=== PATIENT | female | born 1960 | race Caucasian/White ===

== ENCOUNTER → 2017-11-09 11:34 | Outpatient (CLI) | payer OTHER, SELFPAY ==
--- NOTE | 2017-11-09 11:37 | RAD_ITS ---
STUDY: X-RAY - LEFT SHOULDER REASON FOR EXAM: Female, 56 years old. Left shoulder pain. No known injury. TECHNIQUE: 4 view(s) of the shoulder. COMPARISON: None. FINDINGS: There is mild degenerative arthrosis of the glenohumeral articulation. Normal acromioclavicular joint. Normal acromion. Normal humeral head and visualized proximal humerus. The soft tissue structures are unremarkable. Normal visualized pulmonary apex. RAD/Shoulder min 2 Views IMPRESSION: Mild degree of degenerative changes. Electronically Signed: Ilir Jackson MD at 12:22 EDT Tel [phone], Service support ,
== END ==
PROVIDERS: Family Provider Internal Medicine; PCP Internal Medicine; Visit Provider Physician Assistant Surgical
DX: S46.912A Strain of unspecified muscle, fascia and tendon at shoulder and upper arm level, left arm, initial encounter (principal); X58.XXXA Exposure to other specified factors, initial encounter; M19.012 Primary osteoarthritis, left shoulder
CPT/HCPCS: 73030

== ENCOUNTER 2018-03-23 15:30 | Outpatient (RCR) | payer OTHER, SELFPAY ==
--- NOTE | 2018-02-17 16:53 | HP.PTEVAL_ITS ---
Patient's Visit Information JAMES BOURGEOIS is a 57 year old F referred to Physical Therapy by JANE Cavanaugh with a diagnosis of L shoulder strain.. Date of Evaluation: 02/17/18 Physical Therapist: Isaiah Rabago DPT, OC - Visit Plan Frequency: 3x /Week Duration: 4-6 Weeks Plan: 3x/week for 4 weeks for: 1. US nonthermal B shoulder. 2. PROM and grade 1 mobs B shoulder. 3. pulleys and keyona IR when able. 4. Teach shoulder and scap strength for HEP as able. ES if needed. - Subjective Subjective: B shoulder pain, L started a couple weeks ago and could hardly move L shoulder. Progressed since then. R one started hurting a few days ago. Neck always hurts and is chronic, worse with hands over head. H/o migraines. Numbness in B posterior hands but this is normal for her. Sleep is interrupted and tosses and turns due to shoulders. 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 Has psoriatic arthritis in hands,feet knees. Can't play volleyball in the last year. Having trouble crawling on floor with grandPersistIQby, holding her is hard.Dressing shirt hurts, reaching in shower hurts...was not that way before. - Pain L shoulder Pain Intensity (Out of 10): 2 Pain Intensity Range: 2 R shoulder Pain Intensity (Out of 10): 5 Pain Intensity Range: 1, 5 - Objective R>L pain today. Posture is forward head and ant scap. C/S aROM WFL and without pain, no asymmetries today. Scap ROM is good, retraction slightly limited. Elbow and wrist ROM WFL. Shoulders B ROM tight at end of flexion and abd but full PROM, pain at end range of activie adn passive IR/ER, flex, abd. Strength 4/5 int rotation, 3/5 R ext rot adn 4- L both with pain. Flexion and abd B painful and 3+. - Tory burns and + neer., + B scour test. + empty can B. Much better AROM flexion after keyona flexion. - Goals Goal 1:: Full UE AROM without pain Goal Time Frame: 4-6 Weeks Goal 2:: Work without noticing pain Goal Time Frame: 4-6 Weeks Goal 3:: I approp HEP for ROM adn strength adn to minimize future problems. Goal Time Frame: 4-6 Weeks - Rehabilitation Potential Physical Therapy Diagnosis: B shoulder OA Rehabilitation Potential: Good - Anticipated Interventions Patient/Client Instruction: Educate patient on: Condition, Plan of Care For the Purpose of:: To decrease pain, To decrease swelling/inflammation, To inc rease tolerance to activity/condition/position Therapeutic Exercise to Include: Strength training, Postural training, Passive ROM, Active ROM, Scapular Strength/Stabilization For the Purpose of:: To decrease pain, To increase ROM, To improve muscle performance and motor function, To improve ability of physical actions for home/community/work/leisure Manual Therapy Techniques to Include: Mobilization, Passive ROM, Soft tissue mobilization For the Purpose of:: To decrease pain, To increase tolerance to activity/condition/position TENS: Yes Cryotherapy (ice pack, ice massage): Yes Ultrasound (thermal/non thermal): Yes - nonthermal B shoulders. For the Purpose of:: To increase tolerance to activity/condition/position, To improve ability of physical actions for home/community/work/leisure Thank you for the opportunity to evaluate your patient. For Medicare and Medicare HMO plans, please review the plan of care and approve it. It will need to be FAXED BACK to us at [phone] for Medicare purposes. Please let me know if there are questions or concerns regarding this plan of care. Physician Signature: Date:
--- NOTE | 2018-03-23 15:47 | HP.PTDCSUM ---
HP - PT D/C Summary It has been my pleasure to treat JAMSE BOURGEOIS under orders from JANE Cavanaugh, for the diagnosis of L shoulder strain. for a total of 11 visit(s). Discharge Date: 03/23/18 Please see the following information for a summary of their discharge status. - Subjective Subjective: Very tired. has acute bronchitis. Rested last weekend and feels good this week. Doiong pendulum and doing great with 5# weight. No pain today. Will continue band exercises at home. Dizzyness is chronic. Will see ENT Apr 07. - Pain L shoulder Pain Intensity (Out of 10): 0 R shoulder Pain Intensity (Out of 10): 3 - Overall Improvement % Improvement: 90 - Objective Objective/Function: Full aROM B UE and neck without pain today. Posture is improved. Pt happy and ready to be done with PT today. - Goals Goal 1:: Full UE AROM without pain Goal Progress: Goal Met Goal 2:: Work without noticing pain Goal Progress: Goal Met Goal 3:: I approp HEP for ROM adn strength adn to minimize future problems. Goal Progress: Goal Met - Plan Plan: d/c, will check vertigo after patient sees Dr. Bernal(waiting at her request) - D/C Information Discharge Comments: Pt to notify doctor if pain returns. If there are questions or concerns regarding this patient's physical therapy, please feel free to call me at [phone]. Thank you for the referral of this patient. Sincerely, Isaiah Rabago, DPT, OC
== END 2018-03-23 19:00 | disposition home or self-care (01) ==
LOC: PT 15:30
PROVIDERS: Family Provider Internal Medicine; PCP Internal Medicine; Referring Provider Physician Assistant Surgical; Visit Provider Physician Assistant Surgical
DX: S46.912D Strain of unspecified muscle, fascia and tendon at shoulder and upper arm level, left arm, subsequent encounter (principal)
CPT/HCPCS: 97035; 97110; 97140; 97162; 97530

== ENCOUNTER → 2018-04-07 10:16 | Outpatient (CLI) | payer OTHER, SELFPAY ==
[2018-03-22 14:06] VITALS: BMI 46.4
--- NOTE | 2018-04-07 10:20 | BI_ITS ---
MAMMOGRAPHY - BILATERAL SCREENING REASON FOR EXAM: Female, 57 years old. Routine annual screening examination. PERTINENT HISTORY: Sister with breast cancer. TECHNIQUE: Digital bilateral breast romain (3D mammographic acquisition) in the CC and MLO projections. 2-D mediolateral oblique (MLO) and craniocaudad (CC) views of both breasts were obtained. CAD: Full Field Digital Mammography with Computer Added Detection was performed. COMPARISON: Comparison is made with prior study dated November 25, 2016 and August 22, 2015. FINDINGS: Breast Composition: The breasts are almost entirely fatty. There are no dominant masses or suspicious calcifications. Stable small benign-appearing bilateral axillary lymph nodes. No other significant abnormalities are identified. There has been no significant change since the prior study. BI/SCREENING MAMM (CAD), BILAT IMPRESSION: Stable bilateral screening mammogram. Yearly follow-up mammogram recommended. (A) ASSESSMENT CATEGORY: BIRADS Category 2: Benign. A letter regarding these results will be sent to the patient by the facility within 30 days. Approximately 10% of breast cancers are not detected by mammography. A normal mammogram should not delay biopsy of a clinically suspicious abnormality. [id number] Electronically Signed: Ilir Jackson MD at 11:58 EST Tel [phone], Service support ,
[2018-04-07 10:21] LABS: Absolute Lymphocyte Count 1.32 X10^3/ul (0.83-4.51); Absolute Neutrophil Count 2.9 X10^3/uL (2.0-7.7); Basophil# 0.01 X10^3/uL; Basophil% 0.2 % (0-1); Eosinophil# 0.16 X10^3/uL; Eosinophils% 3.3 % (0-5); Hematocrit 38.9 % (37-47); Hemoglobin 12.3 g/dl (12.0-15.0); Lymphocyte # 1.32 X10^3/ul (4.0); Lymphocyte % 27.2 % (19-41); Mean Corp Hgb Conc 31.6 g/gl (32-36); Mean Corpuscular Hgb 28.1 pg (27.0-32.0); Mean Platelet Vol. 10.1 fl (6.2-12.0); Monocyte# 0.46 X10^3/uL; Monocyte% 9.5 % (0-10); Neutrophil # 2.91 X10^3/uL (2.7-7.7); Neutrophil % 59.8 % (47-70); Platelet Count 312 K/mm3 (150-450); RBC Distribution Width CV 14.6 % (11.6-14.6); RBC Distribution Width SD 47.8 fl (35.1-43.9); Red Blood Count 4.37 M/mm3 (4.2-5.4); White Blood Count 4.9 K/mm3 (4.4-11.0)
[2018-04-07 10:22] LABS: POSITIVE COUNT NO; POSITIVE DIFFERENTIAL NO; POSITIVE MORPHOLOGY NO
--- NOTE | 2018-04-07 10:23 | BD_ITS ---
STUDY: DUAL ENERGY X-RAY ABSORPTIOMETRY / DXA REASON FOR EXAM: Female, 57 years old. Early menopause. Loss of height. TECHNIQUE: Bone Mineral Density (BMD) measurements of lumbar spine and bilateral hips were obtained. COMPARISON: Comparison is made with prior study dated August 28, 2015. FINDINGS: Lumbar Spine (L1-L4): g/cm2 (1.041) / T-score (-1.2) / Z-score (-0.3) Findings are suggestive of osteopenia with a low fracture risk. Left Femur Total: g/cm2 (0.965) / T-score (-0.3) / Z-score (0.3) Left Femoral Neck: g/cm2 (0.881) / T-score (-1.1) / Z-score (-0.1) Right Femur Total: g/cm2 (1.017) / T-score (0.1) / Z-score (0.7) Right Femoral Neck: g/cm2 (0.963) / T-score (0.5) / Z-score (0.5) The T-Scores on the most recent prior examination were: Lumbar Spine (L1-L4): There has been worsening of bone density since the previous examination. Left Femur Total: which represents a worsening of 1.8%. Right Femur Total: which represents a worsening of 0.2%. BD/Dexa Bone Density Study IMPRESSION: The patient is considered osteopenic as outlined below according to World Aris Organization (WHO) criteria with a low fracture risk. There has been worsening of bone density since the previous examination. Reference Information: The T-score is the number of standard deviations above or below the standard which is normal for young adults at their peak bone mineral density. The World Health Organization (WHO) interprets the T-scores as follows: Above -1 Normal bone density Between -1 and -2.5 Osteopenia Equal to / or below -2.5 Osteoporosis As a practical clinical guideline, osteopenia may be graded as follows: Mild -1 through -1.5 Moderate -1.6 through -2.0 Severe -2.1 through -2.4 The Z-score is the number of standard deviations above or below age-matched controls. A Z-score of less than -1.5 would be considered abnormal. References: 1. NIH Osteoporosis and Related Bone Diseases http://www.osteo.org 2. International Society for Clinical Densitometry http://www.iscd.org 3. National Osteoporosis Foundation http://www.nof.org Electronically Signed: Ilir Jackson MD at 10:46 EST Tel [phone], Service support ,
[2018-04-07 10:44] LABS: Vitamin B12 > 2000 pg/mL (211-911)
[2018-04-07 10:45] LABS: ALB/GLOB Ratio 0.8 RATIO (0.9-2.4); AST(SGOT) 26 U/L (15-37); Alanine Aminotransfer ALT/SGPT 25 U/L (13-56); Albumin, Serum 3.3 g/dL (3.2-5.0); Alkaline Phosphatase 78 U/L (45-117); Anion Gap 8 (5-15); BUN 21 mg/dL (7-18); BUN/Creat Ratio 16.2 RATIO (10-20); Calcium,Total 8.9 mg/dL (8.5-10.1); Chloride 106 mmol/L (98-107); Cholesterol 267 mg/dL (200); EST Glomerular Filtration Rate 45 mL/min (>60); Est Glom Filt Rate - Afr Amer 55 mL/min (>60); Glucose 96 mg/dL (74-106); High Density Lipoprotein 73 mg/dL; Potassium 3.9 mmol/L (3.5-5.1); Protein, Total 7.3 g/dL (6.4-8.2); Sodium Level 141 mmol/L (136-145); Triglycerides 95 mg/dL; Very Low Density Lipoprotein 19 mg/dL (5-40)
== END ==
PROVIDERS: Family Provider Internal Medicine; PCP Internal Medicine; Referring Provider Internal Medicine; Visit Provider Internal Medicine
DX: Z12.31 Encounter for screening mammogram for malignant neoplasm of breast (principal); K91.2 Postsurgical malabsorption, not elsewhere classified; M81.0 Age-related osteoporosis without current pathological fracture; Z80.3 Family history of malignant neoplasm of breast
CPT/HCPCS: 36415; 77063; 77067; 77080; 80053; 80061; 82306; 82607; 85025

== ENCOUNTER → 2018-04-13 17:23 | Outpatient (CLI) | payer OTHER, SELFPAY ==
[2018-03-22 14:06] VITALS: BMI 46.4
[2018-04-13 08:53] VITALS: BMI 46.4
--- NOTE | 2018-04-13 17:27 | CT_ITS ---
HISTORY: CHRONIC SPHENOID SINUSITIS, TECHNIQUE: Helically acquired images were obtained of the paranasal sinuses. A radiation dose optimization technique was used for this scan. IV Contrast dosage and agent: None. COMPARISON: None FINDINGS: The paranasal sinuses are well developed. The left sphenoid sinus is large compared to the smaller right sphenoid. The paranasal sinuses are clear throughout. The ostiomeatal units are patent bilaterally. The nasal septum shows minor S-shaped curvature anteriorly to the right and posteriorly to the left. Nasal turbinates are not enlarged. The left mastoid is better developed than the right. Middle air cavities appear clear. CT/Sinus/Facial Bone IMPRESSION: 1. The paranasal sinuses including sphenoid sinuses are clear. 2. Nasal septal minor deviation, not believe significant. Individualized dose optimization techniques were used for this CT. at 0742 Reported and signed by: Wesley Mckeon MD Electronically Signed: Wesley Mckeon, at 7:40 EST Tel , Service support ,
--- OUTSIDE RECORDS SUMMARY | 2018-05-30 22:22 | XMS RPT_ITS ---
:1960 Author Organization OHIP Support Name Relationship Address Phone LIANE SYKES Unavailable [address] + [place] [address] [facility] Unavailable [address] + [place] [address] LIANE SYKES Unavailable [address] + [place] [address] [facility] Unavailable [address] + [place] [address] LIANE SYKES Unavailable [address] + [place] [address] [facility] Unavailable [address] + [place] [address] DANE SYKESO Unavailable [address] + [place] [address] [facility] Unavailable [address] + [place] [address] DANE SYKESO Unavailable [address] + [place] [address] [facility] Unavailable [address] + [place] [address] SIM SYKESARDO Unavailable [address] + [place] [address] [facility] Unavailable [address] + [place] [address] DANE SYKESO Unavailable [address] + [place] [address] [facility] Unavailable [address] + [place] [address] SIM SYKESARDO Unavailable [address] + [place] [address] [facility] Unavailable [address] + [place] [address] CHRISTELLE, LIANE Unavailable [address] + [place] [address] [facility] Unavailable [address] + [place] [address] CHRISTELLE, LIANE Unavailable [address] + [place] [address] [facility] Unavailable [address] + [place] [address] CHRISTELLE, LIANE Unavailable [address] + [place] [address] [facility] Unavailable [address] + [place] [address] CHRISTELLE, LIANE Unavailable [address] + [place] [address] [facility] Unavailable [address] + [place] [address] CHRISTELLE, LIANE Unavailable [address] [place] [address] RD + [place] [address] [facility] Unavailable [address] + [place] [address] CHRISTELLE, LIANE Unavailable [address] [place] [address] RD + [place] [address] [facility] Unavailable [address] + [place] [address] CHRISTELLE, LIANE Unavailable [address] + [place] [address] [facility] Unavailable [address] + [place] [address] CHRISTELLE, LIANE Unavailable [facility] [address] + [place] [address] [facility] Unavailable [address] + [place] [address] CHRISTELLE, LIANE Unavailable [facility] [address] + [place] [address] [facility] Unavailable [address] + [place] [address] CHRISTELLE, LIANE Unavailable [facility] [address] + [place] [address] [facility] Unavailable [address] + [place] [address] LIANE SYKES Unavailable [address] + [place] [address] [facility] Unavailable [address] + [place] [address] Care Team Providers Name Role Phone Winifred Wang D.C. Attending Unavailable Oleghe, Efewongbe Referring Unavailable CainAdam RETAIL INTERIOR DESIGNER-C Attending Unavailable Oleghe, Efewongbe Referring Unavailable Jabari, Rashid Attending Unavailable Oleghe, Efewongbe Primary Care Unavailable Jabari, Rashid Attending Unavailable Oleghe, Efewongbe Referring Unavailable Jabari, Rashid Attending Unavailable Sujata Reece Attending Unavailable Cain, Adam RETAIL INTERIOR DESIGNER-C Attending Unavailable Cain, Adam RETAIL INTERIOR DESIGNER-C Referring Unavailable Oleghe, Efewongbe Primary Care Unavailable Dennis Canales D.O. Attending Unavailable Oleghe, Efewongbe Referring Unavailable Bernal, Isaiah Attending Unavailable Bernal, Isaiah Referring Unavailable Oleghe, Efewongbe Primary Care Unavailable Jose Maria Johnson Attending Unavailable Talampas, Desi Referring Unavailable Talampas, Desi Primary Care Unavailable Talampas, Desi Primary Care Unavailable Referred, Self Attending Unavailable Jabari, Rashid Attending Unavailable Jabari, Rashid Referring Unavailable Talampas, Desi Primary Care Unavailable Jabari, Rashid Attending Unavailable Talampas, Desi Referring Unavailable Talampas, Desi Primary Care Unavailable Jabari, Rashid Attending Unavailable Jabari, Rashid Referring Unavailable Oleghe, Efewongbe Primary Care Unavailable Oleghe, Efewongbe Attending Unavailable Oleghe, Efewongbe Referring Unavailable Oleghe, Efewongbe Primary Care Unavailable Oleghe, Efewongbe Attending Unavailable Oleghe, Efewongbe Referring Unavailable Jabari, Rashid Attending Unavailable Oleghe, Efewongbe Referring Unavailable Bernal, Isaiah Attending Unavailable Bernal, Isaiah Referring Unavailable Oleghe, Efewongbe Primary Care Unavailable Winifred Wang D.C. Attending Unavailable Oleghe, Efewongbe Referring Unavailable PROBLEMS PROBLEMS DATE TYPE CONDITION / CODE ATTENDING STATUS SOURCE 05/11/2018 Unknown J44.9 - Chronic Dennis Parker, Active [facility] obstructive D[facility] pulmonary disease, Hospital unspecified / Repository J44.9(ICD-10) 04/20/2018 Unknown R94.4 - Abnormal Adam Cain Active [facility] results of kidney RETAIL INTERIOR DESIGNER-C [facility] function studies / Hospital R94.4(ICD-10) Repository 04/14/2018 Unknown M99.05 - Segmental Dossie, Winifred Active [facility] and somatic D[facility] dysfunction of Hospital pelvic region / Repository M99.05(ICD-10) 04/14/2018 Unknown M99.03 - Segmental Dossie, Winifred Active [place] and somatic [facility] Community dysfunction of Hospital lumbar region / Repository M99.03(ICD-10) 04/07/2018 Unknown K91.2 - Oleghe, Active [facility] elsewhere Repository classified / K91.2(ICD-10) 04/07/2018 Unknown Z12.31 - Encounter Oleghe, Active [facility] for screening [facility] mammogram for Hospital malignant neoplasm Repository of breast / Z12.31(ICD-10) 04/06/2018 Unknown S46.912D - Strain Rashid Barboza Active [place] of unspecified Community muscle, fascia and Hospital tendon at shoulder Repository and upper arm level, left arm, subsequent encounter / S46.912D(ICD-10) 03/22/2018 Unknown J20.9 - Acute Rashid Barboza Active [facility] bronchitis, Community unspecified / Hospital J20.9(ICD-10) Repository 03/03/2018 Unknown R42 - Dizziness Oleghe, Active [place] and giddiness / [facility] Community R42(ICD-10) Hospital Repository 11/09/2017 Unknown S46.912A - Strain Rashid Barboza Active [facility] of unspecified Community muscle, fascia and Hospital tendon at shoulder Repository and upper arm level, left arm, initial encounter / S46.912A(ICD-10) PROCEDURES PROCEDURES No Procedure Records FoundRESULTS RESULTS DISCHARGE INSTRUCTION Observed: 05/20/2018 Status: F Source: [place] 10:27 AM [facility] HOSPITAL REPOSITORY [facility] Medical Records Department [address] [place] [address] Instructions for Home/Discharge Instructions 05/20/18 1026 MR#: [id number] Acct: [id number] Name: ZAKIA SYKES Rep #: [id number] : 1960 57 From: Isaiah Bernal MD PCP: Lenka Ferguson MD Status: REG SDC Discharge Diet: No Restrictions Discharge Activity: Return to Normal Activity Call your doctor if your incision/area has: Sudden Increased Bleeding Call your doctor if you observe: Fever of 101 or Higher, Uncontrolled pain Allergies/Adverse Reactions: Allergies cat dander Allergy (Verified 05/20/18 08:37) Shortness of breath dog dander Allergy (Verified 05/20/18 08:37) Shortness of breath megestrol Allergy (Verified 05/20/18 08:37) Unknown I get crazy and suicidal shellfish derived Allergy (Verified 05/20/18 08:37) Vomiting MEGISTROL Allergy (Uncoded 05/20/18 08:37) I GET CRAZY AND SUICIDAL Medications to take at Discharge Clonazepam [Klonopin] 0.5 mg PO Q12H PRN 07/24/15 fluocinolone acetonide oil 0.01 % ear drops 5 drp OTIC BID 03/03/18 ipratropium bromide 42 mcg (0.06 %) nasal spray 2 spray INTRANASAL TID 03/03/18 ivermectin 1 % topical cream 1 applic TOPICAL DAILY 03/03/18 albuterol sulfate HFA 90 mcg/actuation aerosol inhaler 1 - 2 puff INHALATION Q4H PRN PRN #8.5 g 03/22/18 montelukast 10 mg tablet 10 mg PO QPM #90 tab 03/22/18 alendronate 70 mg tablet 70 mg PO ESCALERA #12 tab 04/20/18 amitriptyline 10 mg tablet 10 mg PO QHS #90 tab 04/20/18 calcium carbonate 333 mg-magnesium oxide 133 mg-zinc sulf 5 mg tablet 2 tab PO DAILY tab 04/20/18 cholecalciferol (vitamin D3) 5,000 unit capsule 5,000 unit PO DAILY 04/20/18 ferrous gluconate 240 mg (27 mg iron) tablet 240 mg PO DAILY tab 04/20/18 multivitamin tablet 1 tab PO DAILY 04/20/18 pantoprazole 40 mg tablet,delayed release 40 mg PO DAILY #90 tab 04/20/18 paroxetine 40 mg tablet 40 mg PO DAILY #90 tab 04/20/18 rosuvastatin 10 mg tablet 10 mg PO DAILY #90 tab 04/20/18 vitamin E (dl, acetate) 400 unit capsule 400 unit PO DAILY 04/20/18 Meloxicam 0.5%/ Gabapentin 6%,/Lidacaine 2%/ Carmen 1 applic TOPICAL BID 04/27/18 Icosapent Ethyl [Vascepa] 2 g PO BID 05/13/18 Primary Care Physician: Lenka Ferguson MD [Primary Care Provider] - Test Results: Test results from this visit will be discussed in further detail at your follow-up appointment, if applicable. Please Follow Up With: Isaiah Bernal MD When: 2 weeks 05/20/18 1027 <Electronically signed by Isaiah Bernal MD> Date Isaiah Bernal MD CC: Lenka Ferguson MD Signed BURSA/SYNOVIAL CYST Observed: 05/20/2018 Status: F Source: [place] 10:00 AM [facility] REPOSITORY Patient: ZAKIA SYKES : 1960 (57/F) Acct Num: [id number] Phys: Isaiah Bernal MD Unit Num: [id number] Loc: [facility] Specimen: [id number] Received: 05/20/18 - 1110 Spec Type: BURSA TISSUES 1 TISSUES: Bursa, NOS COMMENT The cyst consists of benign respiratory epithelium in associated benign lymphoid tissue. There is no evidence of malignancy. Immunohistochemistry ([id number]) reveals a polytypic lymphoid tissue. Clinical correlation is suggested. GROSS DESCRIPTION Received is one container labeled with the patient name and designated pharyngeal bursal cyst. The specimen consists of one irregular fragment of light valenzuela soft tissue that measures 1 x 0.7 x 0.2 cm. The specimen is totally submitted in one cassette. AM:sp 05/21/18 TC:5 CPT: 93927 HEADER OPERATION: Biopsy, nasopharynx, visible lesion PRE-OP DIAGNOSIS: Pharyngeal bursitis and headache TISSUE SUBMITTED: Pharyngeal bursal cyst MICROSCOPIC DESCRIPTION Slides are reviewed. MICROSCOPIC DIAGNOSIS Pharyngeal bursal cyst, excision: Benign cyst. See comment. AM:cristy 05/23/18 Signed Maxi WellsDO 05/24/18 <signature on file> Performed By: #### PBUR #### [facility] [address] [place], [address] IMMUNOHISTOCHEMISTRY Observed: 05/20/2018 Status: F Source: [place] 12:00 AM [facility] REPOSITORY Patient: ZAKIA SKYES : 1960 (57/F) Acct Num: [id number] Phys: Isaiah Bernal MD Unit Num: [id number] Loc: [facility] Specimen: [id number] Received: 05/23/18 - 1206 Spec Type: IMMUNO TISSUES 1 TISSUES: Bursa, NOS SPECIMEN INFORMATION: Tissue Source: Pharyngeal bursal cyst Clinical Info: Pharyngeal bursitis and headache Specimen Number: [id number] CPT code: 06010, 24282 x11 METHODOLOGY: Deparaffinized sections of prefer/formalin-fixed tissue or PAP/DQ stained slides are incubated with monoclonal/polyclonal antibodies/oligonucleotide probes. Localization is made via biotin free immunoperoxidase method. Appropriate controls are performed and reacted as expected. Results on target cell population are indicated in the following table: RESULTS: ANTIBODY / CLONE RESULT AE1-3 (AE1/AE3/PCK26) positive CK7 (OV-TL12/30) positive CK8 (22xzehJ37) positive CK20 (KS20.8) negative CD3 (PS1) positive CD5 (SP10) positive CD20 (L26) positive CD43 (L60) positive CD45 (RP2/18) positive CD79a (11E3) positive CD138 (B-A38) positive, focal Ki-67 (30-9) negative These tests were developed and their performance characteristics determined by [facility]. They may not have been cleared or approved by the U.S. Food and Drug Administration. The FDA has determined that such clearance or approval is not necessary. INTERPRETATION: Pharyngeal bursal cyst: Consistent with benign pharyngeal cyst, inflamed. AM:antonio 05/24/18 Comment: There is no evidence of lymphoproliferative disorder. PHYSICIAN AND INSTITUTION [facility] [address] [place] [address] Signed Maxi WellsDO 05/24/18 <signature on file> Performed By: #### PIMM #### [facility] [address] [place], [place] [address]e. [place], [address] PULMONARY VISIT REPORT Observed: 05/11/2018 Status: F Source: [place] 7:14 AM [facility] REPOSITORY [facility] Pulmonary Medicine of [address] [place] [address] OFFICE VISIT Date of Service: 05/11/18 MR#: [id number] Acct: [id number] Name: CHRISTELLEZAKIA Garrett Rep #: [id number] : 1960 Provider: Dennis Canales D.O. Age/Sex: 57/F Location: [facility] Status: Signed Assessment AND Plan 1. Chronic obstructive pulmonary disease J44.9 Plan While the patient does have a diagnosis of COPD listed on her medical history, it is more likely that she has mild intermittent asthma. Although she does have significant prior secondhand smoke exposure, she has never been a smoker herself. In order to answer this question definitively, I have recommended that the patient obtain pulmonary function studies. She will continue to utilize albuterol on an as-needed basis in the interim. I will see her back in our office in 1 month to go over the results of her pulmonary function testing. Orders Orders: Plan Detail Goals Decrease pain and spasm Improve ability to walk Follow Up 1 Month (DMB) HPI HPI Comments Details: The patient is a 57-year-old female who presents to the clinic today in referral for evaluation of COPD. The patient is currently being followed by Dr. Ferguson. The patient presents today reporting that she was previously told that she had COPD. However, she is questioning this diagnosis. She does report having been diagnosed with asthma while living in [place] previously. She does currently utilize an albuterol rescue inhaler on an exceedingly infrequent basis. Cat and dog dander tend to be triggers for worsening in her breathing quality. She does report the presence of baseline exertional dyspnea along with intermittent wheezing. She denies the presence of chest tightness or cough. She reports no history of seasonal allergic rhinitis, but she is currently prescribed Singulair. She does report subjective improvement in her breathing quality with use of albuterol. Despite having a diagnosis of COPD listed in her medical history, the patient has never been evaluated by a line therapist previously, nor has she ever undergone formal pulmonary function studies. The patient is currently employed working in patient registration. She does not keep any pets in her home environment. Her weight has been stable. She is currently seeing Dr. Bernal of ENT and is scheduled to undergo some form of a cyst removal this upcoming months. She is a lifelong non-smoker, but does report secondhand smoke exposure, having grown up in a smoking household. She also reports having been exposed to an individual with TB in 1984. She does not recall ever having been treated previously for latent TB. She denies fevers, chills or night sweats. Intake Vital Signs05/11/18 Height 5 ft 5 in 05/11/18 Weight: 249 lb Intake Visit Reasons: COPD Accompanied by: Self Allergies cat dander Allergy (Verified 05/11/18 06:08) Shortness of breath dog dander Allergy (Verified 05/11/18 06:08) Shortness of breath megestrol Allergy (Verified 05/11/18 06:08) Unknown shellfish derived Allergy (Verified 05/11/18 06:08) Vomiting MEGISTROL Allergy (Uncoded 05/11/18 06:08) I GET CRAZY AND SUICIDAL Medications Clonazepam [Klonopin] 0.5 mg PO Q12H PRN 07/24/15 [History Confirmed 05/11/18] Cyclobenzaprine [Flexeril] 10 mg PO QHS 07/24/15 [History Confirmed 05/11/18] fluocinolone acetonide oil 0.01 % ear drops 5 drp OTIC BID 03/03/18 [History Confirmed 05/11/18] gabapentin 100 mg capsule 100 mg PO BID #60 cap 03/03/18 [Rx Confirmed 05/11/18] ipratropium bromide 42 mcg (0.06 %) nasal spray 2 spray INTRANASAL TID 03/03/18 [History Confirmed 05/11/18] ivermectin 1 % topical cream 1 applic TOPICAL DAILY 03/03/18 [History Confirmed 05/11/18] albuterol sulfate HFA 90 mcg/actuation aerosol inhaler 1 - 2 puff INHALATION Q4H PRN PRN #8.5 g 03/22/18 [Rx Confirmed 05/11/18] montelukast 10 mg tablet 10 mg PO QPM #90 tab 03/22/18 [Rx Confirmed 05/11/18] B-complex with vitamin C tablet 2 tab PO DAILY 04/20/18 [History Confirmed 05/11/18] alendronate 70 mg tablet 70 mg PO ESCALERA #12 tab 04/20/18 [Rx Confirmed 05/11/18] amitriptyline 10 mg tablet 10 mg PO QHS #90 tab 04/20/18 [Rx Confirmed 05/11/18] calcium carbonate 333 mg-magnesium oxide 133 mg-zinc sulf 5 mg tablet 1 tab PO BID tab 04/20/18 [History Confirmed 05/11/18] cholecalciferol (vitamin D3) 5,000 unit capsule 5,000 unit PO DAILY 04/20/18 [History Confirmed 05/11/18] ferrous gluconate 240 mg (27 mg iron) tablet 240 mg PO DAILY tab 04/20/18 [History Confirmed 05/11/18] icosapent ethyl 1 gram capsule 2 g PO BID #360 cap 04/20/18 [Rx Confirmed 05/11/18] multivitamin tablet 1 tab PO DAILY 04/20/18 [History Confirmed 05/11/18] omega-3 fatty acids 1,250 mg capsule 1,250 mg PO DAILY 04/20/18 [History Confirmed 05/11/18] pantoprazole 40 mg tablet,delayed release 40 mg PO DAILY #90 tab 04/20/18 [Rx Confirmed 05/11/18] paroxetine 40 mg tablet 40 mg PO DAILY #90 tab 04/20/18 [Rx Confirmed 05/11/18] rosuvastatin 10 mg tablet 10 mg PO DAILY #90 tab 04/20/18 [Rx Confirmed 05/11/18] vitamin E (dl, acetate) 400 unit capsule 400 unit PO DAILY 04/20/18 [History Confirmed 05/11/18] Meloxicam 0.5%/ Gabapentin 6%,/Lidacaine 2%/ Carmen TOPICAL 04/27/18 [History Confirmed 05/11/18] PFSH Family History Mother Diabetes Heart disease Father Diabetes Heart disease Sister Breast cancer Brother Testicular cancer Social History Smoking Status: Never smoker second hand exposure: Yes alcohol intake: never substance use type: does not use what type of physical activity do you participate in: walking Review of Systems Const CONSTITUTIONAL: Positive headache(s); negative anorexia, body ache, chills, daytime sleepiness, fever(s), night sweats, oral thrush, stops breathing during sleep, weight loss, sleeping in chair, fatigue, weight loss, weight gain, frequent colds, seasonal allergies, other or orthopnea EETM Ear Nose Throat Mouth: Positive hearing normal and headache(s); negative hard of hearing, hoarseness, dry mouth in morning, change in vision, itchy eyes, eye pain, swallowing Difficulty, ear pain, nose bleed, mouth pain, nasal congestion, nasal discharge, post nasal drip, sinus pain, sinus pressure, sore throat or other Cardio Cardiovascular: Negative chest pain, chest pain at rest, chest pain with activity, irregular heart rhythm, edema, palpitations, murmur, other or shortness of breath when lying down Resp Respiratory: Positive as per HPI and shortness of breath shortness of breath: Positive with activity; negative pain with cough, wheezing, chest congestion, cough, chest tightness, pain on inspiration, inhalers, increase use of rescue inhalers, snoring, apnea or other Gastro Gastrointestional: Negative bloody stools, change in appetite, difficulty swallowing, reflux, hematemesis, melena stool, loose stool, constipation or other Genitourinary: Negative blood in urine, nocturia, pain with urination or other Musc Musculoskeletal: Negative body pain, back pain, neck pain or other Skin/Breast Skin/Breast: Negative dry skin, itching, rash, unusual bruising, breast lump or other Neuro Neurological: Negative restless legs, confusion, weakness or other Psych Psychocological: Negative abnormal sleep pattern, anxiety, thoughts of hurting self/others, hopelessness or other Lymph Lymphatic: Negative easy bleeding, easy bruising, swollen lymph nodes or other Exam Const Constitutional: Positive conversant, cooperative, in no acute respiratory distress, well developed, well nourished, good hygiene and obese Head Head: Positive normocephalic and atraumatic; negative cyanosis of lips/distal nose Eyes Eye: Positive clear conjunctiva; negative nystagmus or scleral abnormality Ears Ear: Positive hearing normal; negative hard of hearing Nose Nose: Positive external nose normal; negative epistaxis Mouth Mouth: Positive oral mucosae normal and posterior oropharynx is adequate; negative no lesions or post nasal drip Mallampati Score: II: Mallampati Score Neck Neck: Positive normal visual inspection, trachea midline and thick neck; negative lymphadenopathy Chest Wall Chest: Positive symmetric chest movement Normal AP diameter. Resp lung sounds: Positive clear to auscultation and good air exchange; negative wheezes, rhonchi or rales Cardio Cardiac: Positive regular rate, regular rhythm, S1 normal and S2 normal; negative rub, gallop or murmur GI GI: Positive normal bowel sounds and obese Soft without distention Genitourinary: Positive deferred Musc Musculoskeletal: Positive steady gait Skin Pulmonary Skin Exam: Positive intact; negative lesion, ulcers, dermal atrophy or rash Pulses Pulse: Yes Pedal pulses present: Extremities Extremities: No clubbing, No cyanosis, No edema Neuro Neurologic: Yes conversant, Yes no focal neuro deficits, Yes cooperative Lymph Lymphatic: No lymphadenopathy Psych Appearance: Positive grossly normal Mental Status: Positive mental status grossly normal Mood: Positive congruent mood Affect: Positive normal affect Coding Level of Care Code Off vis,new,level 4 Diagnoses Chronic obstructive pulmonary disease J44.9 05/11/18 0714 <Electronically signed by Dennis Canales DO> Date Dennis Canales DO Cosigner Signature: Date (if applicable) CC: Lenka Ferguson MD COMPREHENSIVE METABOLIC Collected: 05/05/2018 Status: F Source: [place] PROFIL 1:35 PM [facility] REPOSITORY TYPE CODE TESTS RESULT OUT OF RANGE REFERENCE UNITS LAB L501.0100 74-106 mg/dL High GLU 141 Result Comment: Fasting Glucose result greater than or equal to 126 mg/dL suggests DIABETES MELLITUS per A.D.A. criteria. Please note revised GLUCOSE reference range effective 2017. LAB L501.1000 7-18 mg/dL Normal BUN 16 LAB L501.1100 0.55-1.02 mg/dL High CREAT,SERUM 1.03 Result Comment: The validity of the calculated GFR AND GFRAA in patients over 70 years has not been determined. Clinical correlation is essential. LAB L501.1110 >60 mL/min Low EST GFR 59 Result Comment: Non- GFR Calc LAB L501.1115 >60 mL/min Normal EST GFR - AA 71 Result Comment: GFR Calc LAB L501.1300 10-20 RATIO Normal BUN/CRE 15.5 LAB L501.1500 6.4-8.2 g/dL T Normal PROT 7.3 LAB L501.1800 3.2-5.0 g/dL Normal ALB 3.4 LAB L501.1950 2.2-4.2 g/dL Normal GLOB 3.9 LAB L501.2000 0.9-2.4 RATIO Normal A/G 0.9 LAB L501.2200 8.5-10.1 mg/dL CA Normal 9.1 LAB L501.4100 15-37 U/L Normal AST 32 LAB L501.4305 45-117 U/L Normal ALK P 88 LAB L501.4405 13-56 U/L Normal ALT 42 LAB L501.4600 0.20-1.00 mg/dL T Normal BILI 0.30 LAB L501.5300 136-145 mmol/L NA Normal 143 LAB L501.5600 3.5-5.1 mmol/L Low K 3.4 LAB L501.5900 98-107 mmol/L CL Normal 104 LAB L501.6100 21.0-32.0 mmol/L Normal CO2 28.0 LAB L501.6200 5-15 Normal GAP 11 Performed By: #### L500.4050 #### [facility] [address] [place], [address] URGENT CARE VISIT Observed: 04/22/2018 Status: F Source: [place] REPORT 12:41 PM [facility] REPOSITORY [facility] [address] [place] [address] OFFICE VISIT Date of Service: MR#: [id number] Acct: [id number] Name: ZAKIA SYKES Rep #: [id number] : 1960 Provider: Rashid LARA Age/Sex: 57/F Location: [facility] Status: Signed Intake Intake Visit Reasons: Amb Documentation Allergies cat dander Allergy (Verified 04/22/18 12:21) Shortness of breath dog dander Allergy (Verified 04/22/18 12:21) Shortness of breath megestrol Allergy (Verified 04/22/18 12:21) Unknown shellfish derived Allergy (Verified 04/22/18 12:21) Vomiting MEGISTROL Allergy (Uncoded 04/22/18 12:21) I GET CRAZY AND SUICIDAL Medications Clonazepam [Klonopin] 0.5 mg PO Q12H PRN 07/24/15 [History Confirmed 04/20/18] Cyclobenzaprine [Flexeril] 10 mg PO QHS 07/24/15 [History Confirmed 04/20/18] fluocinolone acetonide oil 0.01 % ear drops 5 drp OTIC BID 03/03/18 [History Confirmed 04/20/18] gabapentin 100 mg capsule 100 mg PO BID #60 cap 03/03/18 [Rx Confirmed 04/20/18] ipratropium bromide 42 mcg (0.06 %) nasal spray 2 spray INTRANASAL TID 03/03/18 [History Confirmed 04/20/18] ivermectin 1 % topical cream 1 applic TOPICAL DAILY 03/03/18 [History Confirmed 04/20/18] albuterol sulfate HFA 90 mcg/actuation aerosol inhaler 1 - 2 puff INHALATION Q4H PRN PRN #8.5 g 03/22/18 [Rx Confirmed 04/20/18] azithromycin 250 mg tablet See Rx Instructions PO .COMPLEX #6 tab 03/22/18 [Rx Confirmed 04/20/18] montelukast 10 mg tablet 10 mg PO QPM #90 tab 03/22/18 [Rx Confirmed 04/20/18] B-complex with vitamin C tablet 2 tab PO DAILY 04/20/18 [History Confirmed 04/20/18] alendronate 70 mg tablet 70 mg PO ESCALERA #12 tab 04/20/18 [Rx Confirmed 04/20/18] amitriptyline 10 mg tablet 10 mg PO QHS #90 tab 04/20/18 [Rx Confirmed 04/20/18] calcium carbonate 333 mg-magnesium oxide 133 mg-zinc sulf 5 mg tablet 1 tab PO BID tab 04/20/18 [History Confirmed 04/20/18] cholecalciferol (vitamin D3) 5,000 unit capsule 5,000 unit PO DAILY 04/20/18 [History Confirmed 04/20/18] ferrous gluconate 240 mg (27 mg iron) tablet 240 mg PO DAILY tab 04/20/18 [History Confirmed 04/20/18] icosapent ethyl 1 gram capsule 2 g PO BID #360 cap 04/20/18 [Rx Confirmed 04/20/18] multivitamin tablet 1 tab PO DAILY 04/20/18 [History Confirmed 04/20/18] omega-3 fatty acids 1,250 mg capsule 1,250 mg PO DAILY 04/20/18 [History Confirmed 04/20/18] pantoprazole 40 mg tablet,delayed release 40 mg PO DAILY #90 tab 04/20/18 [Rx Confirmed 04/20/18] paroxetine 40 mg tablet 40 mg PO DAILY #90 tab 04/20/18 [Rx Confirmed 04/20/18] rosuvastatin 10 mg tablet 10 mg PO DAILY #90 tab 04/20/18 [Rx Confirmed 04/20/18] vitamin E (dl, acetate) 400 unit capsule 400 unit PO DAILY 04/20/18 [History Confirmed 04/20/18] PFSH Medical History Psoriasis (Chronic) Psoriatic arthritis (Chronic) Knee pain (Acute) Shoulder pain (Acute) Back pain (Acute) SOB (shortness of breath) (Acute) Migraine (Acute) Hay fever (Acute) Fatigue (Acute) Anemia (Acute) Asthma (Acute) Arthritis (Acute) Surgical History History of carpal tunnel surgery of left wrist (Acute) History of eye surgery (Acute) History of hysterectomy (Acute) History of lateral meniscus repair of left knee (Acute) Family History Mother Diabetes Heart disease Father Diabetes Heart disease Sister Breast cancer Brother Testicular cancer HPI HPI Details: ZAKIA SYKES, is a 57 F who presents to the office today for complaint of pain to the left index finger. Patient states that 2 days ago she fell in her yard and later noticed a bump on the first joint of the left index finger. She stated being concerned for a possible dislocation or fracture and requested an x-ray prior to coming to the office today. She denies any numbness or tingling or loss of range of motion to the finger. No other associated symptoms or alleviating/aggravating factors. ROS Const Constitutional: No chills, fever(s), fatigue or abnormal sleep pattern Musc Musculoskeletal: Positive for joint pain; no stiffness, tingling, numbness or limited range of motion Skin Skin: No wounds or lesions Neuro Neurology: No behavioral changes, confusion, tingling or numbness Psych Psychiatric: No behavioral changes, No confusion, No abnormal sleep pattern Endo Endocrine: No fatigue Exam Const General: cooperative, healthy appearing Musc Musculoskeletal: Yes joint tenderness (Mild soft tissue swelling to the left index finger at the MCP PIP joint.) Skin General: no rashes or lesions noted Neuro General: alert, CN's II-XI intact bilaterally Psych Appearance: grossly normal Mental Status: mental status grossly normal Assessment AND Plan Problems 1. Strain of left index finger Status Ruled-out Plan X-ray of left index finger showing no acute bony abnormality as reported by radiology. Patient advised to use ibuprofen or Tylenol as needed for pain. Advised follow-up with PCP 7-10 days if no better or sooner if worse. Patient verbalized understanding and agreement with all the above. Plan Detail Goals Decrease pain and spasm Improve ability to walk Coding Level of Care Code Off vis,est,level 3 Diagnoses Strain of left index finger 04/22/18 1241 <Electronically signed by Rashid LARA> Date Rashid LARA Cosigner Signature: Date (if applicable) CC: INTERNAL MEDICINE Observed: 04/22/2018 Status: F Source: [place] OFFICE VISIT 9:13 AM [facility] [place] [address] [place] [address] OFFICE VISIT Date of Service: 04/20/18 MR#: [id number] Acct: [id number] Name: ZAKIA SYKES Rep #: [id number] : 1960 Provider: Adam Cain NP Age/Sex: 57/F Location: [facility] [place] Status: Signed Intake Vital Signs04/20/18 Body Mass Index (BMI) 46.4 04/20/18 Height 5 ft 1.5 in Intake Visit Reasons: f/u labs, OFC R/S FROM 04/13/18 Chief Complaint: f/u labs Is patient in pain?: Yes (headache) Allergies cat dander Allergy (Verified 03/22/18 14:07) Shortness of breath dog dander Allergy (Verified 03/22/18 14:07) Shortness of breath megestrol Allergy (Verified 03/22/18 14:07) Unknown shellfish derived Allergy (Verified 03/22/18 14:07) Vomiting MEGISTROL Allergy (Uncoded 03/22/18 14:07) I GET CRAZY AND SUICIDAL Medications Clonazepam [Klonopin] 0.5 mg PO Q12H PRN 07/24/15 [History Confirmed 04/20/18] Cyclobenzaprine [Flexeril] 10 mg PO QHS 07/24/15 [History Confirmed 04/20/18] fluocinolone acetonide oil 0.01 % ear drops 5 drp OTIC BID 03/03/18 [History Confirmed 04/20/18] gabapentin 100 mg capsule 100 mg PO BID #60 cap 03/03/18 [Rx Confirmed 04/20/18] ipratropium bromide 42 mcg (0.06 %) nasal spray 2 spray INTRANASAL TID 03/03/18 [History Confirmed 04/20/18] ivermectin 1 % topical cream 1 applic TOPICAL DAILY 03/03/18 [History Confirmed 04/20/18] albuterol sulfate HFA 90 mcg/actuation aerosol inhaler 1 - 2 puff INHALATION Q4H PRN PRN #8.5 g 03/22/18 [Rx Confirmed 04/20/18] azithromycin 250 mg tablet See Rx Instructions PO .COMPLEX #6 tab 03/22/18 [Rx Confirmed 04/20/18] montelukast 10 mg tablet 10 mg PO QPM #90 tab 03/22/18 [Rx Confirmed 04/20/18] B-complex with vitamin C tablet 2 tab PO DAILY 04/20/18 [History Confirmed 04/20/18] alendronate 70 mg tablet 70 mg PO ESCALERA #12 tab 04/20/18 [Rx Confirmed 04/20/18] amitriptyline 10 mg tablet 10 mg PO QHS #90 tab 04/20/18 [Rx Confirmed 04/20/18] calcium carbonate 333 mg-magnesium oxide 133 mg-zinc sulf 5 mg tablet 1 tab PO BID tab 04/20/18 [History Confirmed 04/20/18] cholecalciferol (vitamin D3) 5,000 unit capsule 5,000 unit PO DAILY 04/20/18 [History Confirmed 04/20/18] ferrous gluconate 240 mg (27 mg iron) tablet 240 mg PO DAILY tab 04/20/18 [History Confirmed 04/20/18] icosapent ethyl 1 gram capsule 2 g PO BID #360 cap 04/20/18 [Rx Confirmed 04/20/18] multivitamin tablet 1 tab PO DAILY 04/20/18 [History Confirmed 04/20/18] omega-3 fatty acids 1,250 mg capsule 1,250 mg PO DAILY 04/20/18 [History Confirmed 04/20/18] pantoprazole 40 mg tablet,delayed release 40 mg PO DAILY #90 tab 04/20/18 [Rx Confirmed 04/20/18] paroxetine 40 mg tablet 40 mg PO DAILY #90 tab 04/20/18 [Rx Confirmed 04/20/18] rosuvastatin 10 mg tablet 10 mg PO DAILY #90 tab 04/20/18 [Rx Confirmed 04/20/18] vitamin E (dl, acetate) 400 unit capsule 400 unit PO DAILY 04/20/18 [History Confirmed 04/20/18] Post menopausal: Yes PFSH Medical History Psoriasis (Chronic) Psoriatic arthritis (Chronic) Knee pain (Acute) Shoulder pain (Acute) Back pain (Acute) SOB (shortness of breath) (Acute) Migraine (Acute) Hay fever (Acute) Fatigue (Acute) Anemia (Acute) Asthma (Acute) Arthritis (Acute) Surgical History History of carpal tunnel surgery of left wrist (Acute) History of eye surgery (Acute) History of hysterectomy (Acute) History of lateral meniscus repair of left knee (Acute) Family History Mother Diabetes Heart disease Father Diabetes Heart disease Sister Breast cancer Brother Testicular cancer Social History Smoking Status: Never smoker alcohol intake: never substance use type: does not use what type of physical activity do you participate in: walking HPI HPI Chief Complaint: f/u labs Details: ZAKIA SYKES, is a 57 F who presents to the office today for a follow-up of her recent lab work. She has a past medical history as listed above. The patient had recent blood work done which demonstrated a decreased GFR of 45, increased creatinine of 1.3, elevated cholesterol 267, and elevated vitamin B12 level of greater than 2000. The patient's bone density was reviewed as well which showed osteopenia with a high fracture risk which has mildly worsened compared to her bone density in 2016. She is currently on Fosamax and wondering if this medication should be continued. Medication review was done with the patient and she is taking a very large amount of vitamin B12, she takes a vitamin B12 supplement along with a multivitamin that has 25 mcg of vitamin B12. She denies any prior history of kidney problems and she states that she has discontinued the Aleve that she was taking for her osteoarthritis. She did state that prior to 1 week ago she was taking Aleve a couple times per day along with her meloxicam for her osteoarthritis of the bilateral knees. Patient is receptive to having her high cholesterol levels treated with medication. The patient otherwise denies any fever, chills, nausea, vomiting, shortness of breath, chest pain or pressure, palpitations, orthopnea, lower extremity edema, syncope or presyncopal episodes. ROS Const Constitutional: No weight change, body ache, chills, fatigue, sleep problems, fever(s), change in appetite, snoring, weakness, frequent falls, headache(s) or excessive sweating Eyes Eyes: No change in vision, eye pain, light sensitivity or blurry vision ENT ENT: No headache(s), abnormal hearing, ear pain, tinnitus, nasal congestion, sore throat or neck pain Resp Respiratory: No snoring, cough, shortness of breath or wheezing Cardio Cardiology: No excessive sweating, chest pain at rest, chest pain with exertion, shortness of breath, dyspnea on exertion, palpitations, orthopnea or lightheadedness Gastro GI: No abdominal pain, change in bowel habits, constipation, diarrhea, vomiting, nausea/dyspepsia or cramping Genitourinary-Female: No burning urination, painful urination, urinary incontinence, urinary frequency, abnormal vaginal bleeding, pelvic pain or other Musc Musculoskeletal: Positive for other (knee pain); no neck pain, abnormal walking, joint pain, back pain, limited range of motion, numbness or tingling Skin Skin: No redness, dry skin, itching, lesions, wounds or rash Neuro Neurology: No weakness, frequent falls, headache(s), abnormal hearing, abnormal walking, numbness, tingling, abnormal speech, dizziness or memory loss Psych Psychiatric: No change in appetite, No memory loss, No anxiety, No depression, No Thoughts of harming yourself/Others Endo Endocrine: No fatigue, excessive sweating, cold intolerance, increased thirst/drinking, heat intolerance, flushing or increased hunger Aller/Imm Allergy/Immunologic: No wheezing, itchy eyes, hives or seasonal allergy symptoms Song/Lymp Hematologic/Lymphatic: No easy bleeding, easy bruising or enlarged lymph nodes Exam Const General: cooperative, comfortable, no acute distress Nutritional Appearance: well nourished, obese Orientation: alert, oriented x3 Limitations: mental status not altered Resp Effort AND Inspection: normal respiratory effort, able to speak in complete sentences, normal respiratory pattern, symmetric chest movement, no audible wheezes, no cough Auscultation: Bilateral: Clear to Auscultation Cardio Palpation: normal PMI Rate: regular rate Heart Sounds: S1 normal, S2 normal, normal S1 and S2, no click, no gallops, no murmurs, no rubs Musc Musculoskeletal: Yes joint tenderness (Bilateral anterior knee joints with crepitus on palpation); no decreased ROM Skin General: no rashes or lesions noted, elasticity normal, turgor normal Lesions: no lesions Rashes: no rashes Neuro General: alert, awake, oriented x3, CN's II-XI intact bilaterally Speech: speech normal Gait: normal gait Motor: muscle tone normal throughout Extrem General: normal to inspection, normal gait, no edema, no pedal edema Psych Appearance: grossly normal Mental Status: mental status grossly normal Affect: normal affect Attitude: cooperative Thought Process: normal Assessment AND Plan 1. Osteoarthritis of knees, bilateral M17.0 Plan Patient does have chronic bilateral knee pain due to osteoarthritis of the bilateral knees. Given her recent acute kidney injury and diminished GFR, will hold all nephrotoxic agents at this time including Aleve and meloxicam. Discussed with patient that she may take Tylenol. Also discussed with patient that we will trial a compounded pain cream that can be sent into her pharmacy to help with her osteoarthritis pain. Discussed not taking any [id number] nephrotoxic agents and increasing her overall fluid intake. Patient to follow-up in 6 weeks or sooner if needed. 2. KAIA (acute kidney injury) N17.9 Plan Plan as above, repeat BMP. 3. Hyperlipidemia E78.5 Plan Recent cholesterol and LDL elevated, patient to be started on rosuvastatin 5 mg daily. 10 mg called to pharmacy and instructed to take half for month and then if tolerated increase to the 10 mg. A liver function test will be done in 4 weeks. Patient to continue with dietary changes, lifestyle modifications, and risk factor reduction. Patient may continue with her fish oil supplementation as well. 4. Elevated vitamin B12 level R74.8 Plan Personally reviewed all patient supplements that she is taking and many contain high levels of vitamin B12. Recent vitamin B12 level greater than 2000. Discontinue her vitamin B complex and stated that the only vitamin supplement that she needs to be taking for her B12 is her multivitamin which has appropriate dosing. Patient verbalized understanding 5. Osteopenia with high risk of fracture M85.80 Plan Recent bone density reviewed, patient did previously have 2 pelvic fractures that were unprovoked. Patient to continue with Fosamax therapy. She has now been on this for 6 years. May need to consider a holiday in the future Plan Detail Other Orders Orders: Other Medications New: icosapent ethyl (Vascepa) administer with food2 grams (2 x 1 gram) PO BID 360 caps 1RF ; swallow whole; do not crush/chew/dissolve/break /cut Refilled: Discontinued: Goals Decrease pain and spasm Improve ability to walk Follow Up 6 weeks or sooner if needed Coding Level of Care Code Off vis,est,level 4 Diagnoses Osteoarthritis of knees, bilateral M17.0 KAIA (acute kidney injury) N17.9 Hyperlipidemia E78.5 Elevated vitamin B12 level R74.8 Osteopenia with high risk of fracture M85.80 04/22/18 0913 <Electronically signed by Adam ELY> Date Adam ELY Cosigner Signature: Date (if applicable) CC: FINGER(S) MIN 2 VIEWS Observed: 04/22/2018 Status: F Source: [place] 8:58 AM [facility] [place] [facility] Imaging Services [address] [place] [address] Finger(s) Min 2 Views MR#: [id number] Acct: [id number] Name: ZAKIA SYKES Rep #: [id number] : 1960 F 57 From: Ilir Jackson MD PCP: Lenka Ferguson MD Status: REG CLI Study: Finger(s) Min 2 Views Date of Exam: 04/22/18 Exam# [id number] Ordering Dr: Rashid Barboza STUDY: X-RAY - LEFT HAND, ATTENTION INDEX FINGER REASON FOR EXAM: Female, 57 years old. Palpable abnormality along the posterior medial aspect of the proximal interphalangeal joint. TECHNIQUE: view(s) of the finger were obtained. COMPARISON: None. FINDINGS: Normal metacarpal head. Normal metacarpophalangeal joint. Normal proximal phalanx. Normal middle phalanx. Normal distal phalanx. Normal proximal interphalangeal joint. Normal distal interphalangeal joint. Soft tissue swelling overlying the proximal phalanx. RAD/Finger(s) Min 2 Views IMPRESSION: Soft tissue swelling overlying the proximal phalanx of the index finger. Electronically Signed: Ilir Jackson MD at 9:34 EST Tel [phone], Service support , CC: Rashid LARA; Lenka Ferguson MD Data Lead: Signed SINUS/FACIAL BONE Observed: 04/13/2018 Status: F Source: [place] 5:28 PM [facility] REPOSITORY [facility] Imaging Services [address] [place] [address] Sinus/Facial Bone MR#: [id number] Acct: [id number] Name: ZAKIA SYKES Rep #: [id number] : 1960 F 57 From: Wesley Mckeon MD PCP: Lenka Ferguson MD Status: REG CLI Study: Sinus/Facial Bone Date of Exam: 04/13/18 Exam# [id number] Ordering Dr: Isaiah Bernal MD HISTORY: CHRONIC SPHENOID SINUSITIS, TECHNIQUE: Helically acquired images were obtained of the paranasal sinuses. A radiation dose optimization technique was used for this scan. IV Contrast dosage and agent: None. COMPARISON: None FINDINGS: The paranasal sinuses are well developed. The left sphenoid sinus is large compared to the smaller right sphenoid. The paranasal sinuses are clear throughout. The ostiomeatal units are patent bilaterally. The nasal septum shows minor S-shaped curvature anteriorly to the right and posteriorly to the left. Nasal turbinates are not enlarged. The left mastoid is better developed than the right. Middle air cavities appear clear. CT/Sinus/Facial Bone IMPRESSION: 1. The paranasal sinuses including sphenoid sinuses are clear. 2. Nasal septal minor deviation, not believe significant. Individualized dose optimization techniques were used for this CT. at 0742 Reported and signed by: Wesley Mckeon MD Electronically Signed: eWsley Mckeon, at 7:40 EST Tel , Service support , CC: Lenka Ferguson MD; Isaiah Bernal MD Data Lead: Signed CHIROPRACTIC REPORT Observed: 04/13/2018 Status: F Source: [place] 9:27 AM [facility] [place] REPOSITORY [facility] [address] [place] [address] OFFICE VISIT Date of Service: 04/13/18 MR#: [id number] Acct: [id number] Name: ZAKIA SYKES Rep #: [id number] : 1960 Provider: Winifred Liriano D.C. Age/Sex: 57/F Location: [facility] Status: Signed Intake Vital Signs04/13/18 Body Mass Index (BMI) 46.4 04/13/18 Height 5 ft 1.5 in Intake Visit Reasons: BACK PAIN Chief Complaint: low back pain Is patient in pain?: Yes Allergies cat dander Allergy (Verified 03/22/18 14:07) Shortness of breath dog dander Allergy (Verified 03/22/18 14:07) Shortness of breath megestrol Allergy (Verified 03/22/18 14:07) Unknown shellfish derived Allergy (Verified 03/22/18 14:07) Vomiting MEGISTROL Allergy (Uncoded 03/22/18 14:07) I GET CRAZY AND SUICIDAL Medications Alendronate Sodium [Fosamax] 70 mg PO ESCALERA 07/24/15 [History Confirmed 03/22/18] Clonazepam [Klonopin] 0.5 mg PO Q12H PRN 07/24/15 [History Confirmed 03/22/18] Cyclobenzaprine [Flexeril] 10 mg PO QHS 07/24/15 [History Confirmed 03/22/18] Meloxicam [Mobic] 15 mg PO QHS 07/24/15 [History Confirmed 03/22/18] Paroxetine HCl [Paxil] 40 mg PO DAILY 07/24/15 [History Confirmed 03/22/18] Amitriptyline HCl 10 mg PO QHS 09/16/16 [History Confirmed 03/22/18] Pantoprazole Sodium [Protonix] 40 mg PO DAILY #14 tab 09/17/16 [Rx Confirmed 03/22/18] fluocinolone acetonide oil 0.01 % ear drops 5 drp OTIC BID 03/03/18 [History Confirmed 03/22/18] gabapentin 100 mg capsule 100 mg PO BID #60 cap 03/03/18 [Rx Confirmed 03/22/18] ipratropium bromide 42 mcg (0.06 %) nasal spray 2 spray INTRANASAL TID 03/03/18 [History Confirmed 03/22/18] ivermectin 1 % topical cream 1 applic TOPICAL DAILY 03/03/18 [History Confirmed 03/22/18] albuterol sulfate HFA 90 mcg/actuation aerosol inhaler 1 - 2 puff INHALATION Q4H PRN PRN #8.5 g 03/22/18 [Rx] azithromycin 250 mg tablet See Rx Instructions PO .COMPLEX #6 tab 03/22/18 [Rx Confirmed 03/22/18] montelukast 10 mg tablet 10 mg PO QPM #90 tab 03/22/18 [Rx] PFSH Medical History Psoriasis (Chronic) Psoriatic arthritis (Chronic) Knee pain (Acute) Shoulder pain (Acute) Back pain (Acute) SOB (shortness of breath) (Acute) Migraine (Acute) Hay fever (Acute) Fatigue (Acute) Anemia (Acute) Asthma (Acute) Arthritis (Acute) Surgical History History of carpal tunnel surgery of left wrist (Acute) History of eye surgery (Acute) History of hysterectomy (Acute) History of lateral meniscus repair of left knee (Acute) Family History Mother Diabetes Heart disease Father Diabetes Heart disease Sister Breast cancer Brother Testicular cancer Social History Smoking Status: Never smoker alcohol intake: never substance use type: does not use what type of physical activity do you participate in: walking HPI BACK PAIN : Chief Complaint: low back pain Visit Number: 2 Details: ZAKIA SYKES is a 57 year old F who presents with increased low back pain. She states that after her last adjustment her pain decreased for roughly one hour, although after sitting back down at her desk for several hours the pain did increase. Today Zakia rates her pain a 5/10 and describes it as a deep and sharp ache banding across the low back. Prolonged sitting, bending, and twisting causes increased pain. Zakia denies any numbness, tingling, or radiculopathy. Location: low back pain Duration: constant Aggravating or associated factors: bending, lifting, twisting Relieving factors: chrio Pain Quality: aching, dull, cramping, sharp, radiating Exam Musc General: Yes joint tenderness (L3,L4,L5, B SI joint) and decreased ROM; no normal posture (guarded) or normal gait (guarded, slightly flexed) Thoracic/Lumbar Spine: thoracic and lumbar spine normal to inspection, straight leg raise negative bilaterally, Lasegue's sign positive, pain with thoraco- lumbar ROM, paraspinal tenderness, thoraco-lumbar ROM limited, thoraco-lumbar spasm Sacroiliac joints: bilaterally Office Procedures Chiropractic Treatments Procedures Manipulation: 3-4 regions (L3,L5, RIL) Electrical Stimulation: 15 mins (lumbar ) Assessment AND Plan 1. Segmental and somatic dysfunction of pelvic region M99.05 Orders Orders: 2. Segmental and somatic dysfunction of lumbar region M99.03 Orders Orders: Plan Detail Goals Decrease pain and spasm Improve ability to walk Follow Up 1 Week Coding Level of Care Code No Charge Diagnoses Segmental and somatic dysfunction of pelvic region M99.05 Segmental and somatic dysfunction of lumbar region M99.03 Additional Codes Procedures - Manipulation: 3-4 regions (49615) Procedures - Electrical Stimulation: 15 mins (75251) 04/13/18 09 <Electronically signed by Winifred Liriano D.C.> Date Winifred Liriano D.C. [facility] Signature: Date (if applicable) CC: CHIROPRACTIC REPORT Observed: 04/11/2018 Status: F Source: [place] 11:39 AM [facility] [place] REPOSITORY [facility] [address] [place] [address] OFFICE VISIT Date of Service: 04/11/18 MR#: [id number] Acct: [id number] Name: ZAKIA SYKES Rep #: [id number] : 1960 Provider: Winifred Liriano D.C. Age/Sex: 57/F Location: [facility] [place] Status: Signed Intake Intake Visit Reasons: back pain Is patient in pain?: Yes Allergies cat dander Allergy (Verified 03/22/18 14:07) Shortness of breath dog dander Allergy (Verified 03/22/18 14:07) Shortness of breath megestrol Allergy (Verified 03/22/18 14:07) Unknown shellfish derived Allergy (Verified 03/22/18 14:07) Vomiting MEGISTROL Allergy (Uncoded 03/22/18 14:07) I GET CRAZY AND SUICIDAL Medications Alendronate Sodium [Fosamax] 70 mg PO ESCALERA 07/24/15 [History Confirmed 03/22/18] Clonazepam [Klonopin] 0.5 mg PO Q12H PRN 07/24/15 [History Confirmed 03/22/18] Cyclobenzaprine [Flexeril] 10 mg PO QHS 07/24/15 [History Confirmed 03/22/18] Meloxicam [Mobic] 15 mg PO QHS 07/24/15 [History Confirmed 03/22/18] Paroxetine HCl [Paxil] 40 mg PO DAILY 07/24/15 [History Confirmed 03/22/18] Amitriptyline HCl 10 mg PO QHS 09/16/16 [History Confirmed 03/22/18] Pantoprazole Sodium [Protonix] 40 mg PO DAILY #14 tab 09/17/16 [Rx Confirmed 03/22/18] fluocinolone acetonide oil 0.01 % ear drops 5 drp OTIC BID 03/03/18 [History Confirmed 03/22/18] gabapentin 100 mg capsule 100 mg PO BID #60 cap 03/03/18 [Rx Confirmed 03/22/18] ipratropium bromide 42 mcg (0.06 %) nasal spray 2 spray INTRANASAL TID 03/03/18 [History Confirmed 03/22/18] ivermectin 1 % topical cream 1 applic TOPICAL DAILY 03/03/18 [History Confirmed 03/22/18] albuterol sulfate HFA 90 mcg/actuation aerosol inhaler 1 - 2 puff INHALATION Q4H PRN PRN #8.5 g 03/22/18 [Rx] azithromycin 250 mg tablet See Rx Instructions PO .COMPLEX #6 tab 03/22/18 [Rx Confirmed 03/22/18] montelukast 10 mg tablet 10 mg PO QPM #90 tab 03/22/18 [Rx] PFSH Medical History Psoriasis (Chronic) Psoriatic arthritis (Chronic) Knee pain (Acute) Shoulder pain (Acute) Back pain (Acute) SOB (shortness of breath) (Acute) Migraine (Acute) Hay fever (Acute) Fatigue (Acute) Anemia (Acute) Asthma (Acute) Arthritis (Acute) Surgical History History of carpal tunnel surgery of left wrist (Acute) History of eye surgery (Acute) History of hysterectomy (Acute) History of lateral meniscus repair of left knee (Acute) Family History Mother Diabetes Heart disease Father Diabetes Heart disease Sister Breast cancer Brother Testicular cancer Social History Smoking Status: Never smoker alcohol intake: never substance use type: does not use what type of physical activity do you participate in: walking HPI back pain: Chief Complaint: low back pain Visit Number: 3 Details: ZAKIA SYKES is a 57 year old F who presents increased low back pain. Zakia states that Wednesday after getting out of bed(slept 15hours), she began experiencing a sharp shooting pain banding across the low back. Today Zakia rates her pain a 5/10 and describes it as a deep sharp shooting pain that bands across the low back. Walking, bending, lifting, sitting and twisting cause severe pain, although she denies any numbness, tingling, or radiculopathy. No history of trauma to the low back is noted at this time. Onset: 04/10/18 Location: low back Duration: constant Aggravating or associated factors: bending, lifting, twisting, sitting Relieving factors: chiro Pain Quality: aching, dull, cramping, sharp Exam Musc General: Yes joint tenderness (L3,L4,L5, B SI joint) and decreased ROM; no normal posture (guarded) or normal gait (guarded, slightly flexed) Thoracic/Lumbar Spine: thoracic and lumbar spine normal to inspection, straight leg raise negative bilaterally, Lasegue's sign positive bilaterally, pain with thoraco-lumbar ROM with forward flexion, with lateral flexion to the left, with rotation to the left, with lateral flexion to the right, with rotation to the right and other, paraspinal tenderness bilaterally in the lower lumbar, in the mid lumbar and in the upper lumbar, thoraco-lumbar ROM limited with forward flexion, thoraco-lumbar spasm bilaterally in the lower lumbar, in the mid lumbar and in the upper lumbar Sacroiliac joints: bilaterally tender to palpation Neuro General: alert, awake, oriented x3, gait normal, normal light touch, pain and propioception, no focal motor deficits Ortho Test CERVICAL THORACIC Rust: Negative LUMBAR Kemps: Positive, Right, Le Valsalvas: Negative SLR: Negative Iliac Compression: Positive, Right, Le Office Procedures Chiropractic Treatments Procedures Manipulation: 1-2 regions (L2,L5, RIL) Electrical Stimulation: 15 mins (Lumbar ) Assessment AND Plan 1. Segmental and somatic dysfunction of lumbar region M99.03 Orders Orders: 2. Segmental and somatic dysfunction of pelvic region M99.05 Plan Monitor patient response to care and recommend follow up. Plan Detail Goals Decrease pain and spasm Improve ability to walk Follow Up 1 Week Coding Level of Care Code Off vis,est,level 1 Diagnoses Segmental and somatic dysfunction of lumbar region M99.03 Segmental and somatic dysfunction of pelvic region M99.05 Additional Codes Procedures - Electrical Stimulation: 15 mins (04222) Procedures - Manipulation: 1-2 regions (22687) 04/11/18 1139 <Electronically signed by Winifred Liriano D.C.> Date Winifred Liriano D.C. Cosigner Signature: Date (if applicable) CC: CBC W/DIFF, AUTOMATED Collected: 04/07/2018 Status: F Source: [place] 10:30 AM [facility] [place] REPOSITORY TYPE CODE TESTS RESULT OUT OF RANGE REFERENCE UNITS LAB L100.1000 4.4-11.0 K/mm3 Normal WBC 4.9 LAB L100.1200 4.2-5.4 M/mm3 Normal RBC 4.37 LAB L100.1300 12.0-15.0 g/dl Normal HGB 12.3 LAB L100.1400 37-47 % Normal HCT 38.9 LAB L100.1500 81-99 fL Normal MCV 89.0 LAB L100.1600 27.0-32.0 pg Normal MCH 28.1 LAB L100.1700 32-36 g/gl Low MCHC 31.6 LAB L100.1810 11.6-14.6 % Normal RDW CV 14.6 LAB L100.1820 35.1-43.9 fl High RDW SD 47.8 LAB L100.1900 150-450 K/mm3 Normal PLT 312 LAB L100.2000 6.2-12.0 fl Normal MPV 10.1 LAB L100.2100 47-70 % Normal NEUT% 59.8 LAB L100.2200 19-41 % Normal LY% 27.2 LAB L100.2300 0-10 % Normal MONO% 9.5 LAB L100.2400 0-5 % Normal EO% 3.3 LAB L100.2500 0-1 % Normal BASO% 0.2 LAB L100.2550 0.0-0.9 % Normal IM GRAN % 0.000 Result Comment: IG% - Immature Granulocytes (promyelocytes, myelocytes and metamyelocytes) > 1% indicates that a LEFT SHIFT is Present. LAB L100.2620 2.0-7.7 X10 3/uL Normal Absolute Neut 2.9 LAB L100.2720 0.83-4.51 X10 3/ul Normal Absolute Lymph 1.32 Performed By: #### L100.0100 #### [facility] [address] [place], [address] VITAMIN B12 Collected: 04/07/2018 Status: F Source: [place] 10:30 AM [facility] [place] REPOSITORY TYPE CODE TESTS RESULT OUT OF REFERENCE UNITS RANGE LAB L503.0105 211-911 pg/mL High Vitamin B12 > 2000 Performed By: #### L503.0105, L506.1000 #### [facility] [address] [place], [address] VITAMIN D,25 HYDROXY Collected: 04/07/2018 Status: F Source: [place] 10:30 AM [facility] [place] REPOSITORY TYPE CODE TESTS RESULT OUT OF RANGE REFERENCE UNITS LAB L506.1000 29.95-100.01 ng/mL Normal Vitamin D 46.0 25-OH Result Comment: Vitamin D 25(OH) Status Range Deficiency <20 ng/mL (50nmol/L) Insuffciency 20 - 30 ng/mL (50 - 75 nmol/L) Sufficiency 30 - 100 ng/mL (75 - 250 nmol/L) Toxicity >100 ng/mL (>250 nmol/L) Performed By: #### L503.0105, L506.1000 #### [facility] [place], [address] COMPREHENSIVE METABOLIC Collected: 04/07/2018 Status: F Source: [facility] 10:30 AM [facility] [place] REPOSITORY TYPE CODE TESTS RESULT OUT OF RANGE REFERENCE UNITS LAB L501.0100 74-106 mg/dL Normal GLU 96 Result Comment: Please note revised GLUCOSE reference range effective 2017. LAB L501.1000 7-18 mg/dL High BUN 21 LAB L501.1100 0.55-1.02 mg/dL High CREAT,SERUM 1.30 Result Comment: The validity of the calculated GFR AND GFRAA in patients over 70 years has not been determined. Clinical correlation is essential. LAB L501.1110 >60 mL/min Low EST GFR 45 Result Comment: Non- GFR Calc LAB L501.1115 >60 mL/min Low EST GFR - AA 55 Result Comment: GFR Calc LAB L501.1300 10-20 RATIO Normal BUN/CRE 16.2 LAB L501.1500 6.4-8.2 g/dL T Normal PROT 7.3 LAB L501.1800 3.2-5.0 g/dL Normal ALB 3.3 LAB L501.1950 2.2-4.2 g/dL Normal GLOB 4.0 LAB L501.2000 0.9-2.4 RATIO Low A/G 0.8 LAB L501.2200 8.5-10.1 mg/dL CA Normal 8.9 LAB L501.4100 15-37 U/L Normal AST 26 LAB L501.4305 45-117 U/L Normal ALK P 78 LAB L501.4405 13-56 U/L Normal ALT 25 LAB L501.4600 0.20-1.00 mg/dL T Normal BILI 0.40 LAB L501.5300 136-145 mmol/L NA Normal 141 LAB L501.5600 3.5-5.1 mmol/L K Normal 3.9 LAB L501.5900 98-107 mmol/L CL Normal 106 LAB L501.6100 21.0-32.0 mmol/L Normal CO2 27.0 LAB L501.6200 5-15 Normal GAP 8 Performed By: #### L500.4050, L500.4100 #### [facility] [address] [facility] [place], [address] LIPID PROFILE Collected: 04/07/2018 Status: F Source: [place] 10:30 AM [facility] [place] REPOSITORY TYPE CODE TESTS RESULT OUT OF RANGE REFERENCE UNITS LAB L501.4900 200 mg/dL High CHOL 267 Result Comment: <200 mg/dL Desirable 200-240 mg/dL Borderline >240 mg/dL High Risk LAB L501.5000 mg/dL Normal TRIG 95 Result Comment: The drugs N-Acetylcysteine and Metamizole may falsely depress this assay. Serum Triglycerides Reference Interval Normal <150 mg/dL Borderline high 150 - 199 mg/dL High 200 - 499 mg/dL Very High > or = 500 mg/dL LAB L501.6400 mg/dL Normal HDL 73 Result Comment: The drugs N-Acetylcysteine and Metamizole may falsely depress this assay. Reference Range HDL <40 mg/dL Low HDL Cholesterol HDL >or= 60 mg/dL High HDL Cholesterol LAB L501.6500 0-130 mg/dL High LDL 175 LAB L501.6600 5-40 mg/dL Normal VLDL 19 Performed By: #### L500.4050, L500.4100 #### [facility] [address] [place], [address] DEXA BONE DENSITY Observed: 04/07/2018 Status: F Source: [place] [facility] 10:25 AM [facility] [place] REPOSITORY [facility] Imaging Services [address] [place] [address] Dexa Bone Density Study MR#: [id number] Acct: [id number] Name: ZAKIA SYKES Rep #: [id number] : 1960 F 57 From: Ilir Jackson MD PCP: Lenka Ferguson MD Status: REG CLI Study: Dexa Bone Density Study Date of Exam: 04/07/18 Exam# [id number] Ordering Dr: Lenka Ferguson MD STUDY: DUAL ENERGY X-RAY ABSORPTIOMETRY / DXA REASON FOR EXAM: Female, 57 years old. Early menopause. Loss of height. TECHNIQUE: Bone Mineral Density (BMD) measurements of lumbar spine and bilateral hips were obtained. COMPARISON: Comparison is made with prior study dated August 28, 2015. FINDINGS: Lumbar Spine (L1-L4): g/cm2 (1.041) / T-score (-1.2) / Z-score (-0.3) Findings are suggestive of osteopenia with a low fracture risk. Left Femur Total: g/cm2 (0.965) / T-score (-0.3) / Z- score (0.3) Left Femoral Neck: g/cm2 (0.881) / T-score (-1.1) / Z- score (-0.1) Right Femur Total: g/cm2 (1.017) / T-score (0.1) / Z- score (0.7) Right Femoral Neck: g/cm2 (0.963) / T-score (0.5) / Z- score (0.5) The T-Scores on the most recent prior examination were: Lumbar Spine (L1-L4): There has been worsening of bone density since the previous examination. Left Femur Total: which represents a worsening of 1.8%. Right Femur Total: which represents a worsening of 0.2%. BD/Dexa Bone Density Study IMPRESSION: The patient is considered osteopenic as outlined below according to World Aris Organization (WHO) criteria with a low fracture risk. There has been worsening of bone density since the previous examination. Reference Information: The T-score is the number of standard deviations above or below the standard which is normal for young adults at their peak bone mineral density. The World Health Organization (WHO) interprets the T-scores as follows: Above -1 Normal bone density Between -1 and -2.5 Osteopenia Equal to / or below -2.5 Osteoporosis As a practical clinical guideline, osteopenia may be graded as follows: Mild -1 through -1.5 Moderate -1.6 through -2.0 Severe -2.1 through -2.4 The Z-score is the number of standard deviations above or below age-matched controls. A Z-score of less than -1.5 would be considered abnormal. References: 1. NIH Osteoporosis and Related Bone Diseases http://www.osteo.org 2. International Society for Clinical Densitometry http://www.iscd.org 3. National Osteoporosis Foundation http://www.nof.org Electronically Signed: Ilir Jackson MD at 10:46 EST Tel [phone], Service support , CC: Lenka Ferguson MD Data Lead: Signed SCREENING MAMM (CAD), Observed: 04/07/2018 Status: F Source: [facility] 10:20 AM [facility] [place] REPOSITORY [facility] Imaging Services [address] [place] [id number] SCREENING MAMM (CAD), BILAT MR#: [id number] Acct: [id number] Name: ZAKIA SYKES Rep #: [id number] : 1960 F 57 From: Ilir Jackson MD PCP: Lenka Ferguson MD Status: REG CLI Study: SCREENING MAMM (CAD), BILAT Date of Exam: 04/07/18 Exam# [id number] Ordering Dr: Lenka Ferguson MD MAMMOGRAPHY - BILATERAL SCREENING REASON FOR EXAM: Female, 57 years old. Routine annual screening examination. PERTINENT HISTORY: Sister with breast cancer. TECHNIQUE: Digital bilateral breast romain (3D mammographic acquisition) in the CC and MLO projections. 2-D mediolateral oblique (MLO) and craniocaudad (CC) views of both breasts were obtained. CAD: Full Field Digital Mammography with Computer Added Detection was performed. COMPARISON: Comparison is made with prior study dated November 25, 2016 and August 22, 2015. FINDINGS: Breast Composition: The breasts are almost entirely fatty. There are no dominant masses or suspicious calcifications. Stable small benign-appearing bilateral axillary lymph nodes. No other significant abnormalities are identified. There has been no significant change since the prior study. BI/SCREENING MAMM (CAD), BILAT IMPRESSION: Stable bilateral screening mammogram. Yearly follow-up mammogram recommended. (A) ASSESSMENT CATEGORY: BIRADS Category 2: Benign. A letter regarding these results will be sent to the patient by the facility within 30 days. Approximately 10% of breast cancers are not detected by mammography. A normal mammogram should not delay biopsy of a clinically suspicious abnormality. [id number] Electronically Signed: Ilir Jackson MD at 11:58 EST Tel [phone], Service support , CC: Lenka Ferguson MD Data Lead: Signed PT D/C SUMMARY (1) Observed: 03/25/2018 Status: F Source: [place] 6:43 AM [facility] [place] REPOSITORY [facility] [address] [place] [address]. [address] [place], [place] [id number] Fax REHABILITATION SERVICES DISCHARGE SUMMARY MR#: [id number] Acct: [id number] Name: ZAKIA SYKES Rep #: [id number] : 1960 57 From: Isaiah Rabago DPT, OCS, CSCS Referring Dr.: Rashid LARA Status: REG RCR Insurance: [facility] SELF PAY INSURANCE HP - PT D/C Summary It has been my pleasure to treat ZAKIA SYKES under orders from JANE Cavanaugh, for the diagnosis of L shoulder strain. for a total of 11 visit(s). Discharge Date: 03/23/18 Please see the following information for a summary of their discharge status. - Subjective Subjective: Very tired. has acute bronchitis. Rested last weekend and feels good this week. Doiong pendulum and doing great with 5# weight. No pain today. Will continue band exercises at home. Dizzyness is chronic. Will see ENT Apr 07. - Pain L shoulder Pain Intensity (Out of 10): 0 R shoulder Pain Intensity (Out of 10): 3 - Overall Improvement % Improvement: 90 - Objective Objective/Function: Full aROM B UE and neck without pain today. Posture is improved. Pt happy and ready to be done with PT today. - Goals Goal 1:: Full UE AROM without pain Goal Progress: Goal Met Goal 2:: Work without noticing pain Goal Progress: Goal Met Goal 3:: I approp HEP for ROM adn strength adn to minimize future problems. Goal Progress: Goal Met - Plan Plan: d/c, will check vertigo after patient sees Dr. Bernal(waiting at her request) - D/C Information Discharge Comments: Pt to notify doctor if pain returns. If there are questions or concerns regarding this patient's physical therapy, please feel free to call me at [phone]. Thank you for the referral of this patient. Sincerely, Isaiah Rabago, DPT, OC <Electronically signed by Isaiah KELLYT, OCS, CSCS> 03/25/18 0643 CC: Rashid LARA; Lenka Ferguson MD EBG Signed URGENT CARE VISIT Observed: 03/22/2018 Status: F Source: [place] REPORT 2:09 PM [facility] [address] [place] [address] [address] [place] [address] OFFICE VISIT Date of Service: 03/22/18 MR#: [id number] Acct: [id number] Name: ZAKIA SYKES Rep #: [id number] : 1960 Provider: Rashid LARA Age/Sex: 57/F Location: [facility] Status: Signed Intake Vital Signs03/22/18 Height 5 ft 2 in 03/22/18 Weight: 254 lb 03/22/18 Body Mass Index (BMI) 46.4 03/22/18 Blood Pressure 134/88 H Intake Visit Reasons: BRONCHITIS/ASTHMA/SORE THROAT Senior Information Security Consultant Required: No Accompanied by: SELF Is patient in pain?: No Allergies cat dander Allergy (Verified 03/22/18 14:07) Shortness of breath dog dander Allergy (Verified 03/22/18 14:07) Shortness of breath megestrol Allergy (Verified 03/22/18 14:07) Unknown shellfish derived Allergy (Verified 03/22/18 14:07) Vomiting MEGISTROL Allergy (Uncoded 03/22/18 14:07) I GET CRAZY AND SUICIDAL Medications Alendronate Sodium [Fosamax] 70 mg PO ESCALERA 07/24/15 [History Confirmed 03/22/18] Clonazepam [Klonopin] 0.5 mg PO Q12H PRN 07/24/15 [History Confirmed 03/22/18] Cyclobenzaprine [Flexeril] 10 mg PO QHS 07/24/15 [History Confirmed 03/22/18] Meloxicam [Mobic] 15 mg PO QHS 07/24/15 [History Confirmed 03/22/18] Paroxetine HCl [Paxil] 40 mg PO DAILY 07/24/15 [History Confirmed 03/22/18] Albuterol IH (ProAir) [Proair Hfa] 1 - 2 puff INHALATION Q4H PRN PRN 09/16/16 [History Confirmed 03/03/18] Amitriptyline HCl 10 mg PO QHS 09/16/16 [History Confirmed 03/22/18] Pantoprazole Sodium [Protonix] 40 mg PO DAILY #14 tab 09/17/16 [Rx Confirmed 03/03/18] fluocinolone acetonide oil 0.01 % ear drops 5 drp OTIC BID 03/03/18 [History Confirmed 03/22/18] gabapentin 100 mg capsule 100 mg PO BID #60 cap 03/03/18 [Rx Confirmed 03/22/18] ipratropium bromide 42 mcg (0.06 %) nasal spray 2 spray INTRANASAL TID 03/03/18 [History Confirmed 03/22/18] ivermectin 1 % topical cream 1 applic TOPICAL DAILY 03/03/18 [History Confirmed 03/22/18] montelukast 10 mg tablet 10 mg PO QPM 03/03/18 [History Confirmed 03/22/18] azithromycin 250 mg tablet See Rx Instructions PO .COMPLEX #6 tab 03/22/18 [Rx Confirmed 03/22/18] methylprednisolone 4 mg tablets in a dose pack 4 mg PO PER PKG DIR 5 Days #21 tab 03/22/18 [Rx Confirmed 03/22/18] PFSH Medical History Psoriasis (Chronic) Psoriatic arthritis (Chronic) Knee pain (Acute) Shoulder pain (Acute) Back pain (Acute) SOB (shortness of breath) (Acute) Migraine (Acute) Hay fever (Acute) Fatigue (Acute) Anemia (Acute) Asthma (Acute) Arthritis (Acute) Surgical History History of carpal tunnel surgery of left wrist (Acute) History of eye surgery (Acute) History of hysterectomy (Acute) History of lateral meniscus repair of left knee (Acute) Family History Mother Diabetes Heart disease Father Diabetes Heart disease Sister Breast cancer Brother Testicular cancer Social History Smoking Status: Never smoker alcohol intake: never substance use type: does not use what type of physical activity do you participate in: walking HPI HPI Details: ZAKIA SYKES, is a 57 F who presents to the office today for concern for bronchitis. Patient states she has had increasing cough, congestion, wheezing and chills/sweats for the past 2 weeks. She does report getting bronchitis multiple times yearly with similar type symptoms. She is unaware of her temperature T-max as she has not actually taken her temperature. She states that she has used multiple [id number] medications with only minimal relief. She describes her cough as productive of green/yellow sputum however denies hemoptysis, shortness of breath or difficulty breathing. No nausea, vomiting, diarrhea. No other associated symptoms or alleviating/aggravating factors. ROS Const Constitutional: Positive for chills and night sweats; no fever(s), headache(s) or abnormal sleep pattern ENT ENT: Positive for nasal discharge, nasal congestion and post nasal drip; no headache(s), ear pain, ear discharge or sore throat Resp Respiratory: Positive for cough Cough: Yes productive, wheezing and pain with cough; no hemoptysis or shortness of breath Cardio Cardiology: No chest pain at rest or shortness of breath Neuro Neurology: No headache(s), behavioral changes or confusion Psych Psychiatric: No abnormal sleep pattern, No behavioral changes, No confusion Aller/Imm Allergy/Immunologic: Positive for wheezing Exam Const General: cooperative, well developed HENMT Head: normal to inspection Ears: hearing grossly normal bilaterally Nose: nasal discharge clear Mouth: oral mucosae normal Throat: abnormal tonsil bilaterally, postnasal drainage Resp Effort AND Inspection: normal respiratory effort, no audible wheezes, not labored Auscultation: Bilateral: Clear to Auscultation Cardio Palpation: normal PMI Rate: regular rate Rhythm: regular rhythm Neuro General: alert, CN's II-XI intact bilaterally Psych Appearance: grossly normal Mental Status: mental status grossly normal Assessment AND Plan Problems 1. Acute bronchitis, unspecified organism J20.9 Status Acute Plan Azithromycin and Medrol Dosepak as prescribed today. Encouraged to get plenty of rest, drink lots of clear liquids, and use Tylenol or Ibuprofen (unless contraindicated) for fever and comfort. Patient also educated on other symptomatic management techniques. To be seen in 7-10 days if no improvement; sooner if worsening of symptoms. Patient advised of potential red flags and when appropriate to report to the ED. Patient verbalized understanding and agreement with all the above. Medications New: azithromycin take 500 mg today (day 1), then 250 mg for 4 days (J20.9 days 2-5) PO 6 tabs 0RF Coding Level of Care Code Off vis,est,level 3 Diagnoses Acute bronchitis, unspecified organism J20.9 Bronchitis organism: unspecified organism 03/22/18 1409 <Electronically signed by Rashid LARA> Date Rashid LARA Cosigner Signature: Date (if applicable) CC: INTERNAL MEDICINE Observed: 03/07/2018 Status: F Source: [place] OFFICE VISIT 1:04 PM [facility] [address] [place] [address] [address] [place] [address] OFFICE VISIT Date of Service: 03/03/18 MR#: [id number] Acct: [id number] Name: ZAKIA SYKES Rep #: [id number] : 1960 Provider: Lenka Ferguson MD Age/Sex: 57/F Location: [facility] Status: Signed Intake Vital Signs03/03/18 Height 5 ft 2 in 03/03/18 Weight: 254 lb 03/03/18 Body Mass Index (BMI) 46.4 03/03/18 Blood Pressure 148/96 H 03/03/18 Blood Pressure Location Lt brachial Intake Visit Reasons: EST CARE, TRANSF FROM [facility] Chief Complaint: Check up - Transferring care from [facility] Is patient in pain?: Yes (Rt shoulder) Pain scale (1-10): 2 Allergies cat dander Allergy (Verified 03/03/18 16:36) Shortness of breath dog dander Allergy (Verified 03/03/18 16:36) Shortness of breath megestrol Allergy (Verified 03/03/18 16:36) Unknown shellfish derived Allergy (Verified 03/03/18 16:36) Vomiting MEGISTROL Allergy (Uncoded 03/03/18 16:36) I GET CRAZY AND SUICIDAL Medications Alendronate Sodium [Fosamax] 70 mg PO ESCALERA 07/24/15 [History Confirmed 03/03/18] Clonazepam [Klonopin] 0.5 mg PO Q12H PRN 07/24/15 [History Confirmed 03/03/18] Cyclobenzaprine [Flexeril] 10 mg PO QHS 07/24/15 [History Confirmed 03/03/18] Meloxicam [Mobic] 15 mg PO QHS 07/24/15 [History Confirmed 03/03/18] Paroxetine HCl [Paxil] 40 mg PO DAILY 07/24/15 [History Confirmed 03/03/18] Albuterol IH (ProAir) [Proair Hfa] 1 - 2 puff INHALATION Q4H PRN PRN 09/16/16 [History Confirmed 03/03/18] Amitriptyline HCl 10 mg PO QHS 09/16/16 [History Confirmed 03/03/18] Pantoprazole Sodium [Protonix] 40 mg PO DAILY #14 tab 09/17/16 [Rx Confirmed 03/03/18] fluocinolone acetonide oil 0.01 % ear drops 5 drp OTIC BID 03/03/18 [History Confirmed 03/03/18] gabapentin 100 mg capsule 100 mg PO BID #60 cap 03/03/18 [Rx Confirmed 03/03/18] ipratropium bromide 42 mcg (0.06 %) nasal spray 2 spray INTRANASAL TID 03/03/18 [History Confirmed 03/03/18] ivermectin 1 % topical cream 1 applic TOPICAL DAILY 03/03/18 [History Confirmed 03/03/18] montelukast 10 mg tablet 10 mg PO QPM 03/03/18 [History Confirmed 03/03/18] PFSH Medical History Psoriasis (Chronic) Psoriatic arthritis (Chronic) Knee pain (Acute) Shoulder pain (Acute) Back pain (Acute) SOB (shortness of breath) (Acute) Migraine (Acute) Hay fever (Acute) Fatigue (Acute) Anemia (Acute) Asthma (Acute) Arthritis (Acute) Surgical History History of carpal tunnel surgery of left wrist (Acute) History of eye surgery (Acute) History of hysterectomy (Acute) History of lateral meniscus repair of left knee (Acute) Family History Mother Diabetes Heart disease Father Diabetes Heart disease Sister Breast cancer Brother Testicular cancer Social History Smoking Status: Never smoker alcohol intake: never substance use type: does not use what type of physical activity do you participate in: walking HPI HPI Chief Complaint: Check up - Transferring care from F Details: ZAKIA SYKES, is a 57yo F who presents to the office today to establish care. She had treated previously followed up at the [facility] like to transfer care here. She has no acute complaints. She is concerned about episodes of lightheadedness/dizziness which has been ongoing on for many years. She also reports a sensation of fullness over her right ear. She has been seen by ENT and per patient no abnormality was detected.. She would like to get off some medications if possible. She has been on alendronate for 6-8 years. Per Patient, last bone density was about 2 years ago and showed osteopenia. She also reports a history of restless leg syndrome and has been on cyclobenzaprine for at least 10 years. She is also on gabapentin for ? Neuropathy which is not so bothersome at this time. 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 She has not had her routine blood work in almost 2 years. ROS Const Constitutional: Positive for sleep problems; no chills, fever(s), frequent falls, malaise, weakness or change in appetite Eyes Eyes: No blurry vision, change in vision, double vision, discharge or visual disturbances ENT ENT: Positive for dizziness/vertigo and hearing loss (Rt ear); no abnormal hearing, ear pain, ear pressure or tinnitus Resp Respiratory: No cough, shortness of breath or wheezing Cardio Cardiology: No chest pain at rest, chest pain with exertion, shortness of breath, dyspnea on exertion, generalized swelling, irregular heart rhythm, lightheadedness, orthopnea, fast heart rate or palpitations Gastro GI: No abdominal pain, change in bowel habits, constipation, diarrhea, nausea/dyspepsia or vomiting Genitourinary-Female: No difficulty urinating, burning urination, painful urination, urinary incontinence, urinary frequency, urinary urgency, urinary hesitancy, urinary retention, Frequent nighttime urination/ nocturia, sexual problems, genital lesions, abnormal vaginal bleeding, pelvic pain, vaginal dryness, vaginal odor or Vaginal Itching Musc Musculoskeletal: No back pain, joint swelling, limited range of motion, muscle weakness, numbness or tingling Skin Skin: No change in skin color, itching or wounds Breast Breast: No breast lump or breast pain Neuro Neurology: Positive for unsteady gait/balance and dizziness; no frequent falls, weakness, abnormal hearing, numbness, tingling, loss of vision or visual disturbances Psych Psychiatric: Positive for anxiety, No change in appetite, Positive for depression, No Thoughts of harming yourself/Others, Positive for difficulty concentrating Endo Endocrine: Positive for increased thirst/drinking; no heat intolerance, increased hunger or increased urination Aller/Imm Allergy/Immunologic: No wheezing, itchy eyes or seasonal allergy symptoms Song/Lymp Hematologic/Lymphatic: No easy bleeding, easy bruising or enlarged lymph nodes Exam Musc Musculoskeletal: No muscle weakness Assessment AND Plan 1. Dizziness R42 Plan Said to have been ongoing for many years. Has been evaluated by ENT without any significant concerns. Also has episodes of poor balance/unsteadiness. Referred to physical therapy. If no significant improvement with therapy, will order a CAT scan. Orders Referrals: 2. Osteoporosis M81.0 Plan Has been on alendronate for about 6-8 years. Last bone density per patient suggestive of osteopenia. Repeat bone density ordered. If density remains the same, will recommend a holiday. 3. Restless leg syndrome G25.81 Plan Chronic. Has been on Flexeril. However wants to discontinue some medications. Advised to taper off Flexeril. Cut down gabapentin to 100 mg twice daily and subsequently 100 mg nightly. Follow-up in 2 months. 4. Depression with anxiety F41.8 Plan Stable. No concerns at this time. Continue paroxetine daily and clonazepam as needed for panic attacks 5. Postoperative malabsorption K91.2 Plan Status post gastric bypass in 2000. Labs ordered. Follow-up with results. Orders Orders: 6. Healthcare maintenance Z00.00 Plan Mammogram ordered. Has received her flu shot. This note was generated with Branded Online[employer] software. It may contain incorrect words, spelling, and punctuation that were not noted in checking the note before signing. Plan Detail Other Orders Orders: Other Medications New: Discontinued: Coding Level of Care Code Off vis,new,level 4 Diagnoses Dizziness R42 Osteoporosis M81.0 Restless leg syndrome G25.81 Depression with anxiety F41.8 Postoperative malabsorption K91.2 Healthcare maintenance Z00.00 03/07/18 1304 <Electronically signed by Lenka Ferguson MD> Date Lenka Ferguson MD Cosigner Signature: Date (if applicable) CC: INITAL EVALUATION (1) Observed: 02/18/2018 Status: F Source: [place] 6:44 AM [facility] [place] REPOSITORY [facility] [place] [address] Fax REHABILITATION SERVICES INITIAL EVALUATION MR#: [id number] Acct: [id number] Name: ZAKIA SYKES Rep #: [id number] : 1960 57 From: Isaiah Rabago DPT, OCS, CSCS Referring Dr.: Rashid LARA Status: REG RCR Insurance: [facility] SELF PAY INSURANCE Patient's Visit Information ZAKIA SYKES is a 57 year old F referred to Physical Therapy by JANE Cavanaugh with a diagnosis of L shoulder strain.. Date of Evaluation: 02/17/18 Physical Therapist: Isaiah Rabago, DPT, OC - Visit Plan Frequency: 3x /Week Duration: 4-6 Weeks Plan: 3x/week for 4 weeks for: 1. US nonthermal B shoulder. 2. PROM and grade 1 mobs B shoulder. 3. pulleys and keyona IR when able. 4. Teach shoulder and scap strength for HEP as able. ES if needed. - Subjective Subjective: B shoulder pain, L started a couple weeks ago and could hardly move L shoulder. Progressed since then. R one started hurting a few days ago. Neck always hurts and is chronic, worse with hands over head. H/o migraines. Numbness in B posterior hands but this is normal for her. Sleep is interrupted and tosses and turns due to shoulders. 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 Has psoriatic arthritis in hands,feet knees. Can't play volleyball in the last year. Having trouble crawling on floor with grandbaby, holding her is hard.Dressing shirt hurts, reaching in shower hurts...was not that way before. - Pain L shoulder Pain Intensity (Out of 10): 2 Pain Intensity Range: 2 R shoulder Pain Intensity (Out of 10): 5 Pain Intensity Range: 1, 5 - Objective R>L pain today. Posture is forward head and ant scap. C/S aROM WFL and without pain, no asymmetries today. Scap ROM is good, retraction slightly limited. Elbow and wrist ROM WFL. Shoulders B ROM tight at end of flexion and abd but full PROM, pain at end range of activie adn passive IR/ER, flex, abd. Strength 4/5 int rotation, 3/5 R ext rot adn 4- L both with pain. Flexion and abd B painful and 3+. - Spears katy and + neer., + B scour test. + empty can B. Much better AROM flexion after keyona flexion. - Goals Goal 1:: Full UE AROM without pain Goal Time Frame: 4-6 Weeks Goal 2:: Work without noticing pain Goal Time Frame: 4-6 Weeks Goal 3:: I approp HEP for ROM adn strength adn to minimize future problems. Goal Time Frame: 4-6 Weeks - Rehabilitation Potential Physical Therapy Diagnosis: B shoulder OA Rehabilitation Potential: Good - Anticipated Interventions Patient/Client Instruction: Educate patient on: Condition, Plan of Care For the Purpose of:: To decrease pain, To decrease swelling/inflammation, To increase tolerance to activity/condition/position Therapeutic Exercise to Include: Strength training, Postural training, Passive ROM, Active ROM, Scapular Strength/Stabilization For the Purpose of:: To decrease pain, To increase ROM, To improve muscle performance and motor function, To improve ability of physical actions for home/community/work/leisure Manual Therapy Techniques to Include: Mobilization, Passive ROM, Soft tissue mobilization For the Purpose of:: To decrease pain, To increase tolerance to activity/condition/position TENS: Yes Cryotherapy (ice pack, ice massage): Yes Ultrasound (thermal/non thermal): Yes - nonthermal B shoulders. For the Purpose of:: To increase tolerance to activity/condition/position, To improve ability of physical actions for home/community/work/leisure Thank you for the opportunity to evaluate your patient. For Medicare and Medicare HMO plans, please review the plan of care and approve it. It will need to be FAXED BACK to us at [phone] for Medicare purposes. Please let me know if there are questions or concerns regarding this plan of care. Physician Signature: Date: <Electronically signed by Isaiah KELLYT, OCS, CSCS> 02/18/18 0644 CC: Rashid LARA; Lenka Ferguson MD EBG Signed For Medicare only, by signing this I certify the plan of care. Physicians Signature Date GROUP A STREP BY Collected: 12/19/2017 Status: F Source: [place] PCR 9:20 AM [facility] REPOSITORY TYPE CODE TESTS RESULT OUT OF REFERENCE UNITS RANGE LAB GASSRC Throat Swab GAS Specimen Source LAB PCRGAS Negative for Group A Strep Group A PCR Streptococcus by PCR. Result Comment: This test was developed and its performance characteristics determined by [facility] [place] ([facility]). It has not been cleared or approved by the FDA. -[facility] is regulated under CLIA as qualified to perform high-complexity testing. This test is used for clinical purposes. It should not be regarded as inv estigational or for research. Performed By: #### GASPCR #### [facility] [address] [address] PROGRESS Observed: 12/19/2017 Status: COMPLETED Source: [place] 8:55 AM [facility] REPOSITORY HNO ID: [id number] Author: Georgia ([facility]) Vicente Service: (none) Author Type: Nurse Practitioner Type: Progress Notes Filed: 12/19/2017 9:22 AM Note Text: Subjective Zakia Sykes is a 57 year old female who presents with sore throat, coughing up phlegm, chest burning, headache and wheezing for the past 5 days. She has had a fever for 2 days. Fever was 101 degrees at home. She has used dean seltzer cold and flu at home. Review of Systems Constitutional: Negative. Negative for fever. HENT: Positive for congestion, sinus pain (pressure) and sore throat. Negative for ear pain. Respiratory: Positive for cough, sputum production, shortness of breath and wheezing. Cardiovascular: Positive for chest pain (burning in chest). Gastrointestinal: Negative. Negative for abdominal pain, diarrhea, nausea and vomiting. Skin: Negative. Negative for rash. Neurological: Positive for headaches. BP 128/72 Pulse 95 Temp (!) 35.7 ?C (96.2 ?F) Resp 16 Wt 112.9 kg (249 lb) LMP 01/04/2006 SpO2 97% BMI 46.29 kg/m? PAST MEDICAL HISTORY Diagnosis Date - Adjustment disorder with depressed mood - Anxiety state, unspecified - Esophageal reflux GERD - Migraines - Other specified gastritis - PMH - PAST MEDICAL HISTORY OF migraines - Symptomatic menopausal or female climacteric states - Unspecified asthma(493.90) - Vitamin D deficiency PAST SURGICAL HISTORY Procedure Laterality Date - DANDC, DIAG AND/OR THERAPEUTIC 2006 x 5 - EGD W/O OR W/BRUSH/WASH 12/13/00 EGD done at [facility] - GASTRIC BYPASS 2000 - KNEE ARTHROSCOPY Summer 2009 left knee; for torn meniscus and DJD of patella (Dr. Vallejo) - REMOVAL GALLBLADDER 2000 - TOTAL ABDOM HYSTERECTOMY 02/25/2006 Hysterectomy, JERMAINE/bso ALLERGIES Cats; Latex; Megastrol [Other]; Shellfish MEDICATIONS meloxicam (MOBIC) 15 mg tablet Take 1 tablet by mouth once daily. Take with food. pantoprazole DR (PROTONIX) 40 mg tablet Take 1 tablet by mouth daily before breakfast. Take on empty stomach, 1/2 hr before meal. cyclobenzaprine (FLEXERIL) 10 mg tablet Take 1 tablet by mouth daily at bedtime. ivermectin (SOOLANTRA) 1 % crea Apply to affected area. amitriptyline (ELAVIL) 10 mg tablet TAKE ONE TABLET BY MOUTH ONCE DAILY AT BEDTIME alendronate (FOSAMAX) 70 mg tablet Take 1 tablet by mouth once each week. Take with a full glass of water, on an empty stomach; do NOT lie down for 30minutes. montelukast (SINGULAIR) 10 mg tablet Take 1 tablet by mouth daily at bedtime. PARoxetine (PAXIL) 40 mg tablet Take 1 tablet by mouth once daily. albuterol HFA (VENTOLIN HFA) 90 mcg/actuation inhaler Inhale 2 Puffs as instructed every 4 hours as needed for Wheezing/Shortness of Breath. nystatin-triamcinolone (MYCOLOG II) cream Apply 1 application to affected area twice daily. Apply to affected area for 2 weeks. As directed clonazePAM (KLONOPIN) 0.5 mg tablet Take 1 tablet by mouth every 12 hours as needed. CA CARB/VIT D3/MAG OX/ZN OXIDE (ANGELITO MAG ZINC + D3 ORAL) Take by mouth. Cholecalciferol, Vitamin D3, 5,000 unit cap Take 1 capsule by mouth once daily. Take with calcium. vitamin b complex (B COMPLETE) Tab Take 1 tablet by mouth once daily. Kgjdy-2-HHK-EPA-Fish Oil 1,000 (120-180) mg cap Take 1,000 mg by mouth twice daily. Ferrous Sulfate 325 mg (65 mg iron) tablet Take 1 tablet by mouth once daily. acetaminophen (TYLENOL EXTRA STRENGTH) 500 mg ORAL tablet Take two(2) tablets every six(6) hours as needed for pain. DAILY MULTIVITAMIN TAB Take two (2) by mouth once daily. VITAMIN C 1,000 MG TAB Take one(1) tablet daily. gabapentin (NEURONTIN) 300 mg capsule Take 1 capsule by mouth twice daily for 90 days. methylPREDNISolone (MEDROL, MAXIMILIANO,) 4 mg Dose-Pack As Instructed per package amoxicillin-clavulanic acid (AUGMENTIN) 875-125 mg per tablet Take 1 tablet by mouth twice daily. ustekinumab (STELARA) 45 mg/0.5 mL sub-Q syringe Inject 0.5 mL subcutaneously every [address] LINDSEY FAMILY HISTORY Problem Relation Age of Onset - Cancer Paternal Grandmother uterine or ovarian - Hypertension Mother - Hypertension Father - Hypertension Brother - Diabetes Father - Diabetes Maternal Grandfather passed - Heart Father - Lipids Mother - Lipids Father - Lipids Brother - other (Bipolar [Other]) Sister - Cancer Brother testicular cancer - Osteoporosis Mother - Osteoporosis Sister Social History Substance Use Topics - Smoking status: Never Smoker - Smokeless tobacco: Never Used Comment: Did smoke for 2 months in 1981 - Alcohol use No Objective Physical Exam Constitutional: She is well-developed, well-nourished, and in no distress. HENT: Right Ear: Tympanic membrane, external ear and ear canal normal. Left Ear: Tympanic membrane, external ear and ear canal normal. Nose: Nose normal. No rhinorrhea. Mouth/Throat: Uvula is midline, oropharynx is clear and moist and mucous membranes are normal. No posterior oropharyngeal edema or posterior oropharyngeal erythema. Cardiovascular: Normal rate, regular rhythm and normal heart sounds. Pulmonary/Chest: Effort normal. She has wheezes (scattered). Neurological: She is alert. Skin: Skin is warm and dry. No rash noted. No erythema. Nursing note and vitals reviewed. ASSESSMENT/PLAN: 1. Sore throat - ICD9: 462, ICD10: J02.9 (primary diagnosis) - suspect viral - Rapid Strep negative in the office today and Throat culture pending - Discussed supportive care treatment with fluids, rest and analgesia. - The patient may also use warm salt water gargles, throat lozenges and/or OTC throat spray as needed. - Call back if drooling, increased temperature, symptoms of dehydration and/or still sick in one week - RAPID STREP TEST B/O - GROUP A STREPTOCOCCUS BY PCR 2. Fever, unspecified fever cause - ICD9: 780.60, ICD10: R50.9 - RAPID STREP TEST B/O - GROUP A STREPTOCOCCUS BY PCR 3. Sinobronchitis - ICD9: 473.9, 490, ICD10: J32.9, J40 - Will begin treatment with Augmentin 875 mg PO BID for 10 days - The patient should also be given Mucinex for the first 5- 7 days of treatment. - Supportive care with plenty of fluids, rest, and analgesia prn. - AMOXICILLIN 875 MG-POTASSIUM CLAVULANATE 125 MG TABLET - METHYLPREDNISOLONE 4 MG TABLETS IN A DOSE PACK - Follow-up with your PCP in 3-5 days if symptoms have not improved or sooner if symptoms worsen - Discussed red flags and need for immediate medical evaluation if any occur. - Discussed supportive care treatment with fluids, rest and analgesia. - Discussed expected course of illness Georgia Zhang APRN.CNP CNOV Observed: 12/19/2017 Status: COMPLETED Source: [place] 8:30 AM [facility] REPOSITORY Office Visit (UCWSTR) ZAKIA SYKES ([id number]) 1960 F Date Time Provider Department 12/19/17 8:30 AM GEORGIA ZHANG ([facility]) [facility] During your visit today, we recorded the following information about you: Temperature Pulse Respiration Blood pressure 96.2 degrees 95/minute 16/minute 128/72 Weight 112.9 kg Georgia Zhang APRN.CNP 12/19/2017 9:22 AM Signed Subjective Zakia Sykes is a 57 year old female who presents with sore throat, coughing up phlegm, chest burning, headache and wheezing for the past 5 days. She has had a fever for 2 days. Fever was 101 degrees at home. She has used dean seltzer cold and flu at home. Review of Systems Constitutional: Negative. Negative for fever. HENT: Positive for congestion, sinus pain (pressure) and sore throat. Negative for ear pain. Respiratory: Positive for cough, sputum production, shortness of breath and wheezing. Cardiovascular: Positive for chest pain (burning in chest). Gastrointestinal: Negative. Negative for abdominal pain, diarrhea, nausea and vomiting. Skin: Negative. Negative for rash. Neurological: Positive for headaches. BP 128/72 Pulse 95 Temp (!) 35.7 ?C (96.2 ?F) Resp 16 Wt 112.9 kg (249 lb) LMP 01/04/2006 SpO2 97% BMI 46.29 kg/m? PAST MEDICAL HISTORY Diagnosis Date - Adjustment disorder with depressed mood - Anxiety state, unspecified - Esophageal reflux GERD - Migraines - Other specified gastritis - PMH - PAST MEDICAL HISTORY OF migraines - Symptomatic menopausal or female climacteric states - Unspecified asthma(493.90) - Vitamin D deficiency PAST SURGICAL HISTORY Procedure Laterality Date - DANDC, DIAG AND/OR THERAPEUTIC 2005 x 5 - EGD W/O OR W/BRUSH/WASH 12/13/00 EGD done at [facility] - GASTRIC BYPASS 2000 - KNEE ARTHROSCOPY Summer 2009 left knee; for torn meniscus and DJD of patella (Dr. Vallejo) - REMOVAL GALLBLADDER 2000 - TOTAL ABDOM HYSTERECTOMY 02/25/2006 Hysterectomy, JERMAINE/bso ALLERGIES Cats; Latex; Megastrol [Other]; Shellfish MEDICATIONS meloxicam (MOBIC) 15 mg tablet Take 1 tablet by mouth once daily. Take with food. pantoprazole DR (PROTONIX) 40 mg tablet Take 1 tablet by mouth daily before breakfast. Take on empty stomach, 1/2 hr before meal. cyclobenzaprine (FLEXERIL) 10 mg tablet Take 1 tablet by mouth daily at bedtime. ivermectin (SOOLANTRA) 1 % crea Apply to affected area. amitriptyline (ELAVIL) 10 mg tablet TAKE ONE TABLET BY MOUTH ONCE DAILY AT BEDTIME alendronate (FOSAMAX) 70 mg tablet Take 1 tablet by mouth once each week. Take with a full glass of water, on an empty stomach; do NOT lie down for 30minutes. montelukast (SINGULAIR) 10 mg tablet Take 1 tablet by mouth daily at bedtime. PARoxetine (PAXIL) 40 mg tablet Take 1 tablet by mouth once daily. albuterol HFA (VENTOLIN HFA) 90 mcg/actuation inhaler Inhale 2 Puffs as instructed every 4 hours as needed for Wheezing/Shortness of Breath. nystatin-triamcinolone (MYCOLOG II) cream Apply 1 application to affected area twice daily. Apply to affected area for 2 weeks. As directed clonazePAM (KLONOPIN) 0.5 mg tablet Take 1 tablet by mouth every 12 hours as needed. CA CARB/VIT D3/MAG OX/ZN OXIDE (ANGELITO MAG ZINC + D3 ORAL) Take by mouth. Cholecalciferol, Vitamin D3, 5,000 unit cap Take 1 capsule by mouth once daily. Take with calcium. vitamin b complex (B COMPLETE) Tab Take 1 tablet by mouth once daily. Ggbak-6-VJD-EPA-Fish Oil 1,000 (120-180) mg cap Take 1,000 mg by mouth twice daily. Ferrous Sulfate 325 mg (65 mg iron) tablet Take 1 tablet by mouth once daily. acetaminophen (TYLENOL EXTRA STRENGTH) 500 mg ORAL tablet Take two(2) tablets every six(6) hours as needed for pain. DAILY MULTIVITAMIN TAB Take two (2) by mouth once daily. VITAMIN C 1,000 MG TAB Take one(1) tablet daily. gabapentin (NEURONTIN) 300 mg capsule Take 1 capsule by mouth twice daily for 90 days. methylPREDNISolone (MEDROL, MAXIMILIANO,) 4 mg Dose-Pack As Instructed per package amoxicillin-clavulanic acid (AUGMENTIN) 875-125 mg per tablet Take 1 tablet by mouth twice daily. ustekinumab (STELARA) 45 mg/0.5 mL sub-Q syringe Inject 0.5 mL subcutaneously every [address] LINDSEY FAMILY HISTORY Problem Relation Age of Onset - Cancer Paternal Grandmother uterine or ovarian - Hypertension Mother - Hypertension Father - Hypertension Brother - Diabetes Father - Diabetes Maternal Grandfather passed - Heart Father - Lipids Mother - Lipids Father - Lipids Brother - other (Bipolar [Other]) Sister - Cancer Brother testicular cancer - Osteoporosis Mother - Osteoporosis Sister Social History Substance Use Topics - Smoking status: Never Smoker - Smokeless tobacco: Never Used Comment: Did smoke for 2 months in 1981 - Alcohol use No Objective Physical Exam Constitutional: She is well-developed, well-nourished, and in no distress. HENT: Right Ear: Tympanic membrane, external ear and ear canal normal. Left Ear: Tympanic membrane, external ear and ear canal normal. Nose: Nose normal. No rhinorrhea. Mouth/Throat: Uvula is midline, oropharynx is clear and moist and mucous membranes are normal. No posterior oropharyngeal edema or posterior oropharyngeal erythema. Cardiovascular: Normal rate, regular rhythm and normal heart sounds. Pulmonary/Chest: Effort normal. She has wheezes (scattered). Neurological: She is alert. Skin: Skin is warm and dry. No rash noted. No erythema. Nursing note and vitals reviewed. ASSESSMENT/PLAN: 1. Sore throat - ICD9: 462, ICD10: J02.9 (primary diagnosis) - suspect viral - Rapid Strep negative in the office today and Throat culture pending - Discussed supportive care treatment with fluids, rest and analgesia. - The patient may also use warm salt water gargles, throat lozenges and/or OTC throat spray as needed. - Call back if drooling, increased temperature, symptoms of dehydration and/or still sick in one week - RAPID STREP TEST B/O - GROUP A STREPTOCOCCUS BY PCR 2. Fever, unspecified fever cause - ICD9: 780.60, ICD10: R50.9 - RAPID STREP TEST B/O - GROUP A STREPTOCOCCUS BY PCR 3. Sinobronchitis - ICD9: 473.9, 490, ICD10: J32.9, J40 - Will begin treatment with Augmentin 875 mg PO BID for 10 days - The patient should also be given Mucinex for the first 5- 7 days of treatment. - Supportive care with plenty of fluids, rest, and analgesia prn. - AMOXICILLIN 875 MG-POTASSIUM CLAVULANATE 125 MG TABLET - METHYLPREDNISOLONE 4 MG TABLETS IN A DOSE PACK - Follow-up with your PCP in 3-5 days if symptoms have not improved or sooner if symptoms worsen - Discussed red flags and need for immediate medical evaluation if any occur. - Discussed supportive care treatment with fluids, rest and analgesia. - Discussed expected course of illness TAD Hidalgo APRN.CNP 12/19/2017 9:03 AM Signed Take medications as prescribed. If not improving in 3-5 days, or you have worsening symptoms, see your primary care provider for recheck. Use inhaler as prescribed. May also take Mucinex. ACUTE BRONCHITIS: You have acute bronchitis. This means the airway passages in your lungs are inflamed. Bronchitis may be caused by viruses or bacteria. Inhaling cigarette smoke will always make it worse. Exposure to irritating chemicals or second hand smoke as well as allergies can contribute to bronchitis. Repeat episodes of bronchitis may cause lifelong lung problems. Acute bronchitis is usually treated with rest, fluids, cough medicine, and possibly antibiotics or inhaled medicine to open up the small airways. It is very important that you avoid smoke and drink increased amounts of fluids. A cool air vaporizer can help thin bronchial secretions. This makes it easier to cough and clear your chest. If you are a cigarette smoker, consider using nicotine gum or skin patches to help you withdraw. Recovery from bronchitis is often slow, but you should start feeling better after 2-3 days of treatment. Please call your doctor or return here if you have any of the following symptoms: - Increased fever, chills, or chest pain. - Severe shortness of breath or bloody sputum. - Do not improve after 3 days of proper treatment. Referring Provider: SELF [[id number]] Allergies As of Date: 12/19/2017 Noted Allergy Reaction CATS 02/23/2006 Comments: wheezing/ LATEX 02/23/2006 9 - Itching Comments: latex condoms only megastrol [Other] 01/18/2006 1 - Mental Status Change Comments: was on this medication on a 40mg dosage and had psychotic episodes. SHELLFISH 01/28/2006 11 - Vomiting Comments: Dizziness Date Reviewed: 12/19/2017 Reviewed by: Georgia (Uriel) Vicente - Fully Assessed Reason for Visit: Sore Throat [200] Cmt: x 5 days Cough [28] Cmt: x 5 days Post-nasal Drip [1168] Cmt: x 5 days Fever [47] Cmt: x 5 days Primary Visit Diagnosis:Sore throat [J02.9] Other Visit Diagnoses:Fever, unspecified fever cause [R50.9] Sinobronchitis [J32.9, J40] Order(s):RAPID STREP TEST B/O [5363527] Order #: [id number] GROUP A STREPTOCOCCUS BY PCR [SQGASPCR] Order #: [id number] amoxicillin-clavulanic acid (AUGMENTIN) 875-125 mg per tabletTake 1 tablet by mouth twice daily for 10 days.Disp: 20 tabletRfl: 0 methylPREDNISolone (MEDROL, MAXIMILIANO,) 4 mg Dose-PackFollow dosing instructions, take with food.Disp: 1 PackageRfl: 0 Prescriptions as of 12/19/2017 Sig: MELOXICAM 15 MG TABLET Take 1 tablet by mouth once d* PANTOPRAZOLE 40 MG TABLET,DEL* Take 1 tablet by mouth daily * CYCLOBENZAPRINE 10 MG TABLET Take 1 tablet by mouth daily * IVERMECTIN 1 % TOPICAL CREAM Apply to affected area. AMITRIPTYLINE 10 MG TABLET TAKE ONE TABLET BY MOUTH ONCE* ALENDRONATE 70 MG TABLET Take 1 tablet by mouth once e* MONTELUKAST 10 MG TABLET Take 1 tablet by mouth daily * PAROXETINE 40 MG TABLET Take 1 tablet by mouth once d* ALBUTEROL SULFATE HFA 90 MCG/* Inhale 2 Puffs as instructed * NYSTATIN-TRIAMCINOLONE 100,00* Apply 1 application to affect* CLONAZEPAM 0.5 MG TABLET Take 1 tablet by mouth every * ANGELITO MAG ZINC + D3 ORAL Take by mouth. CHOLECALCIFEROL (VITAMIN D3) * Take 1 capsule by mouth once * VITAMIN B COMPLEX TABLET Take 1 tablet by mouth once d* OMEGA 0-PPO-DLQ-FISH OIL 1,00* Take 1,000 mg by mouth twice * FERROUS SULFATE 325 MG (65 MG* Take 1 tablet by mouth once d* ACETAMINOPHEN 500 MG TABLET Take two(2) tablets every six* DAILY MULTIVITAMIN TABLET Take two (2) by mouth once da* VITAMIN C 1,000 MG TABLET Take one(1) tablet daily. AMOXICILLIN 875 MG-POTASSIUM * Take 1 tablet by mouth twice * METHYLPREDNISOLONE 4 MG TABLE* Follow dosing instructions, t* GABAPENTIN 300 MG CAPSULE Take 1 capsule by mouth twice* Problem List As Of Date 12/19/2017 Noted Resolved GASTRITIS NEC [535.4] ESOPHAGEAL REFLUX [K21.9] More... Asthma with exacerbation [J45.901] DEPRESSIVE DISORDER NEC [F32.9] INVALID FOR* ANXIETY STATE NOS [F41.1] INVALID FOR* Anemia, unspecified [D64.9] INVALID FOR*09/13/2015 MIXED HYPERLIPIDEMIA [E78.2] INVALID FOR* More... Obesity, Class III, BMI 40-49.9 (morbid obesity*INVALID FOR* ENDOMETRIAL HYPERPLASIA W ATYPIA [N85.02] INVALID FOR* HEADACHE [R51] INVALID FOR* SCREENING-PULMONARY TB [Z11.1] INVALID FOR* INSOMNIA NOS [G47.00] INVALID FOR* BENIGN HELENA SOFT TISSUE NOS [D21.9] INVALID FOR* Pain in Soft Tissues of Limb [M79.609] INVALID FOR* Calcaneal Spur [M77.30] INVALID FOR* S/P gastric bypass [Z98.84] INVALID FOR*09/13/2015 More... Vitamin D deficiency [E55.9] More... Urgency of urination [R39.15] INVALID FOR* Irritated//Inflamed Seborrheic Keratoses [L82.0]INVALID FOR* Other Seborrheic Keratoses [L82.1] INVALID FOR* Iron deficiency anemia [D50.9] INVALID FOR* More... Dysmetabolic syndrome [E88.81] INVALID FOR* DDD (degenerative disc disease), lumbosacral [M*INVALID FOR* Insufficiency fracture of pelvis [M84.454A] INVALID FOR* H/O gastric bypass [Z98.84] INVALID FOR* Groin pain [R10.30] INVALID FOR* Osteoporosis [M81.0] INVALID FOR* More... 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 Other instructions from your clinician: Take medications as prescribed. If not improving in 3- 5 days, or you have worsening symptoms, see your primary care provider for recheck. Use inhaler as prescribed. May also take Mucinex. ACUTE BRONCHITIS: You have acute bronchitis. This means the airway passages in your lungs are inflamed. Bronchitis may be caused by viruses or bacteria. Inhaling cigarette smoke will always make it worse. Exposure to irritating chemicals or second hand smoke as well as allergies can contribute to bronchitis. Repeat episodes of bronchitis may cause lifelong lung problems. Acute bronchitis is usually treated with rest, fluids, cough medicine, and possibly antibiotics or inhaled medicine to open up the small airways. It is very important that you avoid smoke and drink increased amounts of fluids. A cool air vaporizer can help thin bronchial secretions. This makes it easier to cough and clear your chest. If you are a cigarette smoker, consider using nicotine gum or skin patches to help you withdraw. Recovery from bronchitis is often slow, but you should start feeling better after 2-3 days of treatment. Please call your doctor or return here if you have any of the following symptoms: - Increased fever, chills, or chest pain. - Severe shortness of breath or bloody sputum. - Do not improve after 3 days of proper treatment. Prescriptions ordered this encounter Disp Refills Start End AMOXICILLIN 875 MG-POTASSIUM CLAVULA* 20 t* 0 12/19/2017 12/29/2017 Route: ORAL Sig: Take 1 tablet by mouth twice daily for 10 days. METHYLPREDNISOLONE 4 MG TABLETS IN A* 1 Pa* 0 12/19/2017 12/25/2017 Sig: Follow dosing instructions, take with food. Medications Discontinued During This Encounter amoxicillin-clavulanic acid (AUGMENT* 20 t* 0 04/02/2017 12/19/2017 Class: Historical Med Route: ORAL Sig: Take 1 tablet by mouth twice daily. Disc: Reason for discontinue is not on file. methylPREDNISolone (MEDROL, MAXIMILIANO,) 4 * 1 Pa* 0 04/02/2017 12/19/2017 Class: Historical Med Sig: As Instructed per package Disc: Reason for discontinue is not on file. ustekinumab (STELARA) 45 mg/0.5 mL s* 04/02/2017 12/19/2017 Class: Historical Med Route: SUBCUTANEOUS Sig: Inject 0.5 mL subcutaneously every [address] LINDSEY Disc: Reason for discontinue is not on file. Encounter Status:Closed by GEORGIA ZHANG on 12/19/17 URGENT CARE VISIT Observed: 11/09/2017 Status: F Source: [place] REPORT 5:21 PM [facility] [address] [place] [id number] OFFICE VISIT Date of Service: 11/09/17 MR#: [id number] Acct: [id number] Name: ZAKIA SYKES Rep #: [id number] : 1960 Provider: Rashid LARA Age/Sex: 56/F Location: [facility] Status: Signed Intake Vital Signs11/09/17 Height 5 ft 2 in Intake Visit Reasons: L shoulder pain Allergies cat dander Allergy (Verified 11/09/17 11:53) Shortness of breath dog dander Allergy (Verified 11/09/17 11:53) Shortness of breath megestrol Allergy (Verified 11/09/17 11:53) Unknown shellfish derived Allergy (Verified 11/09/17 11:53) Vomiting MEGISTROL Allergy (Uncoded 11/09/17 11:53) I GET CRAZY AND SUICIDAL Medications Albuterol Aerosols [Ventolin Aerosols] 2.5 mg INHALATION Q4H PRN PRN 07/24/15 [History Confirmed 11/09/17] Alendronate Sodium [Fosamax] 70 mg PO ESCALERA 07/24/15 [History Confirmed 11/09/17] Clonazepam [Klonopin] 0.5 mg PO Q12H PRN 07/24/15 [History Confirmed 11/09/17] Cyclobenzaprine [Flexeril] 10 mg PO QHS 07/24/15 [History Confirmed 11/09/17] Meloxicam [Mobic] 15 mg PO QHS 07/24/15 [History Confirmed 11/09/17] Paroxetine HCl [Paxil] 40 mg PO DAILY 07/24/15 [History Confirmed 11/09/17] Albuterol IH (ProAir) [Proair Hfa] 1 - 2 puff INHALATION Q4H PRN PRN 09/16/16 [History Confirmed 11/09/17] Amitriptyline HCl 10 mg PO QHS 09/16/16 [History Confirmed 11/09/17] Gabapentin [Neurontin] 300 mg PO BID 09/16/16 [History Confirmed 11/09/17] Pantoprazole Sodium [Protonix] 40 mg PO DAILY #14 tab 09/17/16 [Rx Confirmed 11/09/17] Ferrous Sulfate [Iron] 325 mg PO DAILY 02/25/17 [History Confirmed 11/09/17] PFSH Medical History Anemia (Acute) Arthritis (Acute) Asthma (Acute) Back pain (Acute) Fatigue (Acute) Hay fever (Acute) Knee pain (Acute) Migraine (Acute) SOB (shortness of breath) (Acute) Shoulder pain (Acute) Social History Smoking Status: Never smoker alcohol intake: never HPI HPI Details: ZAKIA SYKES, is a 56 F who presents to the office today for complaint of left shoulder pain for the past 10 days. Patient states that she has noticed a gradual onset of left shoulder pain worsening throughout this time. She states that this morning it was difficult for her to lift her coffee cup to her mouth. She reports that the pain is a 6-7 out of 10 at worst. She also reports some tingling sensation traveling from her shoulder down to her pinky. She denies any numbness or loss in range of motion. She has tried ibuprofen for the pain with some mild relief. She denies any injury or fall leading to the pain. No history of shoulder issues. No other associated symptoms or alleviating/aggravating factors. ROS Const Constitutional: No chills, fever(s), fatigue or abnormal sleep pattern Musc Musculoskeletal: Positive for joint pain and tingling; no deformity, joint swelling, limited range of motion or numbness Skin Skin: No wounds or lesions Neuro Neurology: Positive for tingling; no behavioral changes, confusion or numbness Psych Psychiatric: No behavioral changes, No confusion, No abnormal sleep pattern Endo Endocrine: No fatigue Exam Const General: cooperative, healthy appearing Musc Musculoskeletal: Yes joint tenderness; no joint redness Skin General: no rashes or lesions noted Neuro General: alert, CN's II-XI intact bilaterally Extrem General: full ROM, normal capillary refill Other: Pain to palpation over the AC joint. Patient is able to touch the top of her head and the middle of her back with the left arm. Psych Appearance: grossly normal Mental Status: mental status grossly normal Assessment AND Plan Problems 1. Strain of left shoulder, initial encounter S46.615N Status Acute Plan X-ray left shoulder read and interpreted by myself showing moderate AC joint arthritis as well as other degenerative changes. Awaiting radiology interpretation at time of dictation. Advised patient to use ice, rest and ibuprofen as needed for pain. Advised to follow-up with orthopedics in 10 days if no better or sooner if worse. Advised patient of potential red flags and when appropriate report to the ED. Patient verbalized understanding of all the above. This note was generated with [employer] dictation software. It may contain incorrect words, spelling, and punctuation that were not noted in checking the note before signing. Orders Orders: Coding Level of Care Code Off vis,est,level 3 Diagnoses Strain of left shoulder, initial encounter S46.912A Encounter type: initial encounter 11/09/17 1721 <Electronically signed by Rashid LARA> Date Rashid LARA Cosigner Signature: Date (if applicable) CC: SHOULDER MIN 2 VIEWS Observed: 11/09/2017 Status: F Source: [place] 11:36 AM [facility] [place] REPOSITORY [facility] Imaging Services [address] [place] [address] Shoulder min 2 Views MR#: [id number] Acct: [id number] Name: ZAKIA SYKES Rep #: [id number] : 1960 F 56 From: Ilir Jackson MD PCP: Desi Gordon MD Status: REG CLI Study: Shoulder min 2 Views Date of Exam: 11/09/17 Exam# [id number] Ordering Dr: Rashid Barboza STUDY: X-RAY - LEFT SHOULDER REASON FOR EXAM: Female, 56 years old. Left shoulder pain. No known injury. TECHNIQUE: 4 view(s) of the shoulder. COMPARISON: None. FINDINGS: There is mild degenerative arthrosis of the glenohumeral articulation. Normal acromioclavicular joint. Normal acromion. Normal humeral head and visualized proximal humerus. The soft tissue structures are unremarkable. Normal visualized pulmonary apex. RAD/Shoulder min 2 Views IMPRESSION: Mild degree of degenerative changes. Electronically Signed: Ilir Jackson MD at 12:22 EDT Tel [phone], Service support , CC: Rashid LARA; Desi Gordon MD Data Lead: Signed CNCO Observed: 09/10/2017 Status: COMPLETED Source: [place] 12:00 AM [facility] REPOSITORY Letter Text Zakia Sykes [address] [facility] [address] 09/10/2017 [facility] #: [id number] Dear , Due to a change in the provider's schedule it has been necessary to reschedule your Appointment. Your original appointment was scheduled for 10/08/2017 at 3:40 PM with Desi Gordon M.D. Your new appointment is now scheduled on 10/11/2017 at 7:40 AM with Johnna Edwards. If this new appointment is not convenient for you, please contact our office at [phone]. Thank you for choosing the [facility] as your Healthcare Provider . Sincerely, Internal Medicine Appointment Office TXT - BLOOD FLOW Observed: 07/21/2017 Status: F Source: [facility] 3:32 PM [facility] [place] REPOSIT[facility] Cardiovascular Services [address] [place] [address] 07/21/17 0757 MR#: [id number] Acct: [id number] Name: ZAKIA SYKES Rep #: [id number] : 1960 56 From: Amado Corcoran MD Attending Dr: OUT OF TOWN DOCTOR Status: REG REF Ordering Dr: Date: 07/21/17 Location: [facility] Sex: F C Admitted: Carotid Duplex Ultrasound Abdominal Aorta The right maximum ICA velocity is 64.4/28.3 cm/s.The maximal outside diameter of the proximal The right ECA velocity is less than 125 cm/s. aorta measures 1.61 cm in the longitudinal axis. There is insignificant plaque formation noted on The maximal outside diameter of the proximal the right side. aorta measures 1.61 x 1.61 cm in the cross- The left maximum ICA velocity is 57.4/31.8 cm/s. sectional axis. The left ECA velocity is less than 125 cm/s. There is insignificant plaque formation noted on the left side. Ankle Brachial Index The right ankle/ brachial index is 1.19. The left ankle/ brachial index is 1.17. Medical History and Assessment Client presents with positive cardiac family history (father had 1st [place] at age 45). The heart rate is 72 beats per minute. The heart rhythm is regular. The right blood pressure is 128/80. The left blood pressure is 124/80. Interpretation Summary Normal carotid artery screening (0 to 15% narrowing). Normal aortic ultrasound exam. The ankle/brachial index is normal (1.0 or greater). Performed By: Roxanne Cannon, SHOSHANA, RVT 07/21/17 1531 Date Amado Corcoran MD CC: Desi Gordon MD Date Dictated: 07/21/17 0757 Date Transcribed: 07/21/17 1531 Data Lead: Signed URGENT CARE VISIT Observed: 06/02/2017 Status: F Source: [place] REPORT 1:18 PM [facility] [address] [place] [address] OFFICE VISIT Date of Service: 06/02/17 MR#: [id number] Acct: [id number] Name: CHRISTELLEZAKIA A Rep #: [id number] : 1960 Provider: Jose Maira LARA Age/Sex: 56/F Location: [facility] Status: Signed Intake Vital Signs06/02/17 Height 5 ft 2 in Intake Visit Reasons: SINUS INFECTION/EAR PAIN Is patient in pain?: No Allergies cat dander Allergy (Verified 06/02/17 13:11) Shortness of breath dog dander Allergy (Verified 06/02/17 13:11) Shortness of breath megestrol Allergy (Verified 06/02/17 13:17) Unknown shellfish derived Allergy (Verified 06/02/17 13:11) Vomiting MEGISTROL Allergy (Uncoded 06/02/17 13:11) I GET CRAZY AND SUICIDAL Medications Albuterol Aerosols [Ventolin Aerosols] 2.5 mg INHALATION Q4H PRN PRN 07/24/15 [History Confirmed 06/02/17] Alendronate Sodium [Fosamax] 70 mg PO ESCALERA 07/24/15 [History Confirmed 06/02/17] Clonazepam [Klonopin] 0.5 mg PO Q12H PRN 07/24/15 [History Confirmed 06/02/17] Cyclobenzaprine [Flexeril] 10 mg PO QHS 07/24/15 [History Confirmed 06/02/17] Meloxicam [Mobic] 15 mg PO QHS 07/24/15 [History Confirmed 06/02/17] Paroxetine HCl [Paxil] 40 mg PO DAILY 07/24/15 [History Confirmed 06/02/17] Albuterol IH (ProAir) [Proair Hfa] 1 - 2 puff INHALATION Q4H PRN PRN 09/16/16 [History Confirmed 06/02/17] Amitriptyline HCl 10 mg PO QHS 09/16/16 [History Confirmed 06/02/17] Gabapentin [Neurontin] 300 mg PO BID 09/16/16 [History Confirmed 06/02/17] Pantoprazole Sodium [Protonix] 40 mg PO DAILY #14 tab 09/17/16 [Rx Confirmed 06/02/17] Ferrous Sulfate [Iron] 325 mg PO DAILY 02/25/17 [History Confirmed 06/02/17] amoxicillin 500 mg capsule 1,000 mg PO BID 10 Days #40 cap 06/02/17 [Rx Confirmed 06/02/17] PFSH Social History Smoking Status: Never smoker alcohol intake: never HPI SINUS INFECTION/EAR PAIN: Chief Complaint: sinus pressure Details: ZAKIA SYKES, is a 56 F who presents to the office today for initial evaluation progressively worsening sinus pressure 3 days with associated dry cough and postnasal drip. Occasional chills, though no complaints of fever, sweats, rash, chest pain/shortness of breath. Non-smoker. Ybin-eup-fjbdmdf antihistamine/decongestant combinations not assisting with symptoms. No other associated symptoms and no other alleviating or aggravating factors. ROS Const Constitutional: Positive for chills; no excessive sweating, abnormal sleep pattern, fever(s), night sweats or body ache Eyes Eyes: No change in vision ENT ENT: Positive for post nasal drip, sinus pressure and hoarseness; no abnormal hearing, ear pain, ear discharge, ear pressure, hearing loss or sore throat Resp Respiratory: Positive for cough Cough: Yes non-productive; no chest congestion Cardio Cardiology: No excessive sweating, chest pain at rest, chest pain with exertion, shortness of breath, dyspnea on exertion, irregular heart rhythm, generalized swelling or leg pain with exertion Gastro GI: No abdominal pain, change in stool character or change in bowel habits Musc Musculoskeletal: No joint pain, back pain or limited range of motion Skin Skin: No change in hair or sores Neuro Neurology: No abnormal hearing, abnormal speech or abnormal movements Psych Psychiatric: No abnormal sleep pattern Endo Endocrine: No excessive sweating, change in body appearance, cold intolerance or heat intolerance Aller/Imm Allergy/Immunologic: No food intolerance Song/Lymp Hematologic/Lymphatic: No easy bruising Exam Const General: cooperative, healthy appearing, no acute distress, comfortable Nutritional Appearance: average body habitus Orientation: alert, awake, oriented x3 [facility] Head: normal to inspection Ears: hearing grossly normal bilaterally, external ears normal, TM's normal bilaterally, EAC's normal Nose: external nose normal, nares normal, septum normal, no nasal discharge Face and sinus: normal facial exam, sinus tenderness, face symmetric Mouth: oral mucosae normal, lip normal, tongue normal, oropharynx normal Teeth and gingiva: dentition normal, gingiva normal Throat: posterior oropharynx normal, tonsils normal, uvula midline, postnasal drainage (Scant purulent) Eyes General: appearance normal, both eyes and all related structures Neck Neck: normal visual inspection, full ROM, no lymphadenopathy, no meningeal signs, supple Neck mass: No Thyroid: thyroid normal Lymphatic: no lymphadenopathy noted Chest Chest palpation AND inspection: normal inspection of the chest Resp Effort AND Inspection: normal respiratory effort, able to speak in complete sentences, no cough (No unsolicited cough appreciated during today's exam) Auscultation: Bilateral: Clear to Auscultation Cardio Palpation: normal PMI Rate: regular rate Rhythm: regular rhythm Heart Sounds: S1 normal, S2 normal, no gallops, no murmurs, no rubs Pulses: radial pulses present GI Inspection: normal to inspection Palpation: soft, no hepatosplenomegaly Skin General: no rashes or lesions noted Neuro General: alert, awake, oriented x3, gait normal Cognition: normal cognition Speech: speech normal Gait: normal gait Motor: muscle tone normal throughout Sensory Exam: no sensory deficits noted Extrem General: normal to inspection Psych Appearance: grossly normal Mental Status: mental status grossly normal Mood: congruent mood Affect: normal affect Speech and Movement: speech and movement normal Attitude: cooperative Thought Process: normal Thought Content: normal Judgment: judgment good Assessment AND Plan Problems 1. Sinusitis J32.9 Plan Amoxicillin as prescribed today. Clear fluids, rest, Advil/Tylenol, warm facial compresses as needed as instructed today. Avoid tobacco smoke exposure. Follow-up with PCP in 3-5 days should symptoms not improve, sooner should symptoms worsen or any other concerns develop. Patient states knowledge understanding all the above. This note was generated with [employer] dictation software. It may contain incorrect words, spelling, and punctuation that were not noted in checking the note before signing. Medications New: Coding Level of Care Code Off vis,est,level 4 Diagnoses Sinusitis J32.9 06/02/17 1318 <Electronically signed by Jose Maria LARA> Date Jose Maria LARA Cosigner Signature: Date (if applicable) CC: ALLERGIES ALLERGIES DATE TYPE / CODE NAME / CODE REACTION SEVERITY SOURCE 05/20/2018 Drug megestrol/F006 Unknown Unknown [facility] [facility][id number][facility] 891186[facility] 05/20/2018 Drug shellfish Vomiting Unknown [place] Allergy/555394984(S derived/[id number] [facility]) 1754(RXNORM) Hospital Repository 05/20/2018 Drug cat Shortness of Unknown [place] Allergy/931004193(S dander/X888169 breath [facility]) 086(RXNORM) Hospital Repository 05/20/2018 Drug dog Shortness of Unknown [place] Allergy/883920118(S dander/[id number] breath [facility]) 087(RXNORM) Hospital Repository 05/20/2018 Miscellaneous MEGISTROL I GET CRAZY Unknown [place] Allergy/663922602(S AND SUICIDAL [facility] NOM[facility]) Hospital Repository 02/23/2006 Animal/731928473(SN CATS [place] OMED CT) Clinic [facility] [place] Repository 02/23/2006 DRUG LATEX ITCHING [place] INGREDI/382161824(S Clinic Main NOMED [facility]) [place] Repository 01/28/2006 Food/881358601(SNOM [place] Vomiting [place] ED CT) Clinic [facility] [place] Repository 01/18/2006 Miscellaneous OTHER Mental Chg [place] Allergy/731607191( Clinic Main NOMED [facility]) [place] Repository ENCOUNTERS ENCOUNTERS ADMIT/DISCHARGE ACCOUNT ADMITTING ENCOUNTER LOCATION SOURCE NUMBER CLASS 05/20/2018/05/20/19 [id number] Ambulatory [place] [address] [place] [address] ing:SDCRoom: Repository AC08 05/11/2018/05/11/19 [id number] Ambulatory BMSBuilding:B [place] [facility] [place] Repository 05/05/2018 [id number] Ambulatory [facility] ing:MTLAB Repository 04/27/2018 [id number] Ambulatory [facility]:[place] Repository 04/22/2018 [id number] Ambulatory [facility]Building:[facility] [place] Repository 04/22/2018/04/22/20 [id number] Ambulatory B[facility]Building:[facility] [place] [facility] [place] Repository 04/22/2018 [id number] Ambulatory [facility] ing:MTRAD Repository 04/20/2018/04/20/20 [id number] Ambulatory B[facility]Building:B [place] 18 [place].[facility] Repository 04/13/2018 [id number] Ambulatory [facility] Hospital ing:CT Repository 04/13/2018/04/13/20 [id number] Ambulatory B[facility]Building:B [place] 18 [facility] Repository 04/11/2018/04/11/20 [id number] Ambulatory BMSBuilding:B [place] 18 [place].[facility] Repository 04/07/2018 [id number] Ambulatory [facility] ing:OPBD Repository 03/23/2018/03/23/20 [id number] Ambulatory [address] ing:PT Repository 03/22/2018/03/22/20 [id number] Ambulatory BMSBuilding:[facility] [place] [address] Hospital Repository 03/03/2018/03/03/20 [id number] Ambulatory BMSBuilding:B [place] 18 [place].[facility] Repository 12/19/2017/12/22/19 [id number] Ambulatory [address] Repository 11/09/2017/11/10/19 [id number] Ambulatory BMSBuilding:B [place] [facility] [place].[facility] Repository 11/09/2017 [id number] Ambulatory [facility] Hospital ing:HPRAD Repository 07/21/2017 [id number] Ambulatory [facility] ing:[facility] Repository 06/02/2017/06/02/19 [id number] Ambulatory BMSBuilding:B [place] [facility] [place] Repository PAYERS PAYERS ENCOUNTER GUARANTOR PAYER SUBSCRIBER SOURCE 05/20/2018 LIANE Primary LIANE [place] [id number] [place] Insurance:MEDICAL MIGUELDOB: [facility] [id number] [facility] [id number]: Number: Repository [id number] () Date:6409-17-50[address], [place] [address]HU: 05/20/2018 Secondary NOT GIVENUNK [place] Insurance:SELF PAY [facility] [place] Number: Effective Repository Date:2018-05-10 05/11/2018 [facility] [id number] [place] Insurance:MEDICAL MIGUELDOB[place] [facility] [id number] [address]Bgc: Number: Repository [id number] (HP) Date:7251-12-98KD [address] [address]JQ: 05/11/2018 Secondary NOT GIVENUNK [place] Insurance:SELF PAY [facility] [place] Number: Effective Repository Date:2018-05-06 05/05/2018 [facility] [id number] [place] Insurance:MEDICAL MIGUELDOB: [facility] [id number] [facility]iance Indian Hospital [address]Sfl: Number: Repository [id number] (HP) Date:2069-20-55ET [address] [address]TD: 05/05/2018 Secondary NOT GIVENUNK [place] Insurance:SELF PAY [facility] [place] Number: Effective Repository Date:2018-05-05 04/27/2018 [facility] LIANE Bravo [id number] [place] Insurance:MEDICAL MIGUELDOB: [facility] [id number] [facility] Indian Hospital [address]His: Number: Repository [id number] (HP) Date:5746-29-90ZA [address] [address]TV: 04/27/2018 Secondary NOT GIVENUNK [place] Insurance:SELF PAY [facility] [place] Number: Effective Repository Date:2018-04-27 04/22/2018 LIANE Primary LIANE Bravo [id number] [place] Insurance:MEDICAL MIGUELDOB: [facility] [id number] Defiance Indian Hospital [address]Wba: Number: Repository [id number] (HP) Date:8067-46-87VY [address] [address]EG: 04/22/2018 Secondary NOT GIVENUNK [place] Insurance:SELF PAY [facility] [place] Number: Effective Repository Date:2018-04-22 04/22/2018 LIANE Primary LIANE ShellyMcLaren Lapeer [id number] [place] Insurance:MEDICAL MIGUELDOB: [facility] [id number] [place] [id number]: Number: Repository [id number] (HP) Date:5566-74-42WX [address] [address]HN: 04/22/2018 Secondary NOT GIVENUNK [place] Insurance:SELF PAY [facility] [place] Number: Effective Repository Date:2018-04-22 04/22/2018 [id number] [place] Insurance:MEDICAL MIGUELDOB: [facility] [id number] [place]ille [id number]: Number: Repository [id number] (HP) Date:7976-26-22EA [address] [address]TE: 04/22/2018 Secondary NOT GIVENUNK [place] Insurance:SELF PAY [facility] [place] Number: Effective Repository Date:2018-04-22 04/20/2018 ZAKIA LEUNG6 Primary [facility] Insurance:MEDICAL MIGUELDOB: [facility] [id number] [place] [address]Tel: (330) Number: Repository [phone] () [id number] Date:1594-39-55WP [address] [address]EH: 04/20/2018 Secondary NOT GIVENUNK [place] Insurance:SELF PAY [facility] [place] Number: Effective Repository Date:2018-04-08 04/13/2018 LIANE Primary [id number] [place] Insurance:MEDICAL MIGUELDOB: [facility] [id number] Defiance Indian Hospital [address]Jws: Number: Repository [id number] (HP) Date:6871-90-34NI [address] [place] [address]UO: 04/13/2018 Secondary NOT GIVENUNK [place] Insurance:SELF PAY [facility] [place] Number: Effective Repository Date:2018-04-07 04/13/2018 LIANE Primary LIANE [place] [id number] [place] Insurance:MEDICAL MIGUELDOB: [facility] [id number] Defiance Indian Hospital [address]Nbm: Number: Repository [id number] (HP) Date:8402-45-07WU [address] [address]BG: 04/13/2018 Secondary NOT GIVENUNK [place] Insurance:SELF PAY [facility] [place] Number: Effective Repository Date:2018-04-12 04/11/2018 LIANE Primary LIANE [place] [id number] [place] Insurance:MEDICAL MIGUELDOB: [facility] [id number] Defiance Indian Hospital [address]Tkd: Number: Repository [id number] (HP) Date:1617-46-45BI [address] [address]BW: 04/11/2018 Secondary NOT GIVENUNK [place] Insurance:SELF PAY [facility] [place] Number: Effective Repository Date:2018-04-11 04/07/2018 LIANE Primary LIANE [place] [id number] [place] Insurance:MEDICAL MIGUELDOB: [facility] [id number] Defiance Indian Hospital [address]Yxo: Number: Repository [id number] (HP) Date:0002-91-05PC [address] [address]SQ: 04/07/2018 Secondary NOT GIVENUNK [place] Insurance:SELF PAY [facility] [place] Number: Effective Repository Date:2018-02-02 03/23/2018 Liane Primary Liane Bravo [id number] [place] Insurance:MEDICAL MiguelDOB: [facility] [id number] Defiance Indian Hospital [address]Gtc: Number: Repository [id number] (HP) Date:7025-24-51AU [address] [address]PS: 03/23/2018 Secondary NOT GIVENUNK [place] Insurance:SELF PAY [facility] [place] Number: Effective Repository Date:2018-02-16 03/22/2018 [facility] [id number] [place] Insurance:MEDICAL MiguelDOB: [facility] [id number] Defiance Indian Hospital [address]Vpq: Number: Repository [id number] (HP) Date:0770-75-74QM [address] [address]FE: 03/22/2018 Secondary NOT GIVENUNK [place] Insurance:SELF PAY [facility] [place] Number: Effective Repository Date:2018-03-22 03/03/2018 [facility] Liane Bravo [id number] [place] Insurance:MEDICAL MiguelDOB: [facility] [id number] Defiance Indian Hospital [address]Rnk: Number: Repository [id number] (HP) Date:4697-79-56SY [address] [address]CX: 03/03/2018 Secondary NOT GIVENUNK [place] Insurance:SELF PAY [facility] [place] Number: Effective Repository Date:2018-02-09 11/09/2017 Liane Primary Lianesharita Bravo [id number] [place] Insurance:MEDICAL MiguelDOB: [facility] [id number] Defiance Indian Hospital [address]Imk: Number: Repository [id number] (HP) Date:0318-20-51CQ [address] [address]DJ: 11/09/2017 Secondary NOT GIVENUNK [place] Insurance:SELF PAY [facility] [place] Number: Effective Repository Date:2017-11-09 11/09/2017 Liane Primary LianeSCCI [id number] [place] Insurance:MEDICAL MiguelDOB: [facility] [id number] [facility] [place] [address]Zvn: Number: Repository [id number] (HP) Date:9155-64-23TO [address] [address]LN: 11/09/2017 Secondary NOT GIVENUNK [place] Insurance:SELF PAY [facility] [place] Number: Effective Repository Date:2017-11-09 07/21/2017 Liane Primary NOT GIVENUNK [place] [id number] [place] Insurance:SELF PAY [facility] [address]Rkw: Number: Effective Repository Date:2017-05-25 (HP) 06/02/2017 Liane Primary [place] [id number] [place] Insurance:MEDICAL MiguelDOB: [facility] [id number] Defiance Indian Hospital [address]Tee: Number: Repository [id number] (HP) Date:9213-68-96SJ [address] [address]AT: 06/02/2017 Secondary NOT GIVENUNK [place] Insurance:SELF PAY [facility] [place] Number: Effective Repository Date:2017-06-02
== END ==
PROVIDERS: Family Provider Internal Medicine; PCP Internal Medicine; Referring Provider Otolaryngology; Visit Provider Otolaryngology
DX: J32.3 Chronic sphenoidal sinusitis (principal)
CPT/HCPCS: 70486

== ENCOUNTER → 2018-04-22 08:55 | Outpatient (CLI) | payer OTHER, SELFPAY ==
[2018-04-20 09:26] VITALS: BMI 46.4
--- NOTE | 2018-04-22 08:58 | RAD_ITS ---
STUDY: X-RAY - LEFT HAND, ATTENTION INDEX FINGER REASON FOR EXAM: Female, 57 years old. Palpable abnormality along the posterior medial aspect of the proximal interphalangeal joint. TECHNIQUE: view(s) of the finger were obtained. COMPARISON: None. FINDINGS: Normal metacarpal head. Normal metacarpophalangeal joint. Normal proximal phalanx. Normal middle phalanx. Normal distal phalanx. Normal proximal interphalangeal joint. Normal distal interphalangeal joint. Soft tissue swelling overlying the proximal phalanx. RAD/Finger(s) Min 2 Views IMPRESSION: Soft tissue swelling overlying the proximal phalanx of the index finger. Electronically Signed: Ilir Jackson MD at 9:34 EST Tel [phone], Service support ,
== END ==
PROVIDERS: Family Provider Internal Medicine; PCP Internal Medicine; Visit Provider Physician Assistant Surgical
DX: S66.912A Strain of unspecified muscle, fascia and tendon at wrist and hand level, left hand, initial encounter (principal); X58.XXXA Exposure to other specified factors, initial encounter
CPT/HCPCS: 73140

== ENCOUNTER → 2018-05-05 13:11 | Outpatient (CLI) | payer OTHER, SELFPAY ==
[2018-05-05 13:11] VITALS: BMI 46.4
[2018-05-05 14:48] LABS: ALB/GLOB Ratio 0.9 RATIO (0.9-2.4); AST(SGOT) 32 U/L (15-37); Alanine Aminotransfer ALT/SGPT 42 U/L (13-56); Albumin, Serum 3.4 g/dL (3.2-5.0); Alkaline Phosphatase 88 U/L (45-117); Anion Gap 11 (5-15); BUN 16 mg/dL (7-18); BUN/Creat Ratio 15.5 RATIO (10-20); Calcium,Total 9.1 mg/dL (8.5-10.1); Chloride 104 mmol/L (98-107); Creatinine, Serum 1.03 mg/dL (0.55-1.02); EST Glomerular Filtration Rate 59 mL/min (>60); Est Glom Filt Rate - Afr Amer 71 mL/min (>60); Globulin 3.9 g/dL (2.2-4.2); Glucose 141 mg/dL (74-106); Potassium 3.4 mmol/L (3.5-5.1); Protein, Total 7.3 g/dL (6.4-8.2); Sodium Level 143 mmol/L (136-145)
== END ==
PROVIDERS: Family Provider Internal Medicine; PCP Internal Medicine; Referring Provider Nurse Practitioner Family; Visit Provider Nurse Practitioner Family
DX: R94.4 Abnormal results of kidney function studies (principal)
CPT/HCPCS: 36415; 80053

== ENCOUNTER 2018-05-20 08:15 | Day surgery (SDC) | payer OTHER, SELFPAY ==
[2018-05-11 07:09] VITALS: BMI 46.4
--- NOTE | 2018-05-20 | IMM_PTH ---
PATIENT: JAMES BOURGEOIS LOC: [facility] [place] U#:[id number] AGE/SX: 57/F ROOM: RE05/20/[address]: Dr. Isaiah Bernal MD : 1960 BED: DIS: 05/20/2018 SPEC #: [id number] RECD: 05/23/18 12:06 STATUS: JOHN REKathy #: [id number] WARNER: 05/20/18 00:[address]: Isaiah Bernal DEPT: IMMUNOHISTOCHEMISTRY RECD BY: Basil Stroud ENTERED: 05/23/18 12:07 SP TYPE: IMMUNO OTHR DR: Dr. Lenka Ferguson MD Tissues: Bursa, NOS Procedures: CD138 (add) CD20 (add) CD3 (add) CD43 (add) CD45 (add) CD5 (add) CD79A (add) CK20 (add) CK7 (add) CK8 (add) KI-67 (add) AE1-3 (initial) PHYSICIAN & [address] [address] SPECIMEN INFORMATION: Tissue Source: Pharyngeal bursal cyst Clinical Info: Pharyngeal bursitis and headache Specimen Number: [id number] CPT code: 07306, 07781 x11 METHODOLOGY: Deparaffinized sections of prefer/formalin-fixed tissue or PAP/DQ stained slides are incubated with monoclonal/polyclonal antibodies/oligonucleotide probes. Localization is made via biotin free immunoperoxidase method. Appropriate controls are performed and reacted as expected. Results on target cell population are indicated in the following table: RESULTS: ANTIBODY / CLONE RESULT AE1-3 (AE1/AE3/PCK26) positive CK7 (OV-TL12/30) positive CK8 (73gywfV59) positive CK20 (KS20.8) negative CD3 (PS1) positive CD5 (SP10) positive CD20 (L26) positive CD43 (L60) positive CD45 (RP2/18) positive CD79a (11E3) positive CD138 (B-A38) positive, focal Ki-67 (30-9) negative These tests were developed and their performance characteristics determined by [facility]. They may not have been cleared or approved by the U.S. Food and Drug Administration. The FDA has determined that such clearance or approval is not necessary. INTERPRETATION: Pharyngeal bursal cyst: Consistent with benign pharyngeal cyst, inflamed. AM:antonio 05/24/18 Comment: There is no evidence of lymphoproliferative disorder.
[2018-05-20 08:40] VITALS: BP 141/81; PULSE 71; RESP 16; TEMP 36.4; O2SAT 96; BMI 46.7
--- NOTE | 2018-05-20 10:00 | BUR_PTH ---
PATIENT: JAMES BOURGEOIS [place] [facility] [place][id number] AGE/SX: 57/F ROOM: RE05/20/[address]: Dr. Isaiah Bernal MD : 1960 BED: DIS: 05/20/2018 SPEC #: [id number] RECD: 05/20/18 11:11 STATUS: JOHN LISA #: [id number] WARNER: 05/20/18 10:[address]: Isaiah Bernal DEPT: SURGICAL PATHOLOGY RECD BY: Alphonse Zacarias ENTERED: 05/20/18 12:15 SP TYPE: JULIETTE LAIRD DR: Dr. Lenka Ferguson MD Tissues: Juliette, NOS Procedures: Surgery Specimen Level III HEADER OPERATION: Biopsy, nasopharynx, visible lesion PRE-OP DIAGNOSIS: Pharyngeal bursitis and headache TISSUE SUBMITTED: Pharyngeal bursal cyst MICROSCOPIC DIAGNOSIS Pharyngeal bursal cyst, excision: Benign cyst. See comment. AM:sp 05/23/18 COMMENT The cyst consists of benign respiratory epithelium in associated benign lymphoid tissue. There is no evidence of malignancy. Immunohistochemistry ([id number]) reveals a polytypic lymphoid tissue. Clinical correlation is suggested. MICROSCOPIC DESCRIPTION Slides are reviewed. GROSS DESCRIPTION Received is one container labeled with the patient name and designated pharyngeal bursal cyst. The specimen consists of one irregular fragment of light valenzuela soft tissue that measures 1 x 0.7 x 0.2 cm. The specimen is totally submitted in one cassette. AM:cristy 05/21/18 TC:5 CPT: 21741
--- NOTE | 2018-05-20 10:20 | PCM.OPRPT ---
Problem List (1) Cyst of nasopharynx Status: Chronic Report of Operation Date of Procedure: 05/20/18 Pre-Operative Diagnosis: Nasopharyngeal cyst, chronic headaches Post-Operative Diagnosis: Same Surgery/Procedure Performed:: Excision of nasopharyngeal cyst Description of Surgical Findings:: Zakia is a 57-year-old female who presents with chronic headache refractory to appropriate therapies. Evaluation for possible sinus causes revealed a nasopharyngeal cyst that appeared inflamed and treat with antibiotic did result in improvement of her pain complaints. Given this this was considered as a possible contributor to her chronic pain complaints and removal was offered in hopes of improvement. The risks, alternatives, potential benefits, and complications were discussed at length and any questions answered to the patient and/or caregiver's satisfaction. Witnessed informed consent was obtained in the office, and the patient and/or caregiver was agreeable to proceed. Procedure went as follows: The patient was identified in the preoperative holding and brought to the operating room, placed under general anesthesia and intubated. When appropriate anesthesia was obtained the head of bed was then rotated and the patient prepped and draped in usual sterile fashion. A Priyank-Rosas mouthgag was then placed and the patient suspended from the Loya stand. Red rubber catheters were placed each nostril and brought through the mouth to elevate the soft palate and using a laryngeal mirror the adenoid bed visualized. There is noted to be a cystic lesion in the left nasopharyngeal fold. This was then grasped with a [place] Delong forceps and the overlying mucosa removed. This produced a large amount of thick gummy mucus which was suctioned clear. The base of the cyst was then cauterized with suction electrocautery. This resulted in marsupialization of the cyst and obliteration of its lining. Upon completion the rubber catheters were removed and the oral nasal cavities irrigated with saline solution. An NG tube was placed to decompress the stomach and the patient returned to anesthesia, was revived and extubated without complication having tolerated the procedure well. Type of Anesthesia:: General Anesthesiologist: Isaiah Sutherland Special Medications: none Specimen's removed: nasopharyngeal cyst Drains: none Estimated Blood Loss (mL): 0 mL Fluids Replaced: 750 mL Grafts/Implants Used: none - Complications none - Admit VTE Documentation VTE Present on Admission: No VTE Mechan Device Prophylaxis: SCD's VTE Pharm Prophylaxis ordered?: No
--- NOTE | 2018-05-20 10:27 | DCINST_ITS ---
Discharge Diet: No Restrictions Discharge Activity: Return to Normal Activity Call your doctor if your incision/area has: Sudden Increased Bleeding Call your doctor if you observe: Fever of 101 or Higher, Uncontrolled pain Allergies/Adverse Reactions: Allergies cat dander Allergy (Verified 05/20/18 08:37) Shortness of breath dog dander Allergy (Verified 05/20/18 08:37) Shortness of breath megestrol Allergy (Verified 05/20/18 08:37) Unknown I get crazy and suicidal shellfish derived Allergy (Verified 05/20/18 08:37) Vomiting MEGISTROL Allergy (Uncoded 05/20/18 08:37) I GET CRAZY AND SUICIDAL Medications to take at Discharge Clonazepam [Klonopin] 0.5 mg PO Q12H PRN 07/24/15 fluocinolone acetonide oil 0.01 % ear drops 5 drp OTIC BID 03/03/18 ipratropium bromide 42 mcg (0.06 %) nasal spray 2 spray INTRANASAL TID 03/03/18 ivermectin 1 % topical cream 1 applic TOPICAL DAILY 03/03/18 albuterol sulfate HFA 90 mcg/actuation aerosol inhaler 1 - 2 puff INHALATION Q4H PRN PRN #8.5 g 03/22/18 montelukast 10 mg tablet 10 mg PO QPM #90 tab 03/22/18 alendronate 70 mg tablet 70 mg PO ESCALERA #12 tab 04/20/18 amitriptyline 10 mg tablet 10 mg PO QHS #90 tab 04/20/18 calcium carbonate 333 mg-magnesium oxide 133 mg-zinc sulf 5 mg tablet 2 tab PO DAILY tab 04/20/18 cholecalciferol (vitamin D3) 5,000 unit capsule 5,000 unit PO DAILY 04/20/18 ferrous gluconate 240 mg (27 mg iron) tablet 240 mg PO DAILY tab 04/20/18 multivitamin tablet 1 tab PO DAILY 04/20/18 pantoprazole 40 mg tablet,delayed release 40 mg PO DAILY #90 tab 04/20/18 paroxetine 40 mg tablet 40 mg PO DAILY #90 tab 04/20/18 rosuvastatin 10 mg tablet 10 mg PO DAILY #90 tab 04/20/18 vitamin E (dl, acetate) 400 unit capsule 400 unit PO DAILY 04/20/18 Meloxicam 0.5%/ Gabapentin 6%,/Lidacaine 2%/ Carmen 1 applic TOPICAL BID 04/27/18 Icosapent Ethyl [Vascepa] 2 g PO BID 05/13/18 Primary Care Physician: Lenka Ferguson MD [Primary Care Provider] - Test Results: Test results from this visit will be discussed in further detail at your follow- up appointment, if applicable. Please Follow Up With: Isaiah Bernal MD When: 2 weeks
[2018-05-20 10:28] VITALS: BP 125/95; BP 141/81; PULSE 90; RESP 16; TEMP 36.1; O2SAT 100
[2018-05-20 10:45] VITALS: BP 129/80; BP 141/81; PULSE 72; RESP 16; O2SAT 92
[2018-05-20 11:00] VITALS: BP 133/82; BP 141/81; PULSE 68; RESP 16; TEMP 36.3; O2SAT 94
[2018-05-20] MEDS: Acetaminophen 325 MG Tablet 650 MG PO (11:22)
[2018-05-20] MEDS: Ibuprofen 200 MG Tablet 400 MG PO (11:26)
[2018-05-20 11:30] VITALS: BP 141/81
--- OUTSIDE RECORDS SUMMARY | 2018-07-24 15:16 | XMS RPT_ITS ---
:1960 Author Organization OHIP Support Name Relationship Address Phone LIANE SYKES Unavailable [address] + [place] [address] [facility] Unavailable [address] + [place] [address] LIANE SYKES Unavailable [address] + [place] [address] [facility] Unavailable [address] + [place] [address] LIANE SYKES Unavailable [address] + [place] [address] [facility] Unavailable [address] + [place] [address] DANE SYKESO Unavailable [address] + [place] [address] [facility] Unavailable [address] + [place] [address] DANE SYKESO Unavailable [address] + [place] [address] [facility] Unavailable [address] + [place] [address] SIM SYKESARDO Unavailable [address] + [place] [address] [facility] Unavailable [address] + [place] [address] DANE SYKESO Unavailable [address] + [place] [address] [facility] Unavailable [address] + [place] [address] SIM SYKESARDO Unavailable [address] + [place] [address] [facility] Unavailable [address] + [place] [address] CHRISTELLE, LIANE Unavailable [address] + [place] [address] [facility] Unavailable [address] + [place] [address] CHRISTELLE, LIANE Unavailable [address] + [place] [address] [facility] Unavailable [address] + [place] [address] CHRISTELLE, LIANE Unavailable [address] + [place] [address] [facility] Unavailable [address] + [place] [address] CHRISTELLE, LIANE Unavailable [address] + [place] [address] [facility] Unavailable [address] + [place] [address] CHRISTELLE, LIANE Unavailable [address] [place] [address] RD + [place] [address] [facility] Unavailable [address] + [place] [address] CHRISTELLE, LIANE Unavailable [address] [place] [address] RD + [place] [address] [facility] Unavailable [address] + [place] [address] CHRISTELLE, LIANE Unavailable [address] + [place] [address] [facility] Unavailable [address] + [place] [address] CHRISTELLE, LIANE Unavailable [facility] [address] + [place] [address] [facility] Unavailable [address] + [place] [address] CHRISTELLE, LIANE Unavailable [facility] [address] + [place] [address] [facility] Unavailable [address] + [place] [address] CHRISTELLE, LIANE Unavailable [facility] [address] + [place] [address] [facility] Unavailable [address] + [place] [address] LIANE SYKES Unavailable [address] + [place] [address] [facility] Unavailable [address] + [place] [address] Care Team Providers Name Role Phone Winifred Wang D.C. Attending Unavailable Oleghe, Efewongbe Referring Unavailable CainAdam DRILL PRESS OPERATOR HELPER-C Attending Unavailable Oleghe, Efewongbe Referring Unavailable Jabari, Rashid Attending Unavailable Oleghe, Efewongbe Primary Care Unavailable Jabari, Rashid Attending Unavailable Oleghe, Efewongbe Referring Unavailable Jabrai, Rashid Attending Unavailable Sujata Reece Attending Unavailable Cain, Adam DRILL PRESS OPERATOR HELPER-C Attending Unavailable Cain, Adam DRILL PRESS OPERATOR HELPER-C Referring Unavailable Oleghe, Efewongbe Primary Care Unavailable [...] Unknown J44.9 - Chronic Dennis Parker, Active [place] obstructive D.O. [facility] pulmonary disease, Hospital unspecified / Repository J44.9(ICD-10) 04/20/2018 Unknown R94.4 - Abnormal Adam Cain Active [place] results of kidney DRILL PRESS OPERATOR HELPER-C [facility] function studies / Hospital R94.4(ICD-10) Repository 04/14/2018 Unknown M99.05 - Segmental Dossie, Winifred Active [place] and somatic D.C. Community dysfunction of Hospital pelvic region / Repository M99.05(ICD-10) 04/14/2018 Unknown M99.03 - Segmental Dossie, Winifred Active [place] and somatic D.C. Community dysfunction of Hospital lumbar region / Repository M99.03(ICD-10) 04/07/2018 Unknown K91.2 - Oleghe, Active [place] [facility] elsewhere Repository classified / K91.2(ICD-10) 04/07/2018 Unknown Z12.31 - Encounter Oleghe, Active [place] for screening [facility] mammogram for Hospital malignant neoplasm Repository of breast / Z12.31(ICD-10) 04/06/2018 Unknown S46.912D - Strain Rashid Barboza Active [place] of unspecified Community muscle, fascia and Hospital tendon at shoulder Repository and upper arm level, left arm, subsequent encounter / S46.912D(ICD-10) 03/22/2018 Unknown J20.9 - Acute Rashid Barboza Active [place] bronchitis, Community unspecified / Hospital J20.9(ICD-10) Repository 03/03/2018 Unknown R42 - Dizziness Oleghe, Active [place] and giddiness / Efewongbe Community R42(ICD-10) Hospital Repository 11/09/2017 Unknown S46.912A - Strain Rashid Barboza Active [place] of unspecified Community muscle, fascia and Hospital tendon at shoulder Repository and upper arm level, left arm, initial encounter / S46.912A(ICD-10) PROCEDURES PROCEDURES No Procedure Records FoundRESULTS RESULTS DISCHARGE INSTRUCTION Observed: 05/20/2018 Status: F Source: [place] 10:27 AM [facility] REPOSITORY [facility] Medical Records Department [address] [place] [address] Instructions for Home/Discharge Instructions 05/20/18 1026 MR#: [id number] Acct: [id number] Name: ZAKIA SYKES Rep #: [id number] : 1960 57 From: Isaiah Bernal MD [...] 05/20/2018 Status: F Source: [place] 10:[address] [facility] REPOSITORY Patient: ZAKIA SYKES : 1960 (57/F) Acct Num: [id number] Phys: Isaiah Bernal MD Unit Num: [id number] Loc: [facility] Specimen: [id number] Received: 05/20/18 - 1110 Spec [...] in one cassette. AM:sp 05/21/18 TC:5 CPT: 59721 HEADER OPERATION: Biopsy, nasopharynx, visible lesion PRE-OP DIAGNOSIS: Pharyngeal bursitis and headache TISSUE SUBMITTED: Pharyngeal bursal cyst MICROSCOPIC DESCRIPTION Slides are reviewed. MICROSCOPIC DIAGNOSIS Pharyngeal bursal cyst, excision: Benign cyst. See comment. AM:cristy 05/23/18 Signed Maxi WellsDO 05/24/18 <signature on file> Performed By: #### PBUR #### [facility] [address] [place], [address] IMMUNOHISTOCHEMISTRY Observed: 05/20/2018 Status: F Source: [place] 12:[address] [facility] REPOSITORY Patient: ZAKIA SYKES : 1960 (57/F) Acct Num: [id number] Phys: Isaiah Bernal MD Unit Num: [id number] Loc: [facility] Specimen: [id number] Received: 05/23/18 - 1206 Spec Type: IMMUNO TISSUES 1 TISSUES: Bursa, NOS SPECIMEN INFORMATION: Tissue Source: Pharyngeal bursal cyst Clinical Info: Pharyngeal bursitis and headache Specimen Number: [id number] CPT code: 45830, 23902 x11 METHODOLOGY: Deparaffinized sections of prefer/formalin-fixed tissue or PAP/DQ stained slides are incubated with monoclonal/polyclonal antibodies/oligonucleotide probes. Localization is made via biotin free immunoperoxidase method. Appropriate controls are performed and reacted as expected. Results on target cell population are indicated in the following table: RESULTS: ANTIBODY / CLONE RESULT AE1-3 (AE1/AE3/PCK26) positive CK7 (OV-TL12/30) positive CK8 (24pqvnT90) positive CK20 (KS20.8) negative CD3 (PS1) positive CD5 (SP10) positive CD20 (L26) positive CD43 (L60) positive CD45 (RP2/18) positive CD79a (11E3) positive CD138 (B-A38) positive, focal Ki-67 (30-9) negative These tests were developed and their performance characteristics determined by [facility]. They may not have been cleared or approved by the U.S. Food and Drug Administration. The FDA has determined that such clearance or approval is not necessary. INTERPRETATION: Pharyngeal bursal cyst: Consistent with benign pharyngeal cyst, inflamed. AM:antonio 05/24/18 Comment: There is no evidence of lymphoproliferative disorder. PHYSICIAN AND INSTITUTION [facility] [address] [place] [address] Signed Maxi WellsDO 05/24/18 <signature on file> Performed By: #### PIMM #### [facility] [address] [place], [place] [address]e. [place], [address] PULMONARY VISIT REPORT Observed: 05/11/2018 Status: F Source: [place] 7:[address] [facility] REPOSITORY [facility] Pulmonary Medicine of [address] [place] [address] OFFICE VISIT Date of Service: 05/11/18 MR#: [id number] Acct: [id number] Name: CHRISTELLEZAKIA Garrett Rep #: [id number] : 1960 Provider: Dennis Canales D.O. Age/Sex: 57/F Location: [facility] Status: Signed Assessment AND Plan 1. Chronic [...] been diagnosed with asthma while living in [place] previously. She does currently utilize an albuterol [...] patient has never been evaluated by a barrel cutter previously, nor has she ever undergone formal [...] Status: F Source: [place] PROFIL 1:[address] [facility] REPOSITORY TYPE CODE TESTS RESULT OUT OF [...] GAP 11 Performed By: #### L500.4050 #### [facility] [address] [place], [address] URGENT CARE VISIT Observed: 04/22/2018 Status: F Source: [place] REPORT 12:[address] [facility] REPOSITORY [facility] Now [address] [place] [address] OFFICE VISIT Date of Service: MR#: [id number] Acct: [id number] Name: ZAKIA SYKES Rep #: [id number] : 1960 Provider: Rashid LARA Age/Sex: 57/F Location: [facility]NOW Status: Signed Intake Intake Visit Reasons: Amb [...] F Source: [place] OFFICE VISIT 9:13 AM [facility] Internal Medicine [facility] [place] [address] OFFICE VISIT Date of Service: 04/20/18 MR#: [id number] Acct: [id number] Name: ZAKIA SYKES Rep #: [id number] : 1960 Provider: Adam Cain NP Age/Sex: 57/F Location: [facility] Status: Signed Intake Vital Signs04/20/18 Body Mass [...] her osteoarthritis pain. Discussed not taking any dfbh-btb-fpmouwv nephrotoxic agents and increasing her overall fluid [...] 04/22/2018 Status: F Source: [place] 8:[address] [facility] REPOSITORY [facility] Imaging Services [address] [place] [address] Finger(s) Min 2 Views MR#: [id number] Acct: [id number] Name: ZAKIA SYKES Rep #: [id number] : 1960 F 57 From: Ilir Jackson MD PCP: Lenka Ferguson MD Status: REG CLI Study: Finger(s) Min 2 Views Date of Exam: 04/22/18 Exam# [id number] Ordering Dr: Rashid Barboza STUDY: X-RAY - [...] Ilir Jackson MD at 9:34 EST Tel [phone], Service support , CC: Rashid LARA; Lenka Ferguson MD Shellfish Farm[employer] Supervisor: Signed SINUS/FACIAL BONE Observed: 04/13/2018 Status: F Source: [place] 5:28 PM [facility] REPOSITORY [facility] Imaging Services [address] [place] [address] Sinus/Facial Bone MR#: [id number] Acct: [id number] Name: ZAKIA SYKES Rep #: [id number] : 1960 F 57 From: Wesley Mckeon MD PCP: Lenka Ferguson MD Status: REG CLI Study: Sinus/Facial Bone Date of Exam: 04/13/18 Exam# [id number] Ordering Dr: Isaiah Bernal MD HISTORY: CHRONIC [...] signed by: Wesley Mckeon MD Electronically Signed: Wesley Mckeon, at 7:40 EST Tel , Service support , CC: Lenka Ferguson MD; Isaiah Bernal MD Shell[employer] Farm[employer] Supervisor: Signed CHIROPRACTIC REPORT Observed: 04/13/2018 Status: F Source: [place] 9:[address] [facility] REPOSITORY [facility] [address] [place] [address] OFFICE VISIT Date of Service: 04/13/18 MR#: [id number] Acct: [id number] Name: ZAKIA SYKES Rep #: [id number] : 1960 Provider: Winifred Liriano D.C. Age/Sex: 57/F Location: [facility] Status: Signed Intake Vital Signs04/13/18 Body Mass [...] Additional Codes Procedures - Manipulation: 3-4 regions (16370) Procedures - Electrical Stimulation: 15 mins (66674) 04/13/18 09 <Electronically signed by Winifred Liriano D.C.> Date Winifred Liriano D.C. [facility] Signature: Date (if applicable) CC: CHIROPRACTIC REPORT Observed: 04/11/2018 Status: F Source: [place] 11:[address] [facility] REPOSITORY [facility] [address] [place] [address] OFFICE VISIT Date of Service: 04/11/18 MR#: [id number] Acct: [id number] Name: ZAKIA SYKES Rep #: [id number] : 1960 Provider: Winifred Liriano D.C. Age/Sex: 57/F Location[place] [facility] Status: Signed Intake Intake Visit Reasons: back [...] Codes Procedures - Electrical Stimulation: 15 mins (22628) Procedures - Manipulation: 1-2 regions (89493) 04/11/18 1139 <Electronically signed by Winifred Liriano D.C.> Date Winifred Liriano D.C. Cosigner Signature: Date (if applicable) CC: CBC W/DIFF, AUTOMATED Collected: 04/07/2018 Status: F Source: [place] 10:[address] [facility] REPOSITORY TYPE CODE TESTS RESULT OUT OF [...] Lymph 1.32 Performed By: #### L100.0100 #### [facility] [address] [place], [address] VITAMIN B12 Collected: 04/07/2018 Status: F Source: [place] 10:[address] [facility] REPOSITORY TYPE CODE TESTS RESULT OUT OF REFERENCE UNITS RANGE LAB L503.0105 211-911 pg/mL High Vitamin B12 > 2000 Performed By: #### L503.0105, L506.1000 #### [facility] [address] [place], [address] VITAMIN D,25 HYDROXY Collected: 04/07/2018 Status: F Source: [place] 10:[address] [facility] REPOSITORY TYPE CODE TESTS RESULT OUT OF RANGE REFERENCE UNITS LAB L506.1000 29.95-100.01 ng/mL Normal Vitamin D 46.0 25-OH Result Comment: Vitamin D 25(OH) Status Range Deficiency <20 ng/mL (50nmol/L) Insuffciency 20 - 30 ng/mL (50 - 75 nmol/L) Sufficiency 30 - 100 ng/mL (75 - 250 nmol/L) Toxicity >100 ng/mL (>250 nmol/L) Performed By: #### L503.0105, L506.1000 #### [facility] [place], [address] COMPREHENSIVE METABOLIC Collected: 04/07/2018 Status: F [facility] [facility] REPOSITORY TYPE CODE TESTS RESULT OUT OF [...] 8 Performed By: #### L500.4050, L500.4100 #### [facility] [address] [facility] [place], [address] LIPID PROFILE Collected: 04/07/2018 Status: F Source: [place] 10:[address] [facility] REPOSITORY TYPE CODE TESTS RESULT OUT OF [...] 19 Performed By: #### L500.4050, L500.4100 #### [facility] [address] [place], [address] DEXA BONE DENSITY Observed: 04/07/2018 Status: F Source: [place] STUDY 10:[address] [facility] REPOSITORY [facility] Imaging Services [address] [place] [address] Dexa Bone Density Study MR#: [id number] Acct: [id number] Name: ZAKIA SYKES Rep #: [id number] : 1960 F 57 From: Ilir Jackson MD PCP: Lenka Ferguson MD Status: REG CLI Study: Dexa Bone Density Study Date of Exam: 04/07/18 Exam# [id number] Ordering Dr: Lenka Ferguson MD STUDY: DUAL [...] Ilir Jackson MD at 10:46 EST Tel [phone], Service support , CC: Lenka Ferguson MD Shellfish Farming Supervisor: Signed SCREENING MAMM (CAD), Observed: 04/07/2018 Status: F Source: [facility] 10:[address] [facility] REPOSITORY [facility] Imaging Services [address] [place] [address] SCREENING MAMM (CAD), BILAT MR#: [id number] Acct: [id number] Name: ZAKIA SYKES Rep #: [id number] : 1960 F 57 From: Ilir Jackson MD PCP: Lenka Ferguson MD Status: REG CLI Study: SCREENING MAMM (CAD), BILAT Date of Exam: 04/07/18 Exam# [id number] Ordering Dr: Lenka Ferguson MD MAMMOGRAPHY - [...] delay biopsy of a clinically suspicious abnormality. [id number] Electronically Signed: Ilir Jackson MD at 11:58 EST Tel [phone], Service support , CC: Lenka Ferguson MD [employer] Farm[employer] Supervisor: Signed PT D/C SUMMARY (1) Observed: 03/25/2018 Status: F Source: [place] 6:[address] [facility] REPOSITORY [facility] [address] [place] [address]. [address] [place], [place] [address] Fax REHABILITATION SERVICES DISCHARGE SUMMARY MR#: [id number] Acct: [id number] Name: ZAKIA SYKES Rep #: [id number] : 1960 57 From: Isaiah Rabago DPT, OCS, CSCS Referring Dr.: Rashid LARA Status: REG RCR Insurance: [facility] SELF PAY INSURANCE HP - PT D/C [...] please feel free to call me at [phone]. Thank you for the referral of this patient. Sincerely, Isaiah Rabago, DPT, OC <Electronically signed by Isaiah KE[place]T, OCS, CSCS> 03/25/18 0643 CC: Rashid LARA; Lenka Ferguson MD EBG Signed URGENT CARE VISIT Observed: 03/22/2018 Status: F Source: [place] REPORT 2:09 PM [facility] [address] [place] [address] [address] [place] [address] OFFICE VISIT Date of Service: 03/22/18 MR#: [id number] Acct: [id number] Name: ZAKIA SYKES Rep #: [id number] : 1960 Provider: Rashid LARA Age/Sex: 57/F Location: [facility] Status: Signed Intake Vital Signs03/22/18 Height 5 ft 2 in 03/22/18 Weight: 254 lb 03/22/18 Body Mass Index (BMI) 46.4 03/22/18 Blood Pressure 134/88 H Intake Visit Reasons: BRONCHITIS/ASTHMA/SORE THROAT Roller Stitcher Required: No Accompanied by: SELF Is patient [...] She states that she has used multiple srbx-kcp-tqhkgde medications with only minimal relief. She describes [...] F Source: [place] OFFICE VISIT 1:04 PM [facility] Internal Medicine [address] [place] [address] [place] [address] OFFICE VISIT Date of Service: 03/03/18 MR#: [id number] Acct: [id number] Name: ZAKIA SYKES Rep #: [id number] : 1960 Provider: Lenka Ferguson MD Age/Sex: 57/F Location: [facility] Status: Signed Intake Vital Signs03/03/18 Height 5 [...] had treated previously followed up at the [facility] like to transfer care here. She has [...] flu shot. This note was generated with aiHitation software. It may contain incorrect words, spelling, [...] F Source: [place] - [place] 6:[address] [facility] REPOSITORY [facility] [address] [place] [address] Fax REHABILITATION SERVICES INITIAL EVALUATION MR#: [id number] Acct: [id number] Name: ZAKIA SYKES Rep #: [id number] : 1960 57 From: Isaiah Rabago DPT, OCS, CSCS Referring Dr.: Rashid LARA Status: REG RCR Insurance: [facility] SELF PAY INSURANCE Patient's Visit Information ZAKIA [...] to be FAXED BACK to us at [phone] for Medicare purposes. Please let me know if there are questions or concerns regarding this plan of care. Physician Signature: Date: <Electronically signed by Isaiah [place]T, OCS, CSCS> 02/18/18 0644 CC: Rashid LARA; Lenka Ferguson MD EBG Signed For Medicare only, by signing this I certify the plan of care. Physicians Signature Date GROUP A STREP BY Collected: 12/19/2017 Status: F Source: [place] PCR 9:20 AM [facility] REPOSITORY TYPE CODE TESTS RESULT OUT OF REFERENCE UNITS RANGE LAB GASSRC Throat Swab GAS Specimen Source LAB PCRGAS Negative for Group A Strep Group A PCR Streptococcus by PCR. Result Comment: This test was developed and its performance characteristics determined by [facility] [place] [facility] It has not been cleared or approved by the FDA. -[facility] is regulated under CLIA as qualified to perform high-complexity testing. This test is used for clinical purposes. It should not be regarded as inv estigational or for research. Performed By: #### GASPCR #### [facility] [address] [address] PROGRESS Observed: 12/19/2017 Status: COMPLETED Source: [place] 8:55 AM [facility] REPOSITORY HNO ID: [id number] Author: [place] ([facility]) Vicente Service: (none) Author Type: Nurse [...] W/O OR W/BRUSH/WASH 12/13/00 EGD done at [facility] - GASTRIC BYPASS 2000 - KNEE [...] Take 1 tablet by mouth once daily. Rodkd-5-TWZ-EPA-Fish Oil 1,000 (120-180) mg cap Take 1,000 [...] APRN.CNP CNOV Observed: 12/19/2017 Status: COMPLETED Source: [place] 8:30 AM [facility] REPOSITORY Office Visit (UCWSTR) ZAKIA SYKES ([id number]) 1960 F Date Time Provider Department 12/19/17 8:30 AM [place] ZHANG (URIEL) [facility] During your visit today, we recorded the [...] W/O OR W/BRUSH/WASH 12/13/00 EGD done at [facility] - GASTRIC BYPASS 2000 - KNEE [...] Take 1 tablet by mouth once daily. Bxllg-4-HUX-EPA-Fish Oil 1,000 (120-180) mg cap Take 1,000 [...] Sinobronchitis [J32.9, J40] Order(s):RAPID STREP TEST B/O [4364582] Order #: [id number] GROUP A STREPTOCOCCUS BY PCR [SQGASPCR] Order #: [id number] amoxicillin-clavulanic acid (AUGMENTIN) 875-125 mg per tabletTake [...] 1 tablet by mouth once d* OMEGA 7-VZX-OKJ-FISH OIL 1,00* Take 1,000 mg by mouth [...] Status: F Source: [place] REPORT 5:[address] [facility] REPOSITORY [facility] [address] [place] [address] OFFICE VISIT Date of Service: 11/09/17 MR#: [id number] Acct: [id number] Name: ZAKIA SYKES Rep #: [id number] : 1960 Provider: Rashid LARA Age/Sex: 56/F Location: [facility] Status: Signed Intake Vital Signs11/09/17 Height 5 [...] 1. Strain of left shoulder, initial encounter S46.274O Status Acute Plan X-ray left shoulder read [...] the above. This note was generated with [employer] dictation software. It may contain incorrect words, [...] 2 VIEWS Observed: 11/09/2017 Status: F Source: [place] 11:[address] [facility] REPOSITORY [facility] Imaging Services [address] [place] [address] Shoulder min 2 Views MR#: [id number] Acct: [id number] Name: ZAKIA SYKES Rep #: [id number] : 1960 F 56 From: Ilir Jackson MD PCP: Desi Gordon MD Status: REG CLI Study: Shoulder min 2 Views Date of Exam: 11/09/17 Exam# [id number] Ordering Dr: Rashid Barboza STUDY: X-RAY - [...] Ilir Jackson MD at 12:22 EDT Tel [phone], Service support , CC: Rashid LARA; Desi Gordon MD [employer] Supervisor: Signed CNCO Observed: 09/10/2017 Status: COMPLETED Source: [place] 12:00 AM [facility] REPOSITORY Letter Text Zakia Sykes [address] [facility] [address] 09/10/2017 [facility] #: [id number] Dear , Due to a change in the provider's schedule it has been necessary to reschedule your Appointment. Your original appointment was scheduled for 10/08/2017 at 3:40 PM with Desi Gordon M.D. Your new appointment is now scheduled on 10/11/2017 at 7:40 AM with Johnna Edwards. If this new appointment is not convenient for you, please contact our office at [phone]. Thank you for choosing the [facility] as your Healthcare Provider . Sincerely, Internal Medicine Appointment Office TXT - BLOOD FLOW Observed: 07/21/2017 Status: F Source: [facility] 3:[address] [facility] REPOSITORY [facility] Cardiovascular Services [address] [place] [address] 07/21/17 0757 MR#: [id number] Acct: [id number] Name: ZAKIA SYKES Rep #: [id number] : 1960 56 From: Amado Corcoran MD [...] Dictated: 07/21/17 0757 Date Transcribed: 07/21/17 1531 [employer] Farm[employer] Supervisor: Signed URGENT CARE VISIT Observed: 06/02/2017 Status: F Source: [place] REPORT 1:[address] [facility] REPOSITORY [facility] [address] [place] [address] OFFICE VISIT Date of Service: 06/02/17 MR#: [id number] Acct: [id number] Name: CHRISTELLEZAKIA A Rep #: [id number] : 1960 Provider: Jose Maria LARA Age/Sex: 56/F Location: [facility] Status: Signed Intake Vital Signs06/02/17 Height 5 [...] sweats, rash, chest pain/shortness of breath. Non-smoker. Akat-iag-jrxfsxw antihistamine/decongestant combinations not assisting with symptoms. No [...] body habitus Orientation: alert, awake, oriented x3 [facility] Head: normal to inspection Ears: hearing grossly [...] the above. This note was generated with [employer] dictation software. It may contain incorrect words, [...] SOURCE 05/20/2018 Drug megestrol/F006 Unknown Unknown [place] Allergy/[id number]( 050434(RXNORM) [facility] [place] Repository 05/20/2018 Drug shellfish Vomiting Unknown [place] Allergy/[id number](S derived/J90772 [facility] NOM[facility]) 1754(RXNORM) Hospital Repository 05/20/2018 Drug cat Shortness of Unknown [place] Allergy/915565567(S dander/I479519 breath Community NOM[facility]) 086(RXNORM) Hospital Repository 05/20/2018 Drug dog Shortness of Unknown [place] Allergy/341443155(S dander/K464223 breath Community NOM[facility]) 087(RXNORM) Hospital Repository 05/20/2018 Miscellaneous MEGISTROL I GET CRAZY Unknown [place] Allergy/464363527(S AND SUICIDAL Community NOMED CT) Hospital Repository 02/23/2006 Animal/[id number](SN CATS [place] OMED CT) Clinic Main [place] Repository 02/23/2006 DRUG LATEX ITCHING [place] INGREDI/175951294(S Clinic Main NOMED CT) [place] Repository 01/28/2006 Food/207787944(SNOM SHELLFISH Vomiting [place] ED CT) Clinic Main [place] Repository 01/18/2006 Miscellaneous OTHER Mental Chg [place] Allergy/680408490( Clinic Main NOMED CT) [place] Repository ENCOUNTERS ENCOUNTERS ADMIT/DISCHARGE ACCOUNT ADMITTING ENCOUNTER LOCATION SOURCE NUMBER CLASS 05/20/2018/05/20/19 [id number] [place]ulatory [place] [address] [place] [address] ing:SDCRoom: Repository AC08 05/11/2018/05/11/19 [id number] Ambulatory BMSBuilding:B [place] 19 [place] Repository 05/05/2018 [id number] Ambulatory [facility] ing:MTLAB Repository 04/27/2018 [id number] Ambulatory BMSBuilding:B [place] Repository 04/22/2018 [id number] Ambulatory BMSBuilding:B [place].[facility] Repository 04/22/2018/04/22/20 [id number] Ambulatory BMSBuilding:B [place] 18 [place].[facility] Repository 04/22/2018 [id number] Ambulatory [facility] ing:MTRAD Repository 04/20/2018/04/20/20 [id number] Ambulatory BMSBuilding:B [place] 18 [place].[facility] Repository 04/13/2018 [id number] Ambulatory [facility] Hospital ing:CT Repository 04/13/2018/04/13/20 [id number] Ambulatory BMSBuilding:B [place] 18 [facility] Hospital Repository 04/11/2018/04/11/20 [id number] Ambulatory BMSBuilding:B [place] 18 [place].[facility] Repository 04/07/2018 [id number] Ambulatory [facility] ing:OPBD Repository 03/23/2018/03/23/20 [id number] Ambulatory [address] ing:PT Repository 03/22/2018/03/22/20 [id number] Ambulatory BMSBuilding:B [place] 18 [facility] Repository 03/03/2018/03/03/20 [id number] Ambulatory BMSBuilding:B [place] 18 [place].[facility] Repository 12/19/2017/12/22/19 [id number] Ambulatory [address] Repository 11/09/2017/11/10/19 [id number] Ambulatory BMSBuilding:B [place] 18 [place].[facility] Repository 11/09/2017 [id number] Ambulatory [facility] Hospital ing:HPRAD Repository 07/21/2017 [id number] Ambulatory [facility] ing:CVS Repository 06/02/2017/06/02/19 [id number] Ambulatory BMSBuilding:B [place] 18 [place] Repository PAYERS PAYERS ENCOUNTER GUARANTOR PAYER SUBSCRIBER SOURCE 05/20/2018 LIANE Primary LIANE [place] [id number] BOYD Insurance:MEDICAL MIGUELDOB[facility] [id number] [address]Dqa: Number: Repository [id number] () Date:8507-44-26[address] [address]WY: 05/20/2018 Secondary NOT GIVENUNK [place] Insurance:SELF PAY [facility] Number: Effective Repository Date:2018-05-10 05/11/2018 [facility] [id number] [place] Insurance:MEDICAL MIGUELDOB: [facility] [id number] McKinley Christian Health Care Services [address]Qos: Number: Repository [id number] (HP) Date:3632-44-75TW [address] [address]RJ: 05/11/2018 Secondary NOT GIVENUNK [place] Insurance:SELF PAY [facility] Number: Effective Repository Date:2018-05-06 05/05/2018 [facility] [id number] NANC[place] Insurance:MEDICAL MIGUELDOB: [facility] [id number] McKin[facility] Services [address]Xbv: Number: Repository [id number] (HP) Date:9775-65-52YM [address] [address]RG: 05/05/2018 Secondary NOT GIVENUNK [place] Insurance:SELF PAY [facility] Number: Effective Repository Date:2018-05-05 04/27/2018 [facility] LIANE Bravo [id number] NANCY Insurance:MEDICAL MIGUELDOB: [facility] [id number] McKinley Christian Health Care Services [address]Ksf: Number: Repository [id number] (HP) Date:7057-24-66MO [address] [address]DB: 04/27/2018 Secondary NOT GIVENUNK [place] Insurance:SELF PAY [facility] Number: Effective Repository Date:2018-04-27 04/22/2018 LIANE Primary LIANE Bravo [id number] NANCY Insurance:MEDICAL MIGUELDOB: [facility] [id number] McKinley [facility] Care Services [address]Kse: Number: Repository [id number] (HP) Date:8819-70-20JK [address] [address]BO: 04/22/2018 Secondary NOT GIVENUNK [place] Insurance:SELF PAY [facility] Number: Effective Repository Date:2018-04-22 04/22/2018 LIANE Primary LIANE [facility]UP [facility] [id number] [place] Insurance:MEDICAL MIGUELDOB: [facility] [id number] [place] [id number]: Number: Repository [id number] (HP) Date:7046-66-33NI [address] [address]DC: 04/22/2018 Secondary NOT GIVENUNK [place] Insurance:SELF PAY [facility] Number: Effective Repository Date:2018-04-22 04/22/2018 [facility] [place]976 [place] Insurance:MEDICAL MIGUELDOB: [facility] [id number] Ville [id number]: Number: Repository [id number] (HP) Date:0037-21-33FN [address] [address]AS: 04/22/2018 Secondary NOT GIVENUNK [place] Insurance:SELF PAY [facility] Number: Effective Repository Date:2018-04-22 04/20/2018 ZAKIA LEUNG6 Primary [facility] Insurance:MEDICAL MIGUELDOB: [facility] [id number] Ville [address]Tel: (330) Number: Repository [phone] () [id number] Date:9760-25-08HY [address] [address]RE: 04/20/2018 Secondary NOT GIVENUNK [place] Insurance:SELF PAY [facility] Number: Effective Repository Date:2018-04-08 04/13/2018 LIANE Primary [facility]EM[facility]976 NANC[place] Insurance:MEDICAL MIGUELDOB: [facility] [id number] McKinley [facility] Health Care Services [address]Yun: Number: Repository [id number] (HP) Date:9766-49-07QC [address] [place] [address]OU: 04/13/2018 Secondary NOT GIVENUNK [place] Insurance:SELF PAY [facility] Number: Effective Repository Date:2018-04-07 04/13/2018 LIANE Primary LIANE [place] [id number] [place] Insurance:MEDICAL MIGUELDOB: [facility] [id number] McKinley [facility] Services [address]Sbr: Number: Repository [id number] (HP) Date:1317-01-80NL [address] [address]QD: 04/13/2018 Secondary NOT GIVENUNK [place] Insurance:SELF PAY [facility] Number: Effective Repository Date:2018-04-12 04/11/2018 LIANE Primary LIANE [place] [id number] [place] Insurance:MEDICAL MIGUELDOB: [facility] [id number] McKinley [facility] Care Services [address]Hkv: Number: Repository [id number] (HP) Date:0377-39-03HX [address] [address]GS: 04/11/2018 Secondary NOT GIVENUNK [place] Insurance:SELF PAY [facility] Number: Effective Repository Date:2018-04-11 04/07/2018 LIANE Primary LIANE [place] [id number] [place] Insurance:MEDICAL MIGUELDOB: [facility] [id number] [facility] [address]Llk: Number: Repository [id number] (HP) Date:2798-74-11IC [address] [address]DQ: 04/07/2018 Secondary NOT GIVENUNK [place] Insurance:SELF PAY [facility] Number: Effective Repository Date:2018-02-02 03/23/2018 Liane Primary Liane Bravo [id number] [place] Insurance:MEDICAL MiguelDOB: [facility] [id number] McKinley [facility] Health Care Services [address]Vcw: Number: Repository [id number] (HP) Date:8235-17-67WO [address] [address]TA: 03/23/2018 Secondary NOT GIVENUNK [place] Insurance:SELF PAY [facility] Number: Effective Repository Date:2018-02-16 03/22/2018 [facility] [id number] [place] Insurance:MEDICAL MiguelDOB: [facility] [id number] McKinley [facility] Health Care Services [address]Njg: Number: Repository [id number] (HP) Date:8856-44-67XP [address] [address]VT: 03/22/2018 Secondary NOT GIVENUNK [place] Insurance:SELF PAY [facility] Number: Effective Repository Date:2018-03-22 03/03/2018 [facility] Liane Bravo [id number] [place] Insurance:MEDICAL MiguelDOB: [facility] [id number] McKinley [facility] [address]Zkv: Number: Repository [id number] (HP) Date:8993-09-24JJ [address] [address]TC: 03/03/2018 Secondary NOT GIVENUNK [place] Insurance:SELF PAY [facility] Number: Effective Repository Date:2018-02-09 11/09/2017 Liane Primary Lianesharita Bravo [id number] [place] Insurance:MEDICAL MiguelDOB: [facility] [id number] [facility] [address]Aqp: Number: Repository [id number] (HP) Date:8721-56-50MA [address] [address]LN: 11/09/2017 Secondary NOT GIVENUNK [place] Insurance:SELF PAY [facility] Number: Effective Repository Date:2017-11-09 11/09/2017 Liane [facility]76 [place] Insurance:MEDICAL MiguelDOB: [facility] [id number] [place] [address]Ubw: Number: Repository [id number] (HP) Date:5600-23-92JC [address] [address]GQ: 11/09/2017 Secondary NOT GIVENUNK [place] Insurance:SELF PAY [facility] Number: Effective Repository Date:2017-11-09 07/21/2017 Liane Primary NOT GIVENUNK [place] [id number] [place] Insurance:SELF PAY [facility] [address]Pfn: Number: Effective Repository Date:2017-05-25 (HP) 06/02/2017 Liane Primary [place] [id number] [place] Insurance:MEDICAL MiguelDOB: [facility] [id number] [facility] [address]For: Number: Repository [id number] (HP) Date:6422-28-69ZA [address] [address]AD: 06/02/2017 Secondary NOT GIVENUNK [place] Insurance:SELF PAY [facility] Number: Effective Repository Date:2017-06-02
== END 2018-05-20 11:40 | disposition home or self-care (01) ==
LOC: SDC 08:15 → AC 08:16
PROVIDERS: Family Provider Internal Medicine; PCP Internal Medicine; Referring Provider Otolaryngology; Visit Provider Otolaryngology
PROC: (CPT 42808; principal; 2018-05-20 09:45)
DX: J39.2 Other diseases of pharynx (principal); R51 Headache; J45.909 Unspecified asthma, uncomplicated; K21.9 Gastro-esophageal reflux disease without esophagitis; D64.9 Anemia, unspecified; E78.00 Pure hypercholesterolemia, unspecified; G25.81 Restless legs syndrome; M19.90 Unspecified osteoarthritis, unspecified site; Z79.899 Other long term (current) drug therapy; Z87.891 Personal history of nicotine dependence
CPT/HCPCS: 42808; 88304; 88341; 88342; J7120; J2405

== ENCOUNTER → 2018-06-01 07:47 | Outpatient (CLI) | payer OTHER, SELFPAY ==
[2018-05-11 07:09] VITALS: BMI 46.4
[2018-05-20 08:40] VITALS: BMI 46.7
--- NOTE | 2018-06-01 12:46 | PFT ---
INTRODUCTION: The patient is a 57-year-old female that presents for pulmonary function studies secondary to a diagnosis of COPD. Respiratory therapy reports good patient effort. Bronchodilators were used during testing. INTERPRETATION: Forced expiration spirometry demonstrates no evidence of a large airways obstructive ventilatory defect. There was no significant response to aerosolized bronchodilators, based upon strict ATS criteria. Spirograms are of good quality and plateau normally. Body plethysmography was performed and reveals a decreased TLC to 3.66 L, 83% of predicted, indicative of a mild restrictive ventilatory impairment. The remainder of the lung volumes are symmetrically reduced. Diffusing capacity by single breath CO is within normal limits at 75% of predicted. IMPRESSION: These pulmonary function studies demonstrate only the presence of a mild restrictive ventilatory impairment. There was no evidence of COPD. There are no previous pulmonary function studies available for comparison.
== END ==
PROVIDERS: Family Provider Internal Medicine; PCP Internal Medicine; Referring Provider Internal Medicine Critical Care Medicine; Visit Provider Internal Medicine Critical Care Medicine
DX: J44.9 Chronic obstructive pulmonary disease, unspecified (principal)
CPT/HCPCS: 94060; 94726; 94729

== ENCOUNTER → 2018-06-17 07:27 | Outpatient (CLI) | payer OTHER, SELFPAY ==
[2018-06-08 07:53] VITALS: BMI 46.7
[2018-06-17 10:46] LABS: Hemoglobin A1c 5.5 % (4.2-6.3)
[2018-06-17 10:52] LABS: Anion Gap 8 (5-15); BUN 14 mg/dL (7-18); BUN/Creat Ratio 14.6 RATIO (10-20); Calcium,Total 8.6 mg/dL (8.5-10.1); Chloride 107 mmol/L (98-107); Creatinine, Serum 0.96 mg/dL (0.55-1.02); EST Glomerular Filtration Rate 64 mL/min (>60); Est Glom Filt Rate - Afr Amer 78 mL/min (>60); Glucose 85 mg/dL (74-106); Potassium 3.8 mmol/L (3.5-5.1); Sodium Level 140 mmol/L (136-145)
== END ==
PROVIDERS: Family Provider Internal Medicine; PCP Internal Medicine; Referring Provider Nurse Practitioner Family; Visit Provider Nurse Practitioner Family
DX: R94.4 Abnormal results of kidney function studies (principal); R73.09 Other abnormal glucose
CPT/HCPCS: 36415; 80048; 83036

== ENCOUNTER → 2018-07-07 15:01 | Outpatient (CLI) | payer OTHER, SELFPAY ==
[2018-07-07 14:52] VITALS: BMI 46.7
--- NOTE | 2018-07-07 15:00 | RAD_ITS ---
STUDY: X-RAY - LEFT KNEE REASON FOR EXAM: Female, 57 years old. Bilateral knee pain. TECHNIQUE: 4 view(s) of the knee. COMPARISON: None. FINDINGS: Normal visualized distal femur. Normal visualized proximal tibia and fibula. Normal proximal tibiofibular articulation. There is no acute fracture, dislocation or destructive osseous pathology. Normal medial femorotibial compartment. Normal lateral femorotibial compartment. There is moderate degenerative arthrosis of the patellofemoral articulation. There is no demonstrated joint effusion. The soft tissue structures are unremarkable. RAD/Knee 4 or More Views IMPRESSION: Degenerative arthrosis. Electronically Signed: Cecil Nathan DO at 23:31 EST Tel [phone], Service support ,
--- NOTE | 2018-07-07 15:02 | RAD_ITS ---
STUDY: X-RAY - RIGHT KNEE REASON FOR EXAM: Female, 57 years old. Bilateral knee pain. TECHNIQUE: 4 view(s) of the knee. COMPARISON: Right knee, July 24, 2015. FINDINGS: Normal visualized distal femur. Normal visualized proximal tibia and fibula. Normal proximal tibiofibular articulation. There is no acute fracture, dislocation or destructive osseous pathology. There is mild degenerative arthrosis of the medial femorotibial compartment. Normal lateral femorotibial compartment. There is moderate degenerative arthrosis of the patellofemoral articulation. There is a soft tissue prominence in the suprapatellar region suggesting a small volume joint effusion. The soft tissue structures are unremarkable. RAD/Knee 4 or More Views IMPRESSION: Degenerative arthrosis. A small suprapatellar joint effusion. The effusion was not present on the prior study. Electronically Signed: Cecil Nathan DO at 23:31 EST Tel [phone], Service support ,
== END ==
PROVIDERS: Family Provider Internal Medicine; PCP Internal Medicine; Referring Provider Orthopaedic Surgery; Visit Provider Orthopaedic Surgery
DX: M17.0 Bilateral primary osteoarthritis of knee (principal)
CPT/HCPCS: 73564

== ENCOUNTER 2018-08-24 15:30 | Outpatient (RCR) | payer OTHER, SELFPAY ==
[2018-07-07 14:52] VITALS: BMI 46.7
== END 2018-08-30 23:59 ==
LOC: NS 15:30
PROVIDERS: Family Provider Internal Medicine; PCP Internal Medicine; Visit Provider Nurse Practitioner Family
DX: E66.9 Obesity, unspecified (principal); Z68.42 Body mass index [BMI] 45.0-49.9, adult; Z71.3 Dietary counseling and surveillance
CPT/HCPCS: 97802; 97803

== ENCOUNTER 2018-09-20 17:13 | Outpatient (RCR) | payer OTHER, SELFPAY ==
[2018-07-07 14:52] VITALS: BMI 46.7
[2018-09-15 15:34] VITALS: BMI 44.2
== END 2018-09-30 23:59 ==
LOC: NS 17:13
PROVIDERS: Family Provider Internal Medicine; PCP Internal Medicine; Visit Provider Nurse Practitioner Family
DX: E66.9 Obesity, unspecified (principal); Z68.42 Body mass index [BMI] 45.0-49.9, adult; Z71.3 Dietary counseling and surveillance
CPT/HCPCS: 97803

== ENCOUNTER → 2018-09-28 06:39 | Outpatient (CLI) | payer OTHER, SELFPAY ==
[2018-09-21 15:23] VITALS: BMI 44.2
--- NOTE | 2018-09-28 06:40 | CT_ITS ---
STUDY: CT ABDOMEN AND PELVIS WITH CONTRAST REASON FOR EXAM: Female, 57 years old. Periumbilical pain, chronic. Gastric bypass and hysterectomy. Evaluation for hernia. RADIATION DOSAGE (If Supplied By Facility): CTDIvol = ( 23.81 ) mGy, DLP = ( 1730.65 ) mGycm TECHNIQUE: Transaxial images were obtained from the dome of the diaphragm to the symphysis pubis with oral contrast. 100 ml of Isovue 300 contrast was administered. Sagittal and coronal images were reconstructed. Individualized dose optimization techniques were used for this CT. COMPARISON: None. FINDINGS: Body wall soft tissues: No umbilical hernia. Supraumbilical small midline ventral abdominal hernia. This for Approximately 7.5 cm above the umbilicus, with the hernia sac containing fat measuring 2.7 cm in diameter, and a hernia defect in the midline measuring approximately 1.3 cm. Superior to that hernia epigastrium, midline there is an additional tiny hernia with a defect measuring 1.3 cm, containing fat. Hernia sac 0.4 cm. Superior to that a few centimeters there is an additional tiny hernia with defect measuring 9 mm, hernia sac measuring 11 mm, containing fat. Osseous structures: Mild disc degeneration L4-L5 without significant stenosis. Inferior chest: Clear lung bases, normal distal esophagus, normal cardiac size. Hepatobiliary: Normal. Pancreas: No acute process. Spleen: Normal. Adrenal glands: Normal. Urogenital: Right renal mid polar intracortical cyst 7.9 mm. Left renal partially exhibit phytic superior pole cyst 7 mm. Grossly simple cystic features without apparent enhancement but too small for definitive imaging characterization. Punctate nonobstructing calyceal calculi in the kidneys bilaterally. Slightly larger 4 mm calculus of the right renal inferior pole calyx and of the left renal superior pole calyx. Nonobstructing calyceal calculi. Normal collecting systems, ureters with no ureteral calculus or ureteral inflammation. Normal urinary bladder. Uterus absent. No adnexal mass or cyst. Pelvic floor and sidewalls and retroperitoneum: No mass or adenopathy. Vasculature: No acute process. Stomach: Postsurgical features of the stomach consistent with bariatric surgery, no acute process. Small bowel and mesentery: No acute process. Large bowel: Normal appendix. Normal large bowel and rectum. Free fluid or free air: None. CT/Abdomen/Pelvis WITH Contrast IMPRESSION: There is no evidence of umbilical hernia. No acute intra-abdominal or intrapelvic process is evident. There are 3 tiny fat filled ventral midline abdominal wall hernias between the umbilicus and epigastrium. Electronically Signed: Johnathon Hammond MD at 14:38 EDT Tel , Service support ,
== END ==
PROVIDERS: Family Provider Internal Medicine; PCP Internal Medicine; Referring Provider Nurse Practitioner Family; Visit Provider Nurse Practitioner Family
DX: K43.9 Ventral hernia without obstruction or gangrene (principal); E65 Localized adiposity; R10.33 Periumbilical pain; G89.29 Other chronic pain; Z98.84 Bariatric surgery status
CPT/HCPCS: 74177; Q9967

== ENCOUNTER 2018-12-22 14:26 | Emergency (ER) | payer OTHER, SELFPAY ==
[2018-12-20 11:32] VITALS: BMI 44.2
[2018-12-22 14:27] VITALS: BP 139/97; PULSE 90; RESP 16; TEMP 36.6; O2SAT 98; BMI 41.8
--- NOTE | 2018-12-22 15:13 | RAD_ITS ---
STUDY: X-RAY CHEST REASON FOR EXAM: Female, 58 years old. COPD with asthma TECHNIQUE: PA and lateral views of the chest. COMPARISON: 09/16/2016 FINDINGS: The lungs are clear and expanded. There is no demonstrated pleural abnormality. Normal size heart. Normal mediastinum and logan. Normal visualized pulmonary arteries. Normal visualized aortic arch and descending thoracic aorta. There are diffuse degenerative changes of the visualized thoracic spine. Normal visualized ribs, clavicles, and shoulders. There is no demonstrated abnormality of the visualized soft tissue structures of the upper abdomen. RAD/Chest PA and Lateral IMPRESSION: Unremarkable x-ray examination of the chest. No acute intrathoracic process. Electronically Signed: Chago Villafuerte MD at 15:41 EDT Tel [phone], Service support ,
--- NOTE | 2018-12-22 15:14 | ED.DCSUM_ITS ---
- ER Visit Summary Date of Service: 12/22/18 Chief Complaint: Cough History of Present Illness: The patient is a 58 F who has had a cough for 4 days. She states the cough is productive of green sputum. She has a headache nasal congestion sore throat and ear pain on the left side. She went to the now clinic 2 days ago and started on a azithromycin. They did not do any x-rays. Her temperature was 102 ?F yesterday. She has taken no other afos-ywx-kgryygl medications at home. Physical Examination: Vital signs reviewed. HEENT exam shows normal tympanic membranes. She does have posterior oropharyngeal erythema. No exudates.. Heart is regular rate and rhythm without murmurs. Lungs are clear to auscultation. Abdomen is soft and nontender. Extremities reveal no edema. Skin exam normal. Neurologic exam normal. Test Results: Chest x-ray normal Emergency Department Course and Treatment: Patient has normal chest x-ray. This is likely bronchitis. She will continue the antibiotics given to her by the [facility] care. I will add some prednisone and Tessalon Perles. We will follow-up with her primary care physician. Treatment Plan: [] Disposition: Discharge Impression: Bronchitis This note was generated with [employer] dictation software. It may contain incorrect words, spelling, and punctuation that were not noted in review of the chart prior to signing ED Disposition - Plan for ED Patient: Referrals: Lenka Ferguson MD [Primary Care Provider] -
--- NOTE | 2018-12-22 15:43 | ED.DEP ---
ED Disposition - Plan for ED Patient: Disposition: Home or Assisted Living Instructions: BRONCHITIS, Antiobiotic Treatment (Adult) Prescriptions: Prednisone [Deltasone] 40 mg PO DAILY #10 tab Prescription Printed Benzonatate [Tessalon Perle] 200 mg PO TID PRN PRN #20 cap PRN Reason: Cough Prescription Printed Referrals: Lenka Ferguson MD [Primary Care Provider] -
[2018-12-22 16:23] VITALS: RESP 20
== END 2018-12-22 16:24 | disposition home or self-care (01) ==
PROVIDERS: Emergency Provider Emergency Medicine; Family Provider Internal Medicine; PCP Internal Medicine
DX: J40 Bronchitis, not specified as acute or chronic (principal)
CPT/HCPCS: 71046; 99282

== ENCOUNTER 2019-02-07 14:58 | Emergency (ER) | payer OTHER, SELFPAY ==
[2019-02-07 14:25] VITALS: BMI 41.8
[2019-02-07 15:00] VITALS: BP 163/105; PULSE 83; RESP 20; TEMP 35.9; O2SAT 100; BMI 42.7
--- NOTE | 2019-02-07 15:10 | CT_ITS ---
STUDY: CT ABDOMEN AND PELVIS WITHOUT CONTRAST REASON FOR EXAM: Female, 58 years old. Abdominal pain, nausea, hematuria RADIATION DOSAGE (If Supplied By Facility): CTDIvol = ( 22.92 ) mGy, DLP = ( 1162.65 ) mGycm TECHNIQUE: Transaxial images were obtained from the dome of the diaphragm to the symphysis pubis without oral contrast, and without intravenous contrast. Sagittal and coronal images were reconstructed. Individualized dose optimization techniques were used for this CT. COMPARISON: None. FINDINGS: The visualized lung bases are unremarkable. The visualized portions of the heart are within normal limits. Normal liver. Normal gallbladder and extrahepatic biliary system. Normal spleen. Normal pancreas. Normal bilateral adrenal glands. Bilateral nonobstructing renal stones. 4 mm obstructing stone at the distal right ureter with moderate ureteral dilatation and hydronephrosis. Status post gastric surgery. Normal small intestine. Normal colon. The appendix is visualized and appears normal. Normal abdominal aorta. Normal inferior vena cava. Normal retroperitoneum. Normal urinary bladder. Normal abdominal wall. Normal osseous structures. CT/Abdomen/Pelvis without Cont IMPRESSION: 4 mm obstructing stone at the distal right ureter with moderate ureteral dilatation and hydronephrosis. Electronically Signed: Johnathon Lamb MD at 16:12 EDT Tel , Service support ,
--- NOTE | 2019-02-07 15:11 | ED.VISSUMM ---
- ER Visit Summary Date of Service: 02/07/19 Chief Complaint: Right flank pain History of Present Illness: The patient is a 58 F who presents the emergency department with a right flank pain. Symptoms began last night around 2129. She states that this morning the symptoms got worse and it radiates down to the low right pelvis. She noted jeffery hematuria. She went to the now clinic confirmed hematuria and was sent to the emergency department. She notes nausea but no vomiting. She notes it hurts to walk. Physical Examination: Afebrile vital signs are stable Gen: Well-nourished well-developed Head: Normocephalic atraumatic Eyes: Perrl EOMI ENT: TMs clear no rhinorrhea moist mucous membranes Neck: Supple no lymphadenopathy no JVD nontender CVS: Regular rate rhythm no murmurs normal S1-S2 Respiratory: No distress clear to auscultation bilaterally chest nontender Abdomen: Soft mildly tender to palpation right lower right middle quadrants r nondistended normal bowel sounds no masses Back: Nontender Extremity: Nontender no edema Skin: Normal color no rash Neuro: alert orientated ?3 CN II-XII intact normal strength sensation Psych: Normal affect normal mood Test Results: White count is normal. Creatinine 1.21. CT of the abdomen pelvis without contrast demonstrates an obstructing 4 mm distal ureteral stone. Emergency Department Course and Treatment: Patient was treated with Toradol Zofran and IV fluids. Repeat examination finds the patient to be resting comfortably. We talked about her findings as well as follow-up. She would like to see Dr. Medrano. I spoke with Dr. Laisha Lee who is happy to follow-up with the patient in the office. Patient was advised that if she should worsen or her pain is not controlled she may return at any point to the emergency department Impression: 1. 4 mm obstructing stone in the right distal ureter This note was generated with [employer] dictation software. It may contain incorrect words, spelling, and punctuation that were not noted in review of the chart prior to signing ED Disposition - Plan for ED Patient: Disposition: Home or Assisted Living Instructions: KIDNEY STONE w/ Colic Prescriptions: Hydrocodone Bitart/Apap 5-325 [[place] 5MG-325MG] 1 tab PO Q6H PRN PRN 3 Days #12 tab PRN Reason: Pain Prescription Printed Ketorolac [Toradol] 10 mg PO Q8H PRN #12 tab PRN Reason: pain Prescription Printed Ondansetron [Zofran Odt] 4 mg PO Q6H PRN PRN #10 tab PRN Reason: Nausea Prescription Printed Referrals: Kerry Medrano MD [STAFF PHYSICIAN] - As soon as possible
[2019-02-07] MEDS: 0.9% Normal Saline 1,000 ML 250 ML IV (15:33)
[2019-02-07] MEDS: Ondansetron 4 MG/2 ML Vial IV (15:34)
[2019-02-07] MEDS: Ketorolac 30 MG/ML Syringe IV (15:34)
[2019-02-07 15:44] LABS: Absolute Lymphocyte Count 1.34 X10^3/uL (0.83-4.51); Absolute Neutrophil Count 4.2 X10^3/uL (2.0-7.7); Basophil# 0.03 X10^3/uL; Basophil% 0.5 % (0-1); Eosinophil# 0.13 X10^3/uL; Eosinophils% 2.1 % (0-5); Hematocrit 39.5 % (37-47); Hemoglobin 12.5 g/dL (12.0-15.0); Lymphocyte # 1.34 X10^3/ul (4.0); Lymphocyte % 21.7 % (19-41); Mean Corp Hgb Conc 31.6 g/dL (32-36); Mean Corpuscular Hgb 28.9 pg (27.0-32.0); Mean Corpuscular Volume 91.2 fL (81-99); Mean Platelet Vol. 10.2 fl (6.2-12.0); Monocyte# 0.52 X10^3/uL; Monocyte% 8.4 % (0-10); NRBC Flagged by Analyzer 0 % (0-5); Neutrophil # 4.15 X10^3/uL (2.7-7.7); Neutrophil % 67.1 % (47-70); Platelet Count 292 K/mm3 (150-450); RBC Distribution Width CV 14.8 % (11.6-14.6); RBC Distribution Width SD 49.8 fl (35.1-43.9); Red Blood Count 4.33 M/mm3 (4.2-5.4); White Blood Count 6.2 K/mm3 (4.4-11.0)
[2019-02-07 16:06] LABS: Anion Gap 7 (5-15); BUN 16 mg/dL (7-18); BUN/Creat Ratio 13.2 RATIO (10-20); Calcium,Total 8.9 mg/dL (8.5-10.1); Chloride 106 mmol/L (98-107); Creatinine, Serum 1.21 mg/dL (0.55-1.02); EST Glomerular Filtration Rate 49 mL/min (>60); Est Glom Filt Rate - Afr Amer 59 mL/min (>60); Estimated Creatinine Clearance 41.06 ml/min; Glucose 90 mg/dL (74-106); Potassium 4.4 mmol/L (3.5-5.1); Sodium Level 141 mmol/L (136-145)
[2019-02-07 16:19] LABS: Bacteria 0 SEEN /hpf (None Seen); Mucous, Urine 0 SEEN /hpf (<or=2+); White Blood Cells 0 SEEN /hpf (0-5)
[2019-02-07 16:20] LABS: Color, Urine Yellow (Yellow); Glucose, Dipstick Normal (Normal); Ketone-Dipstick Negative (Negative); Leukocyte Esterase-Dipstick Negative /ul (Negative); Nitrite-Dipstick Negative (Negative); Occult Blood-Urine 250 /ul (Negative); Protein-Dipstick Negative (Negative); Specific Gravity, Urine 1.005 (1.002-1.030); Urine Bilirubin Dipstick Negative (Negative); Urine Clarity Clear (Clear); Urine Urobilinogen Normal (Normal); Urine pH 6.5 (5.0 - 8.0)
[2019-02-07 16:29] LABS: Red Blood Cells-Urine 5-10 SEEN /hpf (0-5); Squamous Epithelial Cells - UA 0-5 SEEN /hpf (5-10)
== END 2019-02-07 16:58 | disposition home or self-care (01) ==
PROVIDERS: Emergency Provider Emergency Medicine; Family Provider Internal Medicine; PCP Internal Medicine
DX: N13.2 Hydronephrosis with renal and ureteral calculous obstruction (principal); E66.9 Obesity, unspecified; I10 Essential (primary) hypertension; K21.9 Gastro-esophageal reflux disease without esophagitis; J44.9 Chronic obstructive pulmonary disease, unspecified; F32.9 Major depressive disorder, single episode, unspecified; F41.9 Anxiety disorder, unspecified; M81.0 Age-related osteoporosis without current pathological fracture; Z68.41 Body mass index [BMI] 40.0-44.9, adult; Z79.899 Other long term (current) drug therapy
CPT/HCPCS: 74176; 80048; 81001; 85025; 96361; 96374; 96375; 99284; J7030; A4216; J2405

== ENCOUNTER → 2019-02-17 20:46 | Outpatient (CLI) | payer OTHER, SELFPAY ==
[2019-01-23 15:02] VITALS: BMI 41.8
[2019-02-17 11:11] VITALS: BMI 42.7
== END ==
PROVIDERS: Family Provider Internal Medicine; PCP Internal Medicine; Referring Provider Internal Medicine; Visit Provider Internal Medicine
DX: G47.10 Hypersomnia, unspecified (principal)
CPT/HCPCS: 95810

== ENCOUNTER → 2019-03-17 19:45 | Outpatient (CLI) | payer OTHER, SELFPAY ==
[2019-03-02 07:07] VITALS: BMI 42.4
== END ==
PROVIDERS: Family Provider Internal Medicine; PCP Internal Medicine; Referring Provider Internal Medicine Critical Care Medicine; Visit Provider Internal Medicine Critical Care Medicine
DX: G47.33 Obstructive sleep apnea (adult) (pediatric) (principal)
CPT/HCPCS: 95811

== ENCOUNTER → 2019-05-22 07:05 | Outpatient (CLI) | payer OTHER, SELFPAY ==
[2019-05-17 08:39] VITALS: BMI 42.4
--- NOTE | 2019-05-22 07:06 | BI_ITS ---
MAMMOGRAPHY - BILATERAL SCREENING REASON FOR EXAM: Female, 58 years old. Routine annual screening examination. PERTINENT HISTORY: Sister with breast cancer. TECHNIQUE: Digital bilateral breast maxi (3D mammographic acquisition) in the CC and MLO projections. 2-D mediolateral oblique (MLO) and craniocaudad (CC) views of both breasts were obtained. CAD: Full Field Digital Mammography with Computer Added Detection was performed. COMPARISON: Comparison is made with prior study dated April 07, 2018 and November 25, 2016. FINDINGS: Breast Composition: The breasts are almost entirely fatty. There are no dominant masses or suspicious calcifications. Stable small benign appearing bilateral axillary lymph nodes. No other significant abnormalities are identified. There has been no significant change since the prior study. BI/SCREEN MAMM (CAD) W/MAXI BILAT IMPRESSION: Stable bilateral screening mammogram. Yearly follow-up mammogram recommended. (A) ASSESSMENT CATEGORY: BIRADS Category 2: Benign. A letter regarding these results will be sent to the patient by the facility within 30 days. Approximately 10% of breast cancers are not detected by mammography. A normal mammogram should not delay biopsy of a clinically suspicious abnormality. [id number] Electronically Signed: Ilir Jackson, at 8:26 EST , Service support ,
== END ==
PROVIDERS: PCP Internal Medicine; Referring Provider Internal Medicine; Visit Provider Internal Medicine
DX: Z12.31 Encounter for screening mammogram for malignant neoplasm of breast (principal); Z80.3 Family history of malignant neoplasm of breast
CPT/HCPCS: 77063; 77067

== ENCOUNTER 2019-06-27 14:39 | Inpatient (IN) | payer OTHER, SELFPAY ==
[2019-05-17 08:39] VITALS: BMI 42.4
[2019-06-20 15:10] LABS: Hematocrit 38.6 % (37-47); Mean Corp Hgb Conc 31.1 g/dL (32-36); Mean Corpuscular Hgb 28.4 pg (27.0-32.0); Mean Corpuscular Volume 91.5 fL (81-99); Mean Platelet Vol. 10.1 fl (6.2-12.0); Platelet Count 309 K/mm3 (150-450); RBC Distribution Width CV 14.6 % (11.6-14.6); RBC Distribution Width SD 49.4 fl (35.1-43.9); Red Blood Count 4.22 M/mm3 (4.2-5.4); White Blood Count 5.6 K/mm3 (4.4-11.0)
[2019-06-20 15:19] LABS: International Normalized Ratio 0.9; Prothrombin Time (Protime)PT. 12.4 SECONDS (11.7-14.9)
[2019-06-20 15:20] LABS: Partial Thromboplast Time 30.4 Seconds (24.1-36.2)
--- NOTE | 2019-06-20 17:47 | EKG12_ITS ---
Test Reason : PRE OP Blood Pressure : / mmHG Vent. Rate : 065 BPM Atrial Rate : 065 BPM P-R Int : 150 ms QRS Dur : 084 ms QT Int : 394 ms P-R-T Axes : 023 -20 002 degrees QTc Int : 409 ms Normal sinus rhythm Voltage criteria for left ventricular hypertrophy Abnormal ECG Confirmed by CLAUDINE WAKEFIELD ([id number]), photographic editor KERRY CHIRINOS ([id number]) on 06/22/2019 1:33:46 PM Referred By: Gal Hernandez Confirmed By:CLAUDINE WAKEFIELD
[2019-06-21 08:29] VITALS: BMI 42.6
--- NOTE | 2019-06-26 20:15 | PCM.HP.BLA ---
History and Physical Date of Admission: 06/27/19 HISTORY OF PRESENT ILLNESS 58 year old woman presents with complaints of bilateral macromastia as well as associated painful symptomatology of neck pain, thoracic back pain, bilateral shoulder pain from shoulder grooving from the weight of her breasts on her bra straps, and inframammary intertrigo for which she uses powders for relief. She denies any trauma to her breasts. Denies any nipple discharge. She has lost about 80 lbs over the last 5 years and still has persistent painful symptomatology. She completed Physical Therapy for her shoulder pain and it is still present. She also has intermittent migraine headaches. Her last mammogram was on 05/22/19. It showed the breasts are almost entirely fatty. There are no dominant masses or suspicious calcifications. Stable small benign appearing bilateral axillary lymph nodes. No other significant abnormalities are identified. She does have a family history of breast cancer. We have received insurance approval for the breast reduction procedure. PAST MEDICAL HISTORY Sleep apnea Kidney stones Allergic rhinitis Restrictive airway disease GERD (gastroesophageal reflux disease) Depression History of tuberculosis exposure History of positive PPD, treatment status unknown History of pneumococcal pneumonia Psoriatic arthritis Knee pain Shoulder pain Back pain SOB (shortness of breath) Migraine Hay fever Fatigue Anemia Asthma PAST SURGICAL HISTORY gastric bypass hysterectomy lateral meniscus repair of left knee carpal tunnel surgery of left wrist eye surgery ALLERGIES cat dander dog dander megestrol shellfish MEDICATIONS fluocinolone acetonide oil ipratropium bromide calcium carbonate cholecalciferol (vitamin D3) ferrous gluconate multivitamin vitamin E Acetaminophen alendronate Amitriptyline Amlodipine Ivermectin Montelukast Pantoprazole Paroxetine Rosuvastatin albuterol sulfate FAMILY HISTORY Mother - Diabetes, Heart disease Father - Diabetes, Heart disease Sister - Breast cancer Brother - Testicular cancer SOCIAL HISTORY Smoking Status: Never smoker alcohol intake: never substance use type: does not use REVIEW OF SYSTEMS General - Denies fever. Has fatigue. Has an 80 lb weight loss in the last 5 years. Eyes - Denies cataracts and glaucoma. ENT - Denies nasal congestion and sore throat. Endocrine - Denies excessive thirst and urination. Skin - Denies suspicious lesions and skin cancer. Has inframammary intertrigo for which she uses powders for relief. Musculoskeletal - She has joint pain, joint stiffness and arthritis. Has neck pain and back pain. Her neck and back pain involve cervical and thoracic area. Denies muscle weakness. Has bilateral shoulder pain from shoulder grooving from the weight of her breasts on her bra straps. Neuro - Has headaches. Has lightheadedness. Cardiovascular - Denies chest pain and shortness of breath with exertion. Has fatigue and lightheadedness. Psych - Denies anxiety and depression. Respiratory - Denies shortness of breath and chronic cough. Has asthma. Gastrointestinal - Denies nausea, vomiting, diarrhea and constipation. Has periumbilical pain, has an abdominal hernia. Hematologic - Denies abnormal bruising and bleeding. Has anemia. Genitourinary - Denies hematuria and urinary frequency. PHYSICAL EXAMINATION General - Alert and oriented. Patient's bra size is 42 GG. HEENT - PERRL. EOMI. Throat is clear. Neck - Supple. No bony tenderness. There is some pericervical soft tissue tenderness. Lungs- Clear to auscultation. Heart - Regular rate and rhythm. Breasts - Patient has bilateral macromastia. No breast masses palpable. No axillary adenopathy noted. Right breast is slightly larger than the left breast. Distance from midclavicular line on the left to the nipple is 37 cm and from the nipple to the inframammary fold is 10 cm. Distance from midclavicular line on the right to the nipple is 38 cm and from nipple to the inframammary fold is 10 cm. Nipple areolar complex diameter is 8 cm bilaterally. No active inframammary intertrigo noted at this time. Abdomen - Soft and non distended. Has large abdominal panniculus. Has periumbilical tenderness. No drainage noted today. Back - No bony tenderness noted. There is perivertebral soft tissue tenderness in the upper thoracic area. Extremities - FROM. No axillary adenopathy. Radial pulses are palpable. There is some bilateral shoulder tenderness with shoulder grooving from the weight of her breasts on her bra straps. Neuro - CN II-XII grossly intact. Psych - Normal and mood and affect. ASSESSMENT 1. Bilateral macromastia. 2. Neck pain. 3. Thoracic back pain. 4. Bilateral shoulder pain from shoulder grooving from the weight of the breasts on her bra straps. 5. Inframammary intertrigo. 6. Family history of breast cancer. 7. Recent weight loss. PLAN Discussed with the patient the procedure of breast reduction mammoplasty. I feel this procedure would be beneficial in this patient as it would help relieve her painful symptomatology. Her last mammogram was on 05/22/19. It showed the breasts are almost entirely fatty. There are no dominant masses or suspicious calcifications. Stable small benign appearing bilateral axillary lymph nodes. No other significant abnormalities are identified. At some point postoperatively would like to get a breast reduction baseline mammogram. I would remove approximately 750 g of breast tissue per side. We will send the tissue to pathology for analysis to rule out carcinoma. She would have drains in for a few days depending on the amount of tissue that is removed. She will be on antibiotics until the drains are removed. Discussed with patient the extent of scarring for this procedure. The biggest risk for wound healing problems is the T-zone area. Usually wound care and sometimes antibiotics are necessary for healing in this area. For this patient being a GG cup, the final breast size ranges from a full C to a low D cup. Patient voices understanding. Surgery will be done under general anesthesia with a surgical observation overnight stay in the hospital. We wrote a letter to her insurance carrier for medical approval and have received approval. Patient was informed of the risks and complications of the procedure including alternatives to surgery. These were discussed with her personally. She voices understanding and wishes to proceed. Some of the risks and complications were included in a form from the [employer]. Her was present with the patient today and his questions were answered personally and to his satisfaction.
[2019-06-27] VITALS (22 sets, daily range): BP systolic 73–120; BP diastolic 45–84; PULSE 70–103; RESP 14–24; TEMP 36.1–36.4; O2SAT 88–100; BMI 43.7
--- NOTE | 2019-06-27 | BR_PTH ---
PATIENT: JAMES BOURGEOIS LOC: [facility] U#:[id number] AGE/SX: 58/F ROOM: NE305 RE06/28/[address]: Dr. Gal Hernandez MD : [id number] BED: 1 DIS: 06/29/2019 SPEC #: [id number] RECD: 06/27/19 14:12 STATUS: JOHN REQ #: [id number] WARNER: 06/27/19 00:[address]: Gal Hernandez DEPT: SURGICAL PATHOLOGY RECD BY: Domenic Anglin ENTERED: 06/27/19 14:13 SP TYPE: MAMOPLASTY OTHR DR: MD Dr. Lenka Gerardo MD Tissues: A - Right breast, NOS B - Left breast, NOS Procedures: Surgery Specimen Level IV HEADER OPERATION: Breast reduction PRE-OP DIAGNOSIS: Bilateral macromastia; neck pain; thoracic back pain; bilateral shoulder pain TISSUE SUBMITTED: A - Right breast tissue, B - Left breast tissue MICROSCOPIC DIAGNOSIS A. Right breast tissue, breast reduction: Fatty benign breast tissue (1032 gm). Skin, focal dermal acute and chronic inflammation. B. Left breast tissue, breast reduction: Fatty benign breast tissue (1088 gm). Skin, no pathologic diagnosis. SJ:antonio 06/29/19 MICROSCOPIC DESCRIPTION Slides are reviewed. GROSS DESCRIPTION A - Received in fixative is one container labeled with the patient's name and designated right breast tissue. The specimen consists of multiple irregular fragments of valenzuela-yellow fibrofatty tissue with attached fragments of unremarkable skin weighing in aggregate 1032 gm. The fragments range in size from 2.5 to 16.8 cm and in aggregate measure 26 x 4 x 5 cm (18 fragments). Serial sections do not reveal mass lesions. Survey Research Manager sections are submitted in six cassettes. B - Received in fixative is one container labeled with the patient's name and designated left breast tissue. The specimen consists of multiple irregular fragments of valenzuela-yellow fibrofatty tissue with attached fragments of unremarkable skin weighing in aggregate 1088 gm. The fragments range in size from 2 to 18 cm and in aggregate measure 32 x 22 x 3 cm (19 fragments). Serial sections do not reveal mass lesions. Survey Research Manager sections are submitted in six cassettes. / AM:antonio 06/28/19 TC:5 CPT: 02730 x2
[2019-06-27 06:03] LABS: AST(SGOT) 23 U/L (15-37); Albumin, Serum 3.5 g/dL (3.2-5.0); Globulin 4.2 g/dL (2.2-4.2); Protein, Total 7.7 g/dL (6.4-8.2)
[2019-06-27 06:04] LABS: Alanine Aminotransfer ALT/SGPT 29 U/L (13-56); Alkaline Phosphatase 78 U/L (45-117); Bilirubin, Direct 0.12 mg/dL (0.00-0.30); Magnesium 2.3 mg/dL (1.6-2.6)
[2019-06-27 06:11] LABS: Bedside Glucose 78 mg/dL (70-110)
[2019-06-27] MEDS: Scopolamine 1mg/72hr Patch 1 PATCH TRANSDERM. (06:39)
[2019-06-27] MEDS: Lactated Ringers 1,000 ML 40 ML IV (06:39)
[2019-06-27] MEDS: Acetaminophen 500 MG Tablet 1000 MG PO ×2 (06:40→18:46)
[2019-06-27] MEDS: Gabapentin 600 MG Tablet PO (06:40)
[2019-06-27 07:00] LABS: Magnesium 2.2 mg/dL (1.6-2.6)
[2019-06-27] MEDS: Cefazolin 2 GM in 0.9% Normal Saline 100 ML IV (07:32)
--- NOTE | 2019-06-27 14:25 | OP.PCM_ITS ---
Report of Operation Date of Procedure: 06/27/19 Pre-Operative Diagnosis: 1. Bilateral macromastia. 2. Neck pain. 3. T horacic back pain. 4. Bilateral shoulder pain from shoulder grooving from the weight of the breasts on her bra straps. 5. Inframammary intertrigo. 6. Family history of breast cancer. 7. Recent weight loss. Post-Operative Diagnosis: Same. Surgery/Procedure Performed:: Bilateral breast reduction mammaplasty. Description of Surgical Findings:: 58 year old woman presents with complaints of bilateral macromastia as well as associated painful symptomatology of neck pain, thoracic back pain, bilateral shoulder pain from shoulder grooving from the weight of her breasts on her bra straps, and inframammary intertrigo for which she uses powders for relief. She denies any trauma to her breasts. Denies any nipple discharge. She has lost about 80 lbs over the last 5 years and still has persistent painful symptomatology. She completed Physical Therapy for her shoulder pain and it is still present. She also has intermittent migraine headaches. Her last mammogram was on 05/22/19. It showed the breasts are almost entirely fatty. There are no dominant masses or suspicious calcifications. Stable small benign appearing bilateral axillary lymph nodes. No other significant abnormalities are identified. She does have a family history of breast cancer. We have received insurance approval for the breast reduction procedure. Patient was informed of the risks and complications of the procedure including alternatives to surgery. These were discussed with the patient personally. Patient voices understanding and wishes to proceed. Some of the risks and complications were included in a form from the [employer]. IV Fluids - 3500 ml. Urine Output - 400 ml. Tissue removed from the left breast - 1216 grams. Tissue removed from the right breast - 1002 grams. I used AmnioFill Placental Connective Tissue Powder, (I used 2 vials of 500 mg, one in each breast). Catalog Number - [id number]. Lot Number - [id number]. Expiration - February 01, 2024, (left breast). Catalog Number - [id number]. Lot Number - [id number]. Expiration - February 01, 2024, (right breast). I used Randi absorbable hemostat, (I used 4 vials, 2 in each breast). Reference Number - [id number]. Lot Number - [id number]. Expiration - December 29, 2023, (left breast and right breast). quality control assessor: Beverley Bethea. quality control assessor: Carlos Ortega. Type of Anesthesia:: General Specimen's removed: 1. Left breast tissue to Pathology. 2. Right breast tissue to Pathology. Drains: Antolin x2 (one in each breast). Estimated Blood Loss (mL): 350 ml. Fluids Replaced: 3900 ml (IV Fluids 3500 ml, Urine Output 400 ml). Description of Procedure: In the preop area, the patient was placed in the sitting position and preoperative markings were made. The sternum midline was marked down to the umbilicus. The inframammary folds were marked bilaterally. The midclavicular line was then marked down to the nipple, then from the nipple to the inframammary fold. The inframammary fold was then superimposed on the m idclavicular line and I made a point 1 cm below that to be the new position of the nipple-areolar complex. 7 cm lines were then drawn divergent from that point to encompass the nipple-areolar complex. The distance between the divergent lines was 9 cm. The patient was then placed in the supine position and taken to the operating room and placed under general anesthesia and her breasts were prepped and draped in usual fashion. Ioban draping was also used. SCDs were placed for DVT prophylaxis. Perioperative antibiotics were given intravenously. A Macias catheter was also placed. I then tattooed the preoperative markings with methylene blue and 25-gauge needle. I also tattooed the 12 o'clock position of the nipple-areolar complex to help with positioning of the nipple-areolar complex when it is brought through the keyhole incision at the end of the procedure to minimize kinking and twisting of the central breast mound pedicle. I then jossie straight lines down from the lines drawn divergent around the nipple-areolar complex down to the inframammary fold. The width of the pedicle is 9 cm. I then used a 42 mm circular template for a new size of the nipple-areolar complex. The central markings were infiltrated with Xylocaine and epinephrine. The central skin was then deepithelialized. I started on the left side first and then went to the right side. I then mobilized medial and lateral breast flaps at the level of Shlely's fascia down to within a centimeter of the chest wall. This was met in the midline of the breast with dissection at the level of Shelly's fascia down to within a centimeter of the chest wall. Once the central breast mound pedicle was from the skin envelope, the reduction was then begun. Most of the tissue was removed from the superior aspect of the breast and the lateral aspect of the breast. I then sutured the leading edge of the medial and lateral breast flaps to the midline of the inframammary fold with 2-0 Vicryl suture. The vertical incision was approximated using surgical clips. The excess tissue from the medial and lateral breast flaps were excised and the horizontal incision was approximated using surgical clips. The patient was then placed in a sitting position. Using a vertical limb length of 4.5 cm, I jossie the new position of the new nipple-areolar complexes on both breasts. They were in good position on the central aspect of the breast mound. Good symmetry was noted between the left breast and the right breast. Good shape and contour and projection was noted and appeared clinically to be a full C cup. The patient was then placed back in the supine position and the surgical clips were removed. The breast wounds were then irrigated with Irrisept 0.05% Chlorhexidine solution which was followed by saline irrigation. Hemostasis was obtained using electrocautery. The tissue removed from the left breast was 1216 grams. The tissue removed from the right breast was 1002 grams. The tissue that was removed from the breasts was sent to Pathology for analysis to rule out carcinoma. After hemostasis was obtained using electrocautery, I then sprayed Randi absorbable hemostat into both breast wounds. I used two vials for each side. I then placed a size 15 Antolin drain into each breast wound to be brought through the lateral aspect of the horizontal incision. I then closed the breast wounds by first approximating the leading edge of the medial and lateral breast flaps to the midline of the inframammary fold with 2-0 Vicryl suture. The deep dermis and subcutaneous tissue of the vertical incision and the horizontal incisions were approximated using 3-0 Monocryl interrupted sutures. While these sutures were being placed, I placed AmnioFill placental connective tissue powder in the Tzone area to help promote healing in this area. I used 250 mg of AmnioFill in each breast at the Tzone area. The horizontal incision was then approximated using 4-0 V-Loc unidirectional barbed running subcuticular suture. I also placed a few 4-0 Prolene vertical mattress interrupted sutures at the level of the Tzone. The vertical incision was then closed on the skin with 4-0 Prolene interrupted sutures. With a vertical limb length of 4.5 cm, I jossie a circular incision where the nipple-areolar complex would be brought through this keyhole incision. Incisions were made and the nipple areolar complex was brought through the keyhole incision. The 12 o'clock position of the nipple-areolar complex was lined up with the 12 o'clock position of the breast skin. The nipple-areolar complex was secured to the breast skin using 3-0 Monocryl interrupted sutures for deep dermis and subcutaneous tissue. The skin was approximated using 4-0 Prolene simple interrupted sutures. This was then covered with Histoacryl skin tissue adhesive. I sutured the drain to the skin using 3-0 nylon suture. At the end of the procedure, the breasts were soft with no evidence of vascular compromise. No evidence of hematomas were noted. The nipples were viable. I then dressed the breasts with a Kerlix gauze and a surgical bra. The patient tolerated the procedure well and will be sent to the recovery room in satisfactory condition. She will be admitted for surgical observation overnight stay. A compression claritza wrap will be applied tomorrow before she goes home to help with minimize swelling postoperatively. She will go home tomorrow once she is tolerating oral pain medication. I will remove the drains in a few days. She will be maintained on antibiotics until the drains are removed. She will keep her head elevated during the initial postoperative period. She will be maintained on a lifting restriction and keep her head elevated during the initial postoperative period. Post-discharge, she may get a compression sports bra as well. She will have the Macias removed in the morning. She will be sent home on antibiotics and pain medicine. Sutures will be removed in 1-2 weeks. Grafts/Implants Used: I used AmnioFill placental connective tissue powder x2. - Complications None. - Admit VTE Documentation VTE Present on Admission: No VTE Mechan Device Prophylaxis: SCD's VTE Pharm Prophylaxis ordered?: Yes Code Visit Surgery Charges CPT - 87741 ICD-10 - N62, M54.2, M54.6, M25.519, L30.4, Z80.3, R63.4 [id number] N62, M54.2, M54.6, M25.519, L30.4, Z80.3, R63.4
[2019-06-27] MEDS: Lactated Ringers 1,000 ML 60 ML IV ×2 (15:20→16:22)
[2019-06-27] MEDS: Gabapentin 100 MG Capsule 200 MG PO (18:46)
[2019-06-27] MEDS: Ipratropium Bromide 0.06% NASAL SPRAY 2 SPRAY NASAL (21:28)
[2019-06-27] MEDS: Montelukast 10 MG Tablet PO (21:28)
[2019-06-27] MEDS: Docusate Sodium 100 MG Capsule PO (21:28)
[2019-06-27] MEDS: Atorvastatin Calcium 20 MG Tablet PO (21:28)
[2019-06-27] MEDS: Cefazolin 1 GM/50 ML BAG IV (21:28)
[2019-06-27] MEDS: Amitriptyline 25 MG Tablet PO (21:28)
[2019-06-27] MEDS: oxyCODONE 5 MG Tablet PO (21:38)
[2019-06-27] MEDS: 0.9% Normal Saline 1,000 ML 999 ML IV (22:42)
[2019-06-28] VITALS (26 sets, daily range): BP systolic 72–125; BP diastolic 40–69; PULSE 82–111; RESP 16–28; TEMP 36.6–38.1; O2SAT 84–100
[2019-06-28] MEDS: Lactated Ringers 1,000 ML 125 ML IV ×3 (01:11→23:46)
[2019-06-28] MEDS: oxyCODONE 5 MG Tablet PO (03:36)
[2019-06-28 05:40] LABS: Hemoglobin 8.3 g/dL (12.0-15.0); Mean Corp Hgb Conc 30.7 g/dL (32-36); Mean Corpuscular Hgb 28.9 pg (27.0-32.0); Mean Corpuscular Volume 94.1 fL (81-99); Mean Platelet Vol. 10.1 fl (6.2-12.0); Platelet Count 226 K/mm3 (150-450); RBC Distribution Width CV 15.5 % (11.6-14.6); RBC Distribution Width SD 53.6 fl (35.1-43.9); Red Blood Count 2.87 M/mm3 (4.2-5.4)
[2019-06-28] MEDS: Cefazolin 1 GM/50 ML BAG IV ×3 (05:54→22:15)
[2019-06-28 06:16] LABS: Anion Gap 8 (5-15); BUN 13 mg/dL (7-18); BUN/Creat Ratio 13.7 RATIO (10-20); Calcium,Total 7.5 mg/dL (8.5-10.1); Chloride 106 mmol/L (98-107); Creatinine, Serum 0.95 mg/dL (0.55-1.02); EST Glomerular Filtration Rate 65 mL/min (>60); Est Glom Filt Rate - Afr Amer 79 mL/min (>60); Glucose 106 mg/dL (74-106); Potassium 4.3 mmol/L (3.5-5.1); Prealbumin 15.6 mg/dL (20.0-40.0); Sodium Level 136 mmol/L (136-145)
[2019-06-28] MEDS: Acetaminophen 500 MG Tablet 1000 MG PO ×4 (06:48→23:46)
[2019-06-28] MEDS: 0.9% Saline Lock 10 ML Syringe IV (06:49)
[2019-06-28] MEDS: Ipratropium Bromide 0.06% NASAL SPRAY 2 SPRAY NASAL ×3 (06:49→21:48)
[2019-06-28] MEDS: HYDROmorphone 1 MG/ML Syringe IV (06:49)
[2019-06-28] MEDS: Multivitamins,Therapeutic Tablet 1 TABLET PO (09:39)
[2019-06-28] MEDS: Gabapentin 100 MG Capsule 200 MG PO ×3 (09:39→18:32)
[2019-06-28] MEDS: Pantoprazole Sodium 40 MG Tablet PO (09:40)
[2019-06-28] MEDS: Docusate Sodium 100 MG Capsule PO ×2 (09:40→21:47)
[2019-06-28] MEDS: Paroxetine 20 MG Tablet 40 MG PO (09:40)
[2019-06-28] MEDS: Ferrous Gluconate 324 MG Tablet PO (09:46)
[2019-06-28] MEDS: Ensure Surgery 237 ML LIQUID PO ×2 (09:46→12:39)
--- NOTE | 2019-06-28 10:33 | EKG12_ITS ---
Test Reason : Blood Pressure : / mmHG Vent. Rate : 105 BPM Atrial Rate : 105 BPM P-R Int : 168 ms QRS Dur : 080 ms QT Int : 302 ms P-R-T Axes : 013 -14 006 degrees QTc Int : 399 ms Sinus tachycardia Nonspecific T wave abnormality Abnormal ECG When compared with ECG of 20-JUN-2019 17:47, Vent. rate has increased BY 40 BPM Nonspecific T wave abnormality now evident in Anterolateral leads Confirmed by DAVID WISDOM, ROSANNA ([id number]), editor index IRINA UNGER ([id number]) on 07/03/2019 8:55:37 AM Referred By: Gal Hernandez Confirmed By:SINGH HERNANDEZ MD
[2019-06-28 12:14] LABS: Hematocrit 23.5 % (37-47); Hemoglobin 7.7 g/dL (12.0-15.0)
--- NOTE | 2019-06-28 12:36 | PCM.PN.SRG ---
Subjective: Postop #1 Patient feels tired. Has nipple hypersensitivity left breast. Had issues with low blood pressure last night. Needed extra IV fluids. - Physical Exam Vitals/I&O's: Vital Signs Temp Pulse Resp BP Pulse Ox 99.0 F 106 H 20 H 82/40 L 90 06/28/19 11:47 06/28/19 11:47 06/28/19 11:47 06/28/19 11:47 06/28/19 11:47 Oxygen Flow Rate (L/min) 2 Oxygen Delivery Method Nasal Cannula Weight: 235 lb 9.6 oz Body Mass Index (BMI) 43.7 Intake and Output for Last 24 Hours 06/26/19 06/27/19 06/28/19 23:59 23:59 23:59 Intake Total 6725 / 7125 2708.33 / 2708.33 Output Total 835 / 985 337 / 337 Balance 5890 / 6140 2371.33 / 2371.33 Drainage 35 ml yesterday, 37 ml today. General: Alert, Oriented x3 HEENT: PERRLA, EOMI Oral: Moist Mucosa Neck: Supple Abdomen: Soft, Non-Distended Skin: Incision - Breast incisions are dry and intact. Breasts are soft and symmetrical. Nipples are viable. No clinical evidence of hematoma. Neurological: Cranial nerves II-XII grossly intact Psych/Mental Status: Normal Affect, Appropriate Laboratory Results 06/28/19 05:26: Sodium 136, Potassium 4.3, Chloride 106, Carbon Dioxide 22.0, Anion Gap 8, BUN 13, Creatinine 0.95, Estim Creat Clear Calc 49.90, Est GFR (MDRD) Af Amer 79, Est GFR (MDRD) Non-Af 65, BUN/Creatinine Ratio 13.7, Glucose 106, Calcium 7.5 L, Prealbumin 15.6 L 06/28/19 05:26: WBC 11.0, RBC 2.87 L, Hgb 8.3 L, Hct 27.0 L, MCV 94.1, MCH 28.9, MCHC 30.7 L, RDW Std Deviation 53.6 H, RDW Coeff of Cecelia 15.5 H, Plt Count 226, MPV 10.1 06/28/19 12:03: Hgb 7.7 L, Hct 23.5 L Current Medications Acetaminophen (Tylenol) 1,000 mg PO Q6 [facility] Last Admin: 06/28/19 06:48 Dose: 1,000 mg Documented by: Albuterol Sulfate (Ventolin Aerosols) 2.5 mg INHALATION Q4H PRN PRN Reason: SOB AND/OR WHEEZING Alendronate Sodium (Fosamax) 70 mg PO Santos@0600 [facility] Amitriptyline HCl (Elavil) 25 mg PO QHS [facility] Last Admin: 06/27/19 21:28 Dose: 25 mg Documented by: Amlodipine Besylate (Norvasc) 5 mg PO DAILY [facility] Last Admin: 06/28/19 09:41 Dose: Not Given Documented by: Atorvastatin Calcium (Lipitor) 20 mg PO QHS [facility] Last Admin: 06/27/19 21:28 Dose: 20 mg Documented by: Cholecalciferol (Vitamin D (25mcg)) [facility] Last Admin: 06/28/19 09:41 Dose: 5,000 unit Documented by: Docusate Sodium (Colace) 100 mg PO BID [facility] Last Admin: 06/28/19 09:40 Dose: 100 mg Documented by: Enteral Nutritional Formula (Ensure Surgery) 237 ml PO TIDCM [facility] Last Admin: 06/28/19 09:46 Dose: 237 ml Documented by: Ferrous Gluconate (Ferrous Gluconate) 324 mg PO DAILYCM [facility] Last Admin: 06/28/19 09:46 Dose: 324 mg Documented by: Gabapentin (Neurontin) 200 mg PO TIDCM [facility] Last Admin: 06/28/19 09:39 Dose: 200 mg Documented by: Cefazolin Sodium () 1 gm in 50 mls @ 100 mls/hr IV Q8 [facility] Last Infusion: 06/28/19 06:44 Dose: Infused Documented by: Lactated Ringer's () 1,000 mls @ 125 mls/hr IV .Q8H [facility] Last Infusion: 06/28/19 11:43 Dose: 0 mls/hr Documented by: Insulin Human Lispro (Humalog Kwikpen (Bkc)) 1 - 6 unit SC Q4H PRN PRN; Protocol PRN Reason: BG>/= 180, SEE PROTOCOL Ipratropium [place] (Atrovent Nasal [place] (G)) 2 spray NASAL TID [facility] Last Admin: 06/28/19 06:49 Dose: 2 spray Documented by: Montelukast Sodium (Singulair) 10 mg PO QPM [facility] Last Admin: 06/27/19 21:28 Dose: 10 mg Documented by: Multivitamins (Multivitamin) 1 tablet PO DAILY@0800 [facility] Last Admin: 06/28/19 09:39 Dose: 1 tablet Documented by: Ondansetron HCl (Zofran Odt) 4 mg PO Q6H PRN PRN PRN Reason: NAUSEA Oxycodone HCl (Oxyir) 5 mg PO Q4H PRN PRN PRN Reason: Pain Score 4-10/10 Pantoprazole Sodium (Protonix) 40 mg PO DAILY [facility] Last Admin: 06/28/19 09:40 Dose: 40 mg Documented by: Paroxetine HCl (Paxil) 40 mg PO DAILY [facility] Last Admin: 06/28/19 09:40 Dose: 40 mg Documented by: Sodium Chloride () 10 - 40 ml IV UD PRN PRN Reason: SALINE FLUSH Last Admin: 06/28/19 06:49 Dose: 10 ml Documented by: Medical Necessity - Tobacco Use Smoking Status: Never smoker Assessment/Plan All Active Problems (Last Reviewed 06/23/19 @ 18:[address] Gal Hernandez MD) Acute postoperative anemia due to expected blood loss (Acute) Kidney stones (Acute) Acute right flank pain (Acute) History of gastric bypass (Resolved) GERD (gastroesophageal reflux disease) (Acute) History of tuberculosis exposure (Resolved) History of positive PPD, treatment status unknown (Resolved) History of pneumococcal pneumonia (Resolved) History of hysterectomy (Resolved) History of lateral meniscus repair of left knee (Resolved) History of carpal tunnel surgery of left wrist (Resolved) History of eye surgery (Resolved) Chronic obstructive pulmonary disease (Ruled-out) Strain of left index finger (Ruled-out) Segmental and somatic dysfunction of pelvic region (Acute) Segmental and somatic dysfunction of lumbar region (Acute) Acute bronchitis (Acute) Left shoulder strain (Acute) Knee pain (Acute) Shoulder pain (Acute) Back pain (Acute) Hay fever (Acute) Fatigue (Acute) Anemia (Acute) Arthritis (Acute) Sinusitis (Acute) 1. Bilateral macromastia. 2. Neck pain. 3. Thoracic back pain. 4. Bilateral shoulder pain from shoulder grooving from the weight of the breasts on her bra straps. 5. Inframammary intertrigo. 6. Family history of breast cancer. 7. Recent weight loss. 8. s/p bilateral breast reduction mammaplasty. 9. Postop hypotension. 10. Anemia of chronic disease, acute on chronic, postoperative due to expected blood loss. Patient feels tired. Incisions are dry and intact. Breasts are soft and symmetrical. No clinical evidence of hematoma. Had trouble with hypotension after surgery. Needed 8 liters of IV fluid. Hgb this morning was 8.3. It was 12 preop. She has anemia of chronic disease, acute on chronic, that is postoperative due to expected blood loss. She had operative blood loss of 350 ml. The drain output is less than 40 ml. The majority of the drop in Hgb is due to IV fluid dilution as her I's/O's are positive 8 liters. Will transfuse PRBC today not because of concern of ongoing blood loss because clinically there is minimal. But rather to improve oxygenation and healing and minimize stress on the heart which can increase risk for an NH. Will recheck Hgb tomorrow. She is also on chronic Iron supplementation. Prealbumin was 15.6. Encourage nutritional supplementation with protein to help the healing process. Since she is keeping PRBC, will keep her until tomorrow for discharge.
--- NOTE | 2019-06-28 14:33 | PCM.PN.HOSP ---
Reason for Visit: post op hypotension Subjective: Pt has some lightheadedness at rest, ongoing tachycardia. She underwent BL breast reduction and drain placement yesterday. Ongoing pain at surgical sight - improved with current pain regimen. She had some expected blood loss with her surgery and hgb has decreased to 7.7. She has no SOB, subjective fever, chills, LE edema, abd pain, nausea or vomiting. Vitals/I&O's: Vital Signs Temp Pulse Resp BP Pulse Ox 98.8 F 107 H 20 H 98/56 L 95 06/28/19 14:12 06/28/19 14:12 06/28/19 14:12 06/28/19 14:12 06/28/19 14:12 Oxygen Flow Rate (L/min) 2 Oxygen Delivery Method Nasal Cannula Weight: 235 lb 9.6 oz Body Mass Index (BMI) 43.7 Intake and Output for Last 24 Hours 06/26/19 06/27/19 06/28/19 23:59 23:59 23:59 Intake Total 6725 / 7125 4008.33 / 4008.33 Output Total 835 / 985 579 / 579 Balance 5890 / 6140 3429.33 / 3429.33 General: Alert, Oriented x3, Cooperative HEENT: Atraumatic, PERRLA, EOMI, Normocephalic Neck: Supple, No JVD, Negative Carotid Bruits Lungs: Clear to auscultation, Normal air movement Cardiovascular: Regular rate, No murmurs Abdomen: Bowel Sounds Present, Soft, Non Tender Extremities: No edema, Capillary Refill Less than 3 Seconds Skin: No rashes, No breakdown Musculoskeletal: No Tenderness to Palpation of Joints or Extremities Neurological: Cranial nerves II-XII grossly intact Psych/Mental Status: Normal Affect, Appropriate, Alert and oriented to time, place, person, mood and affect Laboratory Results 06/28/19 05:26: Sodium 136, Potassium 4.3, Chloride 106, Carbon Dioxide 22.0, Anion Gap 8, BUN 13, Creatinine 0.95, Estim Creat Clear Calc 49.90, Est GFR (MDRD) Af Amer 79, Est GFR (MDRD) Non-Af 65, BUN/Creatinine Ratio 13.7, Glucose 106, Calcium 7.5 L, Prealbumin 15.6 L 06/28/19 05:26: WBC 11.0, RBC 2.87 L, Hgb 8.3 L, Hct 27.0 L, MCV 94.1, MCH 28.9, MCHC 30.7 L, RDW Std Deviation 53.6 H, RDW Coeff of Cecelia 15.5 H, Plt Count 226, MPV 10.1 06/28/19 12:03: Hgb 7.7 L, Hct 23.5 L 06/28/19 13:30: Blood Type Pending, Antibody Screen Pending, Crossmatch See Detail Current Medications Acetaminophen (Tylenol) 1,000 mg PO Q6 [facility] Last Admin: 06/28/19 12:39 Dose: 1,000 mg Documented by: Albuterol Sulfate (Ventolin Aerosols) 2.5 mg INHALATION Q4H PRN PRN Reason: SOB AND/OR WHEEZING Alendronate Sodium (Fosamax) 70 mg PO Santos@0600 [facility] Amitriptyline HCl (Elavil) 25 mg PO QHS [facility] Last Admin: 06/27/19 21:28 Dose: 25 mg Documented by: Amlodipine Besylate (Norvasc) 5 mg PO DAILY [facility] Last Admin: 06/28/19 09:41 Dose: Not Given Documented by: Atorvastatin Calcium (Lipitor) 20 mg PO QHS [facility] Last Admin: 06/27/19 21:28 Dose: 20 mg Documented by: Cholecalciferol (Vitamin D (25mcg)) [facility] Last Admin: 06/28/19 09:41 Dose: 5,000 unit Documented by: Docusate Sodium (Colace) 100 mg PO BID [facility] Last Admin: 06/28/19 09:40 Dose: 100 mg Documented by: Enteral Nutritional Formula (Ensure Surgery) 237 ml PO TIDCM [facility] Last Admin: 06/28/19 12:39 Dose: 237 ml Documented by: Ferrous Gluconate (Ferrous Gluconate) [facility] Last Admin: 06/28/19 09:46 Dose: 324 mg Documented by: Gabapentin (Neurontin) 200 mg PO TIDCM [facility] Last Admin: 06/28/19 12:35 Dose: 200 mg Documented by: Cefazolin Sodium () 1 gm in 50 mls @ 100 mls/hr IV Q8 [facility] Last Admin: 06/28/19 13:56 Dose: 100 mls/hr Documented by: Lactated Ringer's () 1,000 mls @ 125 mls/hr IV .Q8H [facility] Last Infusion: 06/28/19 12:12 Dose: 125 mls/hr Documented by: Insulin Human Lispro (Humalog Kwikpen (Bkc)) 1 - 6 unit SC Q4H PRN PRN; Protocol PRN Reason: BG>/= 180, SEE PROTOCOL Ipratropium [place] (Atrovent Nasal [place] (G)) 2 spray NASAL TID [facility] Last Admin: 06/28/19 13:59 Dose: 2 spray Documented by: Montelukast Sodium (Singulair) 10 mg PO QPM [facility] Last Admin: 06/27/19 21:28 Dose: 10 mg Documented by: Multivitamins (Multivitamin) 1 tablet PO DAILY@0800 [facility] Last Admin: 06/28/19 09:39 Dose: 1 tablet Documented by: Ondansetron HCl (Zofran Odt) 4 mg PO Q6H PRN PRN PRN Reason: NAUSEA Oxycodone HCl (Oxyir) 5 mg PO Q4H PRN PRN PRN Reason: Pain Score 4-10/10 Pantoprazole Sodium (Protonix) 40 mg PO DAILY [facility] Last Admin: 06/28/19 09:40 Dose: 40 mg Documented by: Paroxetine HCl (Paxil) 40 mg PO DAILY [facility] Last Admin: 06/28/19 09:40 Dose: 40 mg Documented by: Sodium Chloride () 10 - 40 ml IV UD PRN PRN Reason: SALINE FLUSH Last Admin: 06/28/19 06:49 Dose: 10 ml Documented by: STROKE Vital Signs/Narrative: Vital Signs Temp Pulse Resp BP Pulse Ox 06/28/19 14:12 98.8 F 107 H 20 H 98/56 L 95 06/28/19 12:42 99.0 F 111 H 18 90/56 L 92 06/28/19 11:47 99.0 F 106 H 20 H 82/40 L 90 06/28/19 11:13 98.8 F 106 H 20 H 76/54 L 94 06/28/19 10:47 100.0 F H 104 H 20 H 72/46 L 97 Medical Necessity - Tobacco Use Smoking Status: Never smoker Assessment/Plan All Active Problems (Last Reviewed 06/23/19 @ 18:[address] Gal Hernandez MD) Acute postoperative anemia due to expected blood loss (Acute) Kidney stones (Acute) Acute right flank pain (Acute) History of gastric bypass (Resolved) GERD (gastroesophageal reflux disease) (Acute) History of tuberculosis exposure (Resolved) History of positive PPD, treatment status unknown (Resolved) History of pneumococcal pneumonia (Resolved) History of hysterectomy (Resolved) History of lateral meniscus repair of left knee (Resolved) History of carpal tunnel surgery of left wrist (Resolved) History of eye surgery (Resolved) Chronic obstructive pulmonary disease (Ruled-out) Strain of left index finger (Ruled-out) Segmental and somatic dysfunction of pelvic region (Acute) Segmental and somatic dysfunction of lumbar region (Acute) Acute bronchitis (Acute) Left shoulder strain (Acute) Knee pain (Acute) Shoulder pain (Acute) Back pain (Acute) Hay fever (Acute) Fatigue (Acute) Anemia (Acute) Arthritis (Acute) Sinusitis (Acute) 1. BL breast reduction POD#1 - drains in place. pain controlled. management per Dr. Hernandez. 2. Post op hypotension - likely 2/2 dehydration, expected blood loss, pain meds, scopalamine. Continue IV fluids, scope patch off, transfuse 2 units PRBC. Hold parameters for 3. HTN - home meds held for #2 4. Asthma - no exacerbation, prn aerosols, O2 prn 5. GERD - ppi 6. Depression -amitriptyline, paroxetine 7. Hyperlipidemia-continue statin 8. Osteopenia/porosis-on alendronate at home DVT prophylaxis: SCDs Thank you for the opportunity to participate in the care of this patient This patient was seen by Keshawn Mcintosh PA-C under the supervision of Doctor Dodson.
[2019-06-28 14:50] LABS: Absolute Lymphocyte Count 0.98 X10^3/uL (0.83-4.51); Absolute Neutrophil Count 7.7 X10^3/uL (2.0-7.7); Basophil# 0.01 X10^3/uL; Basophil% 0.1 % (0-1); Eosinophil# 0.04 X10^3/uL; Eosinophils% 0.4 % (0-5); Hematocrit 22.4 % (37-47); Lymphocyte # 0.98 X10^3/ul (4.0); Lymphocyte % 10.4 % (19-41); Mean Corp Hgb Conc 31.3 g/dL (32-36); Mean Corpuscular Volume 92.9 fL (81-99); Mean Platelet Vol. 10.7 fl (6.2-12.0); Monocyte# 0.64 X10^3/uL; Monocyte% 6.8 % (0-10); NRBC Flagged by Analyzer 0 % (0-5); Neutrophil % 81.9 % (47-70); Platelet Count 186 K/mm3 (150-450); RBC Distribution Width CV 15.8 % (11.6-14.6); RBC Distribution Width SD 54.1 fl (35.1-43.9); Red Blood Count 2.41 M/mm3 (4.2-5.4); White Blood Count 9.4 K/mm3 (4.4-11.0)
[2019-06-28] MEDS: Atorvastatin Calcium 20 MG Tablet PO (21:47)
[2019-06-28] MEDS: Montelukast 10 MG Tablet PO (21:47)
[2019-06-28] MEDS: Amitriptyline 25 MG Tablet PO (21:48)
--- NOTE | 2019-06-29 02:05 | NURSING ---
Offered to have respiratory come and hook her up to CPAP and patient refused. Said she would just use the oxygen on NC.
[2019-06-29] MEDS: oxyCODONE 5 MG Tablet PO ×2 (02:20→09:05)
[2019-06-29 02:21] VITALS: BP 97/55; PULSE 80; RESP 18; TEMP 36.8; O2SAT 100
[2019-06-29 05:30] LABS: Hematocrit 28.4 % (37-47); Hemoglobin 9.3 g/dL (12.0-15.0)
[2019-06-29] MEDS: Ipratropium Bromide 0.06% NASAL SPRAY 2 SPRAY NASAL (06:09)
[2019-06-29] MEDS: Cefazolin 1 GM/50 ML BAG IV (06:09)
[2019-06-29] MEDS: Acetaminophen 500 MG Tablet 1000 MG PO ×2 (06:49→12:44)
[2019-06-29] MEDS: Ondansetron ODT 4 MG Tablet PO (07:01)
[2019-06-29 07:16] VITALS: O2SAT 95
[2019-06-29 08:52] VITALS: BP 131/87; PULSE 83; RESP 16; TEMP 37.1; O2SAT 99
[2019-06-29] MEDS: Gabapentin 100 MG Capsule 200 MG PO ×2 (09:04→12:43)
[2019-06-29] MEDS: Pantoprazole Sodium 40 MG Tablet PO (09:05)
[2019-06-29] MEDS: Multivitamins,Therapeutic Tablet 1 TABLET PO (09:05)
[2019-06-29] MEDS: amLODIPine 5 MG Tablet PO (09:05)
[2019-06-29] MEDS: Ferrous Gluconate 324 MG Tablet PO (09:05)
[2019-06-29] MEDS: Paroxetine 20 MG Tablet 40 MG PO (09:05)
[2019-06-29] MEDS: Docusate Sodium 100 MG Capsule PO (09:05)
[2019-06-29] MEDS: Lactated Ringers 1,000 ML 75 ML IV (09:09)
--- NOTE | 2019-06-29 10:25 | PCM.PROGNOTE ---
Subjective: Patient seen and examined. Denies current complaints. Nursing reports patient has not had a bowel movement the past few days however patient reports this is normal for her. Denies significant pain. - Physical Exam Vitals/I&O's: Vital Signs Temp Pulse Resp BP Pulse Ox 98.7 F 83 16 131/87 H 99 06/29/19 08:52 06/29/19 08:52 06/29/19 08:52 06/29/19 08:52 06/29/19 08:52 Oxygen Flow Rate (L/min) 1 Oxygen Delivery Method Room Air Weight: 235 lb 9.6 oz Body Mass Index (BMI) 43.7 Intake and Output for Last 24 Hours 06/27/19 06/28/19 06/29/19 23:59 23:59 23:59 Intake Total 6725 / 7125 6925.00 / 7245.00 1670.00 / 1670.00 Output Total 835 / 985 1491 / 2463 2194 / 2194 Balance 5890 / 6140 5434.00 / 4782.00 -524.00 / -524.00 General: Alert, Oriented x3, Cooperative HEENT: Atraumatic, PERRLA, EOMI, Normocephalic Neck: Supple, No JVD, Negative Carotid Bruits Lungs: Clear to auscultation, Normal air movement Cardiovascular: Regular rate, Regular Rhythm, Normal S1, Normal S2, No murmurs Abdomen: Bowel Sounds Present, Soft, Non Tender, Non-Distended, Obese Extremities: No clubbing, No cyanosis, No edema, Capillary Refill Less than 3 Seconds Skin: No rashes, No breakdown, - - Postoperative chest dressing and drains in place. Musculoskeletal: No Tenderness to Palpation of Joints or Extremities Neurological: Cranial nerves II-XII grossly intact, Neuro grossly intact Psych/Mental Status: Normal Affect, Appropriate Laboratory Results 06/28/19 12:03: Hgb 7.7 L, Hct 23.5 L 06/28/19 13:30: Blood Type A POSITIVE, Antibody Screen NEGATIVE, Crossmatch See Detail 06/28/19 13:30: WBC 9.4, RBC 2.41 L, Hgb 7.0 L, Hct 22.4 L, MCV 92.9, MCH 29.0, MCHC 31.3 L, RDW Std Deviation 54.1 H, RDW Coeff of Cecelia 15.8 H, Plt Count 186, MPV 10.7, Immature Gran % (Auto) 0.400, Neut % (Auto) 81.9 H, Lymph % (Auto) 10.4 L, [place] % (Auto) 6.8, Eos % (Auto) 0.4, Baso % (Auto) 0.1, Absolute Neuts (auto) 7.7, Absolute Lymphs (auto) 0.98, Nucleated RBC % 0 06/29/19 05:15: Hgb 9.3 L, Hct 28.4 L Current Medications Acetaminophen (Tylenol) 1,000 mg PO Q6 [facility] Last Admin: 06/29/19 06:49 Dose: 1,000 mg Documented by: Albuterol Sulfate (Ventolin Aerosols) 2.5 mg INHALATION Q4H PRN PRN Reason: SOB AND/OR WHEEZING Alendronate Sodium (Fosamax) 70 mg PO Santos@0600 [facility] Amitriptyline HCl (Elavil) 25 mg PO QHS [facility] Last Admin: 06/28/19 21:48 Dose: 25 mg Documented by: Amlodipine Besylate (Norvasc) 5 mg PO DAILY [facility] Last Admin: 06/29/19 09:05 Dose: 5 mg Documented by: Atorvastatin Calcium (Lipitor) 20 mg PO QHS [facility] Last Admin: 06/28/19 21:47 Dose: 20 mg Documented by: Cholecalciferol (Vitamin D (25mcg)) [facility] Last Admin: 06/29/19 09:05 Dose: 5,000 unit Documented by: Docusate Sodium (Colace) 100 mg PO BID [facility] Last Admin: 06/29/19 09:05 Dose: 100 mg Documented by: Enteral Nutritional Formula (Ensure Surgery) 237 ml PO TIDCM [facility] Last Admin: 06/29/19 08:06 Dose: Not Given Documented by: Ferrous Gluconate (Ferrous Gluconate) [facility] Last Admin: 06/29/19 09:05 Dose: 324 mg Documented by: Gabapentin (Neurontin) 200 mg PO TIDCM [facility] Last Admin: 06/29/19 09:04 Dose: 200 mg Documented by: Cefazolin Sodium () 1 gm in 50 mls @ 100 mls/hr IV Q8 [facility] Last Infusion: 06/29/19 06:39 Dose: Infused Documented by: Lactated Ringer's () 1,000 mls @ 75 mls/hr IV .[id number] [facility] Last Admin: 06/29/19 09:09 Dose: 75 mls/hr Documented by: Insulin Human Lispro (Humalog Kwikpen (Bkc)) 1 - 6 unit SC Q4H PRN PRN; Protocol PRN Reason: BG>/= 180, SEE PROTOCOL Ipratropium [place] (Atrovent Nasal [place] (G)) 2 spray NASAL TID [facility] Last Admin: 06/29/19 06:09 Dose: 2 spray Documented by: Montelukast Sodium (Singulair) 10 mg PO QPM [facility] Last Admin: 06/28/19 21:47 Dose: 10 mg Documented by: Multivitamins (Multivitamin) 1 tablet PO DAILY@0800 [facility] Last Admin: 06/29/19 09:05 Dose: 1 tablet Documented by: Ondansetron HCl (Zofran Odt) 4 mg PO Q6H PRN PRN PRN Reason: NAUSEA Last Admin: 06/29/19 07:01 Dose: 4 mg Documented by: Oxycodone HCl (Oxyir) 5 mg PO Q4H PRN PRN PRN Reason: Pain Score 4-10/10 Last Admin: 06/29/19 09:05 Dose: 5 mg Documented by: Pantoprazole Sodium (Protonix) 40 mg PO DAILY [facility] Last Admin: 06/29/19 09:05 Dose: 40 mg Documented by: Paroxetine HCl (Paxil) 40 mg PO DAILY [facility] Last Admin: 06/29/19 09:05 Dose: 40 mg Documented by: Sodium Chloride () 10 - 40 ml IV UD PRN PRN Reason: SALINE FLUSH Last Admin: 06/28/19 06:49 Dose: 10 ml Documented by: Medical Necessity - Tobacco Use Smoking Status: Never smoker Assessment/Plan All Active Problems (Last Reviewed 06/23/19 @ 18:[address] Gal Hernandez MD) Acute postoperative anemia due to expected blood loss (Acute) Kidney stones (Acute) Acute right flank pain (Acute) History of gastric bypass (Resolved) GERD (gastroesophageal reflux disease) (Acute) History of tuberculosis exposure (Resolved) History of positive PPD, treatment status unknown (Resolved) History of pneumococcal pneumonia (Resolved) History of hysterectomy (Resolved) History of lateral meniscus repair of left knee (Resolved) History of carpal tunnel surgery of left wrist (Resolved) History of eye surgery (Resolved) Chronic obstructive pulmonary disease (Ruled-out) Strain of left index finger (Ruled-out) Segmental and somatic dysfunction of pelvic region (Acute) Segmental and somatic dysfunction of lumbar region (Acute) Acute bronchitis (Acute) Left shoulder strain (Acute) Knee pain (Acute) Shoulder pain (Acute) Back pain (Acute) Hay fever (Acute) Fatigue (Acute) Anemia (Acute) Arthritis (Acute) Sinusitis (Acute) 1. Bilateral breast reduction postop day #2: Management per Dr. Hernandez. Drains in place. No significant pain.\ 2. Acute blood loss anemia, expected outcome as result of #1-status post 2 units PRBC. H&H now stable. 3. Postoperative hypotension-resolved. 4. Chronic intermittent asthma-no exacerbation. As needed albuterol aerosol. 5. GERD-continue PPI. 6. Depression-continue amitriptyline, paroxetine regimen. 7. Hyperlipidemia-continue statin. 8. Osteopenia/osteoporosis-on alendronate. 9. Obesity-encouraged diet lifestyle modifications. DVT prophylaxis-SCDs This patient was seen by JHOANA Freire under the supervision of Dr. Dodson.
--- NOTE | 2019-06-29 10:40 | CASEMGMT ---
RN CM [employer]PA[employer] CM to room to meet with patient for initial transition planning/care coordination assessment. RN AMANDA introduced self and role at [facility]. Pt voices understanding and consents to assessment at this time. Pt sitting up in chair in room in no distress at this time. Friend, Darlene, in room visiting and pt agreeable to her being present during assessment. Pt is A/O at this time and answers all questions appropriately. Care providers, pharmacy, and demographics verified/updated at this time. PCP: Dr Ferguson Specialists: Dr Hernandez-surgeon, Dr Canales--pulmonology Preferred Pharmacy: [facility] Retail Insurance: [facility] [id number], [employer] [place] [employer] Prescription Benefit: Yes Living Will/HPOA: Does not have LW or Healthcare POA. [facility] would like to talk with to complete paperwork. SARITA Cordero, made aware. LNOK: [place] Living Arrangements: Lives with her in one-story home w/3 steps to enter. Independent Transportation: Pt states drives self and states no transportation concerns at this time. or friend, Darlene, will take her home @ d/c. DME: States has the following DME: CPAP thru [employer] [place]. Has walker available but does not use. Pt states no need for further DME at this time. HHC/SNF: No history of either. Denies needs. Pt wishes to return home and states has no concerns with going home at time of discharge. CM to follow for any discharge planning/needs. Pt voices no concerns/needs at this time. Advised pt to ask for CM if any further questions/concerns/needs arise. Voices understanding. PLAN: Home SARITA referral for AD Tootie RUBIO RN, CM
--- NOTE | 2019-06-29 11:45 | CASEMGMT ---
Social Work Note SW received referral for advanced directives. SW completed advance directives with pt. SW provided pt with original copy and placed copy on pt's chart. Pt requests two additional copies and SW provided pt with two additional copies. Carla Mcclendon CONSERVATION POLICY ANALYST, SENIOR ANALYSIS SPECIALIST
--- NOTE | 2019-06-29 11:55 | PCM.PN.SRG ---
Subjective: Postop #2 Patient is resting comfortably. - Physical Exam Vitals/I&O's: Vital Signs Temp Pulse Resp BP Pulse Ox 98.7 F 83 16 131/87 H 99 06/29/19 08:52 06/29/19 08:52 06/29/19 08:52 06/29/19 08:52 06/29/19 08:52 Oxygen Flow Rate (L/min) 1 Oxygen Delivery Method Room Air Weight: 235 lb 9.6 oz Body Mass Index (BMI) 43.7 Intake and Output for Last 24 Hours 06/27/19 06/28/19 06/29/19 23:59 23:59 23:59 Intake Total 6725 / 7125 6925.00 / 7245.00 1670.00 / 1670.00 Output Total 835 / 985 1491 / 2463 2194 / 2194 Balance 5890 / 6140 5434.00 / 4782.00 -524.00 / -524.00 Drainage 191 ml yesterday, 44 ml today. General: Alert, Oriented x3 HEENT: PERRLA, EOMI Oral: Moist Mucosa Neck: Supple Abdomen: Soft, Non-Distended Skin: Incision - Breast incisions are dry and intact. Breasts are soft and symmetrical. Nipples are viable. No clinical evidence of hematoma. Neurological: Cranial nerves II-XII grossly intact Psych/Mental Status: Normal Affect, Appropriate Laboratory Results 06/28/19 12:03: Hgb 7.7 L, Hct 23.5 L 06/28/19 13:30: Blood Type A POSITIVE, Antibody Screen NEGATIVE, Crossmatch See Detail 06/28/19 13:30: WBC 9.4, RBC 2.41 L, Hgb 7.0 L, Hct 22.4 L, MCV 92.9, MCH 29.0, MCHC 31.3 L, RDW Std Deviation 54.1 H, RDW Coeff of Cecelia 15.8 H, Plt Count 186, MPV 10.7, Immature Gran % (Auto) 0.400, Neut % (Auto) 81.9 H, Lymph % (Auto) 10.4 L, [place] % (Auto) 6.8, Eos % (Auto) 0.4, Baso % (Auto) 0.1, Absolute Neuts (auto) 7.7, Absolute Lymphs (auto) 0.98, Nucleated RBC % 0 06/29/19 05:15: Hgb 9.3 L, Hct 28.4 L Current Medications Acetaminophen (Tylenol) 1,000 mg PO Q6 [facility] Last Admin: 06/29/19 06:49 Dose: 1,000 mg Documented by: Albuterol Sulfate (Ventolin Aerosols) 2.5 mg INHALATION Q4H PRN PRN Reason: SOB AND/OR WHEEZING Alendronate Sodium (Fosamax) 70 mg PO Santos@0600 [facility] Amitriptyline HCl (Elavil) 25 mg PO QHS [facility] Last Admin: 06/28/19 21:48 Dose: 25 mg Documented by: Amlodipine Besylate (Norvasc) 5 mg PO DAILY [facility] Last Admin: 06/29/19 09:05 Dose: 5 mg Documented by: Atorvastatin Calcium (Lipitor) 20 mg PO QHS [facility] Last Admin: 06/28/19 21:47 Dose: 20 mg Documented by: Cholecalciferol (Vitamin D (25mcg)) [facility] Last Admin: 06/29/19 09:05 Dose: 5,000 unit Documented by: Docusate Sodium (Colace) 100 mg PO BID [facility] Last Admin: 06/29/19 09:05 Dose: 100 mg Documented by: Enteral Nutritional Formula (Ensure Surgery) 237 ml PO TIDCM [facility] Last Admin: 06/29/19 08:06 Dose: Not Given Documented by: Ferrous Gluconate (Ferrous Gluconate) 324 mg PO DAILYCM [facility] Last Admin: 06/29/19 09:05 Dose: 324 mg Documented by: Gabapentin (Neurontin) 200 mg PO TIDCM [facility] Last Admin: 06/29/19 09:04 Dose: 200 mg Documented by: Cefazolin Sodium () 1 gm in 50 mls @ 100 mls/hr IV Q8 [facility] Last Infusion: 06/29/19 06:39 Dose: Infused Documented by: Lactated Ringer's () 1,000 mls @ 75 mls/hr IV .[id number] [facility] Last Admin: 06/29/19 09:09 Dose: 75 mls/hr Documented by: Insulin Human Lispro (Humalog Kwikpen (Bkc)) 1 - 6 unit SC Q4H PRN PRN; Protocol PRN Reason: BG>/= 180, SEE PROTOCOL Ipratropium [place] (Atrovent Nasal [place] (G)) 2 spray NASAL TID [facility] Last Admin: 06/29/19 06:09 Dose: 2 spray Documented by: Montelukast Sodium (Singulair) 10 mg PO QPM [facility] Last Admin: 06/28/19 21:47 Dose: 10 mg Documented by: Multivitamins (Multivitamin) 1 tablet PO DAILY@0800 [facility] Last Admin: 06/29/19 09:05 Dose: 1 tablet Documented by: Ondansetron HCl (Zofran Odt) 4 mg PO Q6H PRN PRN PRN Reason: NAUSEA Last Admin: 06/29/19 07:01 Dose: 4 mg Documented by: Oxycodone HCl (Oxyir) 5 mg PO Q4H PRN PRN PRN Reason: Pain Score 4-10/10 Last Admin: 06/29/19 09:05 Dose: 5 mg Documented by: Pantoprazole Sodium (Protonix) 40 mg PO DAILY [facility] Last Admin: 06/29/19 09:05 Dose: 40 mg Documented by: Paroxetine HCl (Paxil) 40 mg PO DAILY [facility] Last Admin: 06/29/19 09:05 Dose: 40 mg Documented by: Sodium Chloride () 10 - 40 ml IV UD PRN PRN Reason: SALINE FLUSH Last Admin: 06/28/19 06:49 Dose: 10 ml Documented by: Medical Necessity - Tobacco Use Smoking Status: Never smoker Assessment/Plan All Active Problems (Last Reviewed 06/23/19 @ 18:[address] Gal Hernandez MD) Acute postoperative anemia due to expected blood loss (Acute) Kidney stones (Acute) Acute right flank pain (Acute) History of gastric bypass (Resolved) GERD (gastroesophageal reflux disease) (Acute) History of tuberculosis exposure (Resolved) History of positive PPD, treatment status unknown (Resolved) History of pneumococcal pneumonia (Resolved) History of hysterectomy (Resolved) History of lateral meniscus repair of left knee (Resolved) History of carpal tunnel surgery of left wrist (Resolved) History of eye surgery (Resolved) Chronic obstructive pulmonary disease (Ruled-out) Strain of left index finger (Ruled-out) Segmental and somatic dysfunction of pelvic region (Acute) Segmental and somatic dysfunction of lumbar region (Acute) Acute bronchitis (Acute) Left shoulder strain (Acute) Knee pain (Acute) Shoulder pain (Acute) Back pain (Acute) Hay fever (Acute) Fatigue (Acute) Anemia (Acute) Arthritis (Acute) Sinusitis (Acute) 1. Bilateral macromastia. 2. Neck pain. 3. Thoracic back pain. 4. Bilateral shoulder pain from shoulder grooving from the weight of the breasts on her bra straps. 5. Inframammary intertrigo. 6. Family history of breast cancer. 7. Recent weight loss. 8. s/p bilateral breast reduction mammaplasty. 9. Postop hypotension. 10. Anemia of chronic disease, acute on chronic, postoperative due to expected blood loss, stable after PRBC. Patient feels less tired after the PRBC. Incisions are dry and intact. Breasts are soft and symmetrical. No clinical evidence of hematoma. Had trouble with hypotension after surgery. Needed 11 liters of IV fluid. Hgb decreased to 7. It was 12 preop. She has anemia of chronic disease, acute on chronic, that is postoperative due to expected blood loss. She had operative blood loss of 350 ml. The drain output was 235 ml from both drains yesterday and toda. The majority of the drop in Hgb is due to IV fluid dilution as her I's/O's are positive 11 liters. She was transfused PRBC yesterday not because of concern of ongoing blood loss because clinically there is minimal. But rather to improve oxygenation and healing and minimize stress on the heart which can increase risk for an GA. Will recheck Hgb as an outpatient. She is also on chronic Iron supplementation. Prealbumin was 15.6. Encourage nutritional supplementation with protein to help the healing process. She is feeling better today and is tolerating po analgesia and is ambulating well. Discharge home today. Wrote scripts for Cefadroxil and Acidophilus and Probiotic. Wrote script for Percocet for pain (40 tabs). Wrote scripts for Phenergan for nausea (30 tabs) and a refill and for Colace for constipation (60 tabs). Followup office 07/03/19 to remove the drains.
--- NOTE | 2019-06-29 13:29 | DCINST_ITS ---
You will use the following diet at home:: No restrictions, Other - encourage nutritional supplementation with protein to help the healing process. Discharge Activity: May not drive while taking narcotic pain medications., May Not Shower - until the drains are removed., - - keep head elevated. no heavy lifting. May shower in (days): 5 - after the drains are removed. May resume sexual activity in: 10-14 days Weight Bearing Status: Weight bearing as tolerated Lifting Restrictions: 20 lbs. Keep extremity elevated above heart level: - - elevate head. Call your doctor if your incision/area has: Continuous Slow Oozing, Sudden Increased Bleeding, Increased Pain/ Swelling, Increased Redness, Foul Smelling Discharge, Swelling at the incision site Call your doctor if you observe: Fever of 101 or Higher, Coldness, Increased Pain, Shortness of breath, Chest pain, Calf discomfort, Uncontrolled pain Suture Line Care: - - dry dressings daily. Change Dressing in (Days):: 1 - dry dressings daily. Cleanse incision/area with: - - may get incisions wet in the shower after the drains are removed. Drain: Suction - cony drain x2 to bulb suction. empty and record output daily. Allergies/Adverse Reactions: Allergies cat dander Allergy (Verified 06/27/19 06:01) Shortness of breath dog dander Allergy (Verified 06/27/19 06:01) Shortness of breath megestrol Allergy (Verified 06/27/19 06:01) Unknown I get crazy and suicidal shellfish derived Allergy (Verified 06/27/19 06:01) Vomiting Medications to take at Discharge fluocinolone acetonide oil 0.01 % ear drops 5 drp OTIC BID PRN 03/03/18 ipratropium bromide 42 mcg (0.06 %) nasal spray 2 spray INTRANASAL TID 03/03/18 calcium carbonate 333 mg-magnesium oxide 133 mg-zinc sulf 5 mg tablet 2 tab PO DAILY tab 04/20/18 cholecalciferol (vitamin D3) 125 mcg (5,000 unit) capsule 5,000 unit PO DAILY 04/20/18 ferrous gluconate 240 mg (27 mg iron) tablet 240 mg PO DAILY tab 04/20/18 multivitamin 1 tab PO DAILY 04/20/18 Acetaminophen [Tylenol Tablet] 650 mg PO Q4H PRN PRN tab 05/20/18 alendronate 70 mg tablet 70 mg PO QWEEK #12 tab 03/20/19 Amitriptyline HCl 25 mg PO QHS 06/20/19 Amlodipine Besylate 5 mg PO DAILY 06/20/19 Ivermectin [Soolantra] 30 gm TP PRN PRN 06/20/19 Montelukast Sodium 10 mg PO QPM 06/20/19 Pantoprazole Sodium 40 mg PO DAILY 06/20/19 Paroxetine HCl 40 mg PO DAILY 06/20/19 Rosuvastatin Calcium 10 mg PO DAILY 06/20/19 albuterol sulfate 90 mcg/actuation aerosol inhaler 1 - 2 puff INHALATION Q4H PRN PRN #8.5 g 06/22/19 Cefadroxil [Duricef] 500 mg PO BID #10 cap 06/29/19 Docusate Sodium [Colace] 100 mg PO BID #60 cap 06/29/19 Lactobacillus Acidophilus/Fos [Acidophilus Probiotic Tablet] 1 ea PO BID #10 tab 06/29/19 Oxycodone HCl/Acetaminophen [Percocet 5/325] 1 tablet PO Q4H PRN PRN 7 Days #40 tablet 06/29/19 proMETHazine tablet [Phenergan tablet] 25 mg PO 4X/DAY PRN PRN #30 tab 06/29/19 The following prescriptions were given: Lactobacillus Acidophilus/Fos [Acidophilus Probiotic Tablet] 1 ea PO BID #10 tab Transmission Status: Pending to [facility] Docusate Sodium [Colace] 100 mg PO BID #60 cap Transmission Status: Pending to [facility] Cefadroxil [Duricef] 500 mg PO BID #10 cap Transmission Status: Pending to [facility] Oxycodone HCl/Acetaminophen [Percocet 5/325] 1 tablet PO Q4H PRN PRN 7 Days #40 tablet PRN Reason: Pain Score 4-5/10 Transmission Status: Sent to [facility] proMETHazine tablet [Phenergan tablet] 25 mg PO 4X/DAY PRN PRN #30 tab PRN Reason: Nausea Transmission Status: Pending to [facility] Orders to be completed after discharge: CBC-Complete Blood Cnt No Diff Time Frame: 06/20/19, Facility: [facility], Location: Laboratory Liver Profile Time Frame: 06/20/19, Facility: [facility], Location: Laboratory Partial Thromboplast Time Time Frame: 06/20/19, Facility: [facility], Location: Laboratory Prothrombin Time w/INR Time Frame: 06/20/19, Facility: [facility], Location: Laboratory Primary Care Physician: Lenka Ferguson MD [Primary Care Provider] - Test Results: Test results from this visit will be discussed in further detail at your follow- up appointment, if applicable. Please Follow Up With: Gal Hernandez MD When: wednesday07/03/19. call [phone] for appt. Proposed Discharge Date: 06/29/19
[2019-06-29 14:30] VITALS: BP 120/81; PULSE 76; RESP 18; TEMP 36.6; O2SAT 99
== END 2019-06-29 15:45 | disposition home or self-care (01) | DRG 584 ==
LOC: SDC 16:14 → MS3 06-28 09:52
PROVIDERS: Anesthesiology; Internal Medicine; Physician Assistant; Admitting Provider Surgery; PCP Internal Medicine; Referring Provider Surgery; Visit Provider Surgery
PROC: 0H0U0ZZ Alteration of Left Breast, Open Approach (ICD-10-PCS; CPT 19318; principal; 2019-06-27 07:15)
DX: N62 Hypertrophy of breast (principal); D62 Acute posthemorrhagic anemia; Z68.41 Body mass index [BMI] 40.0-44.9, adult; M54.2 Cervicalgia; M54.6 Pain in thoracic spine; M25.512 Pain in left shoulder; M25.511 Pain in right shoulder; L30.4 Erythema intertrigo; R63.4 Abnormal weight loss; I95.81 Postprocedural hypotension; D63.8 Anemia in other chronic diseases classified elsewhere; J45.20 Mild intermittent asthma, uncomplicated; L40.50 Arthropathic psoriasis, unspecified; K21.9 Gastro-esophageal reflux disease without esophagitis; F32.9 Major depressive disorder, single episode, unspecified; F41.9 Anxiety disorder, unspecified; G47.30 Sleep apnea, unspecified; G43.909 Migraine, unspecified, not intractable, without status migrainosus; M81.0 Age-related osteoporosis without current pathological fracture; I10 Essential (primary) hypertension; E78.5 Hyperlipidemia, unspecified; E86.0 Dehydration; E66.9 Obesity, unspecified; Z98.84 Bariatric surgery status; Z80.3 Family history of malignant neoplasm of breast
CPT/HCPCS: 36415; 80048; 80076; 82962; 83735; 84134; 85014; 85018; 85025; 85027; 85610; 85730; 86850; 86900; 86901; 86920; 86922; 88305; 93005; 94660; 99251; J7030; J7040; J7050; J7120; P9016; A4216; G0463; J2405; J3490; Q9968

== ENCOUNTER → 2019-07-03 15:18 | Outpatient (CLI) | payer OTHER, SELFPAY ==
[2019-07-03 14:40] VITALS: BMI 43.7
[2019-07-03 17:47] LABS: Hemoglobin 9.8 g/dL (12.0-15.0)
== END ==
PROVIDERS: PCP Internal Medicine; Referring Provider Surgery; Visit Provider Surgery
DX: D62 Acute posthemorrhagic anemia (principal)
CPT/HCPCS: 36415; 85018

== ENCOUNTER → 2019-07-25 16:04 | Outpatient (CLI) | payer OTHER, SELFPAY ==
[2019-07-25 14:43] VITALS: BMI 43.7
== END ==
PROVIDERS: PCP Internal Medicine; Referring Provider Surgery; Visit Provider Surgery
DX: T81.89XA Other complications of procedures, not elsewhere classified, initial encounter (principal); Z98.890 Other specified postprocedural states
CPT/HCPCS: 87070; 87075; 87077; 87186; 87205

== ENCOUNTER → 2019-10-02 10:05 | Outpatient (CLI) | payer OTHER, SELFPAY ==
[2019-10-02 09:54] VITALS: BMI 43.7
--- NOTE | 2019-10-02 10:06 | RAD_ITS ---
STUDY: X-RAY - LEFT WRIST REASON FOR EXAM: Female, 58 years old. WOKE UP WITH PAIN TECHNIQUE: 3 view(s) of the wrist were obtained. COMPARISON: None. FINDINGS: Normal visualized distal radius and ulna. Normal radiocarpal articulation. Normal distal radioulnar articulation. Normal carpal bones. Normal carpal articulations. Normal carpometacarpal articulation of the thumb. Normal second through fifth carpometacarpal articulations. Normal visualized metacarpal bones. The soft tissue structures are unremarkable. RAD/Wrist min 3 Views IMPRESSION: Normal x-ray examination of the wrist. Electronically Signed: Ilir Jackson, at 10:46 EDT , Service support ,
== END ==
PROVIDERS: PCP Internal Medicine; Referring Provider Physician Assistant Surgical; Visit Provider Physician Assistant Surgical
DX: S60.212A Contusion of left wrist, initial encounter (principal); X58.XXXA Exposure to other specified factors, initial encounter
CPT/HCPCS: 73110

== ENCOUNTER → 2019-11-29 09:01 | Outpatient (CLI) | payer OTHER, SELFPAY ==
[2019-11-29 08:36] VITALS: BMI 43.7
[2019-11-29 12:53] LABS: Vitamin B12 964 pg/mL (211-911); Vitamin D,25 Hydroxy 47.5 ng/mL
[2019-11-29 13:11] LABS: Ferritin 21 ng/mL (8-252); Iron 64 ug/dL (50-170); Iron Binding Capacity,Total 311 ug/dL (250-450); PERCENT IRON SATURATION 20.6 % (15.0-55.0); Thyroid Stim Hormone (TSH) 1.28 uIU/mL (0.358-3.74)
== END ==
PROVIDERS: PCP Internal Medicine; Referring Provider Nurse Practitioner Family; Visit Provider Nurse Practitioner Family
DX: I10 Essential (primary) hypertension (principal); E55.9 Vitamin D deficiency, unspecified; E56.9 Vitamin deficiency, unspecified; D50.9 Iron deficiency anemia, unspecified
CPT/HCPCS: 36415; 82306; 82607; 82728; 83540; 83550; 84443

== ENCOUNTER → 2019-12-22 08:12 | Outpatient (CLI) | payer OTHER, SELFPAY ==
[2019-12-22 07:49] VITALS: BMI 43.7
--- NOTE | 2019-12-22 08:13 | RAD_ITS ---
STUDY: X-RAY - LEFT WRIST REASON FOR EXAM: Female, 59 years old. Chronic pain TECHNIQUE: 3 view(s) of the wrist were obtained. COMPARISON: October 02 2019 FINDINGS: The bones of the wrist are intact and located. Mineralization is normal. Soft tissues are intact. There is periarticular osteopenia without erosions. RAD/Wrist min 3 Views IMPRESSION: 1. No acute or focal findings. 2. Osteoporosis. Electronically Signed: Natalia Wells, at 19:35 EDT Tel , Service support ,
== END ==
PROVIDERS: PCP Internal Medicine; Referring Provider Orthopaedic Surgery; Visit Provider Orthopaedic Surgery
DX: M25.532 Pain in left wrist (principal); G89.29 Other chronic pain; M81.0 Age-related osteoporosis without current pathological fracture
CPT/HCPCS: 73110

== ENCOUNTER 2020-03-06 19:50 | Emergency (ER) | payer OTHER, SELFPAY ==
[2019-12-22 07:49] VITALS: BMI 43.7
[2020-03-06 19:52] VITALS: BP 146/101; PULSE 81; RESP 18; TEMP 36.4; O2SAT 100; BMI 41.4
--- NOTE | 2020-03-06 20:15 | ED.VIS.GEN ---
History of Present Illness Chief Complaint: Flank Pain Narrative: Presents with right flank pain for a few days. She has a history of kidney stones in fact she thinks she passed a kidney stone today she showed it to me. She has no fever chills cough or congestion. She has some urinary pressure but no dysuria. Past Medical History - Allergies and Home Meds Allergies/Adverse Reactions: Allergies cat dander Allergy (Verified 03/06/20 19:55) Shortness of breath dog dander Allergy (Verified 03/06/20 19:55) Shortness of breath megestrol Allergy (Verified 03/06/20 19:55) Unknown I get crazy and suicidal shellfish derived Allergy (Verified 03/06/20 19:55) Vomiting Primary Care Physician: Lenka Ferguson MD [Primary Care Provider] - Past Medical History: - - Hypertension, hypercholesterolemia, prior kidney stones Surgical History: hysterectomy, - Smoking Status: Never smoker - Family History Maternal Family History: Family History (Last Reviewed 11/29/19 @ 08:30 by Norma Mcguire) Mother Diabetes Heart disease Father Diabetes Heart disease Sister Breast cancer Brother Testicular cancer Family History: Reports: Heart Disease Paternal Family History: Family History (Last Reviewed 11/29/19 @ 08:30 by Norma Mcguire) Mother Diabetes Heart disease Father Diabetes Heart disease Sister Breast cancer Brother Testicular cancer Family History: Reports: Heart Disease Review of Systems General: Denies: Fever Cardiovascular: Denies: Chest pain, Palpitations Respiratory: Denies: Dyspnea, Cough Gastrointestinal: Reports: Abdominal pain. Denies: Nausea, Vomiting Genitourinary: Reports: Dysuria Musculoskeletal: Reports: Back pain Skin: Denies: Rash Neurological: Denies: Headache Psych: Denies: Depression Endocrine: Denies: Polyuria Hematologic: Denies: Easy bruising Allergy: Denies: Uticaria Physical Exam Vital Signs/Narrative: Vital Signs Temp Pulse Resp BP Pulse Ox 03/06/20 19:52 97.6 F L 81 18 146/101 H 100 General: Well nourished, Well developed Head: Normocephalic ENT: Moist mucous membranes Neck: Supple Cardiovascular: Regular rate Respiratory: No distress, CTA bilaterally Abdomen: Soft, Nontender Back: CVA tenderness, - - Right-sided CVA tenderness Extremities: Nontender Skin: Normal color Neurological: Alert, Normal Sensation Psychological: Normal affect Diagnostic/Tx/Re-eval - Medical Decision Making She appears comfortable she did not require any opiate analgesia. CT is unremarkable for kidney stone. Urinalysis is normal. She appears well I reevaluated her I can reproduce some of her pain and some of it is paraspinal so she may also have some musculoskeletal component. She has an appointment with a urologist tomorrow morning I believe this is reasonable she can follow-up. ED Disposition - Plan for ED Patient: Disposition: Home or Assisted Living Diagnosis: Flank pain Instructions: ED Flank Pain Uncertain Cause Referrals: Kerry Medrano MD [STAFF PHYSICIAN] - 3-5 Days
--- NOTE | 2020-03-06 20:28 | CT_ITS ---
STUDY: CT ABDOMEN AND PELVIS WITHOUT CONTRAST REASON FOR EXAM: Female, 59 years old. RIGHT FLANK PAIN WITH NAUSEA, KNOWN [place] RADIATION DOSAGE (If Supplied By Facility): CTDIvol = ( 22.37 ) mGy, DLP = ( 1123.26 ) mGycm TECHNIQUE: Transaxial images were obtained from the dome of the diaphragm to the symphysis pubis without oral contrast, and without intravenous contrast. Sagittal and coronal images were reconstructed. Individualized dose optimization techniques were used for this CT. COMPARISON: 02/07/2019. FINDINGS: Lung bases are clear. Heart size is normal. The liver is unremarkable. The gallbladder is unremarkable. The spleen and pancreas are unremarkable. The adrenal glands are normal. The kidneys are unremarkable. No stones or hydronephrosis. Ureters are normal in course and caliber. No ureteral stones. The aorta is normal in caliber. There is no free fluid, free air or organized collection. No bowel obstruction or inflammatory change. Normal appendix. Urinary bladder is unremarkable. Small fat-containing incisional hernias. Normal osseous structures. CT/Abdomen/Pelvis without Cont IMPRESSION: 1. No acute findings. No renal stones or obstructive uropathy. 2. Small fat-containing incisional hernias. Electronically Signed: Tova Padilla MD at 21:05 EST Tel , Service support ,
[2020-03-06 20:29] LABS: Absolute Lymphocyte Count 2.14 X10^3/uL (0.83-4.51); Absolute Neutrophil Count 3.5 X10^3/uL (2.0-7.7); Basophil# 0.03 X10^3/uL; Basophil% 0.5 % (0-1); Eosinophil# 0.19 X10^3/uL; Eosinophils% 2.9 % (0-5); Hematocrit 38.8 % (37-47); Lymphocyte # 2.14 X10^3/ul (4.0); Mean Corp Hgb Conc 30.9 g/dL (32-36); Mean Corpuscular Hgb 28.1 pg (27.0-32.0); Mean Corpuscular Volume 90.9 fL (81-99); Mean Platelet Vol. 9.9 fl (6.2-12.0); Monocyte# 0.59 X10^3/uL; Monocyte% 9.1 % (0-10); NRBC Flagged by Analyzer 0 % (0-5); Neutrophil # 3.52 X10^3/uL (2.7-7.7); Neutrophil % 54.3 % (47-70); Platelet Count 308 K/mm3 (150-450); RBC Distribution Width CV 15.1 % (11.6-14.6); RBC Distribution Width SD 50.4 fl (35.1-43.9); Red Blood Count 4.27 M/mm3 (4.2-5.4); White Blood Count 6.5 K/mm3 (4.4-11.0)
[2020-03-06 20:46] LABS: Bacteria 0 SEEN /hpf (None Seen); Mucous, Urine 0 SEEN /hpf (<or=2+); Red Blood Cells-Urine 0 SEEN /hpf (0-5); Squamous Epithelial Cells - UA 0 SEEN /hpf (5-10)
[2020-03-06 20:47] LABS: ALB/GLOB Ratio 0.8 RATIO (0.9-2.4); AST(SGOT) 22 U/L (15-37); Alanine Aminotransfer ALT/SGPT 24 U/L (13-56); Albumin, Serum 3.6 g/dL (3.2-5.0); Alkaline Phosphatase 90 U/L (45-117); Anion Gap 4 (5-15); BUN 18 mg/dL (7-18); Calcium,Total 9.2 mg/dL (8.5-10.1); Chloride 108 mmol/L (98-107); Creatinine, Serum 1.06 mg/dL (0.55-1.02); EST Glomerular Filtration Rate 57 mL/min (>60); Est Glom Filt Rate - Afr Amer 69 mL/min (>60); Estimated Creatinine Clearance 48.44 ml/min; Globulin 4.4 g/dL (2.2-4.2); Glucose 81 mg/dL (74-106); Potassium 3.9 mmol/L (3.5-5.1); Sodium Level 141 mmol/L (136-145)
[2020-03-06 20:48] LABS: Color, Urine Yellow (Yellow); Glucose, Dipstick Normal (Normal); Ketone-Dipstick Negative (Negative); Leukocyte Esterase-Dipstick 25 /ul (Negative); Nitrite-Dipstick Negative (Negative); Occult Blood-Urine Negative /ul (Negative); Protein-Dipstick Negative (Negative); Specific Gravity, Urine 1.015 (1.002-1.030); Urine Bilirubin Dipstick Negative (Negative); Urine Clarity Sl. Cloudy (Clear); Urine Urobilinogen Normal (Normal)
[2020-03-06] MEDS: Ketorolac 15 MG/ML Vial IV (20:52)
[2020-03-06 21:01] LABS: White Blood Cells 0-5 SEEN /hpf (0-5)
[2020-03-06 21:27] VITALS: BP 145/86; PULSE 71; RESP 16; O2SAT 99
[2020-03-06 21:44] VITALS: BP 133/67; PULSE 74; RESP 15; O2SAT 98
== END 2020-03-06 21:45 | disposition home or self-care (01) ==
PROVIDERS: Emergency Provider Emergency Medicine; PCP Internal Medicine
DX: R10.9 Unspecified abdominal pain (principal); I10 Essential (primary) hypertension; E78.00 Pure hypercholesterolemia, unspecified; Z87.442 Personal history of urinary calculi; Z90.710 Acquired absence of both cervix and uterus; Z79.899 Other long term (current) drug therapy
CPT/HCPCS: 74176; 80053; 81001; 85025; 96374; 99283; A4216

== ENCOUNTER → 2020-05-15 08:43 | Outpatient (CLI) | payer OTHER, SELFPAY ==
[2020-05-15 12:25] LABS: Absolute Lymphocyte Count 1.43 X10^3/uL (0.83-4.51); Absolute Neutrophil Count 2.9 X10^3/uL (2.0-7.7); Basophil# 0.03 X10^3/uL; Basophil% 0.6 % (0-1); Eosinophil# 0.21 X10^3/uL; Eosinophils% 4.2 % (0-5); Hematocrit 40.6 % (37-47); Hemoglobin 12.4 g/dL (12.0-15.0); Lymphocyte # 1.43 X10^3/ul (4.0); Lymphocyte % 28.5 % (19-41); Mean Corp Hgb Conc 30.5 g/dL (32-36); Mean Corpuscular Hgb 27.7 pg (27.0-32.0); Mean Corpuscular Volume 90.8 fL (81-99); Mean Platelet Vol. 10.6 fl (6.2-12.0); Monocyte# 0.46 X10^3/uL; Monocyte% 9.2 % (0-10); NRBC Flagged by Analyzer 0 % (0-5); Neutrophil # 2.88 X10^3/uL (2.7-7.7); Neutrophil % 57.5 % (47-70); Platelet Count 320 K/mm3 (150-450); RBC Distribution Width CV 15.1 % (11.6-14.6); RBC Distribution Width SD 50.8 fl (35.1-43.9); Red Blood Count 4.47 M/mm3 (4.2-5.4)
[2020-05-15 13:08] LABS: ALB/GLOB Ratio 0.9 RATIO (0.9-2.4); AST(SGOT) 24 U/L (15-37); Alanine Aminotransfer ALT/SGPT 27 U/L (13-56); Albumin, Serum 3.7 g/dL (3.2-5.0); Alkaline Phosphatase 81 U/L (45-117); Anion Gap 5 (5-15); BUN 23 mg/dL (7-18); BUN/Creat Ratio 19.3 RATIO (10-20); Calcium,Total 9.4 mg/dL (8.5-10.1); Chloride 101 mmol/L (98-107); Creatinine, Serum 1.19 mg/dL (0.55-1.02); EST Glomerular Filtration Rate 50 mL/min (>60); Est Glom Filt Rate - Afr Amer 60 mL/min (>60); Globulin 4.2 g/dL (2.2-4.2); Glucose 85 mg/dL (74-106); Potassium 4.2 mmol/L (3.5-5.1); Protein, Total 7.9 g/dL (6.4-8.2); Sodium Level 136 mmol/L (136-145); Thyroid Stim Hormone (TSH) 1.31 uIU/mL (0.358-3.74)
[2020-05-17 07:03] LABS: SARS-COV-2 TOTAL ABS Reactive (Nonreactive)
== END ==
PROVIDERS: PCP Internal Medicine; Visit Provider Nurse Practitioner Family
DX: I10 Essential (primary) hypertension (principal); F32.9 Major depressive disorder, single episode, unspecified; Z20.822 Contact with and (suspected) exposure to COVID-19; R43.0 Anosmia
CPT/HCPCS: 36415; 80053; 84443; 85025; 86769

== ENCOUNTER → 2021-01-15 10:52 | Outpatient (CLI) | payer OTHER, SELFPAY ==
--- NOTE | 2021-01-15 10:56 | BI_ITS ---
MAMMOGRAPHY - BILATERAL SCREENING REASON FOR EXAM: Female, 60 years old. Routine annual screening examination. PERTINENT HISTORY: Sister with breast cancer. TECHNIQUE: Digital bilateral breast maxi (3D mammographic acquisition) in the CC and MLO projections. 2-D mediolateral oblique (MLO) and craniocaudad (CC) views of both breasts were obtained. CAD: Full Field Digital Mammography with Computer Added Detection was performed. COMPARISON: Comparison is made with prior study dated 05/22/2019 and 04/07/2018. FINDINGS: Breast Composition: The breasts are almost entirely fatty. There are no dominant masses or suspicious calcifications. No other significant abnormalities are identified. There has been no significant change since the prior study. BI/SCRN MAMM (CAD)W/MAXI BILAT IMPRESSION: Stable bilateral screening mammogram. Yearly follow-up mammogram recommended. (A) ASSESSMENT CATEGORY: BIRADS Category 1: Negative. A letter regarding these results will be sent to the patient by the facility within 30 days. Approximately 10% of breast cancers are not detected by mammography. A normal mammogram should not delay biopsy of a clinically suspicious abnormality. [id number] Electronically Signed: Ilir Jackson MD at 12:44 EDT , Service support ,
--- NOTE | 2021-01-15 10:58 | BD_ITS ---
STUDY: DUAL ENERGY X-RAY ABSORPTIOMETRY / DXA REASON FOR EXAM: Female, 60 years old. osteopenia with high fracture risk TECHNIQUE: Bone Mineral Density (BMD) measurements of lumbar spine and bilateral hips were obtained. COMPARISON: Comparison is made with prior examination dated 04/07/2018. FINDINGS: Lumbar Spine (L1-L4): g/cm2 (0.905) / T-score (-1.3) / Z-score (0.0) Findings are suggestive of osteopenia with a low fracture risk. Left Femur Total: g/cm2 (0.939) / T-score (0.0) / Z-score (0.8) Left Femoral Neck: g/cm2 (0.703) / T-score (-1.3) / Z-score (-0.1) Right Femur Total: g/cm2 (0.928) / T-score (-0.1) / Z-score (0.7) Right Femoral Neck: g/cm2 (0.746) / T-score (-0.9) / Z-score (0.3) The T-Scores on the most recent prior examination were: Lumbar Spine (L1-L4): There has been worsening of bone density since the previous examination. Left Femur Total: which represents an improvement of 4.3%. Right Femur Total: which represents a worsening of 2.4%. BD/Dexa Bone Density Study IMPRESSION: The patient is considered osteopenic as outlined below according to World Aris Organization (WHO) criteria with a low fracture risk. There has been worsening of bone density since the previous examination. Reference Information: The T-score is the number of standard deviations above or below the standard which is normal for young adults at their peak bone mineral density. The World Health Organization (WHO) interprets the T-scores as follows: Above -1 Normal bone density Between -1 and -2.5 Osteopenia Equal to / or below -2.5 Osteoporosis As a practical clinical guideline, osteopenia may be graded as follows: Mild -1 through -1.5 Moderate -1.6 through -2.0 Severe -2.1 through -2.4 The Z-score is the number of standard deviations above or below age-matched controls. A Z-score of less than -1.5 would be considered abnormal. References: 1. NIH Osteoporosis and Related Bone Diseases www osteo.org 2. International Society for Clinical Densitometry www iscd.org 3. National Osteoporosis Foundation www nof.org Electronically Signed: Ilir Jackson MD at 11:13 EDT , Service support ,
== END ==
PROVIDERS: PCP Internal Medicine; Referring Provider Nurse Practitioner Family; Visit Provider Nurse Practitioner Family
DX: M81.0 Age-related osteoporosis without current pathological fracture (principal); Z12.31 Encounter for screening mammogram for malignant neoplasm of breast; Z80.3 Family history of malignant neoplasm of breast
CPT/HCPCS: 77063; 77067; 77080

== ENCOUNTER → 2021-04-23 12:38 | Outpatient (CLI) | payer OTHER, SELFPAY ==
--- NOTE | 2021-04-23 12:41 | VDLE_ITS ---
Reason For Study: Varicose veins RIGHT LEFT CFV is compressible, spontaneous, phasic, CFV is compressible, spontaneous, phasic, competent and demonstrates normal competent, and demonstrates normal augmentation. augmentation. FV is compressible, spontaneous, phasic, FV is compressible, spontaneous, phasic, competent and demonstrates normal competent and demonstrates normal augmentation. augmentation. POP V is compressible, spontaneous, phasic, POP V is compressible, spontaneous, phasic, competent and demonstrates normal competent and demonstrates normal augmentation. augmentation. T/P Trunk is compressible. T/P Trunk is compressible. PTV is compressible. PTV is compressible. RT PerV is compressible. LT PerV is compressible. SFJ is competent and measures 0.57 x 0.56 cm. SFJ is competent and measures 0.76 x 0.80 cm. GSV proximal thigh measures 0.62 x 0.69 cm. GSV proximal thigh measures 0.36 x 0.38 cm. GSV at knee measures 0.37 x 0.36 cm. GSV above knee is competent. GSV INCOMPETENT throughout for greater than GSV at knee measures 0.26 x 0.25 cm. 0.5 seconds. GSV below knee is INCOMPETENT for greater ASV mid thigh is INCOMPETENT for greater than than 0.5 seconds. 0.5 seconds and measures 0.42 x 0.43 cm. ASV proximal calf is INCOMPETENT for greater SSV at junction is competent and measures than 0.5 seconds and measures 0.22 x 0.23 cm. 0.16 x 0.19 cm. SSV at junction is competent and measures Procedure 0.30 x 0.30 cm. This is a venous duplex using B-mode, color flow and spectral Doppler. Exam performed in department. VL/Venous Duplex US - Oren Extrem Interpretation Summary Bilateral no DVT or SVT noted. Right GSV measuring 5.7, 6.9, 3.6 mm with reflux throughout. Right ASV measuring 4.3 mm with reflux in the thigh. Left lower extremity with reflux in the calf of the GSV and ASV. Bilaterally reflux noted into superficial branches. Ordering Physician: Benny Ley Referring Physician: Lenka Ferguson Performed By: Carla Vasques RVT
== END ==
PROVIDERS: PCP Internal Medicine; Referring Provider Surgery Vascular Surgery; Visit Provider Surgery Vascular Surgery
DX: I83.893 Varicose veins of bilateral lower extremities with other complications (principal); M79.89 Other specified soft tissue disorders; M79.605 Pain in left leg; M79.604 Pain in right leg
CPT/HCPCS: 93970

== ENCOUNTER 2021-07-29 15:23 | Emergency (ER) | payer OTHER, SELFPAY ==
[2021-07-29 15:23] VITALS: BP 176/121; PULSE 77; RESP 18; TEMP 36.6; O2SAT 100; BMI 43.9
--- NOTE | 2021-07-29 16:14 | EDS_ITS ---
HPI HPI - Fall History of Present Illness Chief Complaint: Fall Informant: patient Occured/Mechanism Occurred: Today Mechanism/Context: Yes same level fall and Yes slip Pain/Injury Location: Left hand, left knee, left ankle, left breast, head Pain Location: head, chest, upper extremity and lower extremity Quality of Pain: Burning Worsened by: Movement Relieved by: Nothing Associated Symptoms Associated Symptoms: Negative for Parasthesias, Weakness, Loss of function, Inability to ambulate, Loss of consciousness and Amnesia Narrative Narrative: Patient presents after a fall that occurred today. Patient slipped in the hallway and fell. Patient twisted her left ankle and knee. Patient landed on her left hand. Patient also hit her head and left chest. Patient denies any loss of consciousness. Patient states the worst pain is in her left hand and fifth finger. Patient was able to ambulate after the fall. Patient describes her pain is burning. Patient denies any shortness of breath. Patient denies any paresthesias or weakness. Patient states her pain is worse with movement of her left fifth finger. [facility] Medical History (Updated 07/29/21 @ 17:[address] Isaiah Rojas, DO) Abdominal panniculus, symptomatic Acute postoperative anemia due to expected blood loss Allergic rhinitis Anemia Arthritis Asthma Back pain Breast hypertrophy Chronic cervical pain Chronic thoracic back pain Depression Fatigue GERD (gastroesophageal reflux disease) Hay fever History of pneumococcal pneumonia History of positive PPD, treatment status unknown History of tuberculosis exposure Intertrigo Kidney stones Knee pain Migraine Psoriasis Psoriatic arthritis Restrictive airway disease Shoulder pain Sleep apnea SOB (shortness of breath) Home Medications fluocinolone acetonide oil 0.01 % ear drops 5 drp OTIC BID PRN 03/03/18 [History Last Taken Unknown] ipratropium bromide 42 mcg (0.06 %) nasal spray 2 spray INTRANASAL TID 03/03/18 [History Last Taken Unknown] calcium carbonate 333 mg-magnesium oxide 133 mg-zinc sulf 5 mg tablet 2 tab PO DAILY tab 04/20/18 [History Last Taken Unknown] cholecalciferol (vitamin D3) 125 mcg (5,000 unit) capsule 5,000 unit PO DAILY 04/20/18 [History Last Taken Unknown] ferrous gluconate 240 mg (27 mg iron) tablet 240 mg PO DAILY tab 04/20/18 [History Last Taken Unknown] multivitamin 1 tab PO DAILY 04/20/18 [History Last Taken Unknown] acetaminophen 650 mg PO Q4H PRN PRN tab 05/20/18 [Rx Last Taken Unknown] blue-green algae (Spirulina) 500 mg capsule 1,500 mg PO DAILY cap 08/30/19 [History Last Taken Unknown] pantoprazole 40 mg tablet,delayed release 40 mg PO DAILY #90 tab 11/17/19 [Rx Last Taken Unknown] albuterol sulfate 90 mcg/actuation aerosol inhaler 1 - 2 puff INHALATION Q4H PRN PRN #8.5 g 05/15/20 [Rx Last Taken Unknown] ivermectin 1 % topical cream 30 applic TOPICAL PRN PRN #45 g 05/15/20 [Rx Last Taken Unknown] alendronate 70 mg tablet 70 mg PO QWEEK #12 tab 01/27/21 [Rx Last Taken Unknown] montelukast 10 mg tablet 10 mg PO QPM #90 tab 04/07/21 [Rx Last Taken Unknown] amlodipine 5 mg tablet 5 mg PO DAILY #90 tab 05/01/21 [Rx Last Taken Unknown] amitriptyline 25 mg tablet 25 mg PO QHS #90 tab 05/15/21 [Rx Last Taken Unknown] paroxetine HCl 40 mg tablet 40 mg PO DAILY #90 tab 07/08/21 [Rx Last Taken Unknown] rosuvastatin 10 mg tablet 10 mg PO DAILY #90 tab 07/08/21 [Rx Last Taken Unknown] vitamin B complex [B Complex] 1 cap PO DAILY 07/29/21 [History Last Taken Unknown] Allergy/AdvReac Type Severity Reaction Status Date / Time cat dander Allergy Shortness Verified 07/29/21 15:26 of breath dog dander Allergy Shortness Verified 07/29/21 15:26 of breath megestrol Allergy Unknown Verified 07/29/21 15:26 shellfish derived Allergy Vomiting Verified 07/29/21 15:26 Family History Mother Diabetes Heart disease Father Diabetes Heart disease Sister Breast cancer Brother Testicular cancer Surgical History History of bilateral breast reduction surgery History of carpal tunnel surgery of left wrist History of eye surgery History of gastric bypass History of hysterectomy History of lateral meniscus repair of left knee Social History Smoking Status: Former smoker second hand exposure: Yes alcohol intake: never substance use type: does not use what type of physical activity do you participate in: walking ROS ROS ED Constitutional Constitutional ED: Denies chills or fever(s) Eyes Eyes: Denies blurry vision or change in vision ENT ENT ED: Denies rhinorrhea or sore throat Cardiovascular Cardiovascular: Denies chest pain or palpitations Respiratory/Chest Respiratory/Chest: Denies cough or dyspnea Gastrointestinal Gastrointestinal: Denies nausea or vomiting Genitourinary Genitourinary ED: Denies dysuria or hematuria Musculoskeletal Musculoskeletal: Denies back pain or neck pain Integumentary Denies abscess or rash Neurologic Neurologic: Reports headache(s); Denies weakness Allergic/Immunologic Allergic/Immunologic ED: Denies mouth swelling or urticaria EXAM Physical Exam Const Vital Signs: 07/29/21 15:23 07/29/21 16:23 07/29/21 16:32 Temperature 97.8 F Temperature Source Temporal Pulse Rate 77 Respiratory Rate 18 Respiratory Effort Normal Respiratory Depth Normal Respiratory Pattern Normal Blood Pressure 176/121 H 143/112 H Blood Pressure Mean 139 122 Pulse Ox 100 Oxygen Delivery Method Room Air Positive well nourished and well developed General Appearance ED: well developed and NAD HEENT Reports normocephalic Neck full ROM and supple Extremity Extremity Narrative: There is tenderness, edema, and ecchymosis over the left fi fth MP joint. There is no deformity noted. Range of motion was slightly limited in all motions of the left fifth finger secondary to pain. Sensation was intact to light touch bilaterally in the upper extremities. Radial pulses are equal bilateral. There is also tenderness over the proximal tibia and fibula just distal to the knee. There is some mild ecchymosis over the lateral aspect of the proximal lower leg. There is no deformity. There is good range of motion of the left knee and left ankle. Posterior tibial pulses were equal bilaterally. Sensation was intact to light touch bilaterally in the lower extremities. Strength is 5/5 bilaterally in the lower extremities. Neuro oriented x3, CN's II-XII intact bilaterally, moves all extremities, no focal motor deficits and no sensory deficits noted Katherine Coma Scale: document GCS findings Spontaneous Obeys Commands Oriented 15 Sensorium / Orientation: alert Motor Exam: strength 5/5 throughout Psych mental status grossly normal MDM MDM MDM Narrative Medical decision making narrative: Patient had no loss of consciousness and is not on any anticoagulants. She has normal neurologic exam. Therefore, I do not feel CT scan of the head is necessary at this time. X-rays of the left tibia and fibula were obtained. There are 2 views. On my interpretation, there is no acute fracture or dislocation. There is no soft tissue swelling. Radiologist also interpreted the x-rays and agrees. X-rays of the left hand were obtained. There are 3 views. On my interpretation, there is no acute fracture or dislocation. There is no soft tissue swelling. Radiologist also interpreted the x-rays and agrees. Patient was advised of her findings. Patient was instructed to ice and elevate the left hand and left leg. Patient was instructed to take Tylenol as needed for pain. Patient was instructed to follow-up with her primary care physician in 5 to 7 days. Patient understood and was agreeable with the plan. All questions were answered. Radiography Diagnostic Testing: Clinical Impression(s) from Imaging Studies Tibia/Fibula X-Ray 07/29/21 16:20 IMPRESSION: Normal x-ray examination of the tibia and fibula. Electronically Signed: Rafael Ortega MD at 16:47 EDT , Hand X-Ray 07/29/21 16:35 IMPRESSION: Normal x-ray examination of the hand. Electronically Signed: Rafael Ortega MD at 16:47 EDT , Discharge Plan Triage Chief Complaint: Fall ED Provider: Isaiah Rojas Dx/Rx/DC Orders Clinical Impression: Contusion of left hand, initial encounter, Contusion of left lower leg, initial encounter, Contusion of head Instructions: ED Hand Contusion, ED Contusion, Lower Extremity, ED Head Injury (Adult) Prescriptions: No Action ipratropium bromide 42 mcg (0.06 %) spray,non-aerosol 2 spray INTRANASAL TID RF: 0 fluocinolone acetonide oil 0.01 % drops 5 drp OTIC BID PRN (Reason: ear) RF: 0 ferrous gluconate [Fergon] 240 mg (27 mg iron) tablet 240 mg PO DAILY RF: 0 calcium carb-mag ox-zinc sulf 333-133-5 mg tablet 2 tab PO DAILY RF: 0 cholecalciferol (vitamin D3) 5,000 unit capsule 5,000 unit PO DAILY RF: 0 multivitamin tablet 1 tab PO DAILY RF: 0 blue-green algae (Spirulina) 500 mg capsule 500 mg capsule 1,500 mg PO DAILY RF: 0 albuterol sulfate 90 mcg/actuation HFA aerosol inhaler 1 - 2 puff INHALATION Q4H PRN PRN (Reason: Sob &/Or Wheezing) Qty: 8.5 RF: 1 ivermectin 1 % cream 30 applic TOPICAL PRN PRN (Reason: psoriasis) Qty: 45 RF: 3 acetaminophen 325 MG tablet 650 mg PO Q4H PRN PRN (Reason: Mild-Moderate Pain (-09/09)) RF: 0 vitamin B complex [B Complex] Capsule 1 cap PO DAILY RF: 0 pantoprazole 40 mg tablet,delayed release (DR/EC) 40 mg PO DAILY Qty: 90 RF: 3 alendronate 70 mg tablet 70 mg PO QWEEK Qty: 12 RF: 3 montelukast 10 mg tablet 10 mg PO QPM Qty: 90 RF: 3 amlodipine 5 mg tablet 5 mg PO DAILY Qty: 90 RF: 3 amitriptyline 25 mg tablet 25 mg PO QHS Qty: 90 RF: 1 paroxetine HCl 40 mg tablet 40 mg PO DAILY Qty: 90 RF: 1 rosuvastatin 10 mg tablet 10 mg PO DAILY Qty: 90 RF: 1 Stand Alone Forms: Work Status Form Primary Care Provider: Lenka Ferguson Referrals: Lenka Ferguson MD [Primary Care Provider] - 5-7 Days [facility] [NON-STAFF] - 5-7 Days Disposition Disposition: Home, Self Care
--- NOTE | 2021-07-29 16:20 | RAD_ITS ---
STUDY: X-RAY - LEFT TIBIA AND FIBULA REASON FOR EXAM: Female, 60 years old. Injury/Pain TECHNIQUE: 2 view(s) of the tibia and fibula were obtained. COMPARISON: None. FINDINGS: Normal visualized tibia. Normal visualized fibula. The soft tissue structures are unremarkable. RAD/Tibia & Fibula 2 Views IMPRESSION: Normal x-ray examination of the tibia and fibula. Electronically Signed: Rafael Ortega MD at 16:47 EDT ,
[2021-07-29 16:32] VITALS: BP 143/112
--- NOTE | 2021-07-29 16:35 | RAD_ITS ---
STUDY: X-RAY - LEFT HAND REASON FOR EXAM: Female, 60 years old. Injury/Pain TECHNIQUE: 3 view(s) of the hand. COMPARISON: None. FINDINGS: Normal radiocarpal articulation. Normal distal radioulnar joint. Normal visualized carpal bones. Normal carpal articulations Normal carpometacarpal articulation of the thumb. Normal second through fifth carpometacarpal joints. Normal metacarpi. Normal metacarpophalangeal joint of the thumb. Normal interphalangeal joint of the thumb. Normal proximal and distal phalanges of the thumb. Normal metacarpophalangeal joints of the second through fifth fingers. Normal proximal and distal interphalangeal joints of the second through fifth fingers. Normal phalanges of the second through fifth fingers. The soft tissue structures are unremarkable. RAD/Hand Min 3 Views IMPRESSION: Normal x-ray examination of the hand. Electronically Signed: Rafael Ortega MD at 16:47 EDT ,
[2021-07-29 17:29] VITALS: BP 164/104; PULSE 73; RESP 16; O2SAT 98
== END 2021-07-29 17:31 | disposition home or self-care (01) ==
PROVIDERS: Emergency Provider Emergency Medicine; PCP Internal Medicine; Visit Provider Emergency Medicine
DX: S60.222A Contusion of left hand, initial encounter (principal); S80.12XA Contusion of left lower leg, initial encounter; S00.93XA Contusion of unspecified part of head, initial encounter; W01.10XA Fall on same level from slipping, tripping and stumbling with subsequent striking against unspecified object, initial encounter; Z87.891 Personal history of nicotine dependence
CPT/HCPCS: 73130; 73590; 99282

== ENCOUNTER → 2021-09-11 | Outpatient (CLI) | payer OTHER, SELFPAY ==
[2021-09-11 15:56] LABS: Absolute Lymphocyte Count 1.63 X10^3/uL (0.83-4.51); Basophil# 0.03 X10^3/uL; Basophil% 0.6 % (0-1); Eosinophils% 3.7 % (0-5); Hematocrit 38.3 % (37-47); Hemoglobin 12.2 g/dL (12.0-15.0); Lymphocyte # 1.63 X10^3/ul (0.83-4.51); Lymphocyte % 30.1 % (19-41); Mean Corp Hgb Conc 31.9 g/dL (32-36); Mean Corpuscular Hgb 28.2 pg (27.0-32.0); Mean Corpuscular Volume 88.5 fL (81-99); Mean Platelet Vol. 10.5 fl (6.2-12.0); Monocyte# 0.52 X10^3/uL; Monocyte% 9.6 % (0-10); NRBC Flagged by Analyzer 0 % (0-5); Neutrophil # 3.03 X10^3/uL (2.7-7.7); Neutrophil % 55.8 % (47-70); Platelet Count 330 K/mm3 (150-450); RBC Distribution Width CV 15.4 % (11.6-14.6); RBC Distribution Width SD 50.2 fl (35.1-43.9); Red Blood Count 4.33 M/mm3 (4.2-5.4); White Blood Count 5.4 K/mm3 (4.4-11.0)
[2021-09-11 16:22] LABS: ALB/GLOB Ratio 0.9 RATIO (0.9-2.4); AST(SGOT) 25 U/L (15-37); Alanine Aminotransfer ALT/SGPT 27 U/L (13-56); Albumin, Serum 3.7 g/dL (3.2-5.0); Alkaline Phosphatase 87 U/L (45-117); Anion Gap 7 (5-15); BUN 16 mg/dL (7-18); BUN/Creat Ratio 15.8 RATIO (10-20); Calcium,Total 9.1 mg/dL (8.5-10.1); Chloride 106 mmol/L (98-107); Creatinine, Serum 1.01 mg/dL (0.55-1.02); EST Glomerular Filtration Rate 60 mL/min (>60); Est Glom Filt Rate - Afr Amer 72 mL/min (>60); Globulin 4.3 g/dL (2.2-4.2); Glucose 93 mg/dL (74-106); Potassium 3.9 mmol/L (3.5-5.1); Sodium Level 139 mmol/L (136-145); Thyroid Stim Hormone (TSH) 0.91 uIU/mL (0.358-3.74)
== END | disposition home or self-care (01) ==
LOC: LAB 14:15
PROVIDERS: PCP Internal Medicine; Referring Provider Internal Medicine; Visit Provider Internal Medicine
DX: R53.81 Other malaise (principal); R53.83 Other fatigue; Z13.29 Encounter for screening for other suspected endocrine disorder
CPT/HCPCS: 36415; 80053; 84439; 84443; 85025

== ENCOUNTER 2021-10-24 11:16 | Emergency (ER) | payer OTHER, SELFPAY ==
[2021-10-24 11:17] VITALS: BP 176/129; PULSE 87; RESP 22; TEMP 35.6; O2SAT 99; BMI 48.6
--- NOTE | 2021-10-24 11:41 | EDS_ITS ---
HPI History of Present Illness Chief Complaint: GI Bleed Narrative Narrative: Patient presents with rectal bleeding for the past 3 days it is not mixed with stool. Today she thought she was going to have a bowel movement but then she just noticed blood in her underwear. She has no abdominal pain, no nausea or vomiting. No back pain. No fever or chills. She does not feel lightheaded. [facility] Medical History Abdominal panniculus, symptomatic Acute postoperative anemia due to expected blood loss Allergic rhinitis Anemia Arthritis Asthma Back pain Breast hypertrophy Chronic cervical pain Chronic thoracic back pain Depression Fatigue GERD (gastroesophageal reflux disease) Hay fever History of pneumococcal pneumonia History of positive PPD, treatment status unknown History of tuberculosis exposure Intertrigo Kidney stones Knee pain Left knee pain Malaise and fatigue Migraine Psoriasis Psoriatic arthritis Restrictive airway disease Screening for thyroid disorder Shoulder pain Sleep apnea SOB (shortness of breath) Upper respiratory infection Home Medications ipratropium bromide 42 mcg (0.06 %) nasal spray 2 spray intranasal TID nasal 03/03/18 [History Last Taken Unknown] calcium carbonate 333 mg-magnesium oxide 133 mg-zinc sulf 5 mg tablet 2 tab PO DAILY supplement 04/20/18 [History Last Taken Unknown] cholecalciferol (vitamin D3) 125 mcg (5,000 unit) capsule 5,000 unit PO DAILY supplement 04/20/18 [History Last Taken Unknown] ferrous gluconate 240 mg (27 mg iron) tablet (Fergon) 240 mg PO DAILY supplement 04/20/18 [History Last Taken Unknown] multivitamin 1 tab PO DAILY supplement 04/20/18 [History Last Taken Unknown] acetaminophen 325 mg tablet 650 mg PO Q4H PRN PRN Mild-Moderate Pain (1-5/10) 05/20/18 [Rx Last Taken Unknown] blue-green algae (Spirulina) 500 mg capsule 1,500 mg PO DAILY 08/30/19 [History Last Taken Unknown] pantoprazole 40 mg tablet,delayed release 40 mg PO DAILY gerd #90 tabs 11/17/19 [Rx Last Taken Unknown] albuterol sulfate 90 mcg/actuation aerosol inhaler 1 - 2 puff inhalation Q4H PRN PRN Sob &/Or Wheezing #8.5 grams 05/15/20 [Rx Last Taken Unknown] ivermectin 1 % topical cream 30 applic topical PRN PRN psoriasis #45 grams 05/15/20 [Rx Last Taken Unknown] alendronate 70 mg tablet 70 mg PO QWEEK #12 tabs 01/27/21 [Rx Last Taken Unknown] montelukast 10 mg tablet 10 mg PO QPM asthma #90 tabs 04/07/21 [Rx Last Taken Unknown] amlodipine 5 mg tablet 5 mg PO DAILY htn #90 tabs 05/01/21 [Rx Last Taken Unknown] amitriptyline 25 mg tablet 25 mg PO QHS sleep,migraines #90 tabs 05/15/21 [Rx Last Taken Unknown] paroxetine HCl 40 mg tablet 40 mg PO DAILY anxiety/depression #90 tabs 07/08/21 [Rx Last Taken Unknown] rosuvastatin 10 mg tablet 10 mg PO DAILY cholesterol #90 tabs 07/08/21 [Rx Last Taken Unknown] vitamin B complex 1 cap PO DAILY 07/29/21 [History Last Taken Unknown] docusate sodium 100 mg capsule (Colace) 100 mg PO BID #60 caps 10/24/21 [Rx Last Taken Unknown] Allergy/AdvReac Type Severity Reaction Status Date / Time cat dander Allergy Shortness Verified 10/24/21 11:19 of breath dog dander Allergy Shortness Verified 10/24/21 11:19 of breath megestrol Allergy Unknown Verified 10/24/21 11:19 shellfish derived Allergy Vomiting Verified 10/24/21 11:19 Family History Mother Diabetes Heart disease Father Diabetes Heart disease Sister Breast cancer Brother Testicular cancer Surgical History History of bilateral breast reduction surgery History of carpal tunnel surgery of left wrist History of eye surgery History of gastric bypass History of hysterectomy History of lateral meniscus repair of left knee Social History Smoking Status: Former smoker second hand exposure: Yes alcohol intake: never substance use type: does not use what type of physical activity do you participate in: walking ROS ROS ED ROS Narrative Past medical history: Reviewed Medications: Reviewed in [employer] Social history: Noncontributory Review of systems: All systems negative except as indicated General: No fever Eyes: No visual changes ENT: No upper airway congestion, normal voice Neck: No neck pain Cardiovascular: No chest pain Respiratory: No shortness of breath or cough Gastrointestinal: No abdominal pain, nausea vomiting or diarrhea. Rectal bleeding as in HPI Genitourinary: No dysuria Musculoskeletal: Denies myalgias no difficulty with ambulation Skin: No rash Neurological: No memory loss, confusion or any focal weakness Psych: No recent behavioral changes Hematologic: No easy bleeding or easy bruising EXAM Physical Exam Narrative Exam Narrative: Physical exam General: Well nourished, Well developed, No Acute Distress Head: Normocephalic, Atraumatic Eyes: Conjunctiva not pale ENT: Moist mucous membranes Neck: Supple, Nontender, No lymphadenopathy Cardiovascular: Regular rate, Regular rhythm Respiratory: No distress, CTA bilaterally Abdomen: Soft, Nontender, Nondistended Rectal: No external hemorrhoids. I used an anoscope, I was able to see an internal hemorrhoid with an abrasion and a spot work the bleeding could have came from, after checking the second time that spot did start bleeding. Back: Nontender, Normal Inspection. Negative for: CVA tenderness Extremities: Nontender, No edema Skin: Normal color, No rash Neurological: Alert, Normal Strength, Normal Sensation Psychological: Normal affect Const Vital Signs: 10/24/21 11:17 Temperature 96.0 F L Temperature Source Temporal Pulse Rate 87 Respiratory Rate 22 H Blood Pressure 176/129 H Blood Pressure Mean 144 Pulse Ox 99 Oxygen Delivery Method Room Air [facility] Treatment and Re-Evaluation Narrative: Patient has a bleeding internal hemorrhoid. She has normal vitals other than slight hypertension but she is anxious. I will recheck prior to discharge. Otherwise I will refer to GI I will place the patient on stool softeners and she will be discharged in stable condition if anything worsens she is to return. She is due for colonoscopy and she will need that also, but at this time there is no need for an emergent procedure. Discharge Plan Triage Chief Complaint: GI Bleed ED Provider: Chuck Gonzalez Dx/Rx/DC Orders Clinical Impression: Internal hemorrhoid, Rectal bleed Instructions: ED Hemorrhoids Prescriptions: New docusate sodium [Colace] 100 mg capsule 100 mg PO BID Qty: 60 0RF No Action ipratropium bromide 42 mcg (0.06 %) spray,non-aerosol 2 spray INTRANASAL TID ferrous gluconate [Fergon] 240 mg (27 mg iron) tablet 240 mg PO DAILY calcium carb-mag ox-zinc sulf 333-133-5 mg tablet 2 tab PO DAILY Label Comments: Vit D 600IU, Calcium 1000mg, magnesium 400mg cholecalciferol (vitamin D3) 5,000 unit capsule 5,000 unit PO DAILY multivitamin tablet 1 tab PO DAILY blue-green algae (Spirulina) 500 mg capsule 500 mg capsule 1,500 mg PO DAILY albuterol sulfate 90 mcg/actuation HFA aerosol inhaler 1 - 2 puff INHALATION Q4H PRN PRN (Reason: Sob &/Or Wheezing) Qty: 8.5 1RF ivermectin 1 % cream 30 applic TOPICAL PRN PRN (Reason: psoriasis) Qty: 45 3RF acetaminophen 325 MG tablet 650 mg PO Q4H PRN PRN (Reason: Mild-Moderate Pain (-09/09)) 0RF vitamin B complex [B Complex] Capsule 1 cap PO DAILY pantoprazole 40 mg tablet,delayed release (DR/EC) 40 mg PO DAILY Qty: 90 3RF alendronate 70 mg tablet 70 mg PO QWEEK Qty: 12 3RF montelukast 10 mg tablet 10 mg PO QPM Qty: 90 3RF amlodipine 5 mg tablet 5 mg PO DAILY Qty: 90 3RF amitriptyline 25 mg tablet 25 mg PO QHS Qty: 90 1RF paroxetine HCl 40 mg tablet 40 mg PO DAILY Qty: 90 1RF rosuvastatin 10 mg tablet 10 mg PO DAILY Qty: 90 1RF Primary Care Provider: Lenka Ferguson Referrals: Lenka Ferguson MD [Primary Care Provider] - Dudley Wallace DO [STAFF PHYSICIAN] - 3-5 Days Disposition Disposition: Home, Self Care
== END 2021-10-24 11:57 | disposition home or self-care (01) ==
PROVIDERS: Emergency Provider Emergency Medicine; PCP Internal Medicine; Visit Provider Emergency Medicine
DX: K64.8 Other hemorrhoids (principal); I10 Essential (primary) hypertension; E78.00 Pure hypercholesterolemia, unspecified; M19.90 Unspecified osteoarthritis, unspecified site; K21.9 Gastro-esophageal reflux disease without esophagitis; F32.A Depression, unspecified; F41.9 Anxiety disorder, unspecified; Z79.899 Other long term (current) drug therapy; Z87.891 Personal history of nicotine dependence
CPT/HCPCS: 99282

== ENCOUNTER → 2022-01-02 | Outpatient (CLI) | payer OTHER, SELFPAY ==
--- NOTE | 2022-01-02 07:16 | EKG12_ITS ---
Test Reason : CP OP Blood Pressure : / mmHG Vent. Rate : 079 BPM Atrial Rate : 079 BPM P-R Int : 148 ms QRS Dur : 084 ms QT Int : 382 ms P-R-T Axes : 024 -16 030 degrees QTc Int : 438 ms Normal sinus rhythm Voltage criteria for left ventricular hypertrophy Nonspecific T wave abnormality Abnormal ECG Confirmed by DAVID WISDOM, ROSANNA ([id number]), primer expeditor and drier IRINA UNGER ([id number]) on 01/02/2022 2:17:01 PM Referred By: Lenka Ferguson Confirmed By:SINGH HERNANDEZ MD
== END | disposition home or self-care (01) ==
LOC: PSN 07:08
PROVIDERS: PCP Internal Medicine; Referring Provider Internal Medicine; Visit Provider Internal Medicine
DX: R07.9 Chest pain, unspecified (principal)
CPT/HCPCS: 93005

== ENCOUNTER → 2022-01-07 | Outpatient (CLI) | payer OTHER, SELFPAY ==
[2022-01-07 09:25] LABS: Bacteria 0 SEEN /hpf (None Seen); Mucous, Urine 0 SEEN /hpf (<or=2+); Red Blood Cells-Urine 0 SEEN /hpf (0-5)
[2022-01-07 12:07] LABS: Color, Urine Yellow (Yellow); Glucose, Dipstick Normal (Normal); Ketone-Dipstick Negative (Negative); Leukocyte Esterase-Dipstick 25 /ul (Negative); Nitrite-Dipstick Negative (Negative); Occult Blood-Urine Negative /ul (Negative); Protein-Dipstick Negative (Negative); Urine Bilirubin Dipstick Negative (Negative); Urine Clarity Sl. Cloudy (Clear); Urine Urobilinogen Normal (Normal)
[2022-01-07 12:14] LABS: Squamous Epithelial Cells - UA 0-5 SEEN /hpf (5-10); White Blood Cells 0-5 SEEN /hpf (0-5)
== END | disposition home or self-care (01) ==
LOC: LABSPEC 09:23
PROVIDERS: PCP Internal Medicine; Referring Provider Nurse Practitioner Family; Visit Provider Nurse Practitioner Family
DX: N30.00 Acute cystitis without hematuria (principal); R79.9 Abnormal finding of blood chemistry, unspecified
CPT/HCPCS: 81001; 87077; 87086; 87088; 87186

== ENCOUNTER → 2022-01-08 | Outpatient (CLI) | payer OTHER, SELFPAY ==
--- NOTE | 2022-01-08 15:57 | STRESSREP ---
Stress Test Report Pharmacologic, cardial perfusion stress test. 61-year-old lady with a history of chest pain. Stress protocol: Resting EKG demonstrates normal sinus rhythm with a rate of 60 bpm normal intervals are noted. 0.4 mg of regadenoson was infused per usual protocol followed by rapid intravenous saline flush injection continuous EKG monitoring was performed. The maximum heart rate attained was 93 bpm which was 57% of max impacted heart rate the maximum workload was 1 metabolic equivalent. At rest there were no ST or T wave changes noted to suggest abnormal flow reserve and at peak infusion nonspecific ST changes were noted with did not meet the criteria for ischemia. No clinical angina was noted. Myocardial perfusion protocol. 14.7 mCi of technetium 99m sestamibi was injected at rest. 0.4 mg of regadenoson was infused per usual protocol. At peak infusion 45.0 mCi of technetium 99m sestamibi was injected stress images were obtained stress and rest images were reconstructed in comparing the short axis vertical long and horizontal long axis. Gated images were also obtained to Perfusion SPECT analysis: Review of the stress images demonstrate normal uptake of tracer noted in all areas of the myocardium. The resting images similar demonstrate normal uptake of tracer noted in all areas of the myocardium. No areas of reversibility are noted suggest ischemia no previous infarct is noted. Gated SPECT analysis: The gated ejection fraction is 67%. Conclusion: Normal pharmacologic myocardial perfusion stress test. Preserved ejection fraction.
== END | disposition home or self-care (01) ==
PROVIDERS: PCP Internal Medicine; Referring Provider Nurse Practitioner Family; Visit Provider Nurse Practitioner Family
DX: R07.9 Chest pain, unspecified (principal); R94.31 Abnormal electrocardiogram [ECG] [EKG]; R06.01 Orthopnea
CPT/HCPCS: 78452; 93017; A9500; A4216; J2785

== ENCOUNTER → 2022-01-29 | Outpatient (CLI) | payer OTHER, SELFPAY ==
[2022-01-29 16:43] LABS: Mucous, Urine 0 SEEN /hpf (<or=2+); Red Blood Cells-Urine 0 SEEN /hpf (0-5); Squamous Epithelial Cells - UA 0 SEEN /hpf (5-10)
[2022-01-29 16:53] LABS: Color, Urine Yellow (Yellow); Glucose, Dipstick Normal (Normal); Ketone-Dipstick Negative (Negative); Leukocyte Esterase-Dipstick 100 /ul (Negative); Nitrite-Dipstick Positive (Negative); Occult Blood-Urine Negative /ul (Negative); Protein-Dipstick Negative (Negative); Urine Bilirubin Dipstick Negative (Negative); Urine Clarity Clear (Clear); Urine Urobilinogen Normal (Normal)
[2022-01-29 17:00] LABS: Bacteria 1+ /hpf (None Seen)
[2022-01-29 17:01] LABS: White Blood Cells 0-5 SEEN /hpf (0-5)
== END | disposition home or self-care (01) ==
LOC: LAB 16:38
PROVIDERS: PCP Internal Medicine; Referring Provider Nurse Practitioner Family; Visit Provider Nurse Practitioner Family
DX: N30.00 Acute cystitis without hematuria (principal)
CPT/HCPCS: 81001; 87077; 87086; 87088; 87186

== ENCOUNTER → 2022-03-04 | Outpatient (CLI) | payer OTHER, SELFPAY ==
--- NOTE | 2022-03-04 16:20 | RAD_ITS ---
INDICATION: cad EXAMINATION/TECHNIQUE: X-RAY - XR Chest 2 Views COMPARISON: December 22, 2018. FINDINGS: LINES/DEVICES: None. LUNGS: No consolidation, edema or effusion. No pneumothorax. MEDIASTINUM AND CARDIOVASCULAR STRUCTURES: Cardiac silhouette not enlarged. Mild aortic atherosclerosis. BONES AND SOFT TISSUES: Mild endplate osteophyte formation. No acute osseous finding. Epigastric surgical clips are present.. RAD/Chest PA and Lateral IMPRESSION: No radiographic evidence of acute cardiopulmonary disease. Mild aortic arch atherosclerosis Electronically Signed: Wesley Acosta MD at 1:06 EDT ,
[2022-03-04 17:09] LABS: Absolute Lymphocyte Count 1.92 X10^3/uL (0.83-4.51); Basophil# 0.03 X10^3/uL; Basophil% 0.4 % (0-1); Eosinophil# 0.25 X10^3/uL; Eosinophils% 3.7 % (0-5); Hematocrit 41.2 % (37-47); Hemoglobin 13.4 g/dL (12.0-15.0); Lymphocyte # 1.92 X10^3/ul (0.83-4.51); Lymphocyte % 28.1 % (19-41); Mean Corp Hgb Conc 32.5 g/dL (32-36); Mean Corpuscular Hgb 28.3 pg (27.0-32.0); Mean Corpuscular Volume 87.1 fL (81-99); Mean Platelet Vol. 9.9 fl (6.2-12.0); Monocyte# 0.59 X10^3/uL; Monocyte% 8.6 % (0-10); NRBC Flagged by Analyzer 0 % (0-5); Neutrophil # 4.03 X10^3/uL (2.7-7.7); Neutrophil % 58.9 % (47-70); Platelet Count 328 K/mm3 (150-450); RBC Distribution Width CV 15.1 % (11.6-14.6); RBC Distribution Width SD 48.1 fl (35.1-43.9); Red Blood Count 4.73 M/mm3 (4.2-5.4); White Blood Count 6.8 K/mm3 (4.4-11.0)
[2022-03-04 17:25] LABS: Anion Gap 4 (5-15); BUN 16 mg/dL (7-18); BUN/Creat Ratio 14.5 RATIO (10-20); Calcium,Total 9.5 mg/dL (8.5-10.1); Chloride 103 mmol/L (98-107); EST Glomerular Filtration Rate 54 mL/min (>60); Est Glom Filt Rate - Afr Amer 65 mL/min (>60); Glucose 111 mg/dL (74-106); Potassium 4.3 mmol/L (3.5-5.1); Sodium Level 138 mmol/L (136-145)
== END | disposition home or self-care (01) ==
LOC: RAD 16:19
PROVIDERS: PCP Internal Medicine; Referring Provider Internal Medicine Cardiovascular Disease; Visit Provider Internal Medicine Cardiovascular Disease
DX: I25.10 Atherosclerotic heart disease of native coronary artery without angina pectoris (principal); I10 Essential (primary) hypertension; R07.9 Chest pain, unspecified
CPT/HCPCS: 36415; 71046; 80048; 85025

== ENCOUNTER 2022-03-13 07:39 | Day surgery (SDC) | payer OTHER, SELFPAY ==
[2022-03-12 08:34] VITALS: BMI 48.5
--- NOTE | 2022-03-13 09:28 | CL.D_ITS ---
Patient Name: JAMES BOURGEOIS Study Date: 03/13/2022 Performing: Pedro Santamaria MD Ht: 61 inches 154.94 cm : 1960 Wt: 256.99 lbs 116.57 kg Age: 61 Gender: female BSA: 2.1 PROCEDURE(S) PERFORMED DC01-(08408)LHC/COR/LV CLINICAL PROFILE AND INDICATIONS Indications: Suspected CAD Heart Failure: None Stress/Imaging Stress/Image Study Performed: No CAD Presentations: Stable angina. CONCLUSIONS Normal coronary arteries Normal LV size, wall motion,and systolic function RECOMMENDATIONS Medical therapy DESCRIPTION OF PROCEDURE The patient arrived to the procedure lab. The risks and benefits of the procedure as well as a full description of our services here and current unavailability of surgical backup were fully explained to the patient and/or their significant other prior to the catheterization. The Timeout was completed, verifying the correct patient and procedure. The patient's procedural site was prepped and draped in the usual fashion. Local anesthetic was given subcutaneously to right radial region with Lidocaine 2%. Using a modified Seldinger technique, arterial access was obtained via the right radial artery, a 6Fr sheath was inserted. Right Coronary Artery selective angiography was then performed in multiple views using a 5 Fr. 4.0 Barney catheter. Left Coronary Artery selective angiography was performed in multiple views using a 5 Fr. 4.0 Barney catheter. Left Ventriculography was performed in STANLEY projection using a 5 Fr. Pigtail catheter. LV to AO pullback pressures were then recorded.The arterial sheath was pulled and a TR Band was applied for hemostasis. 16cc of air CORONARY ANGIOGRAPHY DOMINANCE: Right Dominant LEFT HEART ASSESSMENT Left Ventricular Ejection Fraction: by LV Gram 60 % Normal LV wall motion Normal Left Ventricular systolic function Normal Left Ventricular systolic function LEFT MAIN: Angiographically normal LEFT ANTERIOR DESCENDING ARTERY: Angiographically normal CIRCUMFLEX ARTERY: Angiographically normal RIGHT CORONARY ARTERY: Angiographically normal COMPLICATIONS No Complications PROCEDURE MEDICATIONS Versed 1 mg IV Fentanyl 50 mcg IV Versed 1 mg IV Versed 1 mg IV Versed 1 mg IV Oxygen: 2 L/min via nasal cannula Benadryl 50 mg IV @ 03/13/2022 08:48:20 Heparin given IA 03/13/2022 09:07:28 Solu-cortef 100 mg IV 03/13/2022 08:48:26 SUMMARY OF HEMODYNAMIC DATA Time AIR REST ECG 08:04:25 Art 143/82 (108) 09:01:28 AO 112/85 (99) SA 09:09:41 LV 129/13, 18 09:15:53 LV 137/12, 18 09:16:01 LV 131/12, 19 09:16:40 LVp 133/12, 19 09:16:43 AOp 129/-29 (86) 09:16:50 Signed By Pedro Santamaria MD On 03/13/2022 09:27:55 Pedro Santamaria MD
== END 2022-03-13 11:46 | disposition home or self-care (01) ==
PROVIDERS: PCP Internal Medicine; Referring Provider Internal Medicine Cardiovascular Disease; Visit Provider Internal Medicine Cardiovascular Disease
DX: I25.118 Atherosclerotic heart disease of native coronary artery with other forms of angina pectoris (principal); E78.5 Hyperlipidemia, unspecified; G47.30 Sleep apnea, unspecified; J45.909 Unspecified asthma, uncomplicated; F32.A Depression, unspecified; Z95.1 Presence of aortocoronary bypass graft; I10 Essential (primary) hypertension; K21.9 Gastro-esophageal reflux disease without esophagitis; Z87.891 Personal history of nicotine dependence; Z79.899 Other long term (current) drug therapy; Z79.82 Long term (current) use of aspirin
CPT/HCPCS: 93458; 99152; 99153; J7040; C1769; C1894; Q9967

== ENCOUNTER 2022-03-19 05:18 | Day surgery (SDC) | payer OTHER, SELFPAY ==
[2022-03-19] VITALS (7 sets, daily range): BP systolic 91–113; BP diastolic 51–78; PULSE 65–77; RESP 16–18; TEMP 36.1; O2SAT 18–99; BMI 46.4
[2022-03-19] MEDS: Lactated Ringers 1,000 ML 15 ML IV (06:06)
--- NOTE | 2022-03-19 06:30 | COLBX_PTH ---
PATIENT: JAMES BOURGEOIS LOC: EN U#:[id number] AGE/SX: 61/F ROOM: RE03/19/[address]: Dr. Dudley Wallace DO : 1960 BED: DIS: 03/19/2022 SPEC #: [id number] RECD: 03/19/22 10:55 STATUS: JOHN REKathy #: [id number] WARNER: 03/19/22 06:[address]: Dudley Wallace DEPT: SURGICAL PATHOLOGY RECD BY: Cassandra Gomez ENTERED: 03/19/22 11:36 SP TYPE: COLON BX OTHR DR: Dr. Lenka Ferguson MD Tissues: Rectum, NOS Procedures: Surgery Specimen Level IV HEADER OPERATION: Flexible sigmoidoscopy PRE-OP DIAGNOSIS: Rectal bleeding, constipation TISSUE SUBMITTED: Rectal biopsy MICROSCOPIC DIAGNOSIS Rectal biopsy: Fragments of colonic mucosa, no pathologic diagnosis. /SJ 03/20/22 MICROSCOPIC DESCRIPTION Slides are reviewed. GROSS DESCRIPTION Received is one container labeled with the patient name and designated rectal. The specimen consists of two irregular fragments of light valenzuela soft tissue that in aggregate measure 0.6 x 0.3 x 0.1 cm. The specimen is totally submitted in one cassette. /SJ:cc 03/19/2022 TC:4 CPT:73781
--- NOTE | 2022-03-19 06:36 | PCM.HP.BLA ---
History and Physical Date of Admission: 03/19/22 61 F who presents to the office today for Initial consult. Zakia established with this clinic 01.12.[address] [facility] ED presentation 10.24.21 for rectal bleeding. Sometimes blood is with stool, sometimes only blood is noted. ED found bleeding internal hemorrhoid following workup and she was discharged in stable condition.? PMH abdominal panniculus; anemia; chronic back pain; depression; fatigue; migraine; psoriasis with psoriatic arthritis; restrictive airway disease.? ? Patient states that since being seen in the ED she has had about 4 occurrences of blood in stool but has been much smaller than previously. Patient states that she has a history of some blood in her stool only with excessive straining. Patient complains of some LLQ abdominal pain that occurs after eating. Patient states that she has had chronic constipation. Patient states constipation has improved since taking Colace BID. Patient has a bowel movement every 2-3 days and describes the consistency as irena. Patient states stool is softer if she eats softer foods, more vegetables, and avoids meat. Denies taking any blood thinners, takes Ibuprofen occasionally. Patient has a history of GERD as well as a family history of GERD. GERD is mostly controlled with pantoprazole. She had EsoGuard done in October. Denies any history of liver disease. Denies any family history of GI cancer. ROS Const Constitutional: Positive for headache(s) and weakness; No fatigue, fever(s), frequent falls or weight change ENT ENT: Positive for headache(s); No difficulty swallowing Cardio Cardiology: Positive for leg pain with exertion Gastro GI: Positive for abdominal pain, bloating, constipation, heartburn, excessive flatus, Blood in stool and nausea/dyspepsia; No change in bowel habits, diarrhea, difficulty swallowing, Vomiting blood/hematemesis or vomiting Musc Musculoskeletal: Positive for joint pain, muscle cramps, muscle weakness, stiffness, Arthritis, restless legs, leg pain at night and leg pain with exertion; No abnormal gait, back pain, joint swelling, numbness, tingling or sciatica Skin Skin: No dry skin, lesions, itchy eyes or rash Neuro Neurology: Positive for weakness, headache(s) and restless legs; No abnormal gait, dizziness, frequent falls, numbness, tingling, tremor(s), Increased tone in limbs, paralysis or seizures Psych Psychiatric: Positive for anxiety, Positive for depression, No paranoia, No Behavioral Problems, No Compulsive Behavior, No hyperactivity, No inattentiveness, No obsessions/compulsions, Positive for Temper Tantrums and No suicidal ideation Endo Endocrine: No fatigue or weight change Aller/Imm Allergy/Immunologic: No itchy eyes Song/Lymp Hematologic/Lymphatic: No easy bleeding or easy bruising Exam Const General: cooperative, comfortable and no acute distress Nutritional Appearance: obese Orientation: alert, awake and oriented x3 [facility] Head: normal to inspection, normocephalic and atraumatic Ears: hearing grossly normal bilaterally Resp Effort & Inspection: normal respiratory effort and able to speak in complete sentences Auscultation: Bilateral: Clear to Auscultation Cardio Rate: regular rate Rhythm: regular rhythm Heart Sounds: S1 normal and S2 normal GI Palpation: soft (Nontender, no palpable organomegaly) Neuro General: patient alert, patient awake, patient oriented x3, moves all extremities and CN's II-XI intact bilaterally Extrem General: no clubbing, cyanosis or edema Psych Appearance: grossly normal Mental Status: mental status grossly normal Mood: congruent mood Affect: normal affect Quality Reporting Tobacco Screening ([facility]) Smoking Status: Former smoker Assessment and Plan Assessment and Plan (1) Constipation: ?Status:?Acute ?Plan: The differential diagnosis for her constipation is slow transit constipation versus pelvic floor dysfunction.? I am suspecting that she has more pelvic floor dysfunction than anything because she does not get much abdominal Pain.? She does not have a bowel movement.? She does get nausea and bloating.? I am not sure if this is from her previous gastric bypass given the fact that she still has a gallbladder.? We will start her on lactulose therapy as her insurance will not pay for Trulance, Amitiza, Linzess at this time. (2) Rectal bleeding: ?Status:?Acute ?Plan: She is known to have hemorrhoids bleed.? She will need to undergo flexible sigmoidoscopy with possible banding and possible cauterization procedure. ? ? ? Medications: New lactulose 30 grams (45 mL) PO DAILY 1,200 mL 0RF ? ? I have examined the patient and the H&P has been reviewed. There are no clinical changes since date of exam.
--- NOTE | 2022-03-19 07:00 | OP.FLEXSIG_ITS ---
Patient Name: Zakia Sykes Procedure Date: 03/19/2022 6:37 AM Date of : 1960 Age: 61 Procedure: Flexible Sigmoidoscopy Indications: Hematochezia Providers: Dudley Wallace DO Medicines: Monitored Anesthesia Care Patient Profile: This is a 61 year old female. Refer to note in patient chart for documentation of history and physical. Patient has symptoms of acute episode of bloody stool. The symptoms first began January. Complications: No immediate complications. Procedure: Pre-Anesthesia Assessment: - Prior to the procedure, a History and Physical was performed, and patient medications and allergies were reviewed. The patient is competent. The risks and benefits of the procedure and the sedation options and risks were discussed with the patient. All questions were answered and informed consent was obtained. Patient identification and proposed procedure were verified by the physician in the pre-procedure area. Mental Status Examination: alert and oriented. Airway Examination: normal oropharyngeal airway and neck mobility. Respiratory Examination: clear to auscultation. CV Examination: normal. Prophylactic Antibiotics: The patient does not require prophylactic antibiotics. Prior Anticoagulants: The patient has taken no previous anticoagulant or antiplatelet agents. ASA Grade Assessment: II - A patient with mild systemic disease. After reviewing the risks and benefits, the patient was deemed in satisfactory condition to undergo the procedure. The anesthesia plan was to use monitored anesthesia care (MAC). Immediately prior to administration of medications, the patient was re-assessed for adequacy to receive sedatives. The heart rate, respiratory rate, oxygen saturations, blood pressure, adequacy of pulmonary ventilation, and response to care were monitored throughout the procedure. The physical status of the patient was re-assessed after the procedure. After obtaining informed consent, the endoscope was passed under direct vision. Throughout the procedure, the patient's blood pressure, pulse, and oxygen saturations were monitored continuously. The Colonoscope was introduced through the anus and advanced to the sigmoid colon. The flexible sigmoidoscopy was accomplished without difficulty. The patient tolerated the procedure well. The quality of the bowel preparation was good. Scope In: 6:41:42 AM Scope Out: 6:50:22 AM Total Procedure Duration Time 0 hours 8 minutes 40 seconds Findings: The perianal and digital rectal examinations were normal. A patchy area of mildly friable mucosa with contact bleeding was found in the rectum. Internal hemorrhoids were found during retroflexion. The hemorrhoids were Grade II (internal hemorrhoids that prolapse but reduce spontaneously). A hemorrhoid was isolated with endoscopy. The ShortShot ligator was positioned over the hemorrhoid at the right posterior position. Suction was applied and one rubber band was placed over the hemorrhoid. This was checked to make certain that the muscularis was free of the band. Post-banding digital rectal exam showed band in good position. The patient appeared stable and comfortable at the end of the procedure. Impression: - Friability with contact bleeding in the rectum. - Internal hemorrhoids. Banded. - No specimens collected. Recommendation: - Use Benefiber Chewable one tablet PO BID for 5 days. Procedure Code(s): --- Professional --- 32832, Sigmoidoscopy, flexible; with band ligation(s) (eg, hemorrhoids) CPT copyright 2017 [employer]. All rights reserved. The codes documented in this report are preliminary and upon service electrician review may be revised to meet current compliance requirements. Dudley Wallace DO 03/19/2022 6:59:31 AM This report has been signed electronically. Number of Addenda: 0 Note Initiated On: 03/19/2022 6:37 AM
--- NOTE | 2022-03-19 07:00 | OP.CCLET_ITS ---
03/19/2022 Lenka Ferguson MD [address] [place] [address] [place] [address] Re : Flexible Sigmoidoscopy procedure for Zakia Sykes Dear Dr. Ferguson This procedure was performed on March. My impressions and recommendations are as follows: Impressions : - Friability with contact bleeding in the rectum. - Internal hemorrhoids. Banded. - No specimens collected. Recommendations : - Use Benefiber Chewable one tablet PO BID for 5 days. My findings are described in the full procedure note, which is enclosed. If I can be of further assistance, please feel free to contact me at . Sincerely, Dudley Wallace, 03/19/2022 6:59:31 AM This report has been signed electronically.
== END 2022-03-19 07:39 | disposition home or self-care (01) ==
LOC: EN 05:20 → AC 05:20
PROVIDERS: PCP Internal Medicine; Referring Provider Internal Medicine; Visit Provider Internal Medicine Gastroenterology
PROC: 0DJD8ZZ Inspection of Lower Intestinal Tract, Via Natural or Artificial Opening Endoscopic (ICD-10-PCS; CPT 45330; principal; 2022-03-19 06:25)
DX: K64.1 Second degree hemorrhoids (principal); Z68.42 Body mass index [BMI] 45.0-49.9, adult; K62.5 Hemorrhage of anus and rectum; K59.00 Constipation, unspecified; G47.30 Sleep apnea, unspecified; E66.9 Obesity, unspecified; J45.909 Unspecified asthma, uncomplicated; F41.9 Anxiety disorder, unspecified; F32.A Depression, unspecified; I10 Essential (primary) hypertension; K21.9 Gastro-esophageal reflux disease without esophagitis; E78.00 Pure hypercholesterolemia, unspecified; Z79.82 Long term (current) use of aspirin; Z79.899 Other long term (current) drug therapy; Z87.891 Personal history of nicotine dependence
CPT/HCPCS: 45350; 88305; J7120; J2405

== ENCOUNTER → 2022-05-28 | Outpatient (CLI) | payer OTHER, SELFPAY ==
--- NOTE | 2022-05-28 06:52 | NM_ITS ---
CLINICAL: 61-year-old female with history of right upper quadrant abdominal pain. RADIONUCLIDE HEPATOBILIARY SCINTIGRAPHY COMPARISON: None available FINDINGS: Following the intravenous administration of 5.3 mCi of 99m Tc Mebrofenin, hepatobiliary images reveal: 1. Relatively prompt and homogeneous radiopharmaceutical concentration is noted by a normal sized liver. No parenchymal defects are identified. 2. Gallbladder activity is identified at 27 minutes post radiopharmaceutical administration. 3. Small intestinal tract is observed at 10 minutes following tracer injection. 4. Washout of the radiopharmaceutical by the hepatic parenchyma appears qualitatively normal. Cholecystokinin (0.02 ug/kg) was administered intravenously over a 30-minute period. The post CCK gallbladder ejection fraction calculated at 30 minutes following Cholecystokinin administration was noted to be 43.0 % (normal greater than 35%). During 30 minutes of post CCK imaging, there is no scintigraphic evidence of reflux of the radiotracer into the common hepatic duct or refilling of the gallbladder. NM/Hepatobilliary Img w/Pharm Int IMPRESSION: 1. NORMAL 99m Tc Mebrofenin hepatobiliary imaging examination with Cholecystokinin. A. A gallbladder ejection fraction calculated to be greater than 35% following the administration of Cholecystokinin makes the probability of functional hepatobiliary disease (gallbladder and/or sphincter of Oddi dyskinesia) and/or organic hepatobiliary disease (chronic acalculous cholecystitis and/or cystic duct syndrome) to be low. (Dipak Silver et al, Journal of Nuclear Medicine 32:1695, 1991). Electronically Signed: Johnathon Hansen, at 19:13 EST ,
== END | disposition home or self-care (01) ==
LOC: NM 06:48
PROVIDERS: PCP Internal Medicine; Referring Provider Internal Medicine Gastroenterology; Visit Provider Internal Medicine Gastroenterology
DX: R10.9 Unspecified abdominal pain (principal)
CPT/HCPCS: 78227; A9537; J2805

== ENCOUNTER 2022-06-08 17:01 | Emergency (ER) | payer OTHER, SELFPAY ==
[2022-06-08 17:04] VITALS: BP 154/100; PULSE 77; RESP 14; TEMP 36.1; O2SAT 97; BMI 45.3
--- NOTE | 2022-06-08 19:27 | EKG12_ITS ---
Test Reason : cp Blood Pressure : / mmHG Vent. Rate : 073 BPM Atrial Rate : 073 BPM P-R Int : 144 ms QRS Dur : 082 ms QT Int : 390 ms P-R-T Axes : 022 -24 -02 degrees QTc Int : 429 ms Normal sinus rhythm Moderate voltage criteria for LVH, may be normal variant ( R in aVL , [place] product ) Nonspecific ST abnormality Abnormal ECG Confirmed by JAN WISDOM, GENEVA ([id number]), index editor IRINA UNGER ([id number]) on 06/09/2022 8:40:16 AM Referred By: Anastacio Confirmed By:GENEVA MONTOYA MD
[2022-06-08 20:03] VITALS: BP 136/107; BP 149/108; BP 150/101; PULSE 81; PULSE 89; PULSE 92
[2022-06-08 20:07] LABS: Bacteria 0 SEEN /hpf (None Seen); Mucous, Urine 0 SEEN /hpf (<or=2+); Red Blood Cells-Urine 0 SEEN /hpf (0-5); Squamous Epithelial Cells - UA 0 SEEN /hpf (5-10)
[2022-06-08 20:11] LABS: Absolute Lymphocyte Count 1.59 X10^3/uL (0.83-4.51); Absolute Neutrophil Count 6.2 X10^3/uL (2.0-7.7); Basophil# 0.04 X10^3/uL; Basophil% 0.5 % (0-1); Eosinophil# 0.17 X10^3/uL; Hemoglobin 12.6 g/dL (12.0-15.0); Lymphocyte # 1.59 X10^3/ul (0.83-4.51); Lymphocyte % 18.3 % (19-41); Mean Corp Hgb Conc 30.7 g/dL (32-36); Mean Corpuscular Hgb 27.9 pg (27.0-32.0); Mean Corpuscular Volume 90.7 fL (81-99); Mean Platelet Vol. 10.7 fl (6.2-12.0); Monocyte# 0.69 X10^3/uL; Monocyte% 7.9 % (0-10); NRBC Flagged by Analyzer 0 % (0-5); Neutrophil # 6.16 X10^3/uL (2.7-7.7); Neutrophil % 70.8 % (47-70); POSITIVE COUNT YES; Platelet Count 323 K/mm3 (150-450); RBC Distribution Width CV 16.5 % (11.6-14.6); RBC Distribution Width SD 55.5 fl (35.1-43.9); Red Blood Count 4.52 M/mm3 (4.2-5.4); White Blood Count 8.7 K/mm3 (4.4-11.0)
[2022-06-08 20:12] LABS: Differential Indicated SCAN CRITERIA MET
[2022-06-08 20:15] LABS: Glucose, Dipstick Normal (Normal); Ketone-Dipstick Negative (Negative); Leukocyte Esterase-Dipstick 25 /ul (Negative); Nitrite-Dipstick Negative (Negative); Occult Blood-Urine Negative /ul (Negative); Protein-Dipstick Negative (Negative); Urine Bilirubin Dipstick Negative (Negative); Urine Urobilinogen Normal (Normal)
[2022-06-08 20:23] LABS: Color, Urine Yellow (Yellow); Urine Clarity Clear (Clear)
[2022-06-08 20:26] LABS: White Blood Cells 0-5 SEEN /hpf (0-5)
[2022-06-08 20:50] LABS: Differential Comment SCANNED
--- NOTE | 2022-06-08 20:52 | EX.ED.DYSGE1 ---
HPI History of Present Illness Chief Complaint: Weakness Narrative Narrative: 61-year-old female presenting with generalized weakness, and fatigue. She states she just been off for couple of days. She works at [employer]. She states has not had any fevers, chills, body aches. She does complain of some nausea and decreased p.o. intake because of the nausea. She does not have chest pain or shortness of breath. She states she feels lightheaded when she is sitting and spinning when she stands and walks. She states that she saw Dr. Santamaria in the hospital today who is her layer out plate glass and he sent her over for lab work because he thought she looked pasty. Patient is not having abdominal pain. She does not believe she has any UTI symptoms but does have history of UTI. She has not actually vomited. [facility] Medical History Abdominal panniculus, symptomatic Abnormal EKG Acute cystitis Acute postoperative anemia due to expected blood loss Allergic rhinitis Anemia Arthritis Asthma Back pain Breast hypertrophy Cardiology follow-up encounter Chest pain Chronic cervical pain Chronic thoracic back pain Depression Easy bruising Essential hypertension Fatigue Gastric reflux Hay fever High cholesterol History of GI bleed History of pneumococcal pneumonia History of positive PPD, treatment status unknown History of stress test History of tuberculosis exposure Hyperlipidemia Hypertension Intertrigo Kidney stones Knee pain Left knee pain Leg cramps Low iron Malaise and fatigue Migraine Migraine headache Morbid obesity Preventative health care Psoriasis Psoriatic arthritis Restrictive airway disease Screening for thyroid disorder Shortness of breath on exertion Shoulder pain Sleep apnea SOB (shortness of breath) Upper respiratory infection Wears glasses Home Medications ipratropium bromide 42 mcg (0.06 %) nasal spray 2 spray intranasal TID nasal 03/03/18 [History Last Taken Unknown] calcium carbonate 333 mg-magnesium oxide 133 mg-zinc sulf 5 mg tablet 2 tab PO DAILY supplement 04/20/18 [History Last Taken Unknown] cholecalciferol (vitamin D3) 125 mcg (5,000 unit) capsule 5,000 unit PO DAILY supplement 04/20/18 [History Last Taken Unknown] multivitamin 1 tab PO DAILY supplement 04/20/18 [History Last Taken Unknown] acetaminophen 325 mg tablet 650 mg PO Q4H PRN PRN Mild-Moderate Pain (1-5/10) 05/20/18 [Rx Last Taken Unknown] blue-green algae (Spirulina) 500 mg capsule 1,500 mg PO DAILY 08/30/19 [History Last Taken Unknown] pantoprazole 40 mg tablet,delayed release 40 mg PO DAILY gerd #90 tabs 11/17/19 [Rx Last Taken 03/19/22 04:00] vitamin B complex 1 cap PO DAILY 07/29/21 [History Last Taken Unknown] docusate sodium 100 mg capsule (Colace) 100 mg PO BID #60 caps 10/24/21 [Rx Last Taken Unknown] alendronate 70 mg tablet 70 mg PO QWEEK #12 tabs 01/06/22 [Rx Last Taken Unknown] paroxetine HCl 40 mg tablet 40 mg PO DAILY anxiety/depression #90 tabs 01/12/22 [Rx Last Taken Unknown] rosuvastatin 10 mg tablet 10 mg PO DAILY cholesterol #90 tabs 01/20/22 [Rx Last Taken Unknown] amlodipine 10 mg tablet 10 mg PO DAILY htn #90 tabs 03/04/22 [Rx Last Taken 03/19/22 04:00] aspirin 81 mg tablet,delayed release (Adult Aspirin Regimen) 81 mg PO DAILY 03/04/22 [History Last Taken 03/13/22] montelukast 10 mg tablet See Rx Instructions .Route .COMPLEX #90 tabs 04/07/22 [Rx Last Taken Unknown] albuterol sulfate 90 mcg/actuation aerosol inhaler 1 - 2 puff inhalation Q4H PRN PRN Sob &/Or Wheezing #8.5 grams 04/23/22 [Rx Last Taken Unknown] amitriptyline 25 mg tablet 25 mg PO QHS sleep,migraines #90 tabs 04/23/22 [Rx Last Taken Unknown] ivermectin 1 % topical cream 30 applic topical PRN PRN psoriasis #45 grams 06/02/22 [Rx Last Taken Unknown] Allergy/AdvReac Type Severity Reaction Status Date / Time cat dander Allergy Shortness Verified 06/08/22 17:02 of breath dog dander Allergy Shortness Verified 06/08/22 17:02 of breath megestrol Allergy anxious/wero Verified 06/08/22 17:02 cidal shellfish derived Allergy Vomiting Verified 06/08/22 17:02 Family History Mother Diabetes Heart disease Father Diabetes Heart disease CAD (coronary artery disease) Myocardial infarction, Onset Age: 42 CABG,ICD Sister Breast cancer Brother Testicular cancer Sister Cancer thyroid Brother Cancer Surgical History History of bilateral breast reduction surgery History of cardiac catheterization History of carpal tunnel surgery of left wrist History of eye surgery History of gastric bypass History of hysterectomy History of lateral meniscus repair of left knee History of left heart catheterization (03/13/22) Social History Smoking Status: Former smoker second hand exposure: Yes alcohol intake: never substance use type: does not use what type of physical activity do you participate in: walking ROS ROS ED Constitutional Constitutional ED: Denies chills, fever(s) or sweats Eyes Eyes: Denies blurry vision or change in vision ENT ENT ED: Denies ear pain or sore throat Cardiovascular Cardiovascular: Denies chest pain, palpitations or racing heartbeat Respiratory/Chest Respiratory/Chest: Denies cough, dyspnea or sputum Gastrointestinal Gastrointestinal: Denies abdominal pain, constipation, diarrhea, nausea or vomiting Genitourinary Genitourinary ED: Denies dysuria, hematuria or urinary frequency Musculoskeletal Musculoskeletal: Denies arthralgias, myalgias or neck pain Integumentary Denies abscess, Abrasions or rash Neurologic Neurologic: Denies headache(s), paresthesias or weakness Psychiatric Psychiatric: Denies anxiety, depression, suicidal ideation or suicidal thoughts Endocrine Endocrinology: Denies polydipsia or polyuria EXAM Physical Exam Const Vital Signs: 06/08/22 17:04 06/08/22 19:52 06/08/22 19:52 Temperature 97 F L Temperature Source Temporal Pulse Rate 77 Pulse Rate [Lying] Pulse Rate [Sitting (for 1 minute prior to obtaining)] Pulse Rate [Standing (for 1 minute prior to obtaining)] Respiratory Rate 14 Respiratory Effort Normal Non-Labored Blood Pressure 154/100 H Blood Pressure [Lying] Blood Pressure [Sitting (for 1 minute prior to obtaining)] Blood Pressure [Standing (for 1 minute prior to obtaining)] Blood Pressure Mean 118 Blood Pressure Mean [Lying] Blood Pressure Mean [Sitting (for 1 minute prior to obtaining)] Blood Pressure Mean [Standing (for 1 minute prior to obtaining)] Pulse Ox 97 Oxygen Delivery Method Room Air Room Air 06/08/22 20:03 06/08/22 21:26 Temperature Temperature Source Pulse Rate 77 Pulse Rate [Lying] 81 Pulse Rate [Sitting (for 1 minute prior to obtaining)] 89 Pulse Rate [Standing (for 1 minute prior to obtaining)] 92 Respiratory Rate 18 Respiratory Effort Blood Pressure 154/104 H Blood Pressure [Lying] 150/101 H Blood Pressure [Sitting (for 1 minute prior to obtaining)] 149/108 H Blood Pressure [Standing (for 1 minute prior to obtaining)] 136/107 H Blood Pressure Mean 120 Blood Pressure Mean [Lying] 117 Blood Pressure Mean [Sitting (for 1 minute prior to obtaining)] 121 Blood Pressure Mean [Standing (for 1 minute prior to obtaining)] 116 Pulse Ox 98 Oxygen Delivery Method Room Air General Appearance ED: Negative for pallor HEENT Reports normocephalic, head/scalp atraumatic and moist mucous membranes Eyes PERRL and EOMs intact bilaterally Neck no lymphadenopathy and supple Chest Wall inspection of chest normal and palpation of chest normal Resp normal respiratory effort and clear to auscultation bilaterally Auscultation: Negative for rales, rhonchi or wheezes Cardio regular rate and regular rhythm GI normal to inspection, nondistended, normoactive bowel sounds and non-distended Auscultation: normoactive bowel sounds Palpation: soft Narrative: Deferred Extremity General Extremety ED: Yes edema and tenderness General Extremity: edema Neuro oriented x3 and CN's II-XII intact bilaterally Sensorium / Orientation: alert Motor Exam: strength 5/5 throughout Psych mental status grossly normal Attitude: No agitated Skin no rashes or lesions noted and no wounds General Skin Exam: Negative for jaundice or pallor MDM MDM MDM Narrative Medical decision making narrative: Presenting with dizziness/lightheadedness as well as generally not feeling well. Patient had blood work done today which was essentially unremarkable. Differential includes but not limited to vertigo, orthostatic hypotension, dehydration, near syncope/syncope UTI. EKG was obtained to assess for dysrhythmia/arrhythmia. EKG on my interpretation shows sinus rhythm with a ventricular rate of [address]-T wave changes. Chest x-ray was obtained and shows no acute cardiopulmonary process. CBC was repeated and there is no change in her white blood cell count, hemoglobin hematocrit, platelets. Urinalysis to assess for UTI and this was negative. High-sensitivity troponin was also normal at 4. Patient was treated with Zofran and feels improved. I counseled her I did not find a cardiac source or any other etiology. Orthostatic vital signs were normal. She was amenable to going home with a prescription for Zofran. This will be provided. She will follow-up with her PCP. Return precautions discussed. Impression: 1. Lightheadedness 2. Nausea Lab Data Attestation: I reviewed the patient's lab results. Labs: Laboratory Results - last 24 hr 06/08/22 06/08/22 06/08/22 19:49 19:49 19:57 WBC 8.7 RBC 4.52 Hgb 12.6 Hct 41.0 MCV 90.7 MCH 27.9 MCHC 30.7 L D RDW Std Deviation 55.5 H RDW Coeff of Cecelia 16.5 H Plt Count 323 MPV 10.7 Immature Gran % (Auto) 0.500 Neut % (Auto) 70.8 H Lymph % (Auto) 18.3 L [place] % (Auto) 7.9 Eos % (Auto) 2.0 Baso % (Auto) 0.5 Absolute Neuts (auto) 6.2 Absolute Lymphs (auto) 1.59 Nucleated RBC % 0 Differential Comment SCANNED Sodium Cancelled Potassium Cancelled Chloride Cancelled Carbon Dioxide Cancelled Anion Gap Cancelled BUN Cancelled Creatinine Cancelled Estim Creat Clear Calc Cancelled Est GFR (MDRD) Af Amer Cancelled Est GFR (MDRD) Non-Af Cancelled BUN/Creatinine Ratio Cancelled Glucose Cancelled Calcium Cancelled Troponin I High Sens Cancelled Urine Color Yellow Urine Clarity Clear Urine pH 5.0 Ur Specific [place] 1.020 Urine Protein Negative Urine Glucose (UA) Normal Urine Ketones Negative Urine Occult Blood Negative Urine Nitrite Negative Urine Bilirubin Negative Urine Urobilinogen Normal Ur Leukocyte Esterase 25 H Urine RBC 0 SEEN Urine WBC 0-5 SEEN Ur Squamous Epith Cells 0 SEEN Urine Bacteria 0 SEEN Urine Mucus 0 SEEN 06/08/22 21:20 WBC RBC Hgb Hct MCV MCH MCHC RDW Std Deviation RDW Coeff of Cecelia Plt Count MPV Immature Gran % (Auto) Neut % (Auto) Lymph % (Auto) [place] % (Auto) Eos % (Auto) Baso % (Auto) Absolute Neuts (auto) Absolute Lymphs (auto) Nucleated RBC % Differential Comment Sodium Potassium Chloride Carbon Dioxide Anion Gap BUN Creatinine Estim Creat Clear Calc Est GFR (MDRD) Af Amer Est GFR (MDRD) Non-Af BUN/Creatinine Ratio Glucose Calcium Troponin I High Sens 4 Urine Color Urine Clarity Urine pH Ur Specific [place] Urine Protein Urine Glucose (UA) Urine Ketones Urine Occult Blood Urine Nitrite Urine Bilirubin Urine Urobilinogen Ur Leukocyte Esterase Urine RBC Urine WBC Ur Squamous Epith Cells Urine Bacteria Urine Mucus Radiography Diagnostic Testing: Clinical Impression(s) from Imaging Studies Chest X-Ray 06/08/22 21:00 IMPRESSION: Normal x-ray examination of the chest. Electronically Signed: Hernesto Pascal MD at 21:12 EST Reading Location ID and State: [facility] / [place] , Service support , Discharge Plan Triage Chief Complaint: Weakness ED Provider: Hayden Treviño Dx/Rx/DC Orders Prescriptions: No Action ipratropium bromide 42 mcg (0.06 %) spray,non-aerosol 2 spray INTRANASAL TID calcium carb-mag ox-zinc sulf 333-133-5 mg tablet 2 tab PO DAILY Label Comments: Vit D 600IU, Calcium 1000mg, magnesium 400mg cholecalciferol (vitamin D3) 5,000 unit capsule 5,000 unit PO DAILY multivitamin tablet 1 tab PO DAILY blue-green algae (Spirulina) 500 mg capsule 500 mg capsule 1,500 mg PO DAILY amlodipine 10 mg tablet 10 mg PO DAILY Qty: 90 3RF aspirin [Adult Aspirin Regimen] 81 mg tablet,delayed release (DR/EC) 81 mg PO DAILY Label Comments: for left heart cath acetaminophen 325 MG tablet 650 mg PO Q4H PRN PRN (Reason: Mild-Moderate Pain (1-5/10)) 0RF vitamin B complex [B Complex] Capsule 1 cap PO DAILY docusate sodium [Colace] 100 mg capsule 100 mg PO BID Qty: 60 0RF pantoprazole 40 mg tablet,delayed release (DR/EC) 40 mg PO DAILY Qty: 90 3RF alendronate 70 mg tablet 70 mg PO QWEEK Qty: 12 3RF paroxetine HCl 40 mg tablet 40 mg PO DAILY Qty: 90 1RF rosuvastatin 10 mg tablet 10 mg PO DAILY Qty: 90 1RF montelukast 10 mg tablet See Rx Instructions .ROUTE .COMPLEX Qty: 90 3RF Dose Instruction: TAKE 1 TABLET BY MOUTH EVERY EVENING FOR ASTHMA Rx Instructions: TAKE 1 TABLET BY MOUTH EVERY EVENING FOR ASTHMA albuterol sulfate 90 mcg/actuation HFA aerosol inhaler 1 - 2 puff INHALATION Q4H PRN PRN (Reason: Sob &/Or Wheezing) Qty: 8.5 1RF amitriptyline 25 mg tablet 25 mg PO QHS Qty: 90 1RF ivermectin 1 % cream 30 applic TOPICAL PRN PRN (Reason: psoriasis) Qty: 45 3RF Primary Care Provider: Lenka Ferguson Referrals: Lenka Ferguson MD [Primary Care Provider] -
--- NOTE | 2022-06-08 21:00 | RAD_ITS ---
STUDY: X-RAY CHEST REASON FOR EXAM: Female, 61 years old. chest pain TECHNIQUE: AP portable COMPARISON: March 04, 2022. FINDINGS: The lungs are clear and expanded. There is no demonstrated pleural abnormality. Normal size heart. Normal mediastinum and logan. Normal visualized pulmonary arteries. Normal visualized aortic arch and descending thoracic aorta. Normal visualized thoracic spine. Normal visualized ribs, clavicles, and shoulders. There is no demonstrated abnormality of the visualized soft tissue structures of the upper abdomen. RAD/Chest 1 View (Portable) IMPRESSION: Normal x-ray examination of the chest. Electronically Signed: Hernesto Pascal MD at 21:12 EST ,
[2022-06-08] MEDS: Ondansetron 4 MG/2 ML Vial IV (21:24)
[2022-06-08 21:26] VITALS: BP 154/104; PULSE 77; RESP 18; O2SAT 98
[2022-06-08 21:49] LABS: Troponin-I HS 4 pg/mL (3.0-54.0)
[2022-06-08 23:17] VITALS: BP 142/95; PULSE 81; RESP 18; O2SAT 96
== END 2022-06-08 23:20 | disposition home or self-care (01) ==
PROVIDERS: Emergency Provider Student in an Organized Health Care Education/Training Program; PCP Internal Medicine; Visit Provider Student in an Organized Health Care Education/Training Program
DX: R42 Dizziness and giddiness (principal); R11.0 Nausea; G47.30 Sleep apnea, unspecified; Z87.891 Personal history of nicotine dependence
CPT/HCPCS: 36415; 71045; 81001; 84484; 85025; 93005; 96374; 99284; A4216; J2405

== ENCOUNTER → 2022-06-08 | Outpatient (CLI) | payer OTHER, SELFPAY ==
[2022-06-08 17:03] LABS: Absolute Lymphocyte Count 1.43 X10^3/uL (0.83-4.51); Absolute Neutrophil Count 7.7 X10^3/uL (2.0-7.7); Basophil# 0.02 X10^3/uL; Basophil% 0.2 % (0-1); Eosinophil# 0.17 X10^3/uL; Eosinophils% 1.7 % (0-5); Hematocrit 39.6 % (37-47); Hemoglobin 12.9 g/dL (12.0-15.0); Lymphocyte # 1.43 X10^3/ul (0.83-4.51); Lymphocyte % 13.9 % (19-41); Mean Corp Hgb Conc 32.6 g/dL (32-36); Mean Corpuscular Hgb 28.3 pg (27.0-32.0); Mean Corpuscular Volume 86.8 fL (81-99); Mean Platelet Vol. 9.9 fl (6.2-12.0); Monocyte# 0.94 X10^3/uL; Monocyte% 9.1 % (0-10); NRBC Flagged by Analyzer 0 % (0-5); Neutrophil # 7.68 X10^3/uL (2.7-7.7); Neutrophil % 74.6 % (47-70); Platelet Count 378 K/mm3 (150-450); RBC Distribution Width CV 15.9 % (11.6-14.6); RBC Distribution Width SD 50.6 fl (35.1-43.9); Red Blood Count 4.56 M/mm3 (4.2-5.4); White Blood Count 10.3 K/mm3 (4.4-11.0)
[2022-06-08 17:28] LABS: ALB/GLOB Ratio 0.8 RATIO (0.9-2.4); AST(SGOT) 25 U/L (15-37); Alanine Aminotransfer ALT/SGPT 21 U/L (13-56); Albumin, Serum 3.6 g/dL (3.2-5.0); Alkaline Phosphatase 92 U/L (45-117); Anion Gap 6 (5-15); BUN 21 mg/dL (7-18); BUN/Creat Ratio 22.9 RATIO (10-20); Calcium,Total 9.6 mg/dL (8.5-10.1); Chloride 110 mmol/L (98-107); Creatinine, Serum 0.92 mg/dL (0.55-1.02); EST Glomerular Filtration Rate 67 mL/min (>60); Est Glom Filt Rate - Afr Amer 80 mL/min (>60); Globulin 4.8 g/dL (2.2-4.2); Glucose 103 mg/dL (74-106); Potassium 4.1 mmol/L (3.5-5.1); Protein, Total 8.4 g/dL (6.4-8.2); Sodium Level 143 mmol/L (136-145)
== END | disposition home or self-care (01) ==
LOC: LAB 16:45
PROVIDERS: PCP Internal Medicine; Referring Provider Internal Medicine Cardiovascular Disease; Visit Provider Internal Medicine Cardiovascular Disease
DX: D64.9 Anemia, unspecified (principal); R06.02 Shortness of breath
CPT/HCPCS: 36415; 80053; 85025

== ENCOUNTER 2022-06-22 08:00 | Outpatient (RCR) | payer OTHER, SELFPAY ==
--- NOTE | 2022-06-15 09:16 | HP.PTEVAL ---
Patient's Visit Information JAMES BOURGEOIS is a 61 year old F referred to Physical Therapy by KARI WhatleyC with a diagnosis of BPPV. Date of Evaluation: 06/15/22 Physical Therapist: Isaiah Rabago, LETICIAT, OCS, CSCS - Visit Plan Frequency: 1x/Week Duration: 4-6 Weeks Plan: weekly as needed to monitor positional(BBQ roll today) and other vestibular - Subjective Started 10 days ago on Wednesday after getting injections in needs, felt dizzy and nauseous for the next week, lightheaded and room spun when she ot up. Almost passed out and taken to ER, had recent cath which was good. HTN was high. Vitals were fine otherwise. No catscan and sent the next day for family Dr. Cain who diagnosed her with vertigo. Gave her meclizine. Took it and felt OK the next day. [place] fantastic since this past Wednesday and is not taking the meds. This weekend was normal and no problems, could jump out of bed. 100% better as far as she can tell. Sleepin OK over the weekend. Works in [employer] and only missed one day. Going back today. Weekend activity was normal and even chased after 2 yo. - Objective Walks in I and feeling good, normal transfers and gait and happy. Cervical aROM WFL and without pain, full UE AROM. Balance appears normal for her age missing points on steps more due to knee pain which is normal for her. - B hallpike wesly. - roll test for nystagmus but has dizzyness with each turn which improves to nil after BBQ roll. Treated with BBQ roll today. Oculomotor: no nystagmus with gaze with fixation absent, dizzy with head turns but no nystagmus. - skew eye deviation. - ocular tilt. - head thrust. Pursuit is normal. Saccades cause some dizzyness mildly. VOR makes dizzy but good eye on target. - Balance/Special Test Scores Functional Gait Assessment Score: 28 % Disability: 6.6700 CATSIB Score (Max score 120 seconds): 120 Dizziness Score: 36 - Goals Goal 1:: Pt have one week of no dizzyness Goal Time Frame: 2-4 Weeks Goal 2:: pt feel 100% back to normal activity for a period of 5 days Goal Time Frame: 2-4 Weeks Goal 3:: DHI score 2 or less Goal Time Frame: 2-4 Weeks - Rehabilitation Potential Physical Therapy Diagnosis: possible HC BPPV Rehabilitation Potential: Good - Anticipated Interventions Patient/Client Instruction: Educate patient on: Condition, Plan of Care For the Purpose of:: To decrease pain, To increase ROM, To improve muscle performance and motor function, To increase tolerance to activity/condition/position Comment: positional/vestibular For the Purpose of:: To increase tolerance to activity/condition/position Thank you for the opportunity to evaluate your patient. For Medicare and Medicare HMO plans, please review the plan of care and approve it. It will need to be FAXED BACK to us at [phone] for Medicare purposes. For Medicare only, by signing this I certify the plan of care. Please let me know if there are questions or concerns regarding this plan of care. Physician Signature: Date:
--- NOTE | 2022-06-22 08:07 | HP.PTDCSUM ---
It has been my pleasure to treat JAMES BOURGEOIS referred by JHOAAN Whatley, with the diagnosis of BPPV for a total of 2 visit(s). Discharge Date: 06/22/22 Please see the following information for a summary of their discharge status. Subjective: New prescription glasses yesterday. Did exercises all week. it made her dizzy at first but not anymore. No problems with dizzyness. Played with grandkids without difficulty. % Improvement: 100 Objective/Function: +1 FGA. feeling 100% better and no nystagmus or dizzyness created today with activities. Normal appearance including bending to the floor and coming back up. Goal 1:: Pt have one week of no dizzyness Goal Progress: Goal Met Goal 2:: pt feel 100% back to normal activity for a period of 5 days Goal Progress: Goal Met Goal 3:: DHI score 2 or less Goal Progress: Goal Met Plan: weekly as needed to monitor positional(BBQ roll today) and other vestibular If there are questions or concerns regarding this patient's physical therapy, please feel free to call me at [phone]. Thank you for the referral of this patient. Sincerely, Isaiah Rabago, DPT, OCS, CSCS Balance/Gait/Functional tests - Balance/Special Test Scores Functional Gait Assessment Score: 30 % Disability: 0 CATSIB Score (Max score 120 seconds): 120 Dizziness Score: 0
== END 2022-06-22 13:37 | disposition home or self-care (01) ==
LOC: PT 08:00
PROVIDERS: PCP Internal Medicine; Referring Provider Nurse Practitioner Family; Visit Provider Nurse Practitioner Family
DX: H81.10 Benign paroxysmal vertigo, unspecified ear (principal)
CPT/HCPCS: 97161; 97164

== ENCOUNTER → 2022-08-18 | Outpatient (CLI) | payer OTHER, SELFPAY ==
--- NOTE | 2022-08-18 16:46 | RAD_ITS ---
STUDY: X-RAY - RIGHT KNEE REASON FOR EXAM: Female, 61 years old. Right knee pain for years. Right knee buckled while walking. No known injury. TECHNIQUE: 4 view(s) of the knee. COMPARISON: None. FINDINGS: Normal visualized distal femur. Normal visualized proximal tibia and fibula. Normal proximal tibiofibular articulation. There is no acute fracture, dislocation or destructive osseous pathology. There is moderate degenerative arthrosis of the medial femorotibial compartment with moderate joint space narrowing. There is mild degenerative arthrosis of the lateral femorotibial compartment. There is severe degenerative arthrosis of the patellofemoral articulation. There is a soft tissue prominence in the suprapatellar region suggesting a small volume joint effusion. The soft tissue structures are unremarkable. RAD/Knee 4 or More Views IMPRESSION: Degenerative changes of the right knee with small joint effusion. Electronically Signed: Cecil Nathan DO at 22:50 EDT ,
--- NOTE | 2022-08-18 16:51 | RAD_ITS ---
STUDY: X-RAY - LEFT KNEE REASON FOR EXAM: Female, 61 years old. PAIN TECHNIQUE: 4 view(s) of the knee. COMPARISON: July 31, 2021. FINDINGS: Normal visualized distal femur. Normal visualized proximal tibia and fibula. Normal proximal tibiofibular articulation. Narrowed medial femorotibial compartment. Normal lateral femorotibial compartment. Normal patellofemoral articulation. Suprapatellar spur is noted. The soft tissue structures are unremarkable. RAD/Knee 4 or More Views IMPRESSION: Degenerative changes. No acute fracture or other significant bony pathology Electronically Signed: Hernesto Pascal MD at 22:23 EDT ,
== END | disposition home or self-care (01) ==
LOC: RAD 16:30
PROVIDERS: PCP Internal Medicine; Referring Provider Specialist; Visit Provider Specialist
DX: M17.0 Bilateral primary osteoarthritis of knee (principal); X58.XXXA Exposure to other specified factors, initial encounter
CPT/HCPCS: 73564

== ENCOUNTER 2022-10-14 07:02 | Outpatient (RCR) | payer OTHER, SELFPAY | END 2022-10-30 23:59 | LOC: NS 07:02 | PROVIDERS: PCP Internal Medicine; Referring Provider Specialist; Visit Provider Specialist | DX: Z71.3 Dietary counseling and surveillance (principal); E66.01 Morbid (severe) obesity due to excess calories; I10 Essential (primary) hypertension; Z68.42 Body mass index [BMI] 45.0-49.9, adult | CPT/HCPCS: 97802 ==

== ENCOUNTER 2022-10-27 17:00 | Outpatient (RCR) | payer OTHER, SELFPAY ==
--- NOTE | 2022-08-31 10:22 | HP.PTEVAL_ITS ---
Patient's Visit Information JAMES BOURGEOIS is a 61 year old F referred to Physical Therapy by Dr. Jose Maria Valdez MD with a diagnosis of B knee OA. Date of Evaluation: 08/28/22 Physical Therapist: Devan Rome DPT - Visit Plan Frequency: 3x /Week Duration: 6 Weeks Plan: Start with BLE strengthening/ROM in aquatic setting. Add in cardiovascular exercises to aid in wt. loss as well. - Subjective Pt. is here today for her initial her B knee OA Pt. reports having increased B knee pain for a few years now, but has become worse for the past year or so. Increased pain with standing, walking, stairs. Decreases pain: rest, but not to full abolishment. Pt. denies NT in either LE. Pt. has been reporting that her R knee has given out on her a few times over the past 2-3 months. I talked to her about using a cane, and was going to look into finding hers. Pt. did see ortho whom recommended B TKA, but would like her to increase her strength and reduce her BMI to have done. Pt. is hopeful to increase her strength and tolerance to mobility in preparation for her surgeries. - Pain R knee Pain Intensity (Out of 10): 5 Pain Intensity Range: 3, 8 L knee Pain Intensity (Out of 10): 2 Pain Intensity Range: 0, 5 - Objective POSTURE: Pt. has decent posture in stance. No major varus or vlagus. PALPATION: pt. has increased tenderness at medial joint lines bilaterally,. NEURO: normal throughout BLEs. Normal DTR of BLEs. ROM: R knee: 0-0-117deg. L knee 0-5-11deg. PT. has tight B HS, but otherwise decent ROM. MMT: RLE: ankle 5/5 throughout; knee: ext 4+/5, flexion 4/5 increase NW; hip: flexion 4/5 increase NW, abd 4/5, ext 4/5. LLE: ankle 5/5 throughout. Core strength- poor. GAIT: Pt. ambulates without AD, but has increased lateral sway. No major tren[place]mb[place] noted. Pt. has increased pain during R stance phase, but L demonstrates a loss of TKE during stance phase. STAIRS: are pretty tough with use of BHR. B knee pain during negotiation, both ascending and descending. - Balance/Special Test Scores Lower Extremity Functional Score: 23 TUG Test Time Seconds: 19 - Goals Goal 1:: LTG: Pt. to be I with HEP for aquatic exercises Goal Time Frame: 4-6 Weeks Goal 2:: STG: Pt. to be able to sleep throughout the night without increase in symptoms. Goal Time Frame: 2-4 Weeks Goal 3:: LTG: Pt. to have increased BLE strength by 1/2 throughout BLEs. Goal Time Frame: 4-6 Weeks Goal 4:: LTG: Pt. to be able to negotiate steps without increase in symptoms. Goal Time Frame: 4-6 Weeks Goal 5:: LTG: Pt. to ambulate without increase in R knee pain without incidence of giving out on her. Goal Time Frame: 4-6 Weeks - Rehabilitation Potential Physical Therapy Diagnosis: Pt. has signs and symptoms consistent with B knee OA. Pt. has has some loss of B knee ROM, but not as much as expected. Rehabilitation Potential: Good - Anticipated Interventions Patient/Client Instruction: Educate patient on: Condition, Plan of Care, Risk Factors, Benefits of Fitness Program For the Purpose of:: To improve decision making, To facilitate caregiver knowledge, To improve self management, To prevent re-injury, To improve ability to perform tasks related to life management, To improve tolerance to ADL's Therapeutic Exercise to Include: Strength training, Power training, Endurance training, Balance training, Body mechanics, Postural training, Flexibilty training, Gait and locomotor training, In an aquatic setting, Passive ROM, Active ROM For the Purpose of:: To decrease pain, To decrease swelling/inflammation, To increase ROM, To improve nutrient delivery to tissue, To increase oxygenation perfusion, To improve muscle performance and motor function, To improve ability to perform ADL's, To increase tolerance to activity/condition/position, To decrease level of supervision to perform tasks, To improve ability of physical actions for home/community/work/leisure, To improve gait and locomotor functions, To improve health of tissue, To improve safety with gait, To assume o r resume ADL's, To improve health and function Thank you for the opportunity to evaluate your patient. For Medicare and Medicare HMO plans, please review the plan of care and approve it. It will need to be FAXED BACK to us at [phone] for Medicare purposes. For Medicare only, by signing this I certify the plan of care. Please let me know if there are questions or concerns regarding this plan of care. Physician Signature: Date:
--- NOTE | 2022-10-19 17:57 | HP.PTREVAL ---
Dr. Jose Maria Valdez MD, It has been my pleasure to treat JAMES BOURGEOIS over the last 10 visits for B knee OA. Please see the progress note below for an update on the physical therapy plan of care! Subjective: Pt. reports overall doing well. She reports having improved core strength. She did have some issues with her exercises, but otherwise she id doing well. Sleeping can be painful. Work is busy, mostly sitting. IF she has to do more walking both knees become very painful. She did start the [employer] program as well. Objective/Function: MMT: R knee: flexion 20.1#, ext 33.3#; L knee: flexion 13.3#, ext 21.1#,. ROM: R knee: 0-0-122deg. L knee: 0-4-119deg. gait: Pt. has improved gait pattern. Decreased lateral postural sway noted. STAIRS: antalgic with leading with either leg. use of B HR. PT. reports overall decreased occurances of her R leg giving out on her. Overall she is improving. She has started the [employer] We[employer] program as well. She has surgery scheduled for later this summer. Plan Plan: At this point in time I would like her to continue PT in aquatic setting with focus on maintaining current ROM of B knees. Working on her hip, quad and glute strength. Also add in some cardiovascular exercises to work on weight loss. Balance/Gait/Functional tests - Balance/Special Test Scores Lower Extremity Functional Score: 33 TUG Test Time Seconds: 19 Tug Test: <20 sec.=mostly independent Goals Goal 1:: LTG: Pt. to be I with HEP for aquatic exercises Goal Time Frame: 4-6 Weeks Goal 2:: STG: Pt. to be able to sleep throughout the night without increase in symptoms. Goal Time Frame: 4-6 Weeks Goal Progress: Progressing Goal 3:: LTG: Pt. to have increased BLE strength by 1/2 throughout BLEs. Goal Time Frame: 4-6 Weeks Goal Progress: Progressing Goal 4:: LTG: Pt. to be able to negotiate steps without increase in symptoms. Goal Time Frame: 4-6 Weeks Goal Progress: Progressing Goal 5:: LTG: Pt. to ambulate without increase in R knee pain without incidence of giving out on her. Goal Time Frame: 4-6 Weeks Goal Progress: Progressing Anticipated Interventions Patient/Client Instruction: Educate patient on: Condition, Plan of Care, Risk Factors, Benefits of Fitness Program For the Purpose of:: To improve decision making, To facilitate caregiver knowledge, To improve self management, To prevent re-injury, To improve ability to perform tasks related to life management, To improve tolerance to ADL's Therapeutic Exercise to Include: Strength training, Power training, Endurance training, Balance training, Body mechanics, Postural training, Flexibilty training, Gait and locomotor training, In an aquatic setting, Passive ROM, Active ROM For the Purpose of:: To decrease pain, To decrease swelling/inflammation, To increase ROM, To improve nutrient delivery to tissue, To increase oxygenation perfusion, To improve muscle performance and motor function, To improve ability to perform ADL's, To increase tolerance to activity/condition/position, To decrease level of supervision to perform tasks, To improve ability of physical actions for home/community/work/leisure, To improve gait and locomotor functions, To improve health of tissue, To improve safety with gait, To assume or resume ADL's, To improve health and function Please do not hesitate to contact me at [phone] by phone or if you have questions or concerns regarding this new plan of care! Sincerely, LETICIA ReynoldsT
== END 2022-10-27 19:00 | disposition home or self-care (01) ==
LOC: PT 17:00
PROVIDERS: PCP Internal Medicine; Referring Provider Specialist; Visit Provider Specialist
DX: M17.0 Bilateral primary osteoarthritis of knee (principal); I10 Essential (primary) hypertension; E66.01 Morbid (severe) obesity due to excess calories
CPT/HCPCS: 97113; 97161; 97164

== ENCOUNTER 2022-11-11 07:31 | Outpatient (RCR) | payer OTHER, SELFPAY | END 2022-11-30 23:59 | LOC: NS 07:31 | PROVIDERS: PCP Internal Medicine; Referring Provider Specialist; Visit Provider Specialist | DX: Z71.3 Dietary counseling and surveillance (principal); E66.01 Morbid (severe) obesity due to excess calories; I10 Essential (primary) hypertension; Z68.42 Body mass index [BMI] 45.0-49.9, adult | CPT/HCPCS: 97803 ==

== ENCOUNTER → 2022-12-21 | Outpatient (CLI) | payer OTHER, SELFPAY ==
[2022-12-21 09:17] LABS: Bacteria 0 SEEN /hpf (None Seen); Mucous, Urine 0 SEEN /hpf (<or=2+); Red Blood Cells-Urine 0 SEEN /hpf (0-5); Squamous Epithelial Cells - UA 0 SEEN /hpf (5-10); White Blood Cells 0 SEEN /hpf (0-5)
[2022-12-21 12:57] LABS: Color, Urine Yellow (Yellow); Glucose, Dipstick Normal (Normal); Ketone-Dipstick Negative (Negative); Leukocyte Esterase-Dipstick 25 /ul (Negative); Nitrite-Dipstick Negative (Negative); Occult Blood-Urine 10 /ul (Negative); Protein-Dipstick Negative (Negative); Urine Bilirubin Dipstick Negative (Negative); Urine Clarity Clear (Clear); Urine Urobilinogen Normal (Normal)
== END | disposition home or self-care (01) ==
LOC: LABSPEC 08:52
PROVIDERS: PCP Internal Medicine; Referring Provider Internal Medicine; Visit Provider Internal Medicine
DX: R10.2 Pelvic and perineal pain (principal)
CPT/HCPCS: 81001; 87635

== ENCOUNTER 2022-12-22 09:54 | Outpatient (RCR) | payer OTHER, SELFPAY | END 2022-12-31 23:59 | LOC: NS 09:54 | PROVIDERS: PCP Internal Medicine; Referring Provider Specialist; Visit Provider Specialist | DX: Z71.3 Dietary counseling and surveillance (principal); E66.01 Morbid (severe) obesity due to excess calories; Z68.42 Body mass index [BMI] 45.0-49.9, adult; I10 Essential (primary) hypertension ==

== ENCOUNTER → 2023-01-06 | Outpatient (CLI) | payer OTHER, SELFPAY ==
--- NOTE | 2023-01-06 06:50 | CT_ITS ---
CT RIGHT LOWER EXTREMITY WITH 3-D IMAGING CLINICAL INDICATION: VARUS DEFORMITY. Camacho protocol TECHNIQUE: Axial CT images of the RIGHT lower extremity was performed without IV contrast material. Coronal and sagittal reformats were provided. RADIATION DOSAGE (If Supplied By Facility): CTDIvol = ( 19.62 ) mGy, DLP = ( 1328.00 ) mGycm COMPARISON: FINDINGS: Bones: Multiple axial tomographic images of the right lower extremity were obtained. Coronal and sagittal reconstruction was obtained as well. Imaging of the right hip joint was obtained. Mild degree of joint space narrowing. Calcific bursitis overlying the greater trochanter. Imaging of the knee joint was obtained. There is a moderate degree of the medial joint space narrowing with degenerative spur formation of the distal medial femoral condyle. Mild to moderate degree of the patellofemoral osteoarthritis. Imaging of the ankle joint was obtained. No significant abnormality is seen. Soft Tissues: Small knee joint effusion. The superficial soft tissues are unremarkable without evidence of edema, hematoma, or foreign body. CT/Extremity Lower without Contra IMPRESSION: Moderate degree of joint space narrowing involving the medial compartment of knee joint with degenerative spur formation as well as degenerative changes and osteoarthritis of the patellofemoral joint. Minimal joint effusion. Electronically Signed: Ilir Jackson MD at 14:03 EDT ,
== END | disposition home or self-care (01) ==
LOC: CT 06:45
PROVIDERS: PCP Internal Medicine; Referring Provider Specialist; Visit Provider Specialist
DX: Z01.818 Encounter for other preprocedural examination (principal); M21.161 Varus deformity, not elsewhere classified, right knee
CPT/HCPCS: 73700

== ENCOUNTER 2023-01-20 07:54 | Outpatient (RCR) | payer OTHER, SELFPAY | END 2023-01-30 23:59 | LOC: NS 07:54 | PROVIDERS: PCP Internal Medicine; Referring Provider Specialist; Visit Provider Specialist | DX: Z71.3 Dietary counseling and surveillance (principal); E66.01 Morbid (severe) obesity due to excess calories; I10 Essential (primary) hypertension ==

== ENCOUNTER 2023-01-27 12:29 | Observation (INO) | payer OTHER, SELFPAY ==
--- NOTE | 2023-01-06 06:48 | EKG12_ITS ---
Test Reason : PREOP Blood Pressure : / mmHG Vent. Rate : 073 BPM Atrial Rate : 073 BPM P-R Int : 142 ms QRS Dur : 080 ms QT Int : 388 ms P-R-T Axes : 009 -18 000 degrees QTc Int : 427 ms Normal sinus rhythm Voltage criteria for left ventricular hypertrophy Nonspecific T wave abnormality Abnormal ECG Confirmed by JAN WISDOM, GENEVA ([id number]), editor newspaper RADHA HARRINGTON ([id number]) on 01/08/2023 11:09:31 AM Referred By: Jose Maria Valdez Confirmed By:GENEVA MONTOYA MD
[2023-01-06 07:22] LABS: Absolute Lymphocyte Count 1.19 X10^3/uL (0.83-4.51); Absolute Neutrophil Count 3.1 X10^3/uL (2.0-7.7); Basophil# 0.02 X10^3/uL; Basophil% 0.4 % (0-1); Eosinophil# 0.23 X10^3/uL; Eosinophils% 4.4 % (0-5); Hematocrit 39.5 % (37-47); Hemoglobin 12.5 g/dL (12.0-15.0); Lymphocyte # 1.19 X10^3/ul (0.83-4.51); Lymphocyte % 22.9 % (19-41); Mean Corp Hgb Conc 31.6 g/dL (32-36); Mean Corpuscular Hgb 27.4 pg (27.0-32.0); Mean Corpuscular Volume 86.6 fL (81-99); Monocyte# 0.66 X10^3/uL; Monocyte% 12.7 % (0-10); NRBC Flagged by Analyzer 0 % (0-5); Neutrophil # 3.09 X10^3/uL (2.7-7.7); Neutrophil % 59.4 % (47-70); Platelet Count 282 K/mm3 (150-450); RBC Distribution Width CV 16.1 % (11.6-14.6); RBC Distribution Width SD 51.5 fl (35.1-43.9); Red Blood Count 4.56 M/mm3 (4.2-5.4); White Blood Count 5.2 K/mm3 (4.4-11.0)
[2023-01-06 08:19] LABS: Magnesium 2.3 mg/dL (1.6-2.6)
[2023-01-06 08:48] LABS: Partial Thromboplast Time 29.2 Seconds (24.1-36.2); Prothrombin Time (Protime)PT. 13.5 SECONDS (11.7-14.9)
[2023-01-12 18:14] LABS: Albumin, Serum 3.7 g/dL (3.2-5.0)
--- NOTE | 2023-01-19 16:45 | HP.PCM_ITS ---
History and Physical History and Physical? Patient Name: Zakia Sykes : 1960 From:? EVER RIOS PA-C? DATE OF PRE-OPERATIVE EXAM: 01/18/2023 DATE OF SURGERY:? 01/27/2023 SCHEDULED PROCEDURE:? Right total knee arthroplasty HISTORY OF PRESENT ILLNESS: Preoperative history and physical exam was performed on January 18, 2023.? This is a 62-year-old female who has had ongoing pain for several years with her right knee.? Pain can reach 7/10 with activities.? Pain has been constant.? Her pain is increased with going up and down stairs, walking, and standing.? She does have start up pain.? She has difficulty with activities of daily living including getting dressed, housework and shopping.? She has fallen secondary to the knee pain on 3 separate occasions.? She gets buckling of the right knee.? Patient states the pain does awaken her at night.? She feels unsafe walking on uneven ground.? Patient has been using a cane on occasion.? She has tried rest, ice, heat, elevation with minimal relief.? She has tried previous corticosteroid injection in which it only gave her 2 weeks of relief.? She has tried physical therapy and home exercises.? Patient has been through weight loss program in which she has done very well with.? Patient has been through both aquatic therapy and nutritional consultation.? She has continued to make lifestyle changes.? She denies past history of surgery on the right knee.? After failing conservative measures and discussing treatment options with Dr. Jose Maria Valdez, the patient does wish to proceed with a right total knee arthroplasty.? We have obtain surgical clearance from the primary care physician Dr. Ferguson.? Patient has medical history pertinent for gastroesophageal reflux disease, hypertension, hypercholesterolemia, vertigo, psoriasis, sleep apnea, asthma.? She also has past history of gastric bypass.? She does report having a previous stress test and EKG and heart catheter which was normal.? She does not need to follow the inventory control clerk and states it was reported from the inventory control clerk caused by stress.? Patient also reports having a previous GI bleed which was found to be from her hemorrhoids.? These were treated.? Denies history of ulcers.? She currently denies any chest pain, shortness of breath, fevers chills or recent infections.? She also denies past history of DVT or pulmonary embolism. REVIEW OF SYSTEMS: Review Of Systems: Constitutional: Reports anxiety, but denies anorexia, change in appetite, fever, difficulty sleeping, weight change. Cardiovasular: Denies chest pain, heart murmur, irregular heartbeat and peripheral vascular disease. Respiratory: Reports asthma and sleep apnea, but denies cough, pneumonia, shortness of breath, tuberculosis and wheezing. Gastrointestinal: Denies constipation, diarrhea, heartburn, nausea, rectal itching, bloody stools and vomiting. Genitourinary: Denies incontinence. Musculoskeletal: Reports gait disturbance, leg swelling, pain, trouble walking and weakness. Skin: Denies Raynaud's, history of shingles and tattoo. Neurological: Reports dizziness and numbness/tingling but denies ambulatory dysfunction and tremor. Psychiatric: Reports anxiety, depression, insomnia and stress, but denies mental illness. Hematologic/Lymphatic: Reports anemia, bleeding/bruising tendency and past transfusion. Reviewed, no changes. PAST MEDICAL HISTORY: Advance Care Plan: No Advance Directives Effective Date: 08/21/2022 Past Medical History: Medical Problems: Arthritis, Asthma, Acid Reflux, Hypercholesterolemia, High Blood Pressure, ost eoporosis, Vertigo Covid- - 2019 AND 2021 Psoriasis, Sleep Apnea Accidents: Sports Related Injury - (1982) VOLLEYBALL, RT KNEE SNAPPED BACKWARDS WHEN PLAYING? Surgical Hx: Gallbladder - (2000) [place], [place] Hysterectomy - (2005) [facility] Gastric Bypass - (2000) [place], [place] Left Hand - (2007) [facility] Knee Arthroscopy - (10/25/2009) [email or web address] Anesthesia Complications: None Assistive Devices: Glasses Reviewed, no changes. SOCIAL HISTORY: Social History: Marital: .Occupation: [employer]low [employer] - [facility].Work Status: Currently Working.Hand Dominance: Left-handed. Personal Habits:? Cigarette Use: Former.Smokeless Tobacco: Never Used Smokeless Tobacco.E-Cigarette Use: Never used.Alcohol: Has consumed alcohol in the past, Occasionally.Drug Use: Former Illegal Drug User - (1981) [place].Enjoy Exercising: Exercises 1-3 x/month. Reviewed, no changes. VITALS: Ht: 61.5 Wt: 244lb Wt k.678 BMI: 45.4 BP: 118/62 Pulse: 81 Resp: 8 T: 97.4 T: 36.3C Pain Level: 4 O2SatR: 97 ALLERGIES: Megestrol Acetate - Causes Suicidal Tendencies Latex - Causes Irritation On Skin Relafen - Vomiting Megestrol Cat Dander Dog Dander? MEDICATIONS: Vitamin B Complex? 1 PO qday, Paroxetine HCL 40 mg one tab once daily PO, Vraylar 1.5 mg one cap once daily, Alendronate Sodium 70 mg one tab once weekly, Amitriptyline HCL 25 mg one tab once daily PO prn, Montelukast Sodium 10 mg one tab PO once daily, Pantoprazole Sodium 40 mg one tab once daily PO, Rosuvastatin Calcium 10 mg one tab once daily PO, Amlodipine Besylate 10 mg one tab once daily PO, Aspirin 81 81 mg one tab once daily PO, Ivermectin 1 % apply to affected areas once daily, Meclizine HCL 25 mg one tab PO bid prn, Multi For Her? one cap once daily PO, Calcium Magnesium 750 300-300 mg two tabs PO bid, Vitamin E 180 MG (400 Unit) one cap once daily PO PRE-OP EXAM:? General appearance:NORMAL? ? ? Other: Eyes: Conjunctivae and lids: NORMAL? Pupils: ERR Ears, Nose, Mouth, and Throat: NORMAL? Other: Inspection of lips, teeth and gums: NORMAL? ?Other: Neck: Examination of neck: no masses noted. Respiratory: Assessment of respiratory effort: NORMAL? ?Other: ?Auscultation of lungs: clear to auscultation no wheezes, rhonchi or rales. Cardiovascular:? Auscultation of heart: regular rate and rhythm, no murmurs, gallops or rubs. PHYSICAL EXAMINATION: Patient does walk with an antalgic gait.? Right knee has tenderness to palpation along the medial joint line.? She has partially correctable varus alignment.? Range of motion 0 extension to 115 flexion.? She has firm endpoint with varus and valgus stress test and anterior/posterior drawer exam.? She also has varicosities over the lower right leg.? Sensation intact to light touch. IMAGING STUDIES: Previous x-rays of the right knee reveal varus alignment with medial joint space narrowing, subchondral sclerosis, osteophyte formation consistent with severe stage IV bone on bone erosive osteoarthritis.? On the left knee and also reveals severe stage IV bone on bone erosive osteoarthritis. IMPRESSION: 1.? Severe right knee osteoarthritis with varus alignment 2.? Severe left knee osteoarthritis 3.? Hypertension 4.? Gastroesophageal reflux disease 5.? Asthma 6.? Hypercholesterolemia 7.? Vertigo 8.? Psoriasis 9.? Sleep apnea 10.? Previous gastric bypass 2000 11.? Morbid obesity with BMI 45.4 PLAN: Dr. Jose Maria Valdez did discuss and review with the patient all treatment options including surgical versus nonsurgical options.? Patient does wish to proceed with the above-stated procedure.? Potential risks, benefits, and complications of the procedure were discussed in detail including but not limited to , infection, nerve and blood vessel damage, persistent pain, numbness, tingling, paresthesias, blood clot, pulmonary embolism, and requirement for possible further surgery.? The patient expressed full understanding and has no further questions for the doctor.? Patient does agree to proceed with the above-stated procedure and has signed the surgery consent form. POST-OP MEDICATION PLAN: Medications: Due to patient's morbid obesity patient will be placed on doxycycline for 2 weeks postoperatively.? Discussed with the patient to take appropriate precautions as she has more sensitive to the sunlight.? Also recommend probiotics while on antibiotics. DVT Prophylaxis:? Aspirin 81 mg twice daily for 4 weeks postoperatively.? Denies past history of DVT or pulmonary embolism This dictation was created using voice recognition software. Phonetic and/or grammatical errors may exist. ___? I have re-examined the patient.? There are no clinical changes since date of exam. ___? See progress notes for changes. ___? Dictated on admission Date: ? ? ?Time: Signature:
[2023-01-27] VITALS (17 sets, daily range): BP systolic 103–133; BP diastolic 66–95; PULSE 66–89; RESP 16–24; TEMP 36.2–37.1; O2SAT 93–100; BMI 44.3
[2023-01-27] MEDS: Lactated Ringers 1,000 ML 999 ML IV ×2 (08:37→13:26)
[2023-01-27] MEDS: Acetaminophen 500 MG Tablet 1000 MG PO ×3 (08:38→21:04)
[2023-01-27] MEDS: Magnesium 1 GM over 15 mins IV (08:38)
[2023-01-27] MEDS: Gabapentin 600 MG Tablet PO (08:38)
[2023-01-27] MEDS: Celecoxib 200 MG Capsule 400 MG PO (08:38)
[2023-01-27 09:11] LABS: Bedside Glucose 68 mg/dL (74-106)
--- NOTE | 2023-01-27 10:30 | KNEE_PTH ---
PATIENT: JAMES BOURGEOIS LOC: [id number] U#:[id number] AGE/SX: 62/F ROOM: ID319 RE01/27/[address]: Dr. Jose Maria Valdez MD : 1960 BED: 1 DIS: 01/28/2023 SPEC #: [id number] RECD: 01/27/23 13:42 STATUS: JOHN REKathy #: [id number] WARNER: 01/27/23 10:[address]: Jose Maria Valdez DEPT: SURGICAL PATHOLOGY RECD BY: Basil Stroud ENTERED: 01/28/23 07:34 SP TYPE: TOTAL KNEE OTHR DR: DO Dr. Lenka Tabor MD Tissues: Knee, NOS Procedures: Decalcification bone/plaque Surgery Specimen Level IV HEADER OPERATION: MARCO ANTONIO, robotic assisted right total knee arthroplasty PRE-OP DIAGNOSIS: Severe right knee osteoarthritis with varus alignment TISSUE SUBMITTED: Bone and soft tissue right knee MICROSCOPIC DIAGNOSIS Bone and tissue of right knee, total knee resection: Severe degenerative joint disease. AM:antonio 02/01/2023 MICROSCOPIC DESCRIPTION Slides are reviewed. GROSS DESCRIPTION Received is one container designated bone and soft tissue right knee. The specimen consists of multiple fragments of valenzuela-yellow bone measuring in aggregate 11.0 x 10.0 x 3.0 cm. Also in the specimen container are multiple fragments of yellow-white soft tissue measuring in aggregate 7.0 x 3.0 x 1.0 cm. A number of bony fragments contain articular surfaces consistent with tibial plateau and femoral condyle and displaying prominent osteophyte formation, eburnation and bone erosion. Electronic Heat Seal Operator sections are submitted in two cassettes as follows: 1 - soft tissue, 2 - bone after decalcification. / SJ:antonio 01/28/2023 TC:5 CPT: 08087, 31477
[2023-01-27] MEDS: Lactated Ringers 1,000 ML 15 ML IV ×2 (10:31→14:31)
[2023-01-27] MEDS: Cefazolin 2 GM in 0.9% Normal Saline (100mL Bag) 100 ML IV (11:16)
[2023-01-27] MEDS: TXA 1000mg in NS100 100ml (IVPB at Incision) 660 MG IV (11:26)
[2023-01-27] MEDS: dexAMETHasone 10 MG/ML Vial IV (11:26)
[2023-01-27] MEDS: TXA 1000mg in NS100 100ml (IVPB at Closure) 660 MG IV (12:19)
[2023-01-27] MEDS: JPS (Morphine 10mg/ml) OPERA.SITE (12:32)
--- NOTE | 2023-01-27 13:35 | RAD_ITS ---
STUDY: X-RAY - RIGHT KNEE REASON FOR EXAM: Female, 62 years old. Post op - AP and Lateral xray of operative knee in PACU. TECHNIQUE: 2 views of the right knee. COMPARISON: None. FINDINGS: There are new postoperative changes related to right total knee arthroplasty with patellar resurfacing. There is a vertical staple line along the anterior aspect of the knee. There is gas in the patellofemoral joint recess and anterior soft tissues, compatible with recent surgery. The orthopedic hardware components are intact. There is no periprosthetic fracture. Normal proximal tibiofibular articulation. RAD/Knee 1 or 2 Views IMPRESSION: New postoperative changes related to right total knee arthroplasty. Electronically Signed: Nelson Bowser MD at 14:14 EDT ,
[2023-01-27 13:47] LABS: Bedside Glucose 134 mg/dL (74-106)
--- NOTE | 2023-01-27 14:11 | PN.HOSP_ITS ---
Reason for Visit Reason for Visit: Right knee osteoarthritis Subjective Subjective Patient is a 62-year-old female who presented to [facility] for an electi ve right total knee arthroplasty on 01/27/[address] Valdez. Patient has had ongoing pain in her right knee for several years and activities are limited by pain. She has undergone noninvasive measures including injections, oral pain medication, therapy services including physical and occupational therapy and had been through a weight loss program which she had done well with. Unfortunately, she had had ongoing pain so was scheduled for an elective total knee arthroplasty. She has a past medical history of morbid obesity, osteoporosis psoriasis, GERD, hyperlipidemia, hypertension, sleep apnea, and asthma. She is remotely had a gastric bypass. She was seen postoperatively on the medical surgical floor. Patient is having some mild nausea but overall feels fairly well. Objective Data Objective Data Vital Signs: Vital Signs Temp Pulse Resp BP Pulse Ox O2 Del Method O2 Flow Rate 98.7 F 81 17 103/77 98 Nasal Cannula 4 01/27/23 13:18 01/27/23 13:59 01/27/23 13:59 01/27/23 13:59 01/27/23 13:59 01/27/23 13:59 01/27/23 13:59 FiO2 34 01/27/23 13:45 Oxygen Flow Rate (L/min) 4 Oxygen Delivery Method Nasal Cannula Weight: 110 kg Body Mass Index (BMI) 44.3 Intake & Output: Intake and Output for Last 24 Hours 01/25/23 01/26/23 01/27/23 23:59 23:59 23:59 Intake Total 2432 / 2432 Balance 2432 / 2432 Lab / Micro Data 01/06/23 06:44 Labs: Laboratory Results - last 24 hr 01/27/23 08:27: POC Glucose 68 L 01/27/23 13:30: POC Glucose 134 H Micro: Microbiology 01/06/23 06:44 Swab (Method) Nasal Screen MRSA/MSSA - Final Physical Exam Const alert, oriented x3, no apparent distress and well nourished; Negative for average body habitus Constitutional Narrative: Morbidly obese, white female, upper middle-aged, sitting up in bed, at bedside, patient appears comfortable and nontoxic HEENT head/scalp atraumatic, moist oral mucous membranes and oropharynx normal HEENT Narrative: Mallampati 3, no thrush Head and Scalp: normocephalic Resp normal respiratory effort, no retractions, no use of accessory muscles and clear to auscultation bilaterally Auscultation: Negative for rales, rhonchi or wheezes Cardio regular rate, regular rhythm, S1 normal heart sound, S2 normal heart sound, no murmurs, no rub, no gallops and no clicks GI normal to inspection, nondistended, normoactive bowel sounds, soft to palpation and non-tender Extremity no clubbing, cyanosis or edema Extremity Narrative: Right knee with polar ice in place, bilateral lower extremities with MOSHE hose in place Neuro oriented x3, moves all extremities and no focal motor deficits Speech: speech normal Psych affect normal Psych Narrative: Extremely pleasant Assessment & Plan Assessment/Plan (1) Right knee DJD: PLAN: Plan Right knee osteoarthritis -Postop day 0 right total knee arthroplasty -Pain management per primary service -Would recommend bowel regimen -Weightbearing as tolerated -PT and OT consultations -DVT prophylaxis per primary service -Will need 2-week follow-up for wound check and imaging Hypertension -Continue home amlodipine Hyperlipidemia -Continue home statin GERD -Continue home I Psoriasis -Continue home topical creams Asthma/allergies -As needed albuterol -Continue home Singulair Osteoporosis -Continue home alendronate -Continue home vitamin D supplementation TRAVIS -Would recommend patient can continue CPAP while hospitalized at at bedtime and with naps to avoid CO2 retention Morbid obesity -BMI is 44.4 -Patient is currently undergoing weight loss program to help her through her knee surgery -History of gastric bypass surgery DVT prophylaxis -Per primary service Charges/Coding Visit Charges Inpatient E&M: 85130 Subs Hosp L2
[2023-01-27] MEDS: 0.9% Saline Lock 10 ML Syringe IV (17:10)
[2023-01-27] MEDS: Ondansetron 4 MG/2 ML Vial IV (17:10)
[2023-01-27] MEDS: oxyCODONE 5 MG Tablet PO ×2 (17:45→23:52)
[2023-01-27] MEDS: Cefazolin 1 GM/50 ML BAG IV (19:18)
[2023-01-27] MEDS: Aspirin 81 MG TAB.CHEW PO (21:03)
[2023-01-27] MEDS: Atorvastatin Calcium 20 MG Tablet PO (21:03)
[2023-01-27] MEDS: Montelukast 10 MG Tablet PO (21:03)
[2023-01-27] MEDS: Senna/Docusate Sodium 1 Tablet 2 TABLET PO (21:04)
[2023-01-28] MEDS: Cefazolin 1 GM/50 ML BAG IV (02:45)
[2023-01-28 02:52] VITALS: BP 110/68; PULSE 80; RESP 18; TEMP 36.5; O2SAT 98
[2023-01-28 06:01] VITALS: BP 112/70; PULSE 68; RESP 16; TEMP 36.8; O2SAT 99
[2023-01-28] MEDS: Acetaminophen 500 MG Tablet 1000 MG PO ×2 (06:05→13:15)
[2023-01-28] MEDS: oxyCODONE 5 MG Tablet PO ×2 (06:29→16:16)
[2023-01-28 06:37] LABS: Hematocrit 34.3 % (37-47); Hemoglobin 10.3 g/dL (12.0-15.0); Mean Corpuscular Hgb 27.3 pg (27.0-32.0); Mean Platelet Vol. 10.2 fl (6.2-12.0); Platelet Count 252 K/mm3 (150-450); RBC Distribution Width CV 16.9 % (11.6-14.6); RBC Distribution Width SD 56.5 fl (35.1-43.9); Red Blood Count 3.77 M/mm3 (4.2-5.4); White Blood Count 6.6 K/mm3 (4.4-11.0)
[2023-01-28 07:20] VITALS: O2SAT 98
[2023-01-28 07:21] LABS: Anion Gap 3 (5-15); BUN 17 mg/dL (7-18); Calcium,Total 8.5 mg/dL (8.5-10.1); Chloride 108 mmol/L (98-107); Creatinine, Serum 1.06 mg/dL (0.55-1.02); EST Glomerular Filtration Rate 56 mL/min (>60); Est Glom Filt Rate - Afr Amer 68 mL/min (>60); Estimated Creatinine Clearance 44.64 ml/min; Glucose 95 mg/dL (74-106); Potassium 4.4 mmol/L (3.5-5.1); Sodium Level 138 mmol/L (136-145)
[2023-01-28 07:59] VITALS: BP 107/69; PULSE 74; RESP 16; TEMP 36.8; O2SAT 96
[2023-01-28] MEDS: Multivitamins,Therapeutic Tablet 1 TABLET PO (08:12)
[2023-01-28] MEDS: Cholecalciferol (Vit D3) 125 MCG CAPSULE (5,000 UNITS) PO (08:12)
[2023-01-28] MEDS: Aspirin 81 MG TAB.CHEW PO (08:12)
[2023-01-28] MEDS: Ensure Surgery 237 ML LIQUID PO (08:13)
--- NOTE | 2023-01-28 09:23 | PN.ORTHO_ITS ---
Subjective Subjective The patient was sitting in bedside chair upon examination. Patient denies any chest pain, shortness of breath, dizziness, lightheadedness, nausea or vomiting, or calf pain. Pain is controlled on medications. No adverse overnight events. Patient overall is doing very well this morning. Her pain has been controlled. She has been up with physical therapy. Patient does wish to go home today. Objective Data Objective Data Vital Signs: Vital Signs Temp Pulse Resp BP Pulse Ox O2 Del Method O2 Flow Rate 98.3 F 74 16 107/69 96 Room Air 2 01/28/23 07:59 01/28/23 07:59 01/28/23 07:59 01/28/23 07:59 01/28/23 07:59 01/28/23 07:59 01/28/23 07:20 FiO2 34 01/27/23 13:45 Oxygen Flow Rate (L/min) 2 Oxygen Delivery Method Room Air Weight: 110 kg Body Mass Index (BMI) 44.3 Intake & Output: Intake and Output for Last 24 Hours 01/26/23 01/27/23 01/28/23 23:59 23:59 23:59 Intake Total 3602 / 3602 410 / 410 Output Total Balance 3602 / 3602 409 / 409 Lab / Micro Data 01/28/23 06:25 01/28/23 06:25 Labs: Laboratory Results - last 24 hr 01/27/23 13:30: POC Glucose 134 H 01/28/23 06:25: WBC 6.6, RBC 3.77 L, Hgb 10.3 L, Hct 34.3 L, MCV 91.0, MCH 27.3, MCHC 30.0 L, RDW Std Deviation 56.5 H, RDW Coeff of Cecelia 16.9 H, Plt Count 252, MPV 10.2, Sodium 138, Potassium 4.4, Chloride 108 H, Carbon Dioxide 27.0, Anion Gap 3 L, BUN 17, Creatinine 1.06 H, Estim Creat Clear Calc 44.64, Est GFR (MDRD) Af Amer 68, Est GFR (MDRD) Non-Af 56 L, BUN/Creatinine Ratio 16.0, Glucose 95, Calcium 8.5 Micro: Microbiology 01/06/23 06:44 Swab (Method) Nasal Screen MRSA/MSSA - Final Radiography Diagnostic Testing: Radiology Impression Knee X-Ray 01/27/23 13:35 IMPRESSION: New postoperative changes related to right total knee arthroplasty. Electronically Signed: Nelson Bowser MD at 14:14 EDT , Physical Exam Narrative Vital signs stable and afebrile. SCDs and MOSHE hose are in place bilaterally. Patient does have to keep pulling up the MOSHE hose due to body habitus. Discussed with her about discontinuing the MOSHE hose if this continues. Patient is able to plantarflex and dorsiflex actively. Sensation is intact to light touch to saphenous, sural, superficial and deep peroneal, and tibial distribution. Minimal drainage over the middle one third main Mepilex dressing, minimal drainage over the distal pin site dressing Negative Homans bilaterally, negative signs and symptoms of DVT. Const alert, oriented x3 and no apparent distress Assessment & Plan Assessment/Plan (1) Status post total right knee replacement: PLAN: Plan 1. S/P right total knee arthroplasty POD #1 2. Continue Pain Medications: Tylenol and oxycodone 3. DVT Prophylaxis: Take 81 mg aspirin twice daily for 4 weeks postoperatively for DVT prophylaxis. Patient denies past history of DVT or pulmonary embolism 4. PT/OT: Weightbearing as tolerated with walker 5. Currently on doxycycline for 2 weeks postoperatively due to BMI greater than 40.0. I discussed with the patient potential side effects of doxycycline including sensitivity to the sunlight and increased risk of skin burn. Recommend patient take appropriate precautions. Also recommend patient to take probiotic while on the antibiotic. Patient voiced understanding agreement. 6. Lab work was currently reviewed and appropriate for discharge planning. 7. Encouraged Incentive Spirometry 8. Disposition: Plan will be for discharge home today as long as patient is medically stable, tolerates therapy, and pain is well controlled. She does have outpatient physical therapy established at [facility]. She will follow-up per postoperative instructions. She would like her medications E scribed to [facility] pharmacy. I did discuss with her the MOSHE hose and if she continues to have struggles with the MOSHE hose staying on her thigh I would like her to discontinue these. If she does discontinue these she is to make sure she is doing more elevation throughout the day for swelling control. She is aware that she may see increased swelling with discontinued use of the MOSHE hose. Upon discharge she will contact her office with any concerns or questions. I have reviewed the [place] Automated Rx Reporting System (OARRS) report for this patient for refill pattern and other prescriber involvement as part of the appropriate surveillance for the provision of acute and chronic controlled medications. The report was requested and reviewed on the date of this entry and was considered in the prescribing process. This dictation was created using voice recognition software. Phonetic and/or grammatical errors may exist.
--- NOTE | 2023-01-28 09:30 | PCM.DC ---
Discharge Instructions Diet Discharge Diet: No restrictions Activity Discharge Activity: May Not Drive (No driving for 6 weeks postoperatively. Must also be off all narcotics and able to walk 100 feet without the use of cane or walker.) May shower in (days): 1 (Please turn dressing away from water. Okay to get wet as long as dressing is intact to skin.) Ice area for (Minutes): 20 (Every 1-2 hours while awake. Please place barrier between the skin and ice pack.) Weight Bearing Status: Weight bearing as tolerated Keep extremity elevated above heart level: Operative Extremity Dressing / Incision Call your doctor if your incision/area has: Continuous Slow Oozing, Sudden Increased Bleeding, Increased Pain/ Swelling, Increased Redness and Foul Smelling Discharge Call your doctor if you observe: Fever of 101 or Higher, Coldness, Increased Pain, Numbness or Tingling, Change in Color, Shortness of breath, Chest pain, Calf discomfort and Uncontrolled pain Remove Dressing in: 4 days (Okay to remove dressing on February 01, 2023) Additional Dressing/Incision Instructions:: Follow [facility] Post-op Instructions. Once postoperative dressing has been removed only use gentle soap and water over the incision. Do not use any ointments, Neosporin, salves, alcohol pads over the incision for 6 weeks postoperatively. Do not submerge underwater for 6 weeks postoperatively. Continue with MOSHE hose/elastic stockings for 2 weeks postoperatively. May remove at nighttime but needs to be placed back on the leg during the day. If MOSHE hose are not fitting appropriately okay to remove them. If MOSHE hose are removed make sure you are doing extra elevation of the right lower extremity postoperatively to prevent swelling. Do NOT use alcohol with narcotic pain medication. Do NOT make important decisions while taking narcotic medication. If you have problems with taking your medication (rash, itching, nausea, etc.) call the office at once. Follow Up Care Test Results: Test results from this visit will be discussed in further detail at your follow-up appointment, if applicable. Discharge Plan Admission Admit Date/Time: 01/27/23 12:29 Attending Provider: Jose Maria Valdez Primary Care Provider: Lenka Ferguson Consulting Providers: Isaiah Vanegas Discharge Orders/Prescriptions Prescriptions: New acetaminophen 500 mg Tablet 1,000 mg PO TID Qty: 100 0RF Rx Instructions: Do not take more than 3000 mg Tylenol in a 24-hour period. aspirin 81 mg Tablet,Chewable 81 mg PO BIDCM Qty: 0 0RF Rx Instructions: Take 81 mg aspirin twice daily for 4 weeks postoperatively for DVT prophylaxis. doxycycline monohydrate 100 mg Capsule 100 mg PO BID 14 Days Qty: 28 0RF oxycodone 5 mg Tablet 5 - 10 mg PO Q4H PRN PRN (Reason: as needed for pain) 5 Days Qty: 42 0RF sennosides-docusate sodium [Stool Softener-Stimulant Laxat] 8.6-50 mg Tablet 2 tab PO BID 3 Days Qty: 12 0RF Rx Instructions: Take until first bowel movement, then as needed Continued calcium carb-mag ox-zinc sulf 333-133-5 mg tablet 2 tab PO BID Patient Comments: Vit D 600IU, Calcium 1000mg, magnesium 400mg cholecalciferol (vitamin D3) 5,000 unit capsule 5,000 unit PO DAILY multivitamin tablet 1 tab PO DAILY blue-green algae (Spirulina) 500 mg capsule 500 mg capsule 1,500 mg PO DAILY amlodipine 10 mg tablet 10 mg PO DAILY meclizine 25 mg tablet 25 mg PO TID PRN (Reason: dizziness) Qty: 30 0RF ivermectin 1 % cream 30 applic TOPICAL DAILY PRN (Reason: psoriasis) vitamin B complex Capsule 1 cap PO DAILY vitamin E 268 mg (400 unit) capsule 268 mg PO DAILY pantoprazole 40 mg tablet,delayed release (DR/EC) 40 mg PO DAILY Qty: 90 3RF albuterol sulfate 90 mcg/actuation HFA aerosol inhaler 1 - 2 puff INHALATION Q4H PRN PRN (Reason: Sob &/Or Wheezing) Qty: 8.5 1RF montelukast 10 mg tablet See Rx Instructions .ROUTE .COMPLEX Qty: 90 3RF Dose Instruction: TAKE 1 TABLET BY MOUTH EVERY EVENING FOR ASTHMA Rx Instructions: TAKE 1 TABLET BY MOUTH EVERY EVENING FOR ASTHMA amitriptyline 25 mg tablet 25 mg PO QHS Qty: 90 1RF alendronate 70 mg tablet 70 mg PO QWEEK Qty: 12 3RF paroxetine HCl 40 mg tablet 40 mg PO DAILY Qty: 90 1RF rosuvastatin 10 mg tablet 10 mg PO DAILY Qty: 90 1RF Discontinued aspirin [Adult Aspirin Regimen] 81 mg tablet,delayed release (DR/EC) 81 mg PO DAILY Patient Comments: for left heart cath acetaminophen 325 MG tablet 650 mg PO Q4H PRN PRN (Reason: Mild-Moderate Pain (-09/09)) 0RF Referrals / Follow Up: Physical,Therapy [Other] - 02/01/23 Lenka Ferguson MD [Primary Care Provider] - Tre Valencia PA-C [Med Staff - [facility] Practice Prof] - 02/12/23 9:30 am Disposition Disposition (needs filled in before D/C Order can be placed): Home, Self Care
--- NOTE | 2023-01-28 09:42 | CASEMGMT ---
RN AMANDA Face to Face with patient for initial transition planning/care coordination assessment. RN AMANDA introduced self and role at [facility]. Patient sitting up in chair, alert and oriented. Patient willing to participate in assessment and is able to answer all questions appropriately. Care providers, pharmacy, and demographics verified. Patient wishes to discharge home, she has therapy set up on Wednesday at [facility]. Patient states she has no further needs or concerns at this time. CM to follow for discharge planning needs that may arise. PCP:Phyllis Specialists:ela Valdez; Hina cardio Preferred Pharmacy:[facility] Retail Insurance:Chastity [facility], Retrace Prescription Benefit: yes LNOK:Jewel Sykes, ; Darlene Mohsen, friend Living Arrangements:Pt lives with in a single story home with 3 steps to enter. Pt reports she is I in ADL's typically and her is able to assist post surgery. Pt denies concerns at home. Transportation: Pt drives self and denies concerns with transportation. Pt and friend will transport pt until able to drive again. DME:Standard walker, cane HHC:Denies SNF:Denies Disposition Plan: Home with outpt therapy already set up
[2023-01-28] MEDS: Famotidine 20 MG Tablet PO (10:07)
[2023-01-28] MEDS: Paroxetine 20 MG Tablet 40 MG PO (10:07)
[2023-01-28] MEDS: Doxycycline 100 MG CAPSULE PO (10:07)
[2023-01-28] MEDS: amLODIPine 10 MG Tablet PO (10:07)
[2023-01-28] MEDS: Pantoprazole Sodium 40 MG Tablet PO (10:07)
[2023-01-28] MEDS: Senna/Docusate Sodium 1 Tablet 2 TABLET PO (10:07)
--- NOTE | 2023-01-28 11:26 | PHA.DC.MC.R ---
Pharmacy [facility] Pharmacy Service has performed discharge medication reconciliation and counseling for this patient. The patient was counseled on the following discharge medications and changes in medications for homegoing were reviewed. 1. OXYCODONE 2. DOXYCYCLINE 3. TYLENOL 4. SENNA-DOCUSATE 5. ASPIRIN The Reason for Use, instructions for use, and potential side effects were reviewed for all new medications. The patient's questions regarding all of their medications were answered. The patient was able to verbally demonstrate an understanding of their discharge medications. Medications at Discharge Home Medications calcium carbonate 333 mg-magnesium oxide 133 mg-zinc sulf 5 mg tablet 2 tab PO BID supplement 04/20/18 cholecalciferol (vitamin D3) 125 mcg (5,000 unit) capsule 5,000 unit PO DAILY supplement 04/20/18 multivitamin 1 tab PO DAILY supplement 04/20/18 blue-green algae (Spirulina) 500 mg capsule 1,500 mg PO DAILY 08/30/19 pantoprazole 40 mg tablet,delayed release 40 mg PO DAILY gerd #90 tabs 11/17/19 vitamin B complex 1 cap PO DAILY 07/29/21 albuterol sulfate 90 mcg/actuation aerosol inhaler 1 - 2 puff inhalation Q4H PRN PRN Sob &/Or Wheezing #8.5 grams 04/23/22 amlodipine 10 mg tablet 10 mg PO DAILY htn 06/10/22 meclizine 25 mg tablet 25 mg PO TID PRN dizziness #30 tabs 06/10/22 montelukast 10 mg tablet See Rx Instructions .Route .COMPLEX #90 tabs 07/13/22 amitriptyline 25 mg tablet 25 mg PO QHS sleep,migraines #90 tabs 11/20/22 alendronate 70 mg tablet 70 mg PO QWEEK #12 tabs 12/14/22 ivermectin 1 % topical cream 30 applic topical DAILY PRN psoriasis 12/21/22 vitamin E 268 mg (400 unit) capsule 268 mg PO DAILY 01/05/23 paroxetine HCl 40 mg tablet 40 mg PO DAILY anxiety/depression #90 tabs 01/13/23 rosuvastatin 10 mg tablet 10 mg PO DAILY cholesterol #90 tabs 01/25/23 acetaminophen 500 mg tablet 1,000 mg (2 x 500 mg) PO TID #100 tabs 01/28/23 aspirin 81 mg chewable tablet 81 mg PO BIDCM #0 tabs 01/28/23 doxycycline monohydrate 100 mg capsule 100 mg PO BID 14 days #28 caps 01/28/23 oxycodone 5 mg tablet 5 - 10 mg (1 - 2 x 5 mg) PO Q4H PRN PRN as needed for pain 5 days #42 tabs 01/28/23 sennosides 8.6 mg-docusate sodium 50 mg tablet (Stool Softener-Stimulant Laxative) 2 tab PO BID 3 days #12 tabs 01/28/23
--- NOTE | 2023-01-28 12:53 | CHAPLAIN ---
Type of Pastoral Visit _x__ Initial Visit ___ Follow-up Visit ___ On-call Visit ___ General Patient Visit ___ Spiritual Assessment ___ Family Conference ___ Bereavement ___ Rapid Response ___ Code Blue ___ Other (describe below) Pastoral Care Referral From _x__ Patient ___ Family ___ Nurse ___ Physician ___ Mechanical Service Specialist ___ Director Life Insurance ___ Other (describe below) Sacrament/Intervention _x__ Active listening ___ Anointing ___ Nondenominational ___ Bereavement ___ Communion _x__ [place]inyere exploration ___ ___ Life review _x__ Prayer ___ Reconciliation ___ Sacrament of Sick ___ Supportive presence ___ Wedding ___ Other (describe below) Pastoral Comments patient expresses appreciation for great care by hospital and for the service of spiritual care; pt is optimistic, has good support, and strong in her chinyere; pt welcomes presence and prayers of performance consultant;
[2023-01-28 15:58] VITALS: BP 136/82; PULSE 80; RESP 16; TEMP 36.9; O2SAT 99
--- NOTE | 2023-02-02 15:37 | OP.PCM_ITS ---
Report of Operation Date of Procedure: 01/27/23 Pre-Operative Diagnosis: Right knee primary osteoarthritis Post-Operative Diagnosis: Right knee primary osteoarthritis Surgery/Procedure Performed:: Right minimally invasive robotic total knee replacement Description of Surgical Findings:: Stable knee with good patella tracking Surgeon: Jose Maria Valdez welding machine operator helper arc: Tre Valencia Type of Anesthesia: Spinal Special Medications: 2 g Ancef, 1 g TXA at incision, 1 g TXA closure, 10 mg Decadron, joint cocktail (5 mg Duramorph, 30 mL of 0.5% Ropivicaine, 1000 units of epinephrine, 30 mg of Toradol) Specimen's removed: Bony cuts Description of Procedure: Implants used: 1. [place] size 3 triathlon cruciate retaining distal femoral press-fit component 2. James size 4 press-fit tritanium tibial baseplate 3. [place] X3 12 mm CS polyethylene 4. [place] X3 35 mm asymmetric patella Brief history operative indications: 62-year-old F with history of right knee osteoarthritis with radiographic findings with loss of joint space, osteophyte formation and subchondral scler osis. Failed conservative measures as mentioned in the H&P. Discussion of total knee arthroplasty as well as risk and benefits were discussed the patient including but not limited to blood loss, DVTs, PEs, neurovascular damage, general risk of anesthesia including loss of life, and stiffness or instability were discussed with patient. Patient demonstrated understanding and was able to sign informed consent. Procedure: On the date of procedure patient's right lower extremity was marked in the preoperative area. The patient was then taken back to the operating room where the patient was placed on the table in the supine position. All bony prominences were identified a well-padded. Anesthesia assumed control of the C-spine and airway and remained controlled throughout the remainder of the procedure. A tourniquet was placed on the right upper thigh and the leg was prepped in a sterile fashion. The surgeon then scrubbed at this time .Upon reentering the room right lower extremity was draped in a standard orthopedic fashion. A timeout was then called and everyone agreed upon the side, the site, the procedure to be performed, patient's identity and antibiotics given. Esmarch bandage was used to exsanguinate the extremity and the tourniquet was placed up to 250 mmHg with the knee in flexion. A midline skin incision was made and sharp dissection was taken down through skin subcutaneous tissue and fat. The standard medial parapatellar incision was made and the patella was subluxed laterally. An Appropriate deep MCL release was done and the fat pad was resected. Our attention was then directed to the patella. The patella was everted and a flat resection was made. The knee was then flexed up in 2 femoral pins were placed inside the incision and 2 tibial pins were placed outside the incision in the medial tibia bicortically. Once this was completed the 2 checkpoints in the femur and tibia were placed. Knee was then flexed up and the bony landmarks were registered. Once this was completed knee was taken through range of motion and manually stressed allowing us to a plan for an appropriate tibial cut. The robotic arm was brought into the field sterilely and checkpoint and saw were registered. Based on the patient's deformity the tibial cut was made. At this time the tensioner was then placed in the joint and ligament tension was checked at 90 degrees and full extension. Based on the patient's ligamentous tension appropriate adjustments were made to the operative plan and ligament releases were done. Once we were happy with our operative plan with balanced flexion and extension gaps our attention was directed to the femur. The robot was brought into the field sterilely and registered. Posterior condylar cuts, anterior chamfer cuts and anterior cuts were appropriately made for a size 3 femur. When these were completed the saws were switched out in the distal femoral and posterior chamfer cuts were made. Protecting the soft tissue throughout this time. A size 4 tibial base plate was selected. the knee was flexed to 90 degrees and the soft tissues and posterior osteophytes were removed from the joint. 40 cc of the periarticular injection was injected into the posterior medial corner of the joint. The appropriate trials were then placed on the femur and tibia. A trial polyethylene was trialed to ensure proper balancing and stability of the knee. The appropriate tibial internal rotation was then marked with a bovie. Our attention was then directed to the patella. The lug holes were drilled and the patella trial was placed. Patellar tracking was checked and deemed appropriate. Once we were happy lug holes were drilled for the femur and trial components were removed. the tibia was subluxed and pinned into place and the keel was pun ched and drilled appropriately. Final components were verified and opened, and cement was mixed in a vacuum. James Simplex cement was used. The wound was copiously irrigated with normal saline. When the cement was ready the components were impacted into place starting with the tibia, femur and finally cementing the patella. The trial poly component was placed and the knee was placed in full extension. All excess cement was removed in the process. Once the cement had cured the tracking, alignment and balance were verified and a size 12 mm polyethylene component was placed. Once the final components were placed a 3-minute dilute Betadine lavage was performed followed by an Irrisept lavage was performed and the wound was copiously irrigated with normal saline solution and the periarticular injection was given. The wound was closed in a layer lehman fashion using #1 vicryl interrupted sutures for the arthrotomy, 2-0 interrupted Vicryl suture for the subcuticular layer and roque for final skin closure. A sterile compressive dressing was then placed. The patient was then awakened from anesthesia, transferred to the [facility] and transferred to the PACU for recovery. Post op plan DVT ppx: ASA 81mg BID, thigh high compression stockings Follow up: in office in 2 weeks for wound check PT: to start POD #0 at hospital, outpatient PT should be arranged. placed on doxycycline post op d/t BMI >40 My physician first assistant manager was a vital part of this case. He was important in appropriate retraction during the case, and protection of soft tissues during bony cuts. His intimate knowledge of the case and my steps aided in safe and expedient completion of the procedure as well as appropriate position of the leg during the case. He was also vital in assisting with closure under my direct supervision. Due to the complexity of this case robotic arm was used to assist in the surgery to improve accuracy and clinical outcomes. Complications No intraoperative complications Admit VTE Documentation VTE Present on Admission: No VTE Mechan Device Prophylaxis: SCD's and Thigh High MOSHE Hose VTE Pharm Prophylaxis ordered?: Yes
== END 2023-01-28 16:25 | disposition home or self-care (01) ==
LOC: SDC 12:42 → MS3 12:42
PROVIDERS: Admitting Provider Specialist; PCP Internal Medicine; Referring Provider Specialist; Visit Provider Specialist
PROC: 0SRC0JZ Replacement of Right Knee Joint with Synthetic Substitute, Open Approach (ICD-10-PCS; CPT 27447; principal; 2023-01-27 10:00)
DX: M17.0 Bilateral primary osteoarthritis of knee (principal); E66.01 Morbid (severe) obesity due to excess calories; Z68.42 Body mass index [BMI] 45.0-49.9, adult; R42 Dizziness and giddiness; E78.00 Pure hypercholesterolemia, unspecified; K21.9 Gastro-esophageal reflux disease without esophagitis; M81.0 Age-related osteoporosis without current pathological fracture; F17.210 Nicotine dependence, cigarettes, uncomplicated; G47.30 Sleep apnea, unspecified; I10 Essential (primary) hypertension; L40.9 Psoriasis, unspecified; J45.909 Unspecified asthma, uncomplicated; Z98.84 Bariatric surgery status; Z79.82 Long term (current) use of aspirin; Z79.899 Other long term (current) drug therapy
CPT/HCPCS: 27447; 01402; 64447; S2900; 36415; 73560; 80048; 82040; 82962; 83735; 85025; 85027; 85610; 85730; 87081; 88305; 88311; 93005; 94668; 96365; 96366; 96375; 97110; 97116; 97162; 97166; 97530; 99221; 99252; C1776; J7120; A4216; G0378; G0463; J2405; J3475

== ENCOUNTER 2023-03-17 11:02 | Outpatient (RCR) | payer OTHER, SELFPAY | END 2023-03-17 11:04 | disposition home or self-care (01) | LOC: PT 11:02 | PROVIDERS: PCP Internal Medicine; Visit Provider Internal Medicine | DX: Z96.651 Presence of right artificial knee joint (principal); Z47.1 Aftercare following joint replacement surgery; M17.9 Osteoarthritis of knee, unspecified ==

== ENCOUNTER 2023-04-22 17:00 | Outpatient (RCR) | payer OTHER, SELFPAY ==
--- NOTE | 2023-03-04 11:03 | HP.PTREVAL ---
Re-Evaluation Intro: Minesh Valencia PA-C, It has been my pleasure to treat JAMES BOURGEOIS over the last 11 visits for R TKA. Please see the progress note below for an update on the physical therapy plan of care! Subjective Subjective: I am doing really well today Objective Objective/Function: R knee pain ranges from 2-5/10 R knee ROM: 0-8-115 degrees R knee MMT: flex= 15, ext= 47 #F Pt is progressing well toward Rx goals Plan Plan Plan: PROM and AROM activities, core stabilization ex, concentric and eccentric strengthening exs, HEP Balance/Gait/Functional tests Balance/Special Test Scores Lower Extremity Functional Score: 46 WOMAC Total Score: 96 WOMAC Percentage: 0 Goals Goals Goal 1:: Pt. to improve ROM in R knee ext. to 0 degrees and R knee flex. to 125 degrees in order to match contralateral side and aid in normal ambulation to return to prior level of function. Goal Time Frame: 4-6 Weeks Goal Progress: Progressing Goal 2:: Pt. to increase MMT results of R knee flexion 23 #F and R knee extension 35 #F in order to match contralateral side and aid in normal ambulation to return to prior level of function. Goal Time Frame: 4-6 Weeks Goal Progress: Progressing Goal 3:: Pt. to decrease pain level by 50% on VAS scale in order to aid in a return to normal ADLs and iADLs to return to prior level of function. Goal Time Frame: 4-6 Weeks Goal Progress: Progressing Goal 4:: Pt. to be I in HEP to aid in recovery from TKA by gaining strength and ROM in R knee to return to prior level of function. Goal Time Frame: 4-6 Weeks Goal Progress: Progressing Anticipated Interventions Anticipated Interventions Patient/Client Instruction: Educate patient on: Condition, Plan of Care, Risk Factors and Benefits of Fitness Program For the Purpose of:: To decrease pain and To improve self management Therapeutic Exercise to Include: Flexibilty training, Passive ROM and Active ROM For the Purpose of:: To decrease pain, To decrease swelling/inflammation, To increase ROM, To improve ability to perform ADL's, To reduce risk of recurrence and To improve health and function Manual Therapy Techniques to Include: Passive ROM For the Purpose of:: To decrease pain and To increase ROM Re-Evaluation Ending Re-evaluation ending: Please do not hesitate to contact me at [phone] by phone or if you have questions or concerns regarding this new plan of care! Sincerely, Murray Ornelas, PT, ATC
--- NOTE | 2023-03-15 10:42 | HP.PTREVAL ---
Re-Evaluation Intro: Minesh Valencia PA-C, It has been my pleasure to treat JAMES BOURGEOIS over the last 13 visits for R TKA. Please see the progress note below for an update on the physical therapy plan of care! Subjective Subjective: I am more achy right now Objective Objective/Function: R knee pain ranges from 1-3/10 R knee ROM: 0-124 degrees R knee MMT: flex= 14 #F, ext= 37 #F Pt is progressing well at this time but is limited with functional strength at this time. Plan Plan Plan: PROM and AROM activities, core stabilization ex, concentric and eccentric strengthening exs, HEP Balance/Gait/Functional tests Balance/Special Test Scores Lower Extremity Functional Score: 46 WOMAC Total Score: 96 WOMAC Percentage: 0 Goals Goals Goal 1:: Pt. to improve ROM in R knee ext. to 0 degrees and R knee flex. to 125 degrees in order to match contralateral side and aid in normal ambulation to return to prior level of function. Goal Time Frame: 4-6 Weeks Goal Progress: Progressing Goal 2:: Pt. to increase MMT results of R knee flexion 23 #F and R knee extension 35 #F in order to match contralateral side and aid in normal ambulation to return to prior level of function. Goal Time Frame: 4-6 Weeks Goal Progress: Progressing Goal 3:: Pt. to decrease pain level by 50% on VAS scale in order to aid in a return to normal ADLs and iADLs to return to prior level of function. Goal Time Frame: 4-6 Weeks Goal Progress: Progressing Goal 4:: Pt. to be I in HEP to aid in recovery from TKA by gaining strength and ROM in R knee to return to prior level of function. Goal Time Frame: 4-6 Weeks Goal Progress: Progressing Anticipated Interventions Anticipated Interventions Patient/Client Instruction: Educate patient on: Condition, Plan of Care, Risk Factors and Benefits of Fitness Program For the Purpose of:: To decrease pain and To improve self management Therapeutic Exercise to Include: Flexibilty training, Passive ROM and Active ROM For the Purpose of:: To decrease pain, To decrease swelling/inflammation, To increase ROM, To improve ability to perform ADL's, To reduce risk of recurrence and To improve health and function Manual Therapy Techniques to Include: Passive ROM For the Purpose of:: To decrease pain and To increase ROM Re-Evaluation Ending Re-evaluation ending: Please do not hesitate to contact me at [phone] by phone or if you have questions or concerns regarding this new plan of care! Sincerely, Murray Ornelas, PT, ATC
--- NOTE | 2023-04-22 17:36 | HP.PTDCSUM ---
Discharge Summary D/C summary: It has been my pleasure to treat JAMES BOURGEOIS referred by Minesh Valencia PA-C, with the diagnosis of R TKA for a total of 25 visit(s). Discharge Date: Please see the following information for a summary of their discharge status. Subjective Subjective: Pt reports she is ready to be discharged Pain Right Knee: Pain Intensity (Out of 10): 0 Overall Improvement % Improvement: 98 Objective Objective/Function: R knee pain 0/10 R knee ROM: 0-118 degrees R knee MMT: flex= 22, ext= 60 #F Girth at joint line: 58 cm [id number] Goals Goal 1:: Pt. to improve ROM in R knee ext. to 0 degrees and R knee flex. to 125 degrees in order to match contralateral side and aid in normal ambulation to return to prior level of function. Goal Progress: Progressing Goal 2:: Pt. to increase MMT results of R knee flexion 23 #F and R knee extension 35 #F in order to match contralateral side and aid in normal ambulation to return to prior level of function. Goal Progress: Goal Met Goal 3:: Pt. to decrease pain level by 50% on VAS scale in order to aid in a return to normal ADLs and iADLs to return to prior level of function. Goal Progress: Goal Met Goal 4:: Pt. to be I in HEP to aid in recovery from TKA by gaining strength and ROM in R knee to return to prior level of function. Goal Progress: Goal Met Plan Plan: Discharge to HEP D/C Information d/c sentence: If there are questions or concerns regarding this patient's physical therapy, please feel free to call me at [phone]. Thank you for the referral of this patient. Sincerely, Murray Ornelas, PT, ATC Balance/Gait/Functional tests Balance/Special Test Scores Lower Extremity Functional Score: 62 WOMAC Total Score: 96 WOMAC Percentage: 0 Improvement % Improvement: 98
== END 2023-04-22 19:00 | disposition home or self-care (01) ==
LOC: PT 17:00
PROVIDERS: PCP Internal Medicine; Referring Provider Physician Assistant Surgical; Visit Provider Physician Assistant Surgical
DX: M17.0 Bilateral primary osteoarthritis of knee (principal); Z96.651 Presence of right artificial knee joint; Z47.1 Aftercare following joint replacement surgery
CPT/HCPCS: 97016; 97110; 97140; 97161; 97164

== ENCOUNTER → 2023-08-03 | Outpatient (CLI) | payer OTHER, SELFPAY ==
--- NOTE | 2023-08-03 13:09 | BI_ITS ---
MAMMOGRAPHY - BILATERAL SCREENING REASON FOR EXAM: Female, 62 years old. Routine annual screening examination. PERTINENT HISTORY: Sister with breast cancer. History of prior bilateral breast reduction surgery. TECHNIQUE: Digital bilateral breast maxi (3D mammographic acquisition) in the CC and MLO projections. 2-D mediolateral oblique (MLO) and craniocaudad (CC) views of both breasts were obtained. CAD: Full Field Digital Mammography with Computer Added Detection was performed. COMPARISON: Comparison is made with prior study April 16, 2021 and May 22, 2019. FINDINGS: Breast Composition: The breasts are almost entirely fatty. There are no dominant masses or suspicious calcifications. No other significant abnormalities are identified. There has been no significant change since the prior study. BI/SCRN MAMM (CAD)W/MAXI BILAT IMPRESSION: Stable bilateral screening mammogram. Yearly follow-up mammogram recommended. (A) ASSESSMENT CATEGORY: BIRADS Category 1: Negative. A letter regarding these results will be sent to the patient by the facility within 30 days. Approximately 10% of breast cancers are not detected by mammography. A normal mammogram should not delay biopsy of a clinically suspicious abnormality. [id number] Electronically Signed: Ilir Jackson MD at 13:59 EDT ,
== END | disposition home or self-care (01) ==
LOC: OPBI 13:09
PROVIDERS: PCP Internal Medicine; Referring Provider Internal Medicine; Visit Provider Internal Medicine
DX: Z12.31 Encounter for screening mammogram for malignant neoplasm of breast (principal); Z80.3 Family history of malignant neoplasm of breast
CPT/HCPCS: 77063; 77067

== ENCOUNTER → 2023-08-31 | Outpatient (CLI) | payer OTHER, SELFPAY ==
--- NOTE | 2023-08-31 15:51 | BD_ITS ---
STUDY: DUAL ENERGY X-RAY ABSORPTIOMETRY / DXA REASON FOR EXAM: Female, 62 years old. Post menopausal TECHNIQUE: Bone Mineral Density (BMD) measurements of lumbar spine and bilateral hips were obtained. COMPARISON: Comparison is made with prior study of January 15, 2021. FINDINGS: Lumbar Spine (L1-L4): g/cm2 (0.925) / T-score (-1.1) / Z-score (0.3) Findings are suggestive of osteopenia with a low fracture risk. Left Femur Total: g/cm2 (0.980) / T-score (0.3) / Z-score (1.3) Left Femoral Neck: g/cm2 (0.678) / T-score (-1.5) / Z-score (-0.2) Right Femur Total: g/cm2 (0.930) / T-score (-0.1) / Z-score (0.9) Right Femoral Neck: g/cm2 (0.725) / T-score (-1.1) / Z-score (0.2) The T-Scores on the most recent prior examination were: Lumbar Spine (L1-L4): There has been improvement of bone density since the previous examination. Left Femur Total: which represents an improvement of 4.4%. Right Femur Total: which represents an improvement of 0.2%. BD/Dexa Bone Density Study IMPRESSION: The patient is considered osteopenic as outlined below according to World Aris Organization (WHO) criteria with a low fracture risk. There has been improvement of bone density since the previous examination. Reference Information: The T-score is the number of standard deviations above or below the standard which is normal for young adults at their peak bone mineral density. The World Health Organization (WHO) interprets the T-scores as follows: Above -1 Normal bone density Between -1 and -2.5 Osteopenia Equal to / or below -2.5 Osteoporosis As a practical clinical guideline, osteopenia may be graded as follows: Mild -1 through -1.5 Moderate -1.6 through -2.0 Severe -2.1 through -2.4 The Z-score is the number of standard deviations above or below age-matched controls. A Z-score of less than -1.5 would be considered abnormal. References: 1. NIH Osteoporosis and Related Bone Diseases www osteo.org 2. International Society for Clinical Densitometry www iscd.org 3. National Osteoporosis Foundation www nof.org Electronically Signed: Ilir Jackson MD at 15:38 EDT ,
== END | disposition home or self-care (01) ==
LOC: OPBD 15:51
PROVIDERS: PCP Internal Medicine; Visit Provider Internal Medicine
DX: Z13.820 Encounter for screening for osteoporosis (principal); Z78.0 Asymptomatic menopausal state
CPT/HCPCS: 77080

== ENCOUNTER → 2023-12-09 | Outpatient (CLI) | payer OTHER, SELFPAY ==
[2023-12-09 14:26] LABS: Bacteria 0 SEEN /hpf (None Seen); Mucous, Urine 0 SEEN /hpf (<or=2+); Red Blood Cells-Urine 0 SEEN /hpf (0-5); Squamous Epithelial Cells - UA 0 SEEN /hpf (5-10)
[2023-12-09 15:19] LABS: Color, Urine Yellow (Yellow); Glucose, Dipstick Normal (Normal); Ketone-Dipstick Negative (Negative); Leukocyte Esterase-Dipstick 25 /ul (Negative); Nitrite-Dipstick Negative (Negative); Occult Blood-Urine Negative /ul (Negative); Protein-Dipstick Negative (Negative); Urine Bilirubin Dipstick Negative (Negative); Urine Clarity Sl. Cloudy (Clear); Urine Urobilinogen Normal (Normal)
[2023-12-09 15:25] LABS: Absolute Lymphocyte Count 1.35 X10^3/uL (0.83-4.51); Absolute Neutrophil Count 3.3 X10^3/uL (2.0-7.7); Basophil# 0.04 X10^3/uL; Basophil% 0.7 % (0-1); Eosinophil# 0.33 X10^3/uL; Hemoglobin 12.4 g/dL (12.0-15.0); Lymphocyte # 1.35 X10^3/ul (0.83-4.51); Lymphocyte % 24.5 % (19-41); Mean Corp Hgb Conc 31.8 g/dL (32-36); Mean Corpuscular Hgb 28.1 pg (27.0-32.0); Mean Corpuscular Volume 88.4 fL (81-99); Mean Platelet Vol. 10.2 fl (6.2-12.0); Monocyte# 0.53 X10^3/uL; Monocyte% 9.6 % (0-10); NRBC Flagged by Analyzer 0 % (0-5); Neutrophil # 3.26 X10^3/uL (2.7-7.7); Platelet Count 295 K/mm3 (150-450); RBC Distribution Width CV 15.1 % (11.6-14.6); Red Blood Count 4.41 M/mm3 (4.2-5.4); White Blood Count 5.5 K/mm3 (4.4-11.0)
[2023-12-09 15:42] LABS: White Blood Cells 0-5 SEEN /hpf (0-5)
[2023-12-09 15:59] LABS: Vitamin B12 > 2000 pg/mL (211-911); Vitamin D,25 Hydroxy 56.5 ng/mL
[2023-12-09 16:20] LABS: ALB/GLOB Ratio 0.9 RATIO (0.9-2.4); AST(SGOT) 29 U/L (15-37); Alanine Aminotransfer ALT/SGPT 25 U/L (13-56); Albumin, Serum 3.5 g/dL (3.2-5.0); Alkaline Phosphatase 111 U/L (45-117); Anion Gap 5 (5-15); BUN 21 mg/dL (7-18); BUN/Creat Ratio 19.3 RATIO (10-20); Calcium,Total 9.4 mg/dL (8.5-10.1); Chloride 103 mmol/L (98-107); Creatinine, Serum 1.09 mg/dL (0.55-1.02); EST Glomerular Filtration Rate 54 mL/min (>60); Est Glom Filt Rate - Afr Amer 66 mL/min (>60); Globulin 4.1 g/dL (2.2-4.2); Glucose 100 mg/dL (74-106); Potassium 4.2 mmol/L (3.5-5.1); Protein, Total 7.6 g/dL (6.4-8.2); Sodium Level 138 mmol/L (136-145); Thyroid Stim Hormone (TSH) 1.07 uIU/mL (0.358-3.74)
[2023-12-14 11:59] LABS: ANTINUCLEAR ANTIBODIES DIRECT Negative (Negative)
[2023-12-15 18:08] LABS: Vitamin B1, Thiamine 396.7 nmol/L (66.5-200.0)
== END | disposition home or self-care (01) ==
LOC: BIMLAB 14:24
PROVIDERS: PCP Internal Medicine; Referring Provider Physician Assistant; Visit Provider Physician Assistant
DX: R35.0 Frequency of micturition (principal); Z98.84 Bariatric surgery status; R53.83 Other fatigue
CPT/HCPCS: 36415; 80053; 81001; 82306; 82607; 82746; 84425; 84443; 85025; 86038; 86225; 86235; 87077; 87086; 87088; 87186

== ENCOUNTER → 2025-02-12 | Outpatient (CLI) | payer OTHER, SELFPAY | END | disposition home or self-care (01) | LOC: LABSPEC 02-13 14:02 | PROVIDERS: PCP Internal Medicine; Referring Provider Internal Medicine; Visit Provider Internal Medicine | DX: R82.90 Unspecified abnormal findings in urine (principal) | CPT/HCPCS: 87077; 87086; 87088; 87186 ==

== ENCOUNTER → 2025-02-26 | Outpatient (CLI) | payer OTHER, SELFPAY ==
[2025-02-26 17:25] LABS: Free T3 2.8 pg/mL (2.18-3.98)
== END | disposition home or self-care (01) ==
LOC: LAB 16:34
PROVIDERS: PCP Internal Medicine; Referring Provider Nurse Practitioner Family; Visit Provider Nurse Practitioner Family
DX: R73.01 Impaired fasting glucose (principal); I10 Essential (primary) hypertension; F41.8 Other specified anxiety disorders; Z98.84 Bariatric surgery status; F32.9 Major depressive disorder, single episode, unspecified
CPT/HCPCS: 36415; 83036; 84439; 84443; 84481

== ENCOUNTER → 2025-03-02 | Outpatient (CLI) | payer OTHER, SELFPAY ==
--- NOTE | 2025-03-02 16:36 | US_ITS ---
PROCEDURE: THYROID 03/02/2025 REASON FOR EXAM: POSSIBLE NODULE TECHNIQUE: Procedure Code: USTHY Modality: US Procedure: THYROID FINDINGS: Right thyroid lobe size: 4.2 x 1.5 x 1.3 cm Left thyroid lobe size: 3.9 x 1.6 x 1.3 cm Isthmus: 0.3 cm Background parenchymal echotexture is homogeneous. Nodules: 1. Lobe: Right, Location: Midpole, Size: 1.1 cm, Stability: N/A Composition: Mixed cystic and solid (+1) Echogenicity: Hypoechoic (+2) Margin: Smooth (+0) Shape: Wider than tall (+0) Echogenic Foci: None (+0) TI-RADS: 3. ACR White Paper guidelines (Tessler, et al. J AM Kris Radiol. 2017; 14: 587-595) suggest the following: TIRADS level 3 nodule, size less than 1.5 cm. No need for further follow-up or FNA due to its small size. 2. Lobe: Right, Location: Midpole, Size: 0.7 cm, Stability: N/A Composition: Mixed cystic and solid (+1) Echogenicity: Hypoechoic (+2) Margin: Smooth (+0) Shape: Wider than tall (+0) Echogenic Foci: Macrocalcification (+1) TI-RADS: 4. ACR White Paper guidelines (Tessler, et al. J AM Kris Radiol. 2017; 14: 587-595) suggest the following: TIRADS level 4 nodule, size less than 1 cm. No need for further follow-up or FNA due to its small size. 3. Lobe: Right, Location: Midpole, Size: 0.5 cm, Stability: N/A Composition: Mixed cystic and solid (+1) Echogenicity: Hypoechoic (+2) Margin: Smooth (+0) Shape: Wider than tall (+0) Echogenic Foci: None (+0) TI-RADS: 3. ACR White Paper guidelines (Tessler, et al. J AM Kris Radiol. 2017; 14: 587-595) suggest the following: TIRADS level 3 nodule, size less than 1.5 cm. No need for further follow-up or FNA due to its small size. 4. Lobe: Left, Location: Superior pole, Size: 0.5 cm, Stability: N/A Composition: Mixed cystic and solid (+1) Echogenicity: Hypoechoic (+2) Margin: Smooth (+0) Shape: Wider than tall (+0) Echogenic Foci: None (+0) TI-RADS: 3. ACR White Paper guidelines (Tessler, et al. J AM Kris Radiol. 2017; 14: 587-595) suggest the following: TIRADS level 3 nodule, size less than 1.5 cm. No need for further follow-up or FNA due to its small size. 5. Lobe: Left, Location: Lower pole, Size: 0.8 cm, Stability: N/A Composition: Mixed cystic and solid (+1) Echogenicity: Hypoechoic (+2) Margin: Smooth (+0) Shape: Wider than tall (+0) Echogenic Foci: None (+0) TI-RADS: 3. ACR White Paper guidelines (Tessler, et al. J AM Kris Radiol. 2017; 14: 587-595) suggest the following: TIRADS level 3 nodule, size less than 1.5 cm. No need for further follow-up or FNA due to its small size. US/Thyroid IMPRESSION: 1. Thyroid nodules as above with TI-RADS follow-up recommendations. Reading Location: [id number]
--- OUTSIDE RECORDS SUMMARY | 2025-03-02 16:50 | XMS RPT_ITS | CCD ---
Author Organization [facility] Care Team Providers Care Independent Marketing Consultant Name Role Phone Elissa Stover Unavailable Unavailable Dr. Lenka Ferguson Primary Care Provider [phone] Dr. Lenka Ferguson Referring Provider [phone] JANE Feliciano Attending Provider Unavailab Dr. Lenka Gonzalez Primary Care Provider [phone] Dr. Lenka Ferguson Referring Provider [phone] JANE Woods Attending Provider Dr. Lenka Ferguson Attending Provider [phone] Ranjith RENTAL CAR PORTER, RENTAL CAR PORTER-C Neli Quesada Attending Provider [phone] Dr. Lenka Ferguson Primary Care Provider [phone]) Dr. Lenka Ferguson Referring Provider [phone] Dr. Gumaro Rubin Attending Provider [phone] Dr. Lenka Ferguson Attending Provider [phone] Payton RENTAL CAR PORTER, RENTAL CAR PORTER-C Adam Attending Provider [phone] Payton RENTAL CAR PORTER, RENTAL CAR PORTER-C Adam Referring Provider [phone] Payton RENTAL CAR PORTER, RENTAL CAR PORTER-C Adam Other Provider Dr. Pedro Read Attending Provider Friend, Dr. Buckner Attending Provider [phone] Dr. Lenka Ferguson Primary Care Provider [phone] Dr. Lenka Ferguson Referring Provider [phone] Dr. Brannon Giron Attending Provider [phone] Dr. Lenka Ferguson Primary Care Provider [phone] Dr. Lenka Ferguson Referring Provider [phone] Dr. Gumaro Rubin Attending Provider [phone] Dr. Lenka Ferguson Attending Provider [phone] Dr. Brannon Giron Attending Provider [phone] Cain RENTAL CAR PORTER, RENTAL CAR PORTER-C Adam Attending Provider [phone] Cain RENTAL CAR PORTER, RENTAL CAR PORTER-C Adam Referring Provider [phone] Cain RENTAL CAR PORTER, RENTAL CAR PORTER-C Daam Other Provider Dr. Pedro Read Attending Provider [phone] Dudley Wallace Attending Provider [phone] Dr. Dudley Wallace Other Provider [phone] Lenka Ferguson Primary Care Provider [phone]) Dr. Lenka Ferguson Referring Provider [phone] Dr. Pedro Read Attending Provider [phone] Dudley Wallace Attending Provider [phone] JANE Woods Attending Provider Dr. Gumaro Rubin Attending Provider [phone] Cain RENTAL CAR PORTER, RENTAL CAR PORTER-C Adam Attending Provider [phone] Dr. Lenka Ferguson Primary Care Provider [phone] Dr. Amado Corcoran Attending Provider Dr. Lenka Ferguson Referring Provider [phone] Cain RENTAL CAR PORTER, RENTAL CAR PORTER-C Adam Attending Provider [phone] JANE Woods Attending Provider Dr. Gumaro Rubin Attending Provider [phone] AJNE Lindquist Attending Provider Phyllis, Dr. Og Primary Care Provider [phone] Phyllis, Dr. Og Referring Provider [phone] Payton ROWAN, JHOANA Medina Attending Provider [phone] Phyllis, Dr. Og Primary Care Provider [phone] Phyllis, Dr. Og Referring Provider [phone] Olealex, Dr. Og Attending Provider [phone] Phyllis, Dr. Og Primary Care Provider [phone] Olealex, Dr. Og Referring Provider [phone] Olealex, Dr. Og Primary Care Provider [phone] [phone] Olealex, Dr. Og Attending Provider [phone] Olealex, Dr. Og Referring Provider [phone] Dr. Pedro Read Attending Provider Dr. Jose Maria Valdez Referring Provider Dr. Jose Maria Valdez Admit Provider Dr. Jose Marai Valdez Other Provider Dr. Laurie Bowser Attending Provider Dr. Laurie Bowser Other Provider Dr. Lenka Ferguson Primary Care Provider [phone] Phyllis, Dr. Og Primary Care Provider [phone] [phone]) Phyllis, Dr. Og Referring Provider [phone] JANE Woods Attending Provider Dr. Lenka Ferguson Attending Provider [phone] Phyllis WISDOM, Dr. Og Primary Care Physician Phyllis WISDOM, Dr. Og Referring Provider [phone] Jose Maria Woods Attending Physician [phone] Assessment, Health Risk Attending Physician Unav ailable Assessment, Health Risk Referring Provider Unava ilcase Ferguson MD, Dr. Og Attending Physician [phone] Joser RENTAL CAR PORTER-CClarissa Attending Physician Ungdesmondr RENTAL CAR PORTER-CClarissa Referring Provider [phone] Oleghe, Efewongbe Primary Care Unavailable Oleghe, Efewongbe Attending Unavailable Oleghe, Efewongbe Referring Unavailable Oleghe, Efewongbe Primary Care Unavailable Oleghe, Efewongbe Attending Unavailable Oleghe, Efewongbe Referring Unavailable Wesley Dhaliwal Attending Unavailable Oleghe, Efewongbe Primary Care Unavailable Oleghe, Efewongbe Referring Unavailable Jose Maria Woods Attending Unavailable Oleghe, Efewongbe Primary Care Unavailable Oleghe, Efewongbe Referring Unavailable Oleghe, Efewongbe Primary Care Unavailable Clarissa Barroso Attending Unavailable Oleghe, Efewongbe Referring Unavailable Jose Maria Woods Attending Unavailable Oleghe, Efewongbe Primary Care Unavailable Oleghe, Efewongbe Referring Unavailable Jose Maria Woods Attending Unavailable Oleghe, Efewongbe Primary Care Unavailable Oleghe, Efewongbe Referring Unavailable Jose Maria Woods Attending Unavailable Oleghe, Efewongbe Primary Care Unavailable Oleghe, Efewongbe Referring Unavailable Oleghe, Efewongbe Primary Care Unavailable Clarissa Barroso Attending Unavailable UngererClarissa Referring Unavailable Oleghe, Efewongbe Primary Care Unavailable Assessment, Health Risk Attending Unavaila ble Assessment, Health Risk Referring Unavaila ble Allergies Allergy Classification Reported Allergen(s) Allergy Type Date of Onset Reaction(s) Facility (1 source) shellfish, unspecified; Translations: [SHELLFISH] food allergy 6 [facility] Work Phone: (1 source) MEGASTROL; Translations: [MEGASTROL] food allergy 6 [facility] Work Phone: (20 sources) Megestrol Drug Allergy 2 Unknown, anxious/suicida l [facility] Comment on above: I get crazy and wero cidal (20 sources) Shellfish; Translations: [shellfish derived] Allergy to substance 2 Vomiting [facility] (20 sources) cat dander; Translations: [cat dander] Allergy to substance 2 Shortness of breath [facility] (20 sources) dog dander Allergy to substance 2 Shortness of breath [facility] (9 sources) Adhesive agent; Translations: [adhesive] Allergy to substance 3 Hives [facility] (8 sources) nabumetone Drug Allergy 3 Other [facility] Comment on above: PT UNAWARE OF REACTI ON (8 sources) natural latex rubber Allergy to substance 3 Rash [facility] (1 source) Megestrol Drug Allergy 5 [facility] (1 source) nabumetone Drug Allergy 5 [facility] (1 source) natural latex rubber Drug allergy (disorder) 5 [facility] (1 source) dog dander Drug allergy (disorder) 5 [facility] Medications Current Medications Medication Drug Class(es) Dates Sig (Normalized) Sig (Original) acetaminophen 500 mg oral tablet (20 sources) Start: 01-28-2023 Start: 01-28-2023 take 3000 mg by mout h three times daily Acetaminophen Active 1000 MG PO THREE TIMES A DAY 100 January 28, 2023 12:00am Do not take more than 3000 mg Tylenol in a 24-hour period. Start: 05-20-2018 End: 01-28-2023 take 2 tablets by mouth every four hours as needed for pain Acetaminophen 325 MG tablet Discontinued 650 mg PO EVERY 4 HOURS NEEDED as needed for Mild-Moderate Pain (1-5/10) 0 May 20, 2018 1:00am January 28, 2023 9:32am Start: 05-20-2018 End: 01-28-2023 take 650 mg by mouth every four hours as needed Acetaminophen Discontinued 650 MG PO EVERY 4 HOURS NEEDED May 20, 2018 1:00am January 28, 2023 9:32am Albuterol-Budesonide (2 sources) Start: 08-22-2024 benzonatate 200 mg oral capsule (20 sources) Non-narcotic Antitussive Start: 08-22-2024 take 1 capsule by mouth three times daily as needed for cough Start: 03-22-2024 End: 08-10-2024 take 1 capsule by mouth three times daily as needed for cough Benzonatate 200 mg capsule Discontinued 200 mg PO THREE TIMES A DAY as needed for cough 20 0 March 22, 2024 1:00am August 10, 2024 4:54pm Start: 12-20-2018 End: 04-06-2019 take 2 capsules by mouth three times daily as needed for cough Benzonatate 100 MG capsule Discontinued 200 mg PO 3 TIMES DAILY NEEDED as needed for Cough 20 0 December 22, 2018 12:00am January 23, 2019 3:00pm Start: 12-20-2018 End: 04-06-2019 take 200 mg by mouth three times daily as needed Benzonatate Discontinued 200 MG PO 3 TIMES DAILY NEEDED December 22, 2018 12:00am January 23, 2019 3:00pm blue-green algae (Spirulina) 500 mg capsule (20 sources) Start: 08-30-2019 take 1 capsule by mouth once daily blue-green algae (Spirulina) 500 mg capsule Active 1500 MG PO DAILY August 30, 2019 1:57pm Start: 08-30-2019 take 1 capsule by mo uth once daily blue-green algae (Spirulina) 500 mg capsule Active 1500 MG PO DAILY August 29, 2019 11:00pm Start: 08-30-2019 take 1 capsule by mo uth once daily blue-green algae (Spirulina) 500 mg capsule Active 1500 MG PO DAILY August 30, 2019 12:00am Blue-Green Algae (Spirulina) 500 mg capsule (2 sources) Start: 08-30-2019 take 1 capsule by mouth once daily Calcium Carb-Mag Ox-Zinc Sulf (20 sources) Start: 04-20-2018 take 2 tablets by mouth once daily Calcium Carb-Mag Ox-Zinc Sulf Active 2 TABLET PO DAILY April 20, 2018 10:18am Start: 04-20-2018 Start: 04-20-2018 take 2 tablets by mo uth twice daily Calcium Carb-Mag Ox-Zinc Sulf Active 2 TABLET PO TWICE A DAY April 20, 2018 12:00am Start: 04-20-2018 take 2 tablets by mo ut twice daily Calcium Carb-Mag Ox-Zinc Sulf Active 2 TABLET PO TWICE A DAY April 20, 2018 1:00am Start: 04-20-2018 take 2 tablets by mo uth once daily Calcium Carb-Mag Ox-Zinc Sulf Active 2 TABLET PO DAILY April 20, 2018 12:00am Start: 04-20-2018 take 2 tablets by mo uth once daily Calcium Carb-Mag Ox-Zinc Sulf Active 2 TABLET PO DAILY April 20, 2018 1:00am cholecalciferol 0.125 mg oral capsule (20 sources) Vitamin D Start: 04-20-2018 take 1 capsule by mouth once daily ciprofloxacin 500 mg oral tablet (20 sources) Quinolone Antimicrobial Start: 02-16-2025 take 1 tablet by mouth twice daily Start: 12-11-2023 End: 02-09-2024 take 1 tablet by mouth twice daily Ciprofloxacin Hcl 500 mg tablet Discontinued 500 mg PO TWICE A DAY 14 0 December 11, 2023 12:00am February 09, 2024 5:24pm Start: 02-04-2022 End: 03-04-2022 take 1 tablet by mouth twice daily Ciprofloxacin Hcl (Cipro) 500 mg tablet Discontinued 500 mg PO TWICE A DAY 14 February 04, 2022 12:00am March 04, 2022 3:44pm Compress.Stocking,Knee,Reg,L rg misc (2 sources) Start: 08-10-2024 Compress.Stocking,Knee,Reg,L rg misc Active 0 .MEDSUPPLY 2 1 August 10, 2024 12:00am Venous insufficiency (chronic) (peripheral) wear daily for venous insufficiency 20-30 mmHg docusate sodium 100 mg oral capsule (20 sources) Start: 10-24-2021 take 1 capsule by mouth twice daily Docusate Sodium (Colace) 100 mg capsule Active 100 MG PO TWICE A DAY 60 October 24, 2021 12:00am Start: 06-29-2019 End: 09-27-2019 take 1 capsule by mouth twice daily Docusate Sodium 100 MG capsule Discontinued 100 mg PO TWICE A DAY 60 0 June 29, 2019 1:00am September 27, 2019 4:04pm ipratropium bromide 0.042 mg/actuat metered dose nasal spray (18 sources) Anticholinergic Start: 03-03-2018 Ipratropium [place] Active 2 SPRAY INTRANASAL THREE TIMES A DAY March 03, 2018 12:00am meclizine hydrochloride 25 mg oral tablet (14 sources) Antiemetic Start: 06-10-2022 take 1 tablet by mouth three times daily as needed for dizziness Multivitamin preparation (20 sources) Start: 04-20-2018 take 1 tablet by mouth once daily Multivitamin Active 1 TABLET PO DAILY April 20, 2018 10:20am Start: 04-20-2018 take 1 tablet by tate th once daily Multivitamin Active 1 TABLET PO DAILY April 20, 2018 12:00am Start: 04-20-2018 take 1 tablet by tate th once daily Multivitamin Active 1 TABLET PO DAILY April 20, 2018 1:00am Multivitamin tablet (2 sources) Start: 04-20-2018 predniSONE 10 mg oral tablet (20 sources) Start: 01-24-2025 take 4 tablets by mo uth once daily, then take 3 tablets by mouth once daily, then take 2 tablets by mouth once daily, then take 1 tablet by mouth once daily Start: 12-22-2018 End: 12-26-2018 take 2 tablets by mouth once daily at mealtime Prednisone 20 MG tablet Discontinued 40 mg PO DAILY December 22, 2018 12:00am December 26, 2018 2:55pm With food Start: 12-22-2018 End: 12-26-2018 take 40 mg by mouth once daily at mealtime Prednisone Discontinued 40 MG PO DAILY December 22, 2018 12:00am December 26, 2018 2:55pm With food SUMAtriptan 50 mg oral tablet (4 sources) Serotonin-1b and Serotonin-1d Receptor Agonist Start: 02-09-2024 End: 08-10-2024 take 1 tablet by mouth every two hours Vitamin B Complex (5 sources) Start: 07-29-2021 take 1 capsule by mouth once daily Vitamin B Complex Active 1 CAP PO DAILY July 29, 2021 12:00am Start: 07-29-2021 take 1 capsule by mouth once d aily Vitamin B Complex Active 1 CAP PO DAILY July 28, 2021 11:00pm Vitamin B Complex (B Complex) Capsule (19 sources) Start: 07-29-2021 take 1 capsule by mouth once daily Vitamin B Complex (B Complex) Capsule Active 1 CAP PO DAILY July 29, 2021 4:18pm Start: 07-29-2021 take 1 capsule by mo ut once daily Vitamin B Complex (B Complex) Capsule Active 1 CAP PO DAILY July 28, 2021 11:00pm Start: 07-29-2021 take 1 capsule by mo uth once daily Vitamin B Complex (B Complex) Capsule Active 1 CAP PO DAILY July 29, 2021 12:00am Vitamin B Complex Capsule (2 sources) Start: 07-29-2021 vitamin e 180 mg oral capsul e (20 sources) Start: 01-05-2023 take 1 capsule by mo [facility] once daily Start: 04-20-2018 End: 06-29-2019 Vitamin E (Dl, Acetate) 400 unit capsule Discontinued 400 U PO DAILY April 20, 2018 1:00am June 29, 2019 2:16pm supplement Completed/Discontinued Medications Medication Drug Class(es) Dates Sig (Normalized) Sig (Original) acetaminophen 325 mg / HYDROcodone bitartrate 5 mg oral tablet (20 sources) Opioid Agonist Start: 02-07-2019 End: 02-13-2019 Hydrocodone-Acetami nophen 1 TABLET tablet Discontinued 1 {tbl} PO EVERY 6 HOURS NEEDED as needed for Pain 12 3 0 February 07, 2019 February 09, 2019 12:00am February 13, 2019 12:09am Calculus of ureter Calculus of ureter Start: 02-07-2019 End: 02-13-2019 take 1 tablet by mouth every six hours as needed Hydrocodone-Acetaminophen Discontinued 1 TABLET PO EVERY 6 HOURS NEEDED 12 3 February 07, 2019 February 13, 2019 12:09am acetaminophen 325 mg / oxyCODONE hydrochloride 5 mg oral tablet (20 sources) Opioid Agonist Start: 08-09-2019 End: 08-09-2019 take 4-6 tablets by mouth every six hours as needed for pain Oxycodone-Acetaminophen (Percocet) 5-325 mg tablet Discontinued 1 {tbl} PO EVERY 6 HOURS as needed for pain (scale score 4-6) 28 7 0 August 09, 2019 August 15, 2019 12:00am August 09, 2019 10:56am Other acute postprocedural pain 28 tabs (twenty eight) Start: 08-09-2019 End: 08-16-2019 take 4-6 tablets by mouth every six hours as needed for pain Oxycodone-Acetaminophen (Percocet) 5-325 mg tablet Discontinued 1 {tbl} PO EVERY 6 HOURS as needed for pain (scale score 4-6) 28 7 0 August 09, 2019 August 15, 2019 12:00am August 16, 2019 12:02am Other acute postprocedural pain 28 tabs (twenty eight) Start: 07-26-2019 End: 08-02-2019 take 4-6 tablets by mouth every six hours as needed for pain Oxycodone-Acetaminophen (Percocet) 5-325 mg tablet Discontinued 1 {tbl} PO EVERY 6 HOURS as needed for pain (scale score 4-6) 28 7 0 July 26, 2019 August 01, 2019 12:00am August 02, 2019 12:07am Other acute postprocedural pain 28 tabs (twenty eight) Start: 06-29-2019 End: 07-06-2019 Oxycodone-Acetaminophen 1 TA BLET tablet Discontinued 1 {tbl} PO EVERY 4 HOURS NEEDED as needed for Pain Score 4-5/10 40 7 0 June 29, 2019 July 05, 2019 1:00am July 06, 2019 1:08am Other acute postprocedural pain 40 tabs (forty) Start: 06-29-2019 End: 07-06-2019 take 1 tablet by mouth every four hours as needed Oxycodone-Acetaminophen Discontinued 1 TABLET PO EVERY 4 HOURS NEEDED 40 7 June 29, 2019 July 06, 2019 1:08am 40 tabs (forty) [id number] 200 actuat albuterol 0.09 mg/actuat metered dose inhaler (20 sources) beta2-Adrenergic Agonist Start: 03-22-2018 End: 06-22-2019 take 1 puff(s) by inhalation every four hours as needed Albuterol Sulfate Discontinued 1 - 2 PUFF INHALATION EVERY 4 HOURS NEEDED 8.5 March 22, 2018 4:52pm June 22, 2019 12:03pm Start: 09-16-2016 End: 05-21-2023 Albuterol Sulfate 90 mcg/act uation HFA aerosol inhaler Discontinued 1 - 2 NMA INHALATION EVERY 4 HOURS NEEDED as needed for Sob &/Or Wheezing 8.5 1 April 23, 2022 2:44pm May 21, 2023 2:03pm Start: 09-16-2016 End: 05-21-2023 take 1 puff(s) by inhalation every four hours as needed Albuterol Sulfate Discontinued 1 - 2 PUFF INHALATION EVERY 4 HOURS NEEDED 8.5 April 23, 2022 2:44pm May 21, 2023 2:03pm Start: 07-24-2015 End: 03-03-2018 take 2.5 mg by inhalation every four hours as needed for wheezing Albuterol Sulfate 2.5 MG/3 ML solution for nebulization Discontinued 2.5 mg INHALATION EVERY 4 HOURS NEEDED as needed for Sob &/Or Wheezing July 24, 2015 12:00am March 03, 2018 4:36pm ALBUTEROL SULFAT E NEBU as needed ALBUTEROL SULFATE NEBU [id number] Maria Esther Perkins LPN alendronic acid 70 mg oral tablet (20 sources) Bisphosphonate Start: 07-24-2015 End: 08-11-2023 take 1 tablet by mouth every week Alendronate 70 mg tablet Discontinued 70 mg PO EVERY WEEK 12 3 December 14, 2022 5:54pm August 11, 2023 5:34pm amitriptyline hydrochloride 25 mg oral tablet (20 sources) Tricyclic Antidepressant Start: 09-21-2018 End: 12-19-2024 take 1 tablet by mouth at bedtime Amitriptyline 25 mg tablet Discontinued 25 mg PO AT BEDTIME 90 0 September 15, 2024 8:50pm December 19, 2024 10:09am sleep,migraines Start: 09-16-2016 End: 09-21-2018 take 1 tablet by mouth at bedtime Amitriptyline 10 mg tablet Discontinued 10 mg PO AT BEDTIME 30 June 22, 2018 2:47pm September 21, 2018 3:52pm AMITRIPTYLINE HC L 10 MG TABS 1 tab daily at bedtime AMITRIPTYLINE HCL [id number] Maria Esther Perkins LPN amLODIPine 10 mg oral tablet (20 sources) Dihydropyridine Calcium Channel Jl Start: 03-04-2022 End: 09-15-2024 take 1 tablet by mouth once daily Amlodipine 10 mg tablet Discontinued 10 mg PO DAILY 90 1 June 15, 2024 3:05pm September 15, 2024 8:54pm htn Start: 03-01-2019 End: 03-04-2022 take 1 tablet by mouth once daily Amlodipine 5 mg tablet Discontinued 5 mg PO DAILY 90 May 01, 2021 9:16am March 04, 2022 4:11pm htn amoxicillin 500 mg oral tablet (20 sources) Penicillin-class Antibacterial Start: 04-03-2024 End: 08-10-2024 take 1 tablet by mouth three times daily Amoxicillin 500 mg tablet Discontinued 500 mg PO THREE TIMES A DAY 30 April 03, 2024 1:00am August 10, 2024 4:54pm Start: 06-02-2017 End: 06-12-2017 take 2 capsules by mouth twice daily Amoxicillin 500 mg capsule Discontinued 1000 mg PO TWICE A DAY 40 10 June 02, 2017 1:00am June 11, 2017 1:00am June 12, 2017 1:06am Start: 06-02-2017 End: 06-12-2017 take 1000 mg by mouth twice daily Amoxicillin Discontinued 1000 MG PO TWICE A DAY 40 June 02, 2017 1:00am June 12, 2017 1:06am Start: 06-10-2016 AMOXICILLIN 50 0 MG TABS 2 tablets twice daily AMOXICILLIN [id number] Jose Maria LARA Start: 04-08-2016 End: 04-13-2016 AMOXICILLIN 500 MG TABS Take 2 tabs Three times a day AMOXICILLIN [id number] Rashid LARA amoxicillin 875 mg / clavulanate 125 mg oral tablet (20 sources) Penicillin-class Antibacterial Start: 08-10-2024 End: 08-22-2024 Amoxicillin-Pot Clavulanate 875-125 mg tablet Discontinued 1 {tbl} PO TWICE A DAY August 10, 2024 12:00am August 22, 2024 3:22pm Start: 07-29-2022 End: 08-17-2022 Amoxicillin-Pot Clavulanate 875-125 mg tablet Discontinued 1 {tbl} PO TWICE A DAY July 29, 2022 12:00am August 17, 2022 2:47pm Start: 07-29-2022 End: 08-17-2022 take 1 tablet by mouth twice daily Amoxicillin-Pot Clavulanate Discontinued 1 TABLET PO TWICE A DAY July 29, 2022 12:00am August 17, 2022 2:47pm Start: 12-26-2018 End: 01-23-2019 Amoxicillin-Pot Clavulanate 875-125 mg tablet Discontinued 1 {tbl} PO Q12H 22 05December 26, 2018 12:00am January 23, 2019 3:00pm Start: 12-26-2018 End: 01-23-2019 take 1 tablet by mouth every twelve hours Amoxicillin-Pot Clavulanate Discontinued 1 TABLET PO Q12H December 26, 2018 12:00am January 23, 2019 3:00pm apremilast 30 mg oral tablet (1 source) Start: 02-05-2017 take 1 tablet by mouth once daily after dinner OTEZLA 30 MG TABS One tablet by mouth daily after dinner APREMILAST [id number] Amado Corcoran MD aspirin 81 mg chewable tablet (20 sources) Platelet Aggregation Inhibitor, Nonsteroidal Anti-inflammatory Drug Start: 01-28-2023 End: 08-11-2023 take 1 tablet by mouth twice daily at mealtime Aspirin 81 mg Tablet,Chewable Discontinued 81 mg PO TWICE DAILY WITH MEALS 0 0 January 28, 2023 12:00am August 11, 2023 5:34pm Take 81 mg aspirin twice daily for 4 weeks postoperatively for DVT prophylaxis. Start: 03-04-2022 End: 01-28-2023 take 1 tablet by mouth once daily Aspirin (Adult Aspirin Regimen) 81 mg tablet,delayed release (DR/EC) Discontinued 81 mg PO DAILY March 04, 2022 12:00am January 28, 2023 9:32am azithromycin 250 mg oral tablet (20 sources) Macrolide Antimicrobial Start: 04-03-2024 End: 08-22-2024 Azithromycin 250 mg tablet Discontinued 0 PO .COMPLEX 6 0 April 03, 2024 1:00am August 22, 2024 3:22pm For 250 mg dose pack: take 500 mg today (day 1), then 250 mg for 4 days (days 2-5) PO Start: 12-20-2018 End: 12-26-2018 take 2-5 tablets by mouth once daily Azithromycin 250 mg tablet Discontinued 0 PO .COMPLEX 6 0 December 20, 2018 12:00am December 26, 2018 2:54pm take 500 mg today (day 1), then 250 mg for 4 days (days 2-5) PO Start: 03-22-2018 End: 05-11-2018 take 2-5 tablets by mouth once daily Azithromycin 250 mg tablet Discontinued 0 PO .COMPLEX 6 0 March 22, 2018 1:00am May 11, 2018 7:09am Acute bronchitis, unspecified take 500 mg today (day 1), then 250 mg for 4 days (days 2-5) PO Blood Pressure Monitor (20 sources) Start: 01-23-2019 End: 04-06-2019 Blood Pressure Monitor Disco ntinued 0 .ROUTE .MEDSUPPLY 1 January 23, 2019 3:17pm April 06, 2019 2:31pm Check blood pressure daily for hypertension I10 Start: 01-23-2019 End: 04-06-2019 Blood Pressure Monitor Disco ntinued 0 .ROUTE .MEDSUPPLY 1 January 22, 2019 11:00pm April 06, 2019 1:31pm Check blood pressure daily for hypertension I10 Start: 01-23-2019 End: 04-06-2019 Blood Pressure Monitor Disco ntinued 0 .ROUTE .MEDSUPPLY 1 January 23, 2019 12:00am April 06, 2019 2:31pm Check blood pressure daily for hypertension I10 Blood Pressure Monitor kit (2 sources) Start: 01-23-2019 End: 04-06-2019 Blood Pressure Monitor kit Discontinued 0 .ROUTE .MEDSUPPLY 1 0 January 23, 2019 12:00am April 06, 2019 2:31pm Essential (primary) hypertension Check blood pressure daily for hypertension I10 cariprazine 1.5 mg oral capsule (12 sources) Atypical Antipsychotic Start: 08-04-2022 End: 12-21-2022 take 1 capsule by mouth once daily Cariprazine (Vraylar) 1.5 mg capsule Discontinued 1.5 mg PO DAILY 90 1 August 04, 2022 12:00am December 21, 2022 8:13am cefadroxil 500 mg oral capsule (20 sources) Cephalosporin Antibacterial Start: 06-29-2019 End: 09-13-2019 take 1 capsule by mouth twice daily Cefadroxil 500 MG capsule Discontinued 500 mg PO TWICE A DAY 10 0 June 29, 2019 1:00am September 13, 2019 1:32pm cephalexin 500 mg oral capsule (20 sources) Cephalosporin Antibacterial Start: 01-06-2022 End: 02-02-2022 take 1 capsule by mouth every eight hours Cephalexin 500 mg capsule Discontinued 500 mg PO Q8H 21 0 January 06, 2022 12:00am February 02, 2022 10:13am clonazePAM 0.5 mg oral tablet (20 sources) Benzodiazepine Start: 07-24-2015 End: 09-15-2018 take 1 tablet by mouth every twelve hours as needed for anxiety Clonazepam 0.5 MG tablet Discontinued 0.5 mg PO Q12H as needed for Anxiety July 24, 2015 12:00am September 15, 2018 3:33pm CLONAZEPAM TABS as needed CLONAZEPAM TABS [id number] Maria Esther Perkins LPN cyclobenzaprine hydrochloride 10 mg oral tablet (20 sources) Muscle Relaxant Start: 06-22-2018 End: 09-15-2018 take 1 tablet by mouth at bedtime as needed for muscle spasms Cyclobenzaprine 10 mg tablet Discontinued 10 mg PO BEDTIME as needed for muscle spasm 90 1 June 22, 2018 2:48pm September 15, 2018 3:30pm CYCLOBENZAPRINE HCL 10 MG TABS 1 daily in the evening CYCLOBENZAPRINE HCL [id number] Maria Esther Perkins LPN dexamethasone 6 mg oral tablet (4 sources) Corticosteroid Start: 07-28-2023 End: 08-11-2023 take 1 tablet by mouth once daily Dexamethasone 6 mg tablet Discontinued 6 mg PO DAILY 5 0 July 28, 2023 12:00am August 11, 2023 5:35pm docusate sodium 50 mg / sennosides, half-way 8.6 mg oral tablet (7 sources) Start: 01-28-2023 End: 08-10-2024 Sennosides-Docusat e Sodium (Stool Softener-Stimulant Laxat) 8.6-50 mg Tablet Discontinued 2 {tbl} PO TWICE A DAY 12 3 0 January 28, 2023 12:00am August 10, 2024 4:54pm Take until first bowel movement, then as needed doxycycline monohydrate 100 mg oral capsule (20 sources) Tetracycline-class Drug Start: 01-28-2023 End: 08-11-2023 take 1 capsule by mouth twice daily Doxycycline Monohydrate 100 mg Capsule Discontinued 100 mg PO TWICE A DAY 28 14 0 January 28, 2023 12:00am August 11, 2023 5:35pm Start: 07-27-2019 End: 09-13-2019 take 1 capsule by mouth twice daily Doxycycline Hyclate 100 mg capsule Discontinued 100 mg PO TWICE A DAY 42 July 27, 2019 12:00am September 13, 2019 1:33pm ferrous gluconate 240 mg oral tablet (20 sources) Start: 04-20-2018 End: 06-05-2022 take 1 tablet by mouth once daily Ferrous Gluconate (Fergon) 240 mg (27 mg iron) tablet Discontinued 240 mg PO DAILY April 20, 2018 1:00am June 05, 2022 9:10am supplement ferrous sulfate 325 mg oral tablet (20 sources) Start: 02-25-2017 End: 03-03-2018 take 1 tablet by mouth once daily Ferrous Sulfate 325 MG tablet Discontinued 325 mg PO DAILY February 25, 2017 12:00am March 03, 2018 4:31pm fluocinolone acetonide 0.1 mg/ml otic solution (20 sources) Corticosteroid Start: 03-03-2018 End: 08-28-2021 Fluocinolone Acetonide Oil 0.01 % drops Discontinued 5 NMA OTIC TWICE A DAY as needed for ear March 03, 2018 12:00am August 28, 2021 5:46pm gabapentin 300 mg oral capsule (20 sources) Anti-epileptic Agent Start: 01-02-2020 End: 04-12-2020 take 1 capsule by mouth twice daily Gabapentin 300 mg capsule Discontinued 300 mg PO TWICE A DAY 60 30 January 02, 2020 3:34pm April 12, 2020 3:08pm Neuralgia and neuritis, unspecified Start: 08-09-2019 End: 11-29-2019 take 1 capsule by mouth twice daily Gabapentin 300 mg capsule Discontinued 300 mg PO TWICE A DAY 60 1 August 09, 2019 12:00am November 29, 2019 8:29am Start: 03-03-2018 End: 03-03-2018 take 1 capsule by mouth once daily Gabapentin 100 mg capsule Discontinued 100 mg PO DAILY 60 3 March 03, 2018 12:00am March 03, 2018 5:11pm Start: 09-16-2016 End: 03-03-2018 take 1 capsule by mouth twice daily Gabapentin 300 MG capsule Discontinued 300 mg PO TWICE A DAY September 16, 2016 12:00am March 03, 2018 5:09pm ibuprofen 200 mg oral tablet (20 sources) Nonsteroidal Anti-inflammatory Drug Start: 05-20-2018 End: 06-22-2018 take 2 tablets by mouth every six hours as needed for pain Ibuprofen 200 MG tablet Discontinued 400 mg PO EVERY 6 HOURS NEEDED as needed for Mod-Severe Pain (4-1010) 0 May 20, 2018 1:00am June 22, 2018 2:22pm Start: 05-20-2018 End: 06-22-2018 take 400 mg by mouth every six hours as needed Ibuprofen Discontinued 400 MG PO EVERY 6 HOURS NEEDED May 20, 2018 1:00am June 22, 2018 2:22pm icosapent ethyl 1000 mg oral capsule (20 sources) Start: 05-13-2018 End: 06-22-2018 take 2 g by mouth twice daily at mealtime Icosapent Ethyl Discontinued 2 GM PO TWICE A DAY May 13, 2018 11:15am June 22, 2018 2:23pm administer with food; swallow whole; do not crush/chew/dissolve/break/cut Start: 04-20-2018 End: 06-22-2018 take 2 capsules by mouth twice daily at mealtime Icosapent Ethyl 1 GM capsule Discontinue d 2 g PO TWICE A DAY May 13, 2018 11:15am June 22, 2018 2:23pm FISH OIL administer with food; swallow whole; do not crush/chew/dissolve/break/cut ivermectin 10 mg/ml topical cream (20 sources) Antiparasitic, Pediculicide Start: 05-21-2023 Ivermectin Active 30 APPLIC TOPICAL DAILY 45 May 21, 2023 2:02pm Start: 05-15-2020 End: 01-24-2025 Ivermectin 1 % cream Discont inued 30 NMA TOPICAL DAILY as needed for psoriasis 45 3 September 15, 2024 8:53pm January 24, 2025 4:47pm Psoriasis Psoriasis, unspecified Start: 06-20-2019 End: 05-15-2020 Ivermectin 30 GM cream Disco ntinued 30 g TP NEEDED as needed for psoriasis June 20, 2019 1:00am May 15, 2020 9:32am Start: 03-03-2018 End: 04-06-2019 Ivermectin 1 % cream Discont inued 1 NMA TOPICAL DAILY March 03, 2018 12:00am April 06, 2019 2:32pm Start: 02-05-2017 SOOLANTRA 1 % CREA Apply thin layer to entire face once daily IVERMECTIN [id number] Amado Corcoran MD ketorolac tromethamine 10 mg oral tablet (20 sources) Nonsteroidal Anti-inflammatory Drug, Cyclooxygenase Inhibitor Start: 02-07-2019 End: 04-06-2019 take 1 tablet by mouth every eight hours as needed for pain Ketorolac 10 MG tablet Discontinued 10 mg PO Q8H as needed for pain February 07, 2019 4:36pm April 06, 2019 2:32pm lactulose 667 mg/ml oral solution (20 sources) Osmotic Laxative Start: 01-12-2022 End: 06-05-2022 take 30 g by mouth once daily Lactulose 20 gram/30 mL solution Discontinued 30 g PO DAILY 1200 0 January 12, 2022 12:00am June 05, 2022 9:11am levoFLOXacin 500 mg oral tablet (20 sources) Quinolone Antimicrobial Start: 07-18-2019 End: 08-02-2019 take 1 tablet by mouth once daily Levofloxacin (Levaquin) 500 mg tablet Discontinued 500 mg PO DAILY 14 2 July 18, 2019 12:00am August 02, 2019 2:21pm meloxicam 15 mg oral tablet (20 sources) Nonsteroidal Anti-inflammatory Drug Start: 07-24-2015 End: 04-20-2018 take 1 tablet by mouth at bedtime Meloxicam 15 MG tablet Discontinued 15 mg PO AT BEDTIME July 24, 2015 12:00am April 20, 2018 10:51am MELOXICAM 15 MG TABS 1 tab daily in the evening MELOXICAM [id number] Maria Esther Perkins LPN Meloxicam 0.5%/ Gabapentin 6%,/Lidacaine 2%/ Carmen (20 sources) Start: 04-27-2018 End: 09-15-2018 Meloxicam 0.5%/ Gabapentin 6%,/Lidacaine 2%/ Carmen Discontinued 1 APPLIC TOPICAL TWICE A DAY April 27, 2018 10:32am September 15, 2018 3:33pm Start: 04-27-2018 End: 09-15-2018 Meloxicam 0.5%/ Gabapentin 6 %,/Lidacaine 2%/ Carmen Discontinued 1 NMA TOPICAL TWICE A DAY 0 April 27, 2018 1:00am September 15, 2018 3:33pm Start: 04-27-2018 End: 09-15-2018 Meloxicam 0.5%/ Gabapentin 6 %,/Lidacaine 2%/ Carmen Discontinued 1 APPLIC TOPICAL TWICE A DAY April 27, 2018 12:00am September 15, 2018 2:33pm Start: 04-27-2018 End: 09-15-2018 Meloxicam 0.5%/ Gabapentin 6 %,/Lidacaine 2%/ Carmen Discontinued 1 APPLIC TOPICAL TWICE A DAY April 27, 2018 1:00am September 15, 2018 3:33pm methylPREDNISolone 4 mg oral tablet (20 sources) Corticosteroid Start: 03-22-2024 End: 04-03-2024 take 1 tablet by mouth once Methylprednisolone (Medrol (Manav)) 4 mg tablets,dose pack Discontinued 0 PO per package directions March 22, 2024 1:00am April 03, 2024 6:11pm PO PER PKG DIR Start: 12-22-2019 End: 12-22-2019 Depo-Medrol (methylprednisol one acetate) 40 mg/mL suspension for injection Discontinued 20 MG INTRAARTIC ONCE 0.5 December 22, 2019 7:56am December 22, 2019 9:03am Start: 07-07-2018 End: 07-07-2018 Depo-Medrol (methylprednisol one acetate) 40 mg/mL suspension for injection Discontinued 40 MG INTRAARTIC ONCE 1 July 07, 2018 3:42pm July 07, 2018 4:35pm Start: 03-22-2018 End: 03-27-2018 take 1 tablet by mouth once Methylprednisolone (Medrol (Manav)) 4 mg tablets,dose pack Discontinued 4 mg PO per package directions 21 5 0 March 22, 2018 1:00am March 26, 2018 1:00am March 27, 2018 1:13am Acute bronchitis, unspecified montelukast 10 mg oral tablet (20 sources) Leukotriene Receptor Antagonist Start: 03-03-2018 End: 10-06-2024 take 1 tablet by mouth once daily in the evening Montelukast 10 mg tablet Discontinued 0 .ROUTE .COMPLEX 90 1 October 05, 2024 9:40am October 06, 2024 4:45pm TAKE 1 TABLET BY MOUTH EVERY EVENING FOR ASTHMA Start: 02-05-2017 take 1 tablet by tate th once daily MONTELUKAST SODIUM 10 MG TABS One tablet by mouth daily MONTELUKAST SODIUM [id number] Amado Corcoran MD NAPROXEN SODIUM CAPS (1 source) Nonsteroidal Anti-inflammatory Drug ALEVE CAPS PRN NAPROXEN SODIUM CAPS [id number] Maria Esther Butterfield Perkins [employer] nitrofurantoin, macrocrystals 25 mg / nitrofurantoin, monohydrate 75 mg oral capsule (20 sources) Nitrofuran Antibacterial Start: 2020 End: 2020 take 1 capsule by mouth every twelve hours at mealtime Nitrofurantoin Monohyd/M-Cryst (Macrobid) 100 mg capsule Discontinued 100 mg PO Q12H 10 5 0 December 27, 2020 12:00am December 31, 2020 12:00am January 01, 2021 12:01am must administer with a meal/food NYSTATIN-TRIAMCINOLON E CREA (1 source) Polyene Antifungal, Corticosteroid Start: 2016 NYSTATIN-TRIAMCINOLO NE CREA Apply to [facility] twice daily NYSTATIN-TRIAMCINOLO NE CREA [id number] Amado Corcoran MD ondansetron 4 mg disintegrating oral tablet (20 sources) Serotonin-3 Receptor Antagonist Start: 2022 End: 2022 take 1 tablet by mouth every eight hours as needed for nausea Ondansetron 4 mg tablet,disintegratin g Discontinued 4 mg PO EVERY 8 HOURS NEEDED as needed for Nausea 10 0 June 08, 2022 1:00am July 24, 2022 2:58pm Start: 08-02-2019 End: 11-29-2019 take 1 tablet by mouth every eight hours as needed for nausea and vomiting Ondansetron Hcl (Zofran) 4 mg tablet Discontinued 4 mg PO Q8H as needed for nausea and vomiting 30 0 August 02, 2019 12:00am November 29, 2019 8:29am Start: 02-07-2019 End: 04-06-2019 take 1 tablet by mouth every six hours as needed for nausea Ondansetron 4 MG tablet Discontinued 4 mg PO EVERY 6 HOURS NEEDED as needed for Nausea February 07, 2019 4:36pm April 06, 2019 2:32pm oxyCODONE hydrochloride 5 mg oral tablet (7 sources) Opioid Agonist Start: 01-28-2023 End: 08-11-2023 take 5-10 mg by mouth every four hours as needed for pain Oxycodone 5 mg Tablet Discontinued 5 - 10 mg PO EVERY 4 HOURS NEEDED as needed for as needed for pain 42 5 0 January 28, 2023 August 11, 2023 5:35pm Status post total right knee replacement Presence of right artificial knee joint pantoprazole 40 mg delayed release oral tablet (20 sources) Proton Pump Inhibitor Start: 09-17-2016 End: 11-17-2019 take 1 tablet by mouth once daily Pantoprazole 40 mg tablet,delayed release (DR/EC) Discontinued 40 mg PO DAILY 90 1 May 16, 2019 5:06pm June 20, 2019 12:32pm PARoxetine hydrochloride 40 mg oral tablet (20 sources) Serotonin Reuptake Inhibitor Start: 07-24-2015 End: 10-06-2024 take 1 tablet by mouth once daily for depression Paroxetine Hcl 40 mg tablet Discontinued 40 mg PO DAILY 90 October 05, 2024 9:40am October 06, 2024 4:45pm for depressive disorder POLYETHYLENE GLYCOL 3350 [id number] MG / Potassium Chloride 2970 MG / Sodium Bicarbonate 6740 MG / Sodium Chloride 5860 MG / sodium sulfate 46916 MG Powder for Oral Solution (2 sources) Osmotic Laxative Start: 02-08-2017 GOLYTELY 236 GM SOLR Take as directed per package PEG 0767-YSD-FGGIN-NAC L-NASULF [id number] Maya Oreilly PA-C Start: 02-08-2017 GOLYTELY 227.1 GM SOLR as directed PEG 3046-YOK-PJCFU-NACL-NASULF [id number] Maya Oreilly PA-C promethazine hydrochloride 25 mg oral tablet (20 sources) Phenothiazine Start: 08-09-2019 End: 11-29-2019 take 1 tablet by mouth every six hours as needed for nausea Promethazine 25 mg tablet Discontinued 25 mg PO EVERY 6 HOURS as needed for nausea 30 August 09, 2019 12:00am November 29, 2019 8:29am Start: 06-29-2019 End: 09-13-2019 take 1 tablet by mouth four times daily as needed for nausea Promethazine 25 MG tablet Discontinued 25 mg PO 4 TIMES DAILY NEEDED as needed for Nausea 30 June 29, 2019 2:20pm September 13, 2019 1:33pm rosuvastatin calcium 10 mg oral tablet (20 sources) HMG-CoA Reductase Inhibitor Start: 04-20-2018 End: 09-15-2024 take 1 tablet by mouth once daily Rosuvastatin 10 mg tablet Discontinued 10 mg PO DAILY 90 1 April 19, 2024 8:22pm September 15, 2024 8:54pm cholesterol tobramycin 3 mg/ml ophthalmic solution (12 sources) Aminoglycoside Antibacterial Start: 07-29-2022 End: 12-21-2022 take 0.3 drop(s) into the eye(s) every two hours Tobramycin 0.3 % drops Discontinued 1 NMA OPHTHALMIC Q2H 5 0 July 29, 2022 12:00am December 21, 2022 8:14am while awake for 3 days 0.5 ml ustekinumab 90 mg/ml prefilled syringe (1 source) Start: 02-26-2017 STELARA 45 MG/0.5ML SOLN one injection every 12 weeks USTEKINUMAB [id number] Elissa Stover Start: 02-26-2017 STELARA 45 MG/ 0.5ML SOLN one injection every 12 weeks USTEKINUMAB [id number] Elissa Stover Problems Active Problems Problem Classification Problem Date Documented Da te Episodic/Chronic Abdominal hernia (20 sources) Ventral incisional hernia; Translations: [Incisional hernia without obstruction or gangrene] 03-03-2022 Episodic Abdominal pain (20 sources) Right flank pain; Translations: [Unspecified abdominal pain] 03-03-2022 Episodic Acute bronchitis (20 sources) Acute bronchitis; Translations: [Acute bronchitis, unspecified] 03-03-2022 Episodic Acute posthemorrhagic anemia (20 sources) Anemia following acute postoperative blood loss; Translations: [Acute posthemorrhagic anemia] 03-03-2022 Episodic Anxiety disorders (20 sources) Mixed anxiety and depressive disorder; Translations: [Other specified anxiety disorders] 05-20-2018 Chronic Asthma (20 sources) Asthma; Translations: [Unspecified asthma, uncomplicated] 06-08-2018 Chronic Comment on above: INHALER PRN Bacterial infection; unspecified site (20 sources) Methicillin resistant Staphylococcus aureus infection; Translations: [Methicillin resistant Staphylococcus aureus infection, unspecified site] 03-03-2022 Episodic Calculus of urinary tract (20 sources) Kidney stone; Translations: [Calculus of kidney] 03-03-2022 Episodic Chronic obstructive pulmonary disease and bronchiectasis (2 sources) Bronchitis; Translations: [Bronchitis, not specified as acute or chronic] 08-22-2024 Episodic Complications of surgical procedures or medical care (20 sources) Non-healing surgical wound; Translations: [Other complications of procedures, not elsewhere classified, initial encounter] 03-06-2020 Episodic Comment on above: right breast at [place] and right lateral nippleleft breast at [place] and left lateral breast Conditions associated with dizziness or vertigo (20 sources) Dizziness; Translations: [Dizziness and giddiness] 03-03-2022 Episodic Deficiency and other anemia (20 sources) Anemia; Translations: [Anemia, unspecified] 06-08-2022 Episodic Diabetes mellitus without complication (2 sources) Hyperglycemia; Translations: [Impaired fasting glucose] 02-13-2025 Episodic Disorders of lipid metabolism (20 sources) Hyperlipidemia; Translations: [Hyperlipidemia, unspecified] Chronic Esophageal disorders (20 sources) Gastroesophageal reflux disease; Translations: [Gastro-esophageal reflux disease without esophagitis] 04-03-2022 Chronic Essential hypertension (20 sources) Hypertensive disorder; Translations: [Essential (primary) hypertension] Chronic Gastrointestinal hemorrhage (20 sources) Rectal hemorrhage; Translations: [Hemorrhage of anus and rectum] Episodic Genitourinary symptoms and ill-defined conditions (4 sources) Increased frequency of urination; Translations: [Frequency of micturition] Onset: 5 12-09-2023 Episodic Headache, including migraine (20 sources) Transformed migraine; Translations: [Migraine] Onset: 6 01-23-2016 Chronic Hemorrhoids (20 sources) Internal hemorrhoids; Translations: [Other hemorrhoids] 11-01-2021 Episodic Immunizations and screening for infectious disease (20 sources) H/O: risk factor; Translations: [Contact with and (suspected) exposure to tuberculosis] 05-20-2018 Episodic Inflammation; infection of eye (except that caused by tuberculosis or sexually transmitteddisease) (13 sources) Conjunctivitis; Translations: [Unspecified conjunctivitis] 07-29-2022 Episodic Lymphadenitis (2 sources) Lymphadenopathy; Translations: [Enlarged lymph nodes, unspecified] 02-13-2025 Episodic Malaise and fatigue (20 sources) Fatigue; Translations: [Other fatigue] Episodic Mood disorders (20 sources) Depressive disorder; Translations: [Depression] 05-20-2018 Chronic Nonmalignant breast conditions (20 sources) Hypertrophy of breast; Translations: [Hypertrophy of breast] Onset: 6 05-10-2016 Episodic Comment on above: bilateral macromasti a Nonspecific chest pain (20 sources) Chest pain; Translations: [Chest pain, unspecified] Onset: 7 09-16-2016 Episodic Osteoarthritis (20 sources) Localized, primary osteoarthritis; Translations: [Arthritis] Onset: 7 01-25-2017 Chronic Osteoporosis (20 sources) Osteoporosis; Translations: [Age-related osteoporosis without current pathological fracture] 05-20-2018 Chronic Other bone disease and musculoskeletal deformities (20 sources) Segmental and somatic dysfunction; Translations: [Segmental and somatic dysfunction of lumbar region] Onset: 6 01-23-2016 Episodic Other circulatory disease (12 sources) Pulmonary congestion ; Translations: [Other specified symptoms and signs involving the circulatory and respiratory systems] 07-29-2022 Episodic Other connective tissue disease (7 sources) History of total knee arthroplasty; Translations: [Presence of right artificial knee joint] 02-05-2023 Chronic Other connective tissue disease (3 sources) Presence of right artificial knee joint; Translations: [Knee joint replacement] 01-28-2023 Chronic Other eye disorders (12 sources) Red eye; Translations: [Other specified disorders of eye and adnexa] 07-29-2022 Episodic Other gastrointestinal disorders (20 sources) History of bypass of stomach; Translations: [Bariatric surgery status] 03-03-2022 Episodic Comment on above: 2001 Other gastrointestinal disorders (20 sources) Constipation; Translations: [Constipation, unspecified] 04-03-2022 Episodic Other gastrointestinal disorders (8 sources) Constipation, unspecified; Translations: [Constipation, unspecified] Episodic Other hereditary and degenerative nervous system conditions (20 sources) Restless legs; Translations: [Restless legs syndrome] 05-20-2018 Chronic Other inflammatory condition of skin (1 source) Psoriasis with arthropathy; Translations: [Arthropathic psoriasis, unspecified] Onset: 7 02-26-2017 Chronic Other inflammatory condition of skin (20 sources) Psoriatic arthritis; Translations: [Arthropathic psoriasis, unspecified] 05-20-2018 Chronic Other inflammatory condition of skin (20 sources) Psoriasis; Translations: [Psoriasis, unspecified] 05-20-2018 Chronic Other inflammatory condition of skin (1 source) Psoriasis, unspecified; Translations: [Psoriasis, unspecified] Onset: Chronic Other inflammatory condition of skin (20 sources) Intertrigo; Translations: [Erythema intertrigo] Onset: 6 05-10-2016 Episodic Comment on above: inframammary intertr igo Other lower respiratory disease (20 sources) Dyspnea; Translations: [Shortness of breath] Onset: 7 09-16-2016 Episodic Other lower respiratory disease (20 sources) H/O: pneumonia; Translations: [Personal history of pneumonia (recurrent)] 03-03-2022 Episodic Other lower respiratory disease (20 sources) Restrictive lung disease; Translations: [Other disorders of lung] 06-08-2018 Episodic Other lower respiratory disease (2 sources) Shortness of breath; Translations: [Shortness of breath] Episodic Other lower respiratory disease (2 sources) Cough; Translations: [Cough] 08-22-2024 Episodic Other non-traumatic joint disorders (20 sources) Shoulder pain; Translations: [Pain in unspecified shoulder] 03-03-2022 Episodic Other non-traumatic joint disorders (20 sources) Pain in unspecified knee; Translations: [Knee pain] 03-03-2022 Episodic Other non-traumatic joint disorders (2 sources) Pain in left knee; Translations: [Left knee pain] 03-03-2022 Episodic Other nutritional; endocrine; and metabolic disorders (20 sources) Obesity; Translations: [Obesity, unspecified] 06-08-2018 Chronic Other nutritional; endocrine; and metabolic disorders (20 sources) Excess panniculus of abdomen; Translations: [Localized adiposity] 03-03-2022 Chronic Other nutritional; endocrine; and metabolic disorders (20 sources) Morbid obesity; Translations: [Morbid (severe) obesity due to excess calories] 12-17-2021 Chronic Other nutritional; endocrine; and metabolic disorders (7 sources) Obesity, unspecified; Translations: [Obesity, unspecified] Chronic Other nutritional; endocrine; and metabolic disorders (7 sources) Morbid (severe) obesity due to excess calories; Translations: [Morbid obesity] Chronic Other nutritional; endocrine; and metabolic disorders (20 sources) Recent weight loss; Translations: [Abnormal weight loss] 03-03-2022 Episodic Other nutritional; endocrine; and metabolic disorders (2 sources) Weight decreased; Translations: [Abnormal weight loss] 03-03-2022 Episodic Other screening for suspected conditions (not mental disorders or infectious disease) (20 sources) Patient encounter status; Translations: [Encounter for screening for other suspected endocrine disorder] Episodic Other upper respiratory disease (20 sources) Allergy to pollen; Translations: [Allergic rhinitis due to pollen] 03-03-2022 Chronic Other upper respiratory disease (20 sources) Allergic rhinitis; Translations: [Allergic rhinitis, unspecified] 06-08-2018 Chronic Other upper respiratory disease (20 sources) Cyst of nasopharynx; Translations: [Other diseases of pharynx] 06-26-2019 Episodic Other upper respiratory infections (20 sources) Sinusitis; Translations: [Chronic sinusitis, unspecified] 03-03-2022 Chronic Residual codes; unclassified (20 sources) Sleep apnea; Translations: [Sleep apnea, unspecified] 06-26-2019 Chronic Residual codes; unclassified (5 sources) History of eye AND/OR adnexa surgery; Translations: [Other specified postprocedural states] 03-03-2022 Episodic Comment on above: s Residual codes; unclassified (2 sources) Bilateral lower limb edema; Translations: [Localized edema] 08-10-2024 Episodic Spondylosis; intervertebral disc disorders; other back problems (20 sources) Thoracic back pain; Translations: [Neck pain] Onset: 6 05-10-2016 Episodic Sprains and strains (20 sources) Shoulder strain; Translations: [Strain of unspecified muscle, fascia and tendon at shoulder and upper arm level, left arm, initial encounter] 03-03-2022 Episodic Superficial injury; contusion (20 sources) Contusion of left wrist; Translations: [Contusion of left wrist, initial encounter] 03-03-2022 Episodic Unclassified (20 sources) Family history of malignant neoplasm of breast; Translations: [Family history of malignant neoplasm of breast] Onset: 6 05-10-2016 Episodic Unclassified (1 source) Screening for malignant neoplasm of colon ; Translations: [Encounter for screening for malignant neoplasm of colon] Onset: 7 01-18-2017 Unclassified (1 source) Gynecologic examination ; Translations: [Encounter for gynecological examination (general) (routine) without abnormal findings] Onset: 7 01-18-2017 Unclassified (1 source) Cough, unspecified; Translations: [Cough, unspecified] Onset: Urinary tract infections (20 sources) Acute cystitis; Translations: [Acute cystitis without hematuria] Episodic Urinary tract infections (1 source) Urinary tract infections Past or Other Problems Problem Classification Problem Date Documented Date Episodic/Chronic Open wounds of extremities (1 source) Laceration without foreign body of left thumb without damage to nail, initial encounter; Translations: [Laceration without foreign body of left thumb without damage to nail, initial encounter] Onset: 06-10-2016 06-10-2016 Episodic Other diseases of veins and lymphatics (1 source) Venous insufficiency (chronic) (peripheral); Translations: [Venous insufficiency (chronic) (peripheral)] Onset: 08-10-2024 Episodic Other non-traumatic joint disorders (3 sources) Knee pain; Translations: [Shoulder pain] Onset: 04-20-2016 01-25-2017 Episodic Other upper respiratory infections (20 sources) Pharyngitis; Translations: [Viral pharyngitis] Onset: 04-05-2016 04-08-2016 Episodic Otitis media and related conditions (2 sources) Acute otitis media; Translations: [Otitis media] Onset: 04-05-2016 04-08-2016 Episodic Unclassified (20 sources) Status post gastric bypass surgery 03-03-2022 Unclassified (20 sources) Contusion of left lower leg, initial encounter 08-06-2021 Results Test Name Value Interpretation Reference Range Facility Free T3on 02-26-2025 Free T3 [Mass/Vol] 2.8 pg/mL Normal 2.18-3.98 [facility] Comment on above: Performed By: #### L 506.0400, L501.9985, L501.70033, L501.9520 #### [facility] [address] [place], [place], [id number] Free [id number] By: Clarissa garza on 02-26-2025 Free T3 [Mass/Vol] 2.8 pg/mL 2.18-3.98 [facility] Hemoglobin A1con 02-26-2025 HbA1c (Bld) [Mass fraction] 5.7 % Normal <=5.6 [facility] Comment on above: Result Comment: Norm al < 5.7 % Prediabetic 5.7 - 6.4 % Diabetic >or= 6.5 % Please note range changes. Performed By: #### L 506.0400, L501.9985, L501.16118, L501.9520 #### [facility] [address] [place], [place], [id number] Hemoglobin A1c percentageOrd ered By: Clarissa Barroso on 02-26-2025 HbA1c (Bld) [Mass fraction] 5.7 % <5.7 [facility] Comment on above: Normal < 5.7 % Predi abetic 5.7 - 6.4 % Diabetic >or= 6.5 % Please note range changes. T4 Free Directon 02-26-2025 T4 FREE DIRECT 0.70 ng/dL Low 0.76-1.46 [facility] Comment on above: Performed By: #### L 506.0400, L501.9985, L501.71687, L501.9520 ####[facility] [address] [place], [place], [id number] T4 freeOrdered By: Clarissa garza on 02-26-2025 Free T4 [Mass/Vol] 0.70 ng/dL Low 0.76-1.46 [facility] TSH DL <= 0.005 mIU/L QnOrde red By: Clarissa Barroso on 02-26-2025 TSH Qn 1.290 uIU/mL 0.300-4.200 [facility] Thyroid Stim Hormone (TSH)on 02-26-2025 TSH 1.290 uIU/mL Normal 0.300-4.200 [facility] Comment on above: Performed By: #### L 506.0400, L501.9985, L501.75779, L501.9520 #### [facility] [address] [place], [place], [id number] Urine Cultureon 02-16-2025 URC ADDED ON TO URINE COLLECTED FOR EMPH LABS Escherichia coli [place] Count 80,000-100,000 Klebsiella pneumoniae sp pneum Klebsiella pneumoniae sp pneum Escherichia coli: REACTION Ampicillin Islt ADRIEL <=2 S Ampicillin+Sulbac Islt ADRIEL <=2 Cefepime Islt ADRIEL <=0.12 S cefTRIAXone Islt ADRIEL <=0.25 S Ciprofloxacin Islt ADRIEL <=0.06 S B-Lactamase Extended Susc Islt NEG Gentamicin Islt ADRIEL <=1 S levoFLOXacin Islt ADRIEL <=0.12 S Meropenem Islt ADRIEL <=0.25 S Nitrofurantoin Islt ADRIEL <=16 S Pip+Tazo Islt ADRIEL <=4 S TMP SMX Islt ADRIEL <=20 S Klebsiella pneumoniae sp pneum: REACTION Ampicillin Islt ADRIEL R Ampicillin+Sulbac Islt ADRIEL 4 Cefepime Islt ADRIEL <=0.12 S cefTRIAXone Islt ADRIEL <=0.25 S Ciprofloxacin Islt ADRIEL <=0.06 S B-Lactamase Extended Susc Islt NEG Gentamicin Islt ADRIEL <=1 S levoFLOXacin Islt ADRIEL <=0.12 S Meropenem Islt ADRIEL <=0.25 S Nitrofurantoin Islt ADRIEL 64 I Pip+Tazo Islt ADRIEL <=4 S TMP SMX Islt ADRIEL <=20 S Normal [facility] Comment on above: Performed By: #### M 100.2200 #### [facility] [address] [place], [address] Internal Medicine Office Vis iton 02-13-2025 Internal Medicine Office Visit [facility] Internal Medicine [address] [place] [address] [place] [address] OFFICE VISIT Date of Service: 02/13/25 MR#: [id number] Acct: [id number] Name: JAMES BOURGEOIS Rep #: [id number] : 1960 Provider: JHOANA rand Age/Sex: 64/F [place] [facility] Status: Signed Intake Vital Signs 08/22/24 15:23 02/13/25 15:59 Height 5 ft 2 in 5 ft 2 in Weight: 263 lb 4 oz BMI 48.1 BP 128/82 H Blood Pressure Location Lt brachial Position Sitting Respiration 16 Pulse 89 Pulse Source Monitor Temp 97.1 F L Temp Source Temporal Pulse Oximetry (%) 96 Oxygen Delivery Method room air Intake Visit Reasons: Follow up / Lump under chin/neck Chief Complaint: lump 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 Accompanied by: Self Is patient in pain?: No Allergies Latex, Natural Rubber Allergy (Severe, Verified 02/13/25 16:02) Rash adhesive Allergy (Intermediate, Verified 02/13/25 16:02) Hives nabumetone (From Relafen) Allergy (Intermediate, Verified 02/13/25 16:02) Other cat dander Allergy (Verified 02/13/25 16:02) Shortness of breath dog dander Allergy (Verified 02/13/25 16:02) Shortness of breath megestrol Allergy (Verified 02/13/25 16:02) anxious/suicidal shellfish derived Allergy (Verified 02/13/25 16:02) Vomiting Medications ???Medication ???Instructions ???Recorded ???Confirmed ???Type calcium 333 mg 2 tab PO BID supplement 04/20/18 1 History (carbonate)-magnesi um 133 mg-zinc 5 mg (sulfate) tablet cholecalciferol (vitamin D3) 125 5,000 unit PO DAILY supplement 02/13/25 History mcg (5,000 unit) capsule multivitamin 1 tab PO DAILY supplement 04/20/18 02/13/25 History blue-green algae (Spirulina) 500 1,500 mg PO DAILY 08/30/19 5 History mg capsule pantoprazole 40 mg tablet,delayed 40 mg PO DAILY gerd #90 tabs 10/3102/13/25 Rx release vitamin B complex 1 cap PO DAILY 07/29/21 02/13/25 H istory meclizine 25 mg tablet 25 mg PO TID PRN dizziness #30 tab s 06/10/22 02/13/25 Rx vitamin E 268 mg (400 unit) capsule 268 mg PO DAILY 01/05/23 History acetaminophen 500 mg tablet 1,000 mg (2 x 500 mg) PO TID #100 01/28/23 02/13/25 Rx tabs albuterol sulfate 90 mcg/actuation 1 - 2 puff inhalation Q4H PRN VT N 05/21/23 02/13/25 Rx aerosol inhaler Sob /Or Wheezing #8.5 grams compress.luis maldonado,reg,lrg #2 ea 08/10/24 02/13/25 Rx sumatriptan succinate 50 mg tablet See Rx Instructions PO .COMPLEX 08/10/24 02/13/25 Rx (Imitrex) #10 tabs albuterol 90 mcg-budesonide 80 2 inh inhalation ONCE #10.7 grams 08/22/24 02/13/25 Rx mcg/actuation HFA aerosol inhaler (Airsupra) benzonatate 200 mg capsule 200 mg PO TID PRN cough #30 caps 0 08/22/24 02/13/25 Rx amlodipine 10 mg tablet 10 mg PO DAILY htn #90 tabs 02/13/25 Rx rosuvastatin 10 mg tablet 10 mg PO DAILY cholesterol #90 tab s 09/15/24 02/13/25 Rx montelukast 10 mg tablet See Rx Instructions .Route 5 02/13/25 Rx .COMPLEX #90 tabs paroxetine HCl 40 mg tablet 40 mg PO DAILY for depressive 10/2502/13/25 Rx disorder #90 TABLETS amitriptyline 25 mg tablet 25 mg PO QHS sleep,migraines #90 0 12/19/24 02/13/25 Rx tabs benzonatate 200 mg capsule 200 mg PO TID PRN cough #20 caps 0 01/24/25 02/13/25 Rx prednisone 10 mg tablet 10 mg PO QDAY #30 tabs 01/24/25 Rx Nurse's Note: right side under chin/cheek bone also has paperwork for hospital wellness [facility] Medical History Abnormal urinalysis Bilateral lower extremity edema Fatigue Post-menopausal Kidney stones Excessive bleeding Back pain Non-smoker Sleep apnea History of pain when walking Hx of flexible sigmoidoscopy Health care maintenance Preoperative evaluation to rule out surgical contraindication Suprapubic discomfort Conjunctivitis, right eye Acute pharyngitis, unspecified Acute sinusitis, unspecified Wears glasses Low iron High cholesterol Easy bruising Migraine headache History of GI bleed Gastric reflux Shortness of breath on exertion Leg cramps Hypertension History of stress test Cardiology follow-up encounter Hyperlipidemia Essential hypertension Chest pain Acute cystitis Abnormal EKG Morbid obesity Preventative health care Upper respiratory infection Screening for thyroid disorder Malaise and fatigue Left knee pain Acute postoperative anemia due to expected blood loss Sleep apnea Kidney stones Intertrigo Chronic thoracic back pain Chronic cervical pain Breast hypertrophy Abdominal panniculus, symptomatic Allergic rhinitis Restrictive airway disease Depression History of tuberculosis exposure History of positive PPD, treatment status (more content not included)... Normal [facility] Absolute lymphocyte countOrd ered By: HEALTH ASSESSMENT on 02-12-2025 Lymphocytes Auto (Unsp spec) [#/Vol] 1.39 10*3/uL 0.83-4.51 [facility] Absolute neutrophil countOrd ered By: HEALTH ASSESSMENT on 02-12-2025 Neutrophils (Bld) [#/Vol] 3.8 10*3/uL 2.0-7.7 [facility] Absolute nucleated red blood cell countOrdered By: HEALTH ASSESSMENT on 02-12-2025 Nucleated RBC (Bld) [#/Vol] 0.00 10*3/uL 0- [facility] Anion gap in Serum or Plasma Ordered By: HEALTH ASSESSMENT on 02-12-2025 Anion gap [Moles/Vol] 13 mmol/L - [facility] BUN/creatinine ratioOrdered By: HEALTH ASSESSMENT on 02-12-2025 Urea nitrogen/Creatinine [Mass ratio] 18.5 mg/mg - [facility] Bilirubin Test strip Ql (U)O rdered By: HEALTH ASSESSMENT on 02-12-2025 Bilirubin Ql (U) Negative Negative [facility] Bilirubin directOrdered By: HEALTH ASSESSMENT on 02-12-2025 Bilirubin.direct [Mass/Vol] 0.14 mg/dL 0.00-0.30 [facility] Bilirubin, totalOrdered By: HEALTH ASSESSMENT on 02-12-2025 Bilirubin [Mass/Vol] 0.36 mg/dL 0.00-1.30 [facility] CBC, Employeeon 02-12-2025 Absolute Lymph 1.39 X10 3/uL Normal 0.83-4.51 [facility] Comment on above: Performed By: #### L 100.0200, L400.0100, L500.2900 #### [facility] [place], [address] Absolute Neut 3.8 X10 3/uL Normal 2.0-7.7 [facility] Comment on above: Performed By: #### L 100.0200, L400.0100, L500.2900 #### [facility] [address] [place], [address] Basophils/100 WBC (Bld) 0.3 % Normal 0-1 [facility] Comment on above: Performed By: #### L 100.0200, L400.0100, L500.2900 #### [facility] [address] [place], [address] Eosinophils/100 WBC (Bld) 3.4 % Normal 0-5 [facility] Comment on above: Performed By: #### L 100.0200, L400.0100, L500.2900 #### [facility] [address] [place], [address] Erythrocyte distribution width (RBC) [Ratio] 15.7 % High 11.6-14.6 [facility] Comment on above: Performed By: #### L 100.0200, L400.0100, L500.2900 #### [facility] [address] [place], [address] Hematocrit (Bld) [Volume fraction] 38.9 % Normal 37-47 [facility] Comment on above: Performed By: #### L 100.0200, L400.0100, L500.2900 #### [facility] [address] [place], [address] Hemoglobin (Bld) [Mass/Vol] 12.7 g/dL Normal 12.0-15.0 [facility] Comment on above: Performed By: #### L 100.0200, L400.0100, L500.2900 #### [facility] [address] [place], [address] Lymphocytes/100 WBC (Bld) 22.7 % Normal 19-41 [facility] Comment on above: Performed By: #### L 100.0200, L400.0100, L500.2900 #### [facility] [address] [place], [address] MCH (RBC) [Entitic mass] 28.1 pg Normal 27.0-32.0 [facility] Comment on above: Performed By: #### L 100.0200, L400.0100, L500.2900 #### [facility] [address] [place], [address] MCHC (RBC) [Mass/Vol] 32.6 g/dL Normal 32-36 [facility] Comment on above: Performed By: #### L 100.0200, L400.0100, L500.2900 #### [facility] [address] [place], [address] MCV (RBC) [Entitic vol] 86.1 fL Normal 81-99 [facility] Comment on above: Performed By: #### L 100.0200, L400.0100, L500.2900 #### [facility] [address] [place], [address] Monocytes/100 WBC (Bld) 10.8 % High 0-10 [facility] Comment on above: Performed By: #### L 100.0200, L400.0100, L500.2900 #### [facility] [address] [place], [address] Neutrophils/100 WBC (Bld) 62.5 % Normal 47-70 [facility] Comment on above: Performed By: #### L 100.0200, L400.0100, L500.2900 #### [facility] [address] [place], [address] NRBC # 0.00 10 3/uL Normal 0-5 [facility] Comment on above: Performed By: #### L 100.0200, L400.0100, L500.2900 #### [facility] [address] [place], [address] Nucleated RBC (Bld) [#/Vol] 0 10*3/uL Normal 0-5 [facility] Comment on above: Performed By: #### L 100.0200, L400.0100, L500.2900 #### [facility] [address] [place], [address] Platelet mean volume (Bld) [Entitic vol] 10.3 fL Normal 6.2-12.0 [facility] Comment on above: Performed By: #### L 100.0200, L400.0100, L500.2900 #### [facility] [address] [place], [address] Platelets (Bld) [#/Vol] 297 10*3/uL Normal 150-450 [facility] Comment on above: Performed By: #### L 100.0200, L400.0100, L500.2900 #### [facility] [address] [place], [address] RBC (Bld) [#/Vol] 4.52 10*6/uL Normal 4.2-5.4 [facility] Comment on above: Performed By: #### L 100.0200, L400.0100, L500.2900 #### [facility] [address] [place], [address] RDW SD 49.3 fl High 35.1-43.9 [facility] Comment on above: Performed By: #### L 100.0200, L400.0100, L500.2900 #### [facility] [address] [place], [address] WBC (Bld) [#/Vol] 6.1 10*3/uL Normal 4.4-11.0 [facility] Comment on above: Performed By: #### L 100.0200, L400.0100, L500.2900 #### [facility] [address] [place], [place], [address] Calculated very low density lipoprotein (VLDL) cholesterol measurementOrdered By: HEALTH ASSESSMENT on 02-12-2025 Calculated very low density lipoprotein (VLDL) cholesterol measurement 26 mg/dL 5-40 [facility] Carbon dioxide, total [Moles /volume] in Central venous bloodOrdered By: HEALTH ASSESSMENT on 02-12-2025 CO2 [Moles/Vol] 23.8 mmol/L 21.0-32.0 [facility] Chloride assayOrdered By: HE ALTH ASSESSMENT on 02-12-2025 Chloride [Moles/Vol] 103 mmol/L 98-108 [facility] Employee Profileon CHOL:HDL 2.36 Normal [facility] Comment on above: Performed By: #### L 100.0200, L400.0100, L500.2900 #### [facility] [address] [place], [address] Cholesterol [Mass/Vol] 165 mg/dL Normal <=200 [facility] Comment on above: Result Comment: Chol esterol level, Desirable <200 mg/dL Borderline high cholesterol 200-239 mg/dL High cholesterol >=240 mg/dL Recommendations of the NCEP Adult Treatment Panel for the following risk-cutoff thresholds for the [place] population. Performed By: #### L 100.0200, L400.0100, L500.2900 #### [facility] [address] [place], [place], [address] Cholesterol in HDL [Mass/Vol] 70 mg/dL Normal [facility] Comment on above: Result Comment: Becca onal Cholesterol Education Program (NCEP) guidelines: <40 mg/dL: Low HDL-cholesterol (major risk factor for CHD) >= 60 mg/dL: High HDL-cholesterol (negative risk factor for CHD) HDL-cholesterol is affected by a number of factors, e.g. smoking, exercise, hormones, sex and age. Performed By: #### L 100.0200, L400.0100, L500.2900 #### [facility] [address] [place], [address] Cholesterol in LDL [Mass/Vol] 69 mg/dL Normal [facility] Comment on above: Result Comment: Bord dzsrds=727-383 mg/dL Higher Cvmn=966 mg/dL or greater Friedwald Equation for LDL-C Performed By: #### L 100.0200, L400.0100, L500.2900 #### [facility] [address] [place], [address] Cholesterol in VLDL [Mass/Vol] 26 mg/dL Normal 5-40 [facility] Comment on above: Performed By: #### L 100.0200, L400.0100, L500.2900 #### [facility] [address] [place], [address] LDH 258 U/L High 84-246 [facility] Comment on above: Performed By: #### L 100.0200, L400.0100, L500.2900 #### [facility] [address] [place], [address] Phosphate [Mass/Vol] 3.9 mg/dL Normal 2.7-4.5 [facility] Comment on above: Performed By: #### L 100.0200, L400.0100, L500.2900 #### [facility] [address] [place], [address] Triglyceride [Mass/Vol] 128 mg/dL Normal [facility] Comment on above: Result Comment: The drugs N-Acetylcysteine and Metamizole may falsely depress this assay. Normal range: <150 mg/dL Borderline High: 150-199 mg/dL High: 200-499 mg/dL Very High: >500 mg/dL Performed By: #### L 100.0200, L400.0100, L500.2900 #### [facility] [address] [place], [address] URIC 6.4 mg/dL High 2.6-6.0 [facility] Comment on above: Result Comment: The drugs N-Acetylcysteine and Metamizole may falsely depress this assay. Performed By: #### L 100.0200, L400.0100, L500.2900 #### [facility] [address] [place], [address] Erythrocyte distribution wid th ratioOrdered By: HEALTH ASSESSMENT on 02-12-2025 Erythrocyte distribution width (RBC) [Ratio] 15.7 % High 11.6-14.6 [facility] Erythrocyte distribution wid th standard deviationOrdered By: HEALTH ASSESSMENT on 02-12-2025 Erythrocyte distribution width (RBC) [Ratio] 49.3 fl High 35.1-43.9 [facility] Glomerular filtration rate ( GFR) estimation/1.73 sq m using serum, plasma, or whole bOrdered By: HEALTH ASSESSMENT on 02-12-2025 GFR/1.73 sq M.predicted among non-blacks MDRD (S/P/Bld) [Vol rate/Area] 58 mL/min/{1.73_m2} Low >60 [facility] Comment on above: mL/min/1.73m2 CKD-EP I Creatinine Equation (2020) Hematocrit Auto (Bld) [Volum e fraction]Ordered By: HEALTH ASSESSMENT on 02-12-2025 Hematocrit (Bld) [Volume fraction] 38.9 % 37-47 [facility] Hemoglobin measurementOrdere d By: HEALTH ASSESSMENT on 02-12-2025 Hemoglobin (Bld) [Mass/Vol] 12.7 g/dL 12.0-15.0 [facility] Ketones Test strip Ql (U)Ord ered By: HEALTH ASSESSMENT on 02-12-2025 Ketones Ql (U) Negative Negative [facility] LDL calc ser/plasOrdered By: HEALTH ASSESSMENT on 02-12-2025 Cholesterol in LDL [Mass/Vol] 69 mg/dL [facility] Comment on above: Krcahhkxcy=296-267 m g/dL & Higher Fyjf=444 mg/dL or greaterFriedwald Equation for LDL-C Laboratory - Chemistry and C hemistry - challengeOrdered By: HEALTH ASSESSMENT on 02-12-2025 AST [Catalytic activity/Vol] 30 U/L <32 [facility] Lactate dehydrogenase (LDH) measurementOrdered By: HEALTH ASSESSMENT on 02-12-2025 LDH [Catalytic activity/Vol] 258 U/L High 84-246 [facility] MCV (mean corpuscular volume ) determinationOrdered By: HEALTH ASSESSMENT on 02-12-2025 MCV (RBC) [Entitic vol] 86.1 fL 81-99 [facility] Mean corpuscular hemoglobin (MCH) determinationOrdered By: HEALTH ASSESSMENT on 02-12-2025 MCH (RBC) [Entitic mass] 28.1 pg 27.0-32.0 [facility] Mean corpuscular hemoglobin concentration (MCHC) determinationOrdered By: HEALTH ASSESSMENT on 02-12-2025 MCHC (RBC) [Mass/Vol] 32.6 g/dL 32-36 [facility] Mean platelet volume determi nationOrdered By: HEALTH ASSESSMENT on 02-12-2025 Platelet mean volume (Bld) [Entitic vol] 10.3 fL 6.2-12.0 [facility] Neutrophil percentageOrdered By: HEALTH ASSESSMENT on 02-12-2025 Neutrophils/100 WBC (Bld) 62.5 % 47-70 [facility] Nitrite Test strip Ql (U)Ord ered By: HEALTH ASSESSMENT on 02-12-2025 Nitrite Ql (U) Positive High Negative [facility] Nucleated red blood cell per centageOrdered By: HEALTH ASSESSMENT on 02-12-2025 Nucleated RBC/100 WBC (Bld) [Ratio] 0 % 0-5 [facility] Platelet countOrdered By: HE ALTH ASSESSMENT on 02-12-2025 Platelets (Bld) [#/Vol] 297 10*3/uL 150-450 [facility] Potassium measurement (mass/ volume)Ordered By: HEALTH ASSESSMENT on 02-12-2025 Potassium (Unsp spec) [Mass/Vol] 4.0 mmol/L 3.3-5.1 [facility] Protein Test strip Ql (U)Ord ered By: HEALTH ASSESSMENT on 02-12-2025 Protein Ql (U) 15 mg/dl High Negative [facility] RBC Auto (Bld) [#/Vol]Ordere d By: HEALTH ASSESSMENT on 02-12-2025 RBC (Bld) [#/Vol] 4.52 10*6/uL 4.2-5.4 [facility] Screening total cholesterol/ high density lipoprotein (HDL) cholesterol ratioOrdered By: HEALTH ASSESSMENT on 02-12-2025 Cholesterol.total/Choles terol in HDL [Mass ratio] 2.36 {ratio} [facility] Serum creatinine measurement (mass/volume)Ordered By: HEALTH ASSESSMENT on 02-12-2025 Creatinine [Mass/Vol] 1.08 mg/dL 0.70-1.20 [facility] Serum globulin measurementOr dered By: HEALTH ASSESSMENT on 02-12-2025 Globulin (S) [Mass/Vol] 3.2 g/dL 2.2-4.2 [facility] Serum glucose measurement (m ass/volume)Ordered By: HEALTH ASSESSMENT on 02-12-2025 Glucose [Mass/Vol] 105 mg/dL High 70-99 [facility] Serum or plasma alanine fleming otransferase (ALT) measurementOrdered By: HEALTH ASSESSMENT on 02-12-2025 ALT [Catalytic activity/Vol] 25 U/L <35 [facility] Serum or plasma albumin samuel urement (mass/volume)Ordered By: HEALTH ASSESSMENT on 02-12-2025 Albumin [Mass/Vol] 4.1 g/dL 3.4-4.8 [facility] Serum or plasma albumin/glob ulin mass ratioOrdered By: HEALTH ASSESSMENT on 02-12-2025 Albumin/Globulin [Mass ratio] 1.3 {ratio} 0.9-2.4 [facility] Serum or plasma alkaline gayla sphatase measurementOrdered By: HEALTH ASSESSMENT on 02-12-2025 ALP [Catalytic activity/Vol] 100 U/L 35-104 [facility] Serum or plasma calcium samuel urement (mass/volume)Ordered By: HEALTH ASSESSMENT on 02-12-2025 Calcium [Mass/Vol] 9.3 mg/dL 7.6-11.0 [facility] Serum or plasma cholesterol in HDL measurement (mass/volume)Ordered By: HEALTH ASSESSMENT on 02-12-2025 Cholesterol in HDL [Mass/Vol] 70 mg/dL >40 [facility] Comment on above: National Cholesterol Education Program (NCEP) guidelines:<40 mg/dL: Low HDL-cholesterol (major risk factor for CHD)>= 60 mg/dL: High HDL-cholesterol (negative risk factor for CHD)HDL-cholesterol is affected by a number of factors, e.g. smoking, exercise, hormones, sex and age. Serum or plasma cholesterol measurement (mass/volume)Ordered By: HEALTH ASSESSMENT on 02-12-2025 Cholesterol [Mass/Vol] 165 mg/dL <201 [facility] Comment on above: Cholesterol level, D esirable <200 mg/dLBorderline high cholesterol 200-239 mg/dLHigh cholesterol >=240 mg/dLRecommendations of the NCEP Adult Treatment Panel for the following risk-cutoff thresholds for the [place] population. Serum or plasma urea nitroge n measurement (mass/volume)Ordered By: HEALTH ASSESSMENT on 02-12-2025 Urea nitrogen [Mass/Vol] 20 mg/dL High 4-19 [facility] Serum or plasma uric acid me asurement (mass/volume)Ordered By: HEALTH ASSESSMENT on 02-12-2025 Urate [Mass/Vol] 6.4 mg/dL High 2.6-6.0 [facility] Comment on above: The drugs N-Acetylcy steine and Metamizole may falsely depress this assay. Sodium levelOrdered By: HEAL TH ASSESSMENT on 02-12-2025 Sodium [Moles/Vol] 140 mmol/L 133-145 [facility] Total proteinOrdered By: [facility] ASSESSMENT on 02-12-2025 Protein [Mass/Vol] 7.2 g/dL 5.9-8.4 [facility] Triglycerides measurementOrd ered By: HEALTH ASSESSMENT on 02-12-2025 Triglyceride [Mass/Vol] 128 mg/dL <199 [facility] Comment on above: The drugs N-Acetylcy steine and Metamizole may falsely depress this assay. Normal range: <150 mg/dLBorderline High: 150-199 mg/dLHigh: 200-499 mg/dLVery High: >500 mg/dL Urinalysis, Employeeon 02-12 BILIRUBIN URINE Negative Normal Negative [facility] Comment on above: Order Comment: Urine , Random Performed By: #### L 100.0200, L400.0100, L500.2900 #### [facility] [address] [place], [address] Clarity (U) Clear Normal Clear [facility] Comment on above: Order Comment: Urine , Random Performed By: #### L 100.0200, L400.0100, L500.2900 #### [facility] [address] [place], [address] Color (U) Yellow Normal Yellow [facility] Comment on above: Order Comment: Urine , Random Performed By: #### L 100.0200, L400.0100, L500.2900 #### [facility] [address] [place], [address] GLUCOSE, UR Normal Normal Normal [facility] Comment on above: Order Comment: Urine , Random Performed By: #### L 100.0200, L400.0100, L500.2900 #### [facility] [address] [place], [address] KETONE UR Negative Normal Negative [facility] Comment on above: Order Comment: Urine , Random Performed By: #### L 100.0200, L400.0100, L500.2900 #### [facility] [address] [place], [address] LEUK ESTERASE 100 /ul Abnormal Negative [facility] Comment on above: Order Comment: Urine , Random Performed By: #### L 100.0200, L400.0100, L500.2900 #### [facility] [address] [place], [address] Nitrite Ql (U) Positive Abnormal Negative [facility] Comment on above: Order Comment: Urine , Random Performed By: #### L 100.0200, L400.0100, L500.2900 #### [facility] [address] [place], [address] OCCULT BLOOD-UR Negative Normal Negative [facility] Comment on above: Order Comment: Urine , Random Performed By: #### L 100.0200, L400.0100, L500.2900 #### [facility] [address] [place], [address] pH UR 6.5 Normal 5.0 - 8.0 [facility] Comment on above: Order Comment: Urine , Random Performed By: #### L 100.0200, L400.0100, L500.2900 #### [facility] [address] [place], [address] PROT DIPSTX 15 mg/dl Abnormal Negative [facility] Comment on above: Order Comment: Urine , Random Performed By: #### L 100.0200, L400.0100, L500.2900 #### [facility] [address] [place], [address] SP.GR. DIPSTX 1.015 Normal 1.002-1.030 [facility] Comment on above: Order Comment: Urine , Random Performed By: #### L 100.0200, L400.0100, L500.2900 #### [facility] [address] [place], [address] UROBILI Normal Normal Normal [facility] Comment on above: Order Comment: Urine , Random Performed By: #### L 100.0200, L400.0100, L500.2900 #### [facility] [address] [place], [address] Urine clarityOrdered By: [facility] ASSESSMENT on 02-12-2025 Clarity (U) Clear Clear [facility] Urine color determinationOrd ered By: HEALTH ASSESSMENT on 02-12-2025 Color (U) Yellow Yellow [facility] Urine cultureOrdered By: Alonso Ferguson on 02-12-2025 Bacteria identified Cx Nom (U) Escherichia coli Abnormal [facility] Bacteria identified Cx Nom (U) Klebsiella pneumoniae sp pneum Abnormal [facility] Urine glucose detectionOrder ed By: HEALTH ASSESSMENT on 02-12-2025 Glucose Ql (U) Normal mg/dl Normal [facility] Urine leukocyte esterase det ection by dipstickOrdered By: HEALTH ASSESSMENT on 02-12-2025 Leukocyte esterase Test strip Ql (U) 100 /ul High Negative [facility] Urine pHOrdered By: HEALTH A SSESSMENT on 02-12-2025 pH (U) 6.5 [pH] 5.0 - 8.0 [facility] Urine specific gravity measu rementOrdered By: HEALTH ASSESSMENT on 02-12-2025 Specific gravity (U) [Rel density] 1.015 1.002-1.030 [facility] Urine urobilinogen measureme ntOrdered By: HEALTH ASSESSMENT on 02-12-2025 Urobilinogen Ql (U) Normal mg/dl Normal [facility] White blood cell (WBC) count Ordered By: HEALTH ASSESSMENT on 02-12-2025 WBC (Bld) [#/Vol] 6.1 10*3/uL 4.4-11.0 [facility] - Microbiology an d Antimicrobial susceptibilityOrdered By: Jose Maria Johnson on 01-24-2025 SARS-CoV-2 (COVID-19) RNA TAWANA+probe Ql (Unsp spec) Not detected [facility] No Panel InformationOrdered By: Jose Maria Johnson on 01-24-2025 Influenza Types A,B Rapid (Clinic) Not detected [facility] Urgent Care Visit Reporton 0 01-24-2025 Urgent Care Visit Report [facility] [address], [address] [place] [address] OFFICE VISIT Date of Service: 01/24/25 MR#: [id number] Acct: [id number] Name: CHRISTELLEJAMES MELISSA Rep #: [id number] : 1960 Provider: JANE Padgett Age/Sex: 64/F [place] [facility] Status: Signed Intake Vital Signs 08/22/24 15:23 01/24/25 16:46 Height 5 ft 2 in Weight: 253 lb BMI 46.3 BP 118/64 134/80 H Blood Pressure Location Lt brachial Lt brachial Position Sitting Sitting Respiration 18 17 Pulse 77 92 Pulse Source Monitor NIBP Temp 96.1 F L 98.9 F Temp Source Temporal Oral Pulse Oximetry (%) 93 95 Oxygen Delivery Method room air room air Intake Visit Reasons: CONGESTION, SORE THROAT Chief Complaint: cough, congest, fatigue, ST 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 Is patient in pain?: No Allergies Latex, Natural Rubber Allergy (Severe, Verified 01/24/25 16:47) Rash adhesive Allergy (Intermediate, Verified 01/24/25 16:47) Hives nabumetone (From Relafen) Allergy (Intermediate, Verified 01/24/25 16:47) Other cat dander Allergy (Verified 01/24/25 16:47) Shortness of breath dog dander Allergy (Verified 01/24/25 16:47) Shortness of breath megestrol Allergy (Verified 01/24/25 16:47) anxious/suicidal shellfish derived Allergy (Verified 01/24/25 16:47) Vomiting Medications ???Medication ???Instructions ???Recorded ???Confirmed ???Type calcium 333 mg 2 tab PO BID supplement 04/20/18 0 08/22/24 History (carbonate)-magnesi um 133 mg-zinc 5 mg (sulfate) tablet cholecalciferol (vitamin D3) 125 5,000 unit PO DAILY supplement 08/22/24 History mcg (5,000 unit) capsule multivitamin 1 tab PO DAILY supplement 04/20/18 08/22/24 History blue-green algae (Spirulina) 500 1,500 mg PO DAILY 08/30/19 5 History mg capsule pantoprazole 40 mg tablet,delayed 40 mg PO DAILY gerd #90 tabs 10/3108/22/24 Rx release vitamin B complex 1 cap PO DAILY 07/29/21 08/22/24 H istory meclizine 25 mg tablet 25 mg PO TID PRN dizziness #30 tab s 06/10/22 08/22/24 Rx vitamin E 268 mg (400 unit) capsule 268 mg PO DAILY 01/05/23 History acetaminophen 500 mg tablet 1,000 mg (2 x 500 mg) PO TID #100 01/28/23 08/22/24 Rx tabs albuterol sulfate 90 mcg/actuation 1 - 2 puff inhalation Q4H PRN VT N 05/21/23 08/22/24 Rx aerosol inhaler Sob /Or Wheezing #8.5 grams compress.luis maldonado,reg,lrg #2 ea 08/10/24 08/22/24 Rx sumatriptan succinate 50 mg tablet See Rx Instructions PO .COMPLEX 08/10/24 08/22/24 Rx (Imitrex) #10 tabs albuterol 90 mcg-budesonide 80 2 inh inhalation ONCE #10.7 grams 08/22/24 08/22/24 Rx mcg/actuation HFA aerosol inhaler (Airsupra) benzonatate 200 mg capsule 200 mg PO TID PRN cough #30 caps 0 08/22/24 08/22/24 Rx amlodipine 10 mg tablet 10 mg PO DAILY htn #90 tabs Rx rosuvastatin 10 mg tablet 10 mg PO DAILY cholesterol #90 tab s 09/15/24 Rx montelukast 10 mg tablet See Rx Instructions .Route 5 Rx .COMPLEX #90 tabs paroxetine HCl 40 mg tablet 40 mg PO DAILY for depressive 10/25 Rx disorder #90 TABLETS amitriptyline 25 mg tablet 25 mg PO QHS sleep,migraines #90 0 12/19/24 Rx tabs benzonatate 200 mg capsule 200 mg PO TID PRN cough #20 caps 0 01/24/25 01/24/25 Rx prednisone 10 mg tablet 10 mg PO QDAY #30 tabs 01/24/25 Rx Is last menstrual period known: No Post menopausal: Yes Patient : No Have you fallen in the past year?: No Nurse's Note: cough, congest, fatigue, ST x 1 week. hx asthma, inhalers helping temporarily. concern for bronchitis [facility] Medical History Bilateral lower extremity edema Fatigue Post-menopausal Kidney stones Excessive bleeding Back pain Non-smoker Sleep apnea History of pain when walking Hx of flexible sigmoidoscopy Health care maintenance Preoperative evaluation to rule out surgical contraindication Suprapubic discomfort Conjunctivitis, right eye Acute pharyngitis, unspecified Acute sinusitis, unspecified Wears glasses Low iron High cholesterol Easy bruising Migraine headache History of GI bleed Gastric reflux Shortness of breath on exertion Leg cramps Hypertension History of stress test Cardiology follow-up encounter Hyperlipidemia Essential hypertension Chest pain Acute cystitis Abnormal EKG Morbid obesity Preventative health care Upper respiratory infection Screening for thyroid disorder Malaise and fatigue Left knee pain Acute postoperative anemia due to expected blood loss Sleep apnea Kidney stones Intertrigo Chronic thoracic back pain Chronic cervical pain Breast hypertrophy Abdominal panniculus, symptomatic Allergic rhinitis Restrictive a (more content not included)... Normal [facility] Internal Medicine Office Vis itoleif 08-22-2024 Internal Medicine Office Visit [facility] [address] [place] [address] [place] [address] OFFICE VISIT Date of Service: 08/22/24 MR#: [id number] Acct: [id number] Name: JAMES BOURGEOIS MELISSA Rep #: [id number] : 1960 Provider: JANE Hyde Age/Sex: 63/F [place] [facility] Status: Signed Intake Vital Signs 08/10/24 16:54 08/22/24 15:23 Height 5 ft 2 in 5 ft 2 in Weight: 254 lb 253 lb BMI 46.4 46.3 BP 116/80 118/64 Blood Pressure Location Lt brachial Lt brachial Position Sitting Sitting Respiration 14 18 Pulse 83 77 Pulse Source Monitor Monitor Temp 97.4 F L 96.1 F L Temp Source Temporal Temporal Pulse Oximetry (%) 98 93 Oxygen Delivery Method room air room air Intake Visit Reasons: bronchitis Chief Complaint: bronchitis 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 Accompanied by: Self Is patient in pain?: No Allergies Latex, Natural Rubber Allergy (Severe, Verified 08/22/24 15:17) Rash adhesive Allergy (Intermediate, Verified 08/22/24 15:17) Hives nabumetone (From Relafen) Allergy (Intermediate, Verified 08/22/24 15:17) Other cat dander Allergy (Verified 08/22/24 15:17) Shortness of breath dog dander Allergy (Verified 08/22/24 15:17) Shortness of breath megestrol Allergy (Verified 08/22/24 15:17) anxious/suicidal shellfish derived Allergy (Verified 08/22/24 15:17) Vomiting Medications ???Medication ???Instructions ???Recorded ???Confirmed ???Type calcium 333 mg 2 tab PO BID supplement 04/20/18 0 08/22/24 History (carbonate)-magnesi um 133 mg-zinc 5 mg (sulfate) tablet cholecalciferol (vitamin D3) 125 5,000 unit PO DAILY supplement 08/22/24 History mcg (5,000 unit) capsule multivitamin 1 tab PO DAILY supplement 04/20/18 08/22/24 History blue-green algae (Spirulina) 500 1,500 mg PO DAILY 08/30/19 5 History mg capsule pantoprazole 40 mg tablet,delayed 40 mg PO DAILY gerd #90 tabs 10/3108/22/24 Rx release vitamin B complex 1 cap PO DAILY 07/29/21 08/22/24 H istory meclizine 25 mg tablet 25 mg PO TID PRN dizziness #30 tab s 06/10/22 08/22/24 Rx vitamin E 268 mg (400 unit) capsule 268 mg PO DAILY 01/05/23 History acetaminophen 500 mg tablet 1,000 mg (2 x 500 mg) PO TID #100 01/28/23 08/22/24 Rx tabs albuterol sulfate 90 mcg/actuation 1 - 2 puff inhalation Q4H PRN VT N 05/21/23 08/22/24 Rx aerosol inhaler Sob /Or Wheezing #8.5 grams paroxetine HCl 40 mg tablet 40 mg PO DAILY for depressive 03/0308/22/24 Rx disorder #90 TABLETS ivermectin 1 % topical cream 30 applic topical DAILY PRN 08/22/24 Rx psoriasis #45 grams rosuvastatin 10 mg tablet 10 mg PO DAILY cholesterol #90 tab s 04/19/24 08/22/24 Rx amitriptyline 25 mg tablet 25 mg PO QHS sleep,migraines #90 0 06/15/24 08/22/24 Rx tabs amlodipine 10 mg tablet 10 mg PO DAILY htn #90 tabs 08/22/24 Rx montelukast 10 mg tablet See Rx Instructions .Route 5 08/22/24 Rx .COMPLEX #90 tabs compress.luis maldonado,reg,lrg #2 ea 08/10/24 08/22/24 Rx sumatriptan succinate 50 mg tablet See Rx Instructions PO .COMPLEX 08/10/24 08/22/24 Rx (Imitrex) #10 tabs albuterol 90 mcg-budesonide 80 2 inh inhalation ONCE #10.7 grams 08/22/24 08/22/24 Rx mcg/actuation HFA aerosol inhaler (Airsupra) benzonatate 200 mg capsule 200 mg PO TID PRN cough #30 caps 0 08/22/24 08/22/24 Rx Have you fallen in the past year?: No PFSH Medical History Bilateral lower extremity edema Fatigue Post-menopausal Kidney stones Excessive bleeding Back pain Non-smoker Sleep apnea History of pain when walking Hx of flexible sigmoidoscopy Health care maintenance Preoperative evaluation to rule out surgical contraindication Suprapubic discomfort Conjunctivitis, right eye Acute pharyngitis, unspecified Acute sinusitis, unspecified Wears glasses Low iron High cholesterol Easy bruising Migraine headache History of GI bleed Gastric reflux Shortness of breath on exertion Leg cramps Hypertension History of stress test Cardiology follow-up encounter Hyperlipidemia Essential hypertension Chest pain Acute cystitis Abnormal EKG Morbid obesity Preventative health care Upper respiratory infection Screening for thyroid disorder Malaise and fatigue Left knee pain Acute postoperative anemia due to expected blood loss Sleep apnea Kidney stones Intertrigo Chronic thoracic back pain Chronic cervical pain Breast hypertrophy Abdominal panniculus, symptomatic Allergic rhinitis Restrictive airway disease Depression History of tuberculosis exposure History of positive PPD, treatment status unknown History of pneumococcal pneumonia Psoriasis Psoriatic arthritis Knee pain Shoulder pain Back pain (more content not included)... Normal [facility] Internal Medicine Office Vis ito 08-10-2024 Internal Medicine Office Visit [facility] [address] [place] [address] [place] [address] OFFICE VISIT Date of Service: 08/10/24 MR#: [id number] Acct: [id number] Name: JAMES BOURGEOIS MELISSA Rep #: [id number] : 1960 Provider: Dr. Lenka schafer MD Age/Sex: 63/F [place] [facility] Status: Signed Intake Vital Signs 02/09/24 17:24 04/03/24 17:12 08/10/24 16:54 Height 5 ft 2 in 5 ft 2 in 5 ft 2 in Weight: 254 lb BMI 46.4 BP 116/80 Blood Pressure Location Lt brachial Position Sitting Respiration 14 Pulse 83 Pulse Source Monitor Temp 97.4 F L Temp Source Temporal Pulse Oximetry (%) 98 Oxygen Delivery Method room air Intake Visit Reasons: 6 M FU Chief Complaint: Follow-up, concerns 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 Is patient in pain?: No Allergies Latex, Natural Rubber Allergy (Severe, Verified 08/10/24 16:47) Rash adhesive Allergy (Intermediate, Verified 08/10/24 16:47) Hives nabumetone (From Relafen) Allergy (Intermediate, Verified 08/10/24 16:47) Other cat dander Allergy (Verified 08/10/24 16:47) Shortness of breath dog dander Allergy (Verified 08/10/24 16:47) Shortness of breath megestrol Allergy (Verified 08/10/24 16:47) anxious/suicidal shellfish derived Allergy (Verified 08/10/24 16:47) Vomiting Medications ???Medication ???Instructions ???Recorded ???Confirmed ???Type calcium 333 mg 2 tab PO BID supplement 04/20/18 0 08/10/24 History (carbonate)-magnesi um 133 mg-zinc 5 mg (sulfate) tablet cholecalciferol (vitamin D3) 125 5,000 unit PO DAILY supplement 08/10/24 History mcg (5,000 unit) capsule multivitamin 1 tab PO DAILY supplement 04/20/18 08/10/24 History blue-green algae (Spirulina) 500 1,500 mg PO DAILY 08/30/19 5 History mg capsule pantoprazole 40 mg tablet,delayed 40 mg PO DAILY gerd #90 tabs 10/3108/10/24 Rx release vitamin B complex 1 cap PO DAILY 07/29/21 08/10/24 H istory meclizine 25 mg tablet 25 mg PO TID PRN dizziness #30 tab s 06/10/22 08/10/24 Rx vitamin E 268 mg (400 unit) capsule 268 mg PO DAILY 01/05/23 History acetaminophen 500 mg tablet 1,000 mg (2 x 500 mg) PO TID #100 01/28/23 08/10/24 Rx tabs albuterol sulfate 90 mcg/actuation 1 - 2 puff inhalation Q4H PRN VT N 05/21/23 08/10/24 Rx aerosol inhaler Sob /Or Wheezing #8.5 grams paroxetine HCl 40 mg tablet 40 mg PO DAILY for depressive 03/0308/10/24 Rx disorder #90 TABLETS azithromycin 250 mg tablet See Rx Instructions PO .COMPLEX #6 04/03/24 08/10/24 Rx tabs ivermectin 1 % topical cream 30 applic topical DAILY PRN 08/10/24 Rx psoriasis #45 grams rosuvastatin 10 mg tablet 10 mg PO DAILY cholesterol #90 tab s 04/19/24 08/10/24 Rx amitriptyline 25 mg tablet 25 mg PO QHS sleep,migraines #90 0 06/15/24 08/10/24 Rx tabs amlodipine 10 mg tablet 10 mg PO DAILY htn #90 tabs 08/10/24 Rx montelukast 10 mg tablet See Rx Instructions .Route 5 08/10/24 Rx .COMPLEX #90 tabs amoxicillin 875 mg-potassium 1 tab PO BID #20 tabs 08/10/2402/24 Rx clavulanate 125 mg tablet compress.luis maldonado,reg,lrg #2 ea 08/10/24 08/10/24 Rx sumatriptan succinate 50 mg tablet See Rx Instructions PO .COMPLEX 08/10/24 08/10/24 Rx (Imitrex) #10 tabs PFSH Medical History Bilateral lower extremity edema Fatigue Post-menopausal Kidney stones Excessive bleeding Back pain Non-smoker Sleep apnea History of pain when walking Hx of flexible sigmoidoscopy Health care maintenance Preoperative evaluation to rule out surgical contraindication Suprapubic discomfort Conjunctivitis, right eye Acute pharyngitis, unspecified Acute sinusitis, unspecified Wears glasses Low iron High cholesterol Easy bruising Migraine headache History of GI bleed Gastric reflux Shortness of breath on exertion Leg cramps Hypertension History of stress test Cardiology follow-up encounter Hyperlipidemia Essential hypertension Chest pain Acute cystitis Abnormal EKG Morbid obesity Preventative health care Upper respiratory infection Screening for thyroid disorder Malaise and fatigue Left knee pain Acute postoperative anemia due to expected blood loss Sleep apnea Kidney stones Intertrigo Chronic thoracic back pain Chronic cervical pain Breast hypertrophy Abdominal panniculus, symptomatic Allergic rhinitis Restrictive airway disease Depression History of tuberculosis exposure History of positive PPD, treatment status unknown History of pneumococcal pneumonia Psoriasis Psoriatic arthritis Knee pain Shoulder pain Back pain SOB (shortness of breath) Migraine Hay fever Anemia Asthma Arthritis Surgical History (Reviewed 08/10 (more content not included)... Normal [facility] Office Visit Reporton 2023 Office Visit Report [facility] [address] [place] [address] OFFICE VISIT Date of Service: 03/22/24 MR#: [id number] Acct: [id number] Patient: JAMES BOURGEOIS MELISSA Rep #: [id number] : 1960 Provider: JANE Padgett Age/Sex: 63/F [place] [facility] Status: Signed Employer Purchased Covid Test Note: Patient here today for Covid Testing, requested by their Employer. 04/05/24 1344 Date Jose Maria LARA Cosigner Signature: Date (if applicable) CC: Normal [facility] Urgent Care Visit Reporton 1 06-04-2023 Urgent Care Visit Report [facility] [address], [address] [place] [address] OFFICE VISIT Date of Service: 04/03/24 MR#: [id number] Acct: [id number] Name: JAMES BOURGEOIS MELISSA Rep #: [id number] : 1960 Provider: JANE Padgett Age/Sex: 63/F [place] [facility] Status: Signed Intake Vital Signs 02/09/24 17:24 04/03/24 17:12 Height 5 ft 2 in 5 ft 2 in Weight: 255 lb 250 lb BMI 46.6 45.7 BP 128/74 H 130/84 H Blood Pressure Location Lt brachial Lt brachial Position Sitting Standing Respiration 14 18 Pulse 78 94 Pulse Source Monitor Temp 97.5 F L 98.1 F Temp Source Temporal Pulse Oximetry (%) 97 97 Oxygen Delivery Method room air room air Intake Visit Reasons: COUGH/CHEST CONGESTION/SOB W/EXERTION Chief Complaint: cough/congestion 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 Allergies Latex, Natural Rubber Allergy (Severe, Verified 04/03/24 17:11) Rash adhesive Allergy (Intermediate, Verified 04/03/24 17:11) Hives nabumetone (From Relafen) Allergy (Intermediate, Verified 04/03/24 17:11) Other cat dander Allergy (Verified 04/03/24 17:11) Shortness of breath dog dander Allergy (Verified 04/03/24 17:11) Shortness of breath megestrol Allergy (Verified 04/03/24 17:11) anxious/suicidal shellfish derived Allergy (Verified 04/03/24 17:11) Vomiting Medications ???Medication ???Instructions ???Recorded ???Confirmed ???Type calcium 333 mg 2 tab PO BID supplement 04/20/18 04/03/24 History (carbonate)-magnesi um 133 mg-zinc 5 mg (sulfate) tablet cholecalciferol (vitamin D3) 125 5,000 unit PO DAILY supplement 04/20/18 04/03/24 History mcg (5,000 unit) capsule multivitamin 1 tab PO DAILY supplement 04/20/18 04/03/24 History blue-green algae (Spirulina) 500 1,500 mg PO DAILY 08/30/19 04/03/24 History mg capsule pantoprazole 40 mg tablet,delayed 40 mg PO DAILY gerd #90 tabs 11/17/19 04/03/24 Rx release vitamin B complex 1 cap PO DAILY 07/29/21 04/03/24 History meclizine 25 mg tablet 25 mg PO TID PRN dizziness #30 tabs 06/10/22 04/03/24 Rx vitamin E 268 mg (400 unit) capsule 268 mg PO DAILY 01/05/23 04/03/24 History acetaminophen 500 mg tablet 1,000 mg (2 x 500 mg) PO TID #100 01/28/23 04/03/24 Rx tabs sennosides 8.6 mg-docusate sodium 2 tab PO BID 3 days #12 tabs 01/28/23 04/03/24 Rx 50 mg tablet (Stool Softener-Stimulant Laxative) albuterol sulfate 90 mcg/actuation 1 - 2 puff inhalation Q4H PRN PRN 05/21/23 04/03/24 Rx aerosol inhaler Sob /Or Wheezing #8.5 grams rosuvastatin 10 mg tablet 10 mg PO DAILY cholesterol #90 tabs 01/07/24 04/03/24 Rx ivermectin 1 % topical cream 30 applic topical DAILY PRN 02/09/24 04/03/24 Rx psoriasis #45 grams sumatriptan succinate 50 mg tablet See Rx Instructions PO .COMPLEX 02/09/24 04/03/24 Rx (Imitrex) #10 tabs amitriptyline 25 mg tablet 25 mg PO QHS sleep,migraines #90 03/16/24 04/03/24 Rx tabs amlodipine 10 mg tablet 10 mg PO DAILY htn #90 tabs 03/16/24 04/03/24 Rx montelukast 10 mg tablet See Rx Instructions .Route 03/16/24 04/03/24 Rx .COMPLEX #90 tabs paroxetine HCl 40 mg tablet 40 mg PO DAILY for depressive 03/16/24 04/03/24 Rx disorder #90 TABLETS benzonatate 200 mg capsule 200 mg PO TID PRN cough #20 caps 03/22/24 04/03/24 Rx amoxicillin 500 mg tablet 500 mg PO TID #30 tabs 04/03/24 04/03/24 Rx azithromycin 250 mg tablet See Rx Instructions PO .COMPLEX #6 04/03/24 04/03/24 Rx tabs Have you fallen in the past year?: No PFSH Medical History Bilateral lower extremity edema Fatigue Post-menopausal Kidney stones Excessive bleeding Back pain Non-smoker Sleep apnea History of pain when walking Hx of flexible sigmoidoscopy Health care maintenance Preoperative evaluation to rule out surgical contraindication Suprapubic discomfort Conjunctivitis, right eye Acute pharyngitis, unspecified Acute sinusitis, unspecified Wears glasses Low iron High cholesterol Easy bruising Migraine headache History of GI bleed Gastric reflux Shortness of breath on exertion Leg cramps Hypertension History of stress test Cardiology follow-up encounter Hyperlipidemia Essential hypertension Chest pain Acute cystitis Abnormal EKG Morbid obesity Preventative health care Upper respiratory infection Screening for thyroid disorder Malaise and fatigue Left knee pain Acute postoperative anemia due to expected blood loss Sleep apnea Kidney stones Intertrigo Chronic thoracic back pain Chronic cervical pain Breast hypertrophy Abdominal panniculus, symptomatic Allergic rhinitis Restrictive airway disease Depression History of tuberculosis exposure History of positive PPD, treatment status unknown History of pneumococcal pneumonia Psoriasis Psori (more content not included)... Normal [facility] Office Visit Reporton 2023 Office Visit Report [facility] [address] [place] [address] OFFICE VISIT Date of Service: 03/22/24 MR#: [id number] Acct: [id number] Patient: JAMES BOURGEOIS MELISSA Rep #: [id number] : 1960 Provider: JANE Padgett Age/Sex: 63/F [place] [facility] Status: Signed Employer Purchased Covid Test Note: Patient here today for Covid Testing, requested by their Employer. Assessment and Plan Assessment and Plan Orders: Orders POC Cepheid Covid, FluAB, RSV Today Medications: New methylprednisolone (Medrol (Manav)) PO PER PKG DIR 21 tabs 0RF benzonatate 200 mg PO TID PRN 20 caps 0RF cough 03/22/24 1713 Date Jose Maria LARA Cosigner Signature: Date (if applicable) CC: Normal [facility] Urgent Care Visit Reporton 1 05-22-2023 Urgent Care Visit Report [facility] [address] [place] [address] OFFICE VISIT Date of Service: 03/22/24 MR#: [id number] Acct: [id number] Name: JAMES BOURGEOIS MELISSA Rep #: [id number] : 1960 Provider: JANE Padgett Age/Sex: 63/F Location[place] [facility] Status: Signed Intake Vital Signs 02/09/24 17:24 11/20/24 15:47 Height 5 ft 2 in Weight: 255 lb BMI 46.6 BP 128/74 H 116/70 Blood Pressure Location Lt brachial Rt brachial Position Sitting Sitting Respiration 14 17 Pulse 78 94 Pulse Source Monitor NIBP Temp 97.5 F L 97.6 F L Temp Source Temporal Oral Pulse Oximetry (%) 97 96 Oxygen Delivery Method room air room air Intake Visit Reasons: CONGESTION, LOSS OF TASTE Chief Complaint: Follow-up chronic conditions Allergies Latex, Natural Rubber Allergy (Severe, Verified 02/09/24 17:21) Rash adhesive Allergy (Intermediate, Verified 02/09/24 17:21) Hives nabumetone (From Relafen) Allergy (Intermediate, Verified 02/09/24 17:21) Other cat dander Allergy (Verified 02/09/24 17:21) Shortness of breath dog dander Allergy (Verified 02/09/24 17:21) Shortness of breath megestrol Allergy (Verified 02/09/24 17:21) anxious/suicidal shellfish derived Allergy (Verified 02/09/24 17:21) Vomiting Is last menstrual period known: No Post menopausal: Yes Patient : No Have you fallen in the past year?: No Nurse's Note: congestion, cough, BA, fatigue, loss of taste today. concern for covid. PFSH Medical History Bilateral lower extremity edema Fatigue Post-menopausal Kidney stones Excessive bleeding Back pain Non-smoker Sleep apnea History of pain when walking Hx of flexible sigmoidoscopy Health care maintenance Preoperative evaluation to rule out surgical contraindication Suprapubic discomfort Conjunctivitis, right eye Acute pharyngitis, unspecified Acute sinusitis, unspecified Wears glasses Low iron High cholesterol Easy bruising Migraine headache History of GI bleed Gastric reflux Shortness of breath on exertion Leg cramps Hypertension History of stress test Cardiology follow-up encounter Hyperlipidemia Essential hypertension Chest pain Acute cystitis Abnormal EKG Morbid obesity Preventative health care Upper respiratory infection Screening for thyroid disorder Malaise and fatigue Left knee pain Acute postoperative anemia due to expected blood loss Sleep apnea Kidney stones Intertrigo Chronic thoracic back pain Chronic cervical pain Breast hypertrophy Abdominal panniculus, symptomatic Allergic rhinitis Restrictive airway disease Depression History of tuberculosis exposure History of positive PPD, treatment status unknown History of pneumococcal pneumonia Psoriasis Psoriatic arthritis Knee pain Shoulder pain Back pain SOB (shortness of breath) Migraine Hay fever Anemia Asthma Arthritis Surgical History Hx of gastric bypass Hx of surgical procedure History of left heart catheterization (03/13/22) History of cardiac catheterization History of bilateral breast reduction surgery History of gastric bypass History of eye surgery History of carpal tunnel surgery of left wrist History of lateral meniscus repair of left knee History of hysterectomy Family History Mother Diabetes Heart disease Father Diabetes Heart disease CAD (coronary artery disease) Myocardial infarction, Onset Age: 42 CABG,ICD Sister Breast cancer Brother Testicular cancer Sister Cancer thyroid Brother Cancer Social History adopted: No household members: spouse current occupational status: employed current occupation: [employer] pets and animals: No Smoking Status: Former smoker quit date: 05/03/73 Tobacco: How many years used: 2 second hand exposure: Yes alcohol intake: never substance use type: does not use caffeine: Yes (2) Type: coffee and tea what type of physical activity do you participate in: walking frequency: 1-2 times per week do you feel safe at home: Yes HPI HPI Chief Complaint: Follow-up chronic conditions Details: JAMES BOURGEOIS, is a 63 F who presents to the office today for initial evaluation in the [facility] for approximately 24 hour history of persistent cough with loss of taste. Patient notes no complaints of chest pain or shortness of breath or dyspnea on exertion. Several close contacts recently dx???d w/ similar URI complaints. No [id number] taken to assist. No other associated symptoms and no other alleviating/aggrava ting factors. ROS Const Co (more content not included)... Normal [facility] Absolute lymphocyte countOrd ered By: HEALTH ASSESSMENT on 08-11-2023 Lymphocytes Auto (Unsp spec) [#/Vol] 1.32 10*3/uL 0.83-4.51 [facility] Basophil percentageOrdered B y: HEALTH ASSESSMENT on 08-11-2023 Basophil percentage 3.2 mg/dL 2.5-4.9 [facility] Bilirubin [Mass/Vol] 0.40 mg/dL 0.20-1.00 [facility] Comment on above: For patients on eltr ombopag therapy, use of Dimension [place] TBIL is not recommended. Chloride [Moles/Vol] 110 mmol/L 98-107 [facility] Cholesterol [Mass/Vol] 165 mg/dL <200 [facility] Comment on above: <200 mg/dL Desirable 200-240 mg/dL Borderline >240 mg/dL High Risk Glucose [Mass/Vol] 102 mg/dL 74-106 [facility] Comment on above: Fasting Glucose resu lt from 100 to 125 mg/dL suggests IMPAIRED HOMEOSTASIS per A.D.A. criteria. Hemoglobin (Bld) [Mass/Vol] 12.0 g/dL 12.0-15.0 [facility] LDH [Catalytic activity/Vol] 239 U/L 84-246 [facility] Neutrophils (Bld) [#/Vol] 3.9 10*3/uL 2.0-7.7 [facility] Potassium [Moles/Vol] 3.9 mmol/L 3.5-5.1 [facility] Protein [Mass/Vol] 7.2 g/dL 6.4-8.2 [facility] Sodium [Moles/Vol] 139 mmol/L 136-145 [facility] Triglyceride [Mass/Vol] 107 mg/dL <199 [facility] Comment on above: The drugs N-Acetylcy steine and Metamizole may falsely depress this assay.Serum Triglycerides Reference Interval Normal <150 mg/dL Borderline high 150 - 199 mg/dL High 200 - 499 mg/dL Very High > or = 500 mg/dL WBC (Bld) [#/Vol] 6.1 10*3/uL 4.4-11.0 [facility] Blood band neutrophil count as percentage of total leukocytesOrdered By: HEALTH ASSESSMENT on 08-11-2023 Band form neutrophils/100 WBC (Bld) 62.7 % 47-70 [facility] Determination of erythrocyte mean corpuscular volume (MCV)Ordered By: HEALTH ASSESSMENT on 08-11-2023 MCV (RBC) [Entitic vol] 87.9 fL 81-99 [facility] Direct bilirubinOrdered By: HEALTH ASSESSMENT on 08-11-2023 Bilirubin.direct [Mass/Vol] 0.14 mg/dL 0.00-0.30 [facility] Erythrocyte distribution wid th ratioOrdered By: HEALTH ASSESSMENT on 08-11-2023 Erythrocyte distribution width (RBC) [Ratio] 15.7 % 11.6-14.6 [facility] Erythrocyte distribution wid th standard deviationOrdered By: HEALTH ASSESSMENT on 08-11-2023 Erythrocyte distribution width (RBC) [Entitic vol] 50.4 fL 35.1-43.9 [facility] Hematocrit Auto (Bld) [Volum e fraction]Ordered By: HEALTH ASSESSMENT on 08-11-2023 Hematocrit (Bld) [Volume fraction] 37.8 % 37-47 [facility] - Chemistry and C hemistry - challengeOrdered By: HEALTH ASSESSMENT on 08-11-2023 Albumin/Globulin [Mass ratio] 0.8 {ratio} 0.9-2.4 [facility] ALP [Catalytic activity/Vol] 81 U/L 45-117 [facility] ALT [Catalytic activity/Vol] 22 U/L 13-56 [facility] Cholesterol in HDL [Mass/Vol] 77 mg/dL >40 [facility] Comment on above: The drugs N-Acetylcy steine and Metamizole may falsely depress this assay. Reference Range HDL <40 mg/dL Low HDL Cholesterol HDL >or= 60 mg/dL High HDL Cholesterol Cholesterol in LDL [Mass/Vol] 67 mg/dL 0-130 [facility] Cholesterol.total/Choles terol in HDL [Mass ratio] 2.10 {ratio} [facility] CO2 [Moles/Vol] 25.0 mmol/L 21.0-32.0 [facility] Globulin (S) [Mass/Vol] 4.0 g/dL 2.2-4.2 [facility] Urea nitrogen/Creatinine [Mass ratio] 18.2 mg/mg 10-20 [facility] - Hematology and Cell countsOrdered By: HEALTH ASSESSMENT on 08-11-2023 MCH (RBC) [Entitic mass] 27.9 pg 27.0-32.0 [facility] MCHC (RBC) [Mass/Vol] 31.7 g/dL 32-36 [facility] Nucleated RBC (Bld) [#/Vol] 0.00 10*3/uL 0-5 [facility] Nucleated RBC/100 WBC (Bld) [Ratio] 0 % 0-5 [facility] Platelet mean volume (Bld) [Entitic vol] 10.0 fL 6.2-12.0 [facility] Platelets (Bld) [#/Vol] 329 10*3/uL 150-450 [facility] No Panel InformationOrdered By: HEALTH ASSESSMENT on 08-11-2023 Estimated GFR (MDRD) Amer 65 mL/min >60 [facility] Comment on above: GFR Calc Estimated GFR (MDRD) Non-Af Amer 54 mL/min >60 [facility] Comment on above: Non- GFR Calc VLDL Cholesterol 21 mg/dL 5-40 [facility] RBC Auto (Bld) [#/Vol]Ordere d By: HEALTH ASSESSMENT on 08-11-2023 RBC (Bld) [#/Vol] 4.30 10*6/uL 4.2-5.4 [facility] Serum or plasma calcium samuel urement (mass/volume)Ordered By: HEALTH ASSESSMENT on 08-11-2023 Calcium [Mass/Vol] 8.8 mg/dL 8.5-10.1 [facility] Serum or plasma creatinine m easurement (mass/volume)Ordered By: HEALTH ASSESSMENT on 08-11-2023 Creatinine [Mass/Vol] 1.10 mg/dL 0.55-1.02 [facility] Comment on above: The validity of the calculated GFR & GFRAA in patients over 70 years has not been determined. Clinical correlation is essential. Serum or plasma urea nitroge n measurement (mass/volume)Ordered By: HEALTH ASSESSMENT on 08-11-2023 Urea nitrogen [Mass/Vol] 20 mg/dL 7-18 [facility] Serum or plasma uric acid me asurement (mass/volume)Ordered By: HEALTH ASSESSMENT on 08-11-2023 Urate [Mass/Vol] 6.1 mg/dL 2.6-6.0 [facility] Comment on above: The drugs N-Acetylcy steine and Metamizole may falsely depress this assay. Thin prep Papanicolaou smear with manual screeningOrdered By: HEALTH ASSESSMENT on 08-11-2023 Thin prep Papanicolaou smear with manual screening 3.2 g/dL 3.2-5.0 [facility] Thin prep Papanicolaou smear with manual screening 23 U/L 15-37 [facility] Thin prep Papanicolaou smear with manual screening 4 5-15 [facility] - Microbiology an d Antimicrobial susceptibilityon 07-28-2023 SARS-CoV-2 (COVID-19) RNA TAWANA+probe Ql (Unsp spec) Detected [facility] No Panel Informationon 07-27 POC Nasal Swab Influenza A,B Not detected [facility] POC Nasal Swab RSV Not detected [facility] Basophil percentageOrdered B y: Jose Maria Valdez on 01-28-2023 Chloride [Moles/Vol] 108 mmol/L 98-107 [facility] Glucose [Mass/Vol] 95 mg/dL 74-106 [facility] Potassium [Moles/Vol] 4.4 mmol/L 3.5-5.1 [facility] Sodium [Moles/Vol] 138 mmol/L 136-145 [facility] WBC (Bld) [#/Vol] 6.6 10*3/uL 4.4-11.0 [facility] Blood erythrocytes count (nu mber/volume)Ordered By: Jose Maria Valdez on 01-28-2023 RBC (Bld) [#/Vol] 3.77 10*6/uL 4.2-5.4 [facility] Blood hemoglobin measurement (mass/volume)Ordered By: Jose Maria Valdez on 01-28-2023 Hemoglobin (Bld) [Mass/Vol] 10.3 g/dL 12.0-15.0 [facility] Blood platelet mean volumeOr dered By: Jose Maria Valdez on 01-28-2023 Platelet mean volume (Bld) [Entitic vol] 10.2 fL 6.2-12.0 [facility] Determination of erythrocyte mean corpuscular volume (MCV)Ordered By: Jose Maria Valdez on 01-28-2023 MCV (RBC) [Entitic vol] 91.0 fL 81-99 [facility] Hematocrit Auto (Bld) [Volum e fraction]Ordered By: Jose Maria Valdez on 01-28-2023 Hematocrit (Bld) [Volume fraction] 34.3 % 37-47 [facility] - Chemistry and C hemistry - challengeOrdered By: Jose Maria Valdez on 01-28-2023 CO2 [Moles/Vol] 27.0 mmol/L 21.0-32.0 [facility] Urea nitrogen/Creatinine [Mass ratio] 16.0 mg/mg 10-20 [facility] - Hematology and Cell countsOrdered By: Jose Maria Valdez on 01-28-2023 Erythrocyte distribution width (RBC) [Entitic vol] 56.5 fL 35.1-43.9 [facility] Erythrocyte distribution width (RBC) [Ratio] 16.9 % 11.6-14.6 [facility] MCH (RBC) [Entitic mass] 27.3 pg 27.0-32.0 [facility] MCHC Auto (RBC) [Mass/Vol]Or dered By: Jose Maria Valdez on 01-28-2023 MCHC (RBC) [Mass/Vol] 30.0 g/dL 32-36 [facility] No Panel InformationOrdered By: Jose Maria Valdez on 01-28-2023 Estimated Creatinine Clearance Calc 44.64 ml/min [facility] Estimated GFR (MDRD) Amer 68 mL/min >60 [facility] Comment on above: GFR Calc Estimated GFR (MDRD) Non-Af Amer 56 mL/min >60 [facility] Comment on above: Non- GFR Calc Platelets bldOrdered By: Vincent Valdez on 01-28-2023 Platelets (Bld) [#/Vol] 252 10*3/uL 150-450 [facility] Serum or plasma calcium samuel urement (mass/volume)Ordered By: Jose Maria Valdez on 01-28-2023 Calcium [Mass/Vol] 8.5 mg/dL 8.5-10.1 [facility] Serum or plasma creatinine m easurement (mass/volume)Ordered By: Jose Maria Valdez on 01-28-2023 Creatinine [Mass/Vol] 1.06 mg/dL 0.55-1.02 [facility] Comment on above: The validity of the calculated GFR & GFRAA in patients over 70 years has not been determined. Clinical correlation is essential. Serum or plasma urea nitroge n measurement (mass/volume)Ordered By: Jose Maria Valdez on 01-28-2023 Urea nitrogen [Mass/Vol] 17 mg/dL 7-18 [facility] Thin prep Papanicolaou smear with manual screeningOrdered By: Jose Maria Valdez on 01-28-2023 Thin prep Papanicolaou smear with manual screening 3 5-15 [facility] Glucose Glucometer (BldC) [M ass/Vol]Ordered By: Jose Maria Valdez on 01-27-2023 Glucose [Mass/Vol] 134 mg/dL 74-106 [facility] Comment on above: MANAGEMENT OF PATIEN T CARE PER NURSING PROTOCOL Serum or plasma albumin samuel urement (mass/volume)Ordered By: Jose Maria Valdez on 01-12-2023 Albumin [Mass/Vol] 3.7 g/dL 3.2-5.0 [facility] Absolute lymphocyte countOrd ered By: Jose Maria Valdez on 01-06-2023 Lymphocytes Auto (Unsp spec) [#/Vol] 1.19 10*3/uL 0.83-4.51 [facility] Basophil percentageOrdered B y: Jose Maria Valdez on 01-06-2023 Basophils/100 WBC (Bld) 0.4 % 0-1 [facility] Eosinophils/100 WBC (Bld) 4.4 % 0-5 [facility] Neutrophils (Bld) [#/Vol] 3.1 10*3/uL 2.0-7.7 [facility] Neutrophils/100 WBC (Bld) 59.4 % 47-70 [facility] Blood lymphocytes/100 leukoc ytesOrdered By: Jose Maria Valdez on 01-06-2023 Lymphocytes/100 WBC (Bld) 22.9 % 19-41 [facility] Blood monocytes/100 leukocyt esOrdered By: Jose Maria Valdez on 01-06-2023 Monocytes/100 WBC (Bld) 12.7 % 0-10 [facility] INR in Blood by Coagulation assayOrdered By: Jose Maria Valdez on 01-06-2023 INR Coag (Bld) [Relative time] 1.0 {INR} [facility] - Chemistry and C hemistry - challengeOrdered By: Jose Maria Valdez on 01-06-2023 Magnesium [Mass/Vol] 2.3 mg/dL 1.6-2.6 [facility] - CoagulationOrde red By: Jose Maria Valdez on 01-06-2023 aPTT Coag (Bld) [Time] 29.2 s 24.1-36.2 [facility] PT Coag (PPP) [Time] 13.5 s 11.7-14.9 [facility] - Hematology and Cell countsOrdered By: Jose Maria Valdez on 01-06-2023 Immature granulocytes/100 WBC (Bld) 0.200 % 0.0-0.9 [facility] Comment on above: IG% - Immature Granu locytes (promyelocytes, myelocytes and metamyelocytes) > 1% indicates that a LEFT SHIFT is Present. Nucleated RBC/100 WBC (Bld) [Ratio] 0 % 0-5 [facility] No Panel InformationOrdered By: Jose Maria Valdez on 01-06-2023 Nasal Screen MRSA/MSSA [facility] Basophil percentageOrdered B y: Lenka Ferguson on 12-21-2022 Basophil percentage 0 SEEN /hpf 0-5 [facility] Bilirubin Test strip Ql (U)O rdered By: Lenka Ferguson on 12-21-2022 Bilirubin Ql (U) Negative Negative [facility] Ketones Test strip Ql (U)Ord ered By: Lenka Ferguson on 12-21-2022 Ketones Ql (U) Negative Negative [facility] - Microbiology an d Antimicrobial susceptibilityOrdered By: Lenka Ferguson on 12-21-2022 SARS-CoV-2 (COVID-19) RNA TAWANA+probe Ql (Unsp spec) [facility] SARS-CoV-2 (COVID-19) RNA TAWANA+probe Ql (Unsp spec) [facility] Mucus LM Ql (Urine sed)Order ed By: Lenka Ferguson on 12-21-2022 Mucus Ql (Urine sed) 0 SEEN /hpf [facility] Nitrite Test strip Ql (U)Ord ered By: Lisaongbe Phyllis on 12-21-2022 Nitrite Ql (U) Negative Negative [facility] Protein Test strip Ql (U)Ord ered By: Efsachinongbe Luise on 12-21-2022 Protein Ql (U) Negative Negative [facility] Squamous epithelial cells de tection in urine sediment by light microscopyOrdered By: Lenka Ferguson on 12-21-2022 Epithelial cells.squamous LM Ql (Urine sed) 0 SEEN /hpf 5-10 [facility] Urine blood detectionOrdered By: Lenka Ferguson on 12-21-2022 RBC Ql (U) 10 /ul Negative [facility] RBC Ql (U) 0 SEEN /hpf 0-5 [facility] Urine clarityOrdered By: Alonso Ferguson on 12-21-2022 Clarity (U) Clear Clear [facility] Urine color determinationOrd ered By: Lenka Ferguson on 12-21-2022 Color (U) Yellow Yellow [facility] Urine glucose detectionOrder ed By: Lenka Ferguson on 12-21-2022 Glucose Ql (U) Normal mg/dl Normal [facility] Urine leukocyte esterase det ection by dipstickOrdered By: Lenka Ferguson on 12-21-2022 Leukocyte esterase Test strip Ql (U) 25 /ul Negative [facility] Urine pHOrdered By: Miriam Ferguson on 12-21-2022 pH (U) 5.0 [pH] 5.0 - 8.0 [facility] Urine sediment bacteria coun t by microscopy (number/high power field)Ordered By: Lenka Ferguson on 12-21-2022 Bacteria LM.HPF (Urine sed) [#/Area] 0 /[HPF] None Seen [facility] Urine specific gravity measu rementOrdered By: Lenka Ferguson on 12-21-2022 Specific gravity (U) [Rel density] 1.020 1.002-1.030 [facility] Urobilinogen Auto test strip Ql (U)Ordered By: Lenka Ferguson on 12-21-2022 Urobilinogen Ql (U) Normal mg/dl Normal [facility] Absolute lymphocyte countOrd ered By: HEALTH ASSESSMENT on 2022 Lymphocytes Auto (Unsp spec) [#/Vol] 1.06 10*3/uL 0.83-4.51 [facility] Absolute reticulocyte countO rdered By: HEALTH ASSESSMENT on 2022 Reticulocytes (Bld) [#/Vol] 0.00 10*3/uL 0-5 [facility] Basophil percentageOrdered B y: HEALTH ASSESSMENT on 2022 Basophil percentage 3.5 mg/dL 2.5-4.9 [facility] Bilirubin [Mass/Vol] 0.40 mg/dL 0.20-1.00 [facility] Comment on above: For patients on eltr ombopag therapy, use of Dimension [place] TBIL is not recommended. Chloride [Moles/Vol] 106 mmol/L 98-107 [facility] Cholesterol [Mass/Vol] 153 mg/dL <200 [facility] Comment on above: <200 mg/dL Desirable 200-240 mg/dL Borderline >240 mg/dL High Risk Glucose [Mass/Vol] 109 mg/dL 74-106 [facility] Comment on above: Fasting Glucose resu lt from 100 to 125 mg/dL suggests IMPAIRED HOMEOSTASIS per A.D.A. criteria. LDH [Catalytic activity/Vol] 202 U/L 84-246 [facility] Neutrophils (Bld) [#/Vol] 3.0 10*3/uL 2.0-7.7 [facility] Potassium [Moles/Vol] 3.8 mmol/L 3.5-5.1 [facility] Protein [Mass/Vol] 7.9 g/dL 6.4-8.2 [facility] Sodium [Moles/Vol] 138 mmol/L 136-145 [facility] Triglyceride [Mass/Vol] 85 mg/dL <199 [facility] Comment on above: The drugs N-Acetylcy steine and Metamizole may falsely depress this assay.Serum Triglycerides Reference Interval Normal <150 mg/dL Borderline high 150 - 199 mg/dL High 200 - 499 mg/dL Very High > or = 500 mg/dL WBC (Bld) [#/Vol] 4.8 10*3/uL 4.4-11.0 [facility] Bilirubin Test strip Ql (U)O rdered By: HEALTH ASSESSMENT on 2022 Bilirubin Ql (U) Negative Negative [facility] Blood erythrocytes count (nu mber/volume)Ordered By: HEALTH ASSESSMENT on 2022 RBC (Bld) [#/Vol] 4.56 10*6/uL 4.2-5.4 [facility] Blood hemoglobin measurement (mass/volume)Ordered By: HEALTH ASSESSMENT on 2022 Hemoglobin (Bld) [Mass/Vol] 12.8 g/dL 12.0-15.0 [facility] Blood platelet mean volumeOr dered By: HEALTH ASSESSMENT on 2022 Platelet mean volume (Bld) [Entitic vol] 11.0 fL 6.2-12.0 [facility] Determination of erythrocyte mean corpuscular volume (MCV)Ordered By: HEALTH ASSESSMENT on 2022 MCV (RBC) [Entitic vol] 87.1 fL 81-99 [facility] Direct bilirubinOrdered By: HEALTH ASSESSMENT on 2022 Bilirubin.direct [Mass/Vol] 0.10 mg/dL 0.00-0.30 [facility] Hematocrit Auto (Bld) [Volum e fraction]Ordered By: HEALTH ASSESSMENT on 2022 Hematocrit (Bld) [Volume fraction] 39.7 % 37-47 [facility] Ketones Test strip Ql (U)Ord ered By: HEALTH ASSESSMENT on 2022 Ketones Ql (U) Negative Negative [facility] - Chemistry and C hemistry - challengeOrdered By: HEALTH ASSESSMENT on 2022 ALP [Catalytic activity/Vol] 81 U/L 45-117 [facility] ALT [Catalytic activity/Vol] 23 U/L 13-56 [facility] Cholesterol.total/Choles terol in HDL [Mass ratio] 2.00 {ratio} [facility] CO2 [Moles/Vol] 27.0 mmol/L 21.0-32.0 [facility] Globulin (S) [Mass/Vol] 4.3 g/dL 2.2-4.2 [facility] Urea nitrogen/Creatinine [Mass ratio] 17.9 mg/mg 10-20 [facility] - Hematology and Cell countsOrdered By: HEALTH ASSESSMENT on 2022 Erythrocyte distribution width (RBC) [Entitic vol] 50.2 fL 35.1-43.9 [facility] Erythrocyte distribution width (RBC) [Ratio] 15.7 % 11.6-14.6 [facility] MCH (RBC) [Entitic mass] 28.1 pg 27.0-32.0 [facility] Nucleated RBC/100 WBC (Bld) [Ratio] 0 % 0-5 [facility] MCHC Auto (RBC) [Mass/Vol]Or dered By: HEALTH ASSESSMENT on 2022 MCHC (RBC) [Mass/Vol] 32.2 g/dL 32-36 [facility] Nitrite Test strip Ql (U)Ord ered By: HEALTH ASSESSMENT on 2022 Nitrite Ql (U) Negative Negative [facility] No Panel InformationOrdered By: HEALTH ASSESSMENT on 2022 Estimated GFR (MDRD) Amer 64 mL/min >60 [facility] Comment on above: GFR Calc Estimated GFR (MDRD) Non-Af Amer 53 mL/min >60 [facility] Comment on above: Non- GFR Calc Platelets bldOrdered By: ANTHONY LT ASSESSMENT on 2022 Platelets (Bld) [#/Vol] 303 10*3/uL 150-450 [facility] Protein Test strip Ql (U)Ord ered By: HEALTH ASSESSMENT on 2022 Protein Ql (U) 15 mg/dl Negative [facility] Segmented neutrophils/100 WB C Auto (Bld)Ordered By: HEALTH ASSESSMENT on 2022 Segmented neutrophils/100 WBC (Bld) 62.4 % 47-70 [facility] Serum or plasma albumin samuel urement (mass/volume)Ordered By: HEALTH ASSESSMENT on 2022 Albumin [Mass/Vol] 3.6 g/dL 3.2-5.0 [facility] Serum or plasma albumin/glob ulin mass ratioOrdered By: HEALTH ASSESSMENT on 2022 Albumin/Globulin [Mass ratio] 0.8 {ratio} 0.9-2.4 [facility] Serum or plasma calcium samuel urement (mass/volume)Ordered By: HEALTH ASSESSMENT on 2022 Calcium [Mass/Vol] 9.5 mg/dL 8.5-10.1 [facility] Serum or plasma cholesterol in HDL measurement (mass/volume)Ordered By: HEALTH ASSESSMENT on 2022 Cholesterol in HDL [Mass/Vol] 78 mg/dL >40 [facility] Comment on above: The drugs N-Acetylcy steine and Metamizole may falsely depress this assay. Reference Range HDL <40 mg/dL Low HDL Cholesterol HDL >or= 60 mg/dL High HDL Cholesterol Serum or plasma cholesterol in VLDL measurement (mass/volume)Ordered By: HEALTH ASSESSMENT on 2022 Cholesterol in VLDL [Mass/Vol] 17 mg/dL 5-40 [facility] Serum or plasma creatinine m easurement (mass/volume)Ordered By: HEALTH ASSESSMENT on 2022 Creatinine [Mass/Vol] 1.12 mg/dL 0.55-1.02 [facility] Comment on above: The validity of the calculated GFR & GFRAA in patients over 70 years has not been determined. Clinical correlation is essential. Serum or plasma low density lipoprotein (LDL) cholesterol measurement (mass/volume)Ordered By: HEALTH ASSESSMENT on 2022 Cholesterol in LDL [Mass/Vol] 58 mg/dL 0-130 [facility] Serum or plasma urea nitroge n measurement (mass/volume)Ordered By: HEALTH ASSESSMENT on 2022 Urea nitrogen [Mass/Vol] 20 mg/dL 7-18 [facility] Serum or plasma uric acid me asurement (mass/volume)Ordered By: HEALTH ASSESSMENT on 2022 Urate [Mass/Vol] 6.6 mg/dL 2.6-6.0 [facility] Comment on above: The drugs N-Acetylcy steine and Metamizole may falsely depress this assay. Thin prep Papanicolaou smear with manual screeningOrdered By: HEALTH ASSESSMENT on 2022 Thin prep Papanicolaou smear with manual screening 22 U/L 15-37 [facility] Thin prep Papanicolaou smear with manual screening 5 5-15 [facility] Urine blood detectionOrdered By: HEALTH ASSESSMENT on 2022 RBC Ql (U) 25 /ul Negative [facility] Urine clarityOrdered By: HEA LT ASSESSMENT on 2022 Clarity (U) Clear Clear [facility] Urine color determinationOrd ered By: HEALTH ASSESSMENT on 2022 Color (U) Yellow Yellow [facility] Urine glucose detectionOrder ed By: HEALTH ASSESSMENT on 2022 Glucose Ql (U) Normal mg/dl Normal [facility] Urine leukocyte esterase det ection by dipstickOrdered By: HEALTH ASSESSMENT on 2022 Leukocyte esterase Test strip Ql (U) 100 /ul Negative [facility] Urine pHOrdered By: HEALTH A SSESSMENT on 2022 pH (U) 6.0 [pH] 5.0 - 8.0 [facility] Urine specific gravity measu rementOrdered By: HEALTH ASSESSMENT on 2022 Specific gravity (U) [Rel density] 1.020 1.002-1.030 [facility] Urobilinogen Auto test strip Ql (U)Ordered By: HEALTH ASSESSMENT on 2022 Urobilinogen Ql (U) Normal mg/dl Normal [facility] - Microbiology an d Antimicrobial susceptibilityon 07-29-2022 S. pyogenes Ag IA Ql (Unsp spec) Negative [facility] Absolute lymphocyte countOrd ered By: Dr. Treviño on 06-08-2022 Lymphocytes Auto (Unsp spec) [#/Vol] 1.59 10*3/uL 0.83-4.51 [facility] Absolute lymphocyte countOrd ered By: Dr. Read on 06-08-2022 Lymphocytes Auto (Unsp spec) [#/Vol] 1.43 10*3/uL 0.83-4.51 [facility] Basophil percentageOrdered B y: Dr. Treviño on 06-08-2022 Basophil percentage 0-5 SEEN /hpf 0-5 [facility] Basophils/100 WBC (Bld) 0.5 % 0-1 [facility] Eosinophils/100 WBC (Bld) 2.0 % 0-5 [facility] Neutrophils (Bld) [#/Vol] 6.2 10*3/uL 2.0-7.7 [facility] Neutrophils/100 WBC (Bld) 70.8 % 47-70 [facility] WBC (Bld) [#/Vol] 8.7 10*3/uL 4.4-11.0 [facility] Basophil percentageOrdered B y: Dr. Read on 06-08-2022 Basophils/100 WBC (Bld) 0.2 % 0-1 [facility] Bilirubin [Mass/Vol] 0.20 mg/dL 0.20-1.00 [facility] Comment on above: For patients on eltr ombopag therapy, use of Dimension [place] TBIL is not recommended. Chloride [Moles/Vol] 110 mmol/L 98-107 [facility] Eosinophils/100 WBC (Bld) 1.7 % 0-5 [facility] Glucose [Mass/Vol] 103 mg/dL 74-106 [facility] Comment on above: Fasting Glucose resu lt from 100 to 125 mg/dL suggests IMPAIRED HOMEOSTASIS per A.D.A. criteria. Neutrophils (Bld) [#/Vol] 7.7 10*3/uL 2.0-7.7 [facility] Neutrophils/100 WBC (Bld) 74.6 % 47-70 [facility] Potassium [Moles/Vol] 4.1 mmol/L 3.5-5.1 [facility] Protein [Mass/Vol] 8.4 g/dL 6.4-8.2 [facility] Sodium [Moles/Vol] 143 mmol/L 136-145 [facility] WBC (Bld) [#/Vol] 10.3 10*3/uL 4.4-11.0 [facility] Bilirubin Test strip Ql (U)O rdered By: Dr. Treviño on 06-08-2022 Bilirubin Ql (U) Negative Negative [facility] Blood erythrocytes count (nu mber/volume)Ordered By: Dr. Treviño on 06-08-2022 RBC (Bld) [#/Vol] 4.52 10*6/uL 4.2-5.4 [facility] Blood erythrocytes count (nu mber/volume)Ordered By: Dr. Read on 06-08-2022 RBC (Bld) [#/Vol] 4.56 10*6/uL 4.2-5.4 [facility] Blood hemoglobin measurement (mass/volume)Ordered By: Dr. Treviño on 06-08-2022 Hemoglobin (Bld) [Mass/Vol] 12.6 g/dL 12.0-15.0 [facility] Blood hemoglobin measurement (mass/volume)Ordered By: Dr. Read on 06-08-2022 Hemoglobin (Bld) [Mass/Vol] 12.9 g/dL 12.0-15.0 [facility] Blood lymphocytes/100 leukoc ytesOrdered By: Dr. Treviño on 06-08-2022 Lymphocytes/100 WBC (Bld) 18.3 % 19-41 [facility] Blood lymphocytes/100 leukoc ytesOrdered By: Dr. Read on 06-08-2022 Lymphocytes/100 WBC (Bld) 13.9 % 19-41 [facility] Blood manual differential co mment interpretation (narrative result)Ordered By: Dr. Treviño on 06-08-2022 Manual differential comment Sandeep (Bld) [Interp] SCANNED [facility] Comment on above: AUTO DIFF OK Blood monocytes/100 leukocyt esOrdered By: [address]. Treviño on 06-08-2022 Monocytes/100 WBC (Bld) 7.9 % 0-10 [facility] Blood monocytes/100 leukocyt esOrdered By: Dr. Read on 06-08-2022 Monocytes/100 WBC (Bld) 9.1 % 0-10 [facility] Blood platelet mean volumeOr dered By: Dr. Treviño on 06-08-2022 Platelet mean volume (Bld) [Entitic vol] 10.7 fL 6.2-12.0 [facility] Blood platelet mean volumeOr dered By: Dr. Read on 06-08-2022 Platelet mean volume (Bld) [Entitic vol] 9.9 fL 6.2-12.0 [facility] Determination of erythrocyte mean corpuscular volume (MCV)Ordered By: Dr. Treviño on 06-08-2022 MCV (RBC) [Entitic vol] 90.7 fL 81-99 [facility] Determination of erythrocyte mean corpuscular volume (MCV)Ordered By: Dr. Read on 06-08-2022 MCV (RBC) [Entitic vol] 86.8 fL 81-99 [facility] Hematocrit Auto (Bld) [Volum e fraction]Ordered By: Dr. Treviño on 06-08-2022 Hematocrit (Bld) [Volume fraction] 41.0 % 37-47 [facility] Hematocrit Auto (Bld) [Volum e fraction]Ordered By: Dr. Read on 06-08-2022 Hematocrit (Bld) [Volume fraction] 39.6 % 37-47 [facility] Ketones Test strip Ql (U)Ord ered By: Dr. Treviño on 06-08-2022 Ketones Ql (U) Negative Negative [facility] Laboratory - Chemistry and C hemistry - challengeOrdered By: Dr. Read on 06-08-2022 ALP [Catalytic activity/Vol] 92 U/L 45-117 [facility] ALT [Catalytic activity/Vol] 21 U/L 13-56 [facility] CO2 [Moles/Vol] 27.0 mmol/L 21.0-32.0 [facility] Globulin (S) [Mass/Vol] 4.8 g/dL 2.2-4.2 [facility] Urea nitrogen/Creatinine [Mass ratio] 22.9 mg/mg 10-20 [facility] Laboratory - Hematology and Cell countsOrdered By: Dr. Treviño on 06-08-2022 Erythrocyte distribution width (RBC) [Entitic vol] 55.5 fL 35.1-43.9 [facility] Erythrocyte distribution width (RBC) [Ratio] 16.5 % 11.6-14.6 [facility] Immature granulocytes/100 WBC (Bld) 0.500 % 0.0-0.9 [facility] Comment on above: IG% - Immature Granu locytes (promyelocytes, myelocytes and metamyelocytes) > 1% indicates that a LEFT SHIFT is Present. MCH (RBC) [Entitic mass] 27.9 pg 27.0-32.0 [facility] Nucleated RBC/100 WBC (Bld) [Ratio] 0 % 0-5 [facility] - Hematology and Cell countsOrdered By: Dr. Read on 06-08-2022 Erythrocyte distribution width (RBC) [Entitic vol] 50.6 fL 35.1-43.9 [facility] Erythrocyte distribution width (RBC) [Ratio] 15.9 % 11.6-14.6 [facility] Immature granulocytes/100 WBC (Bld) 0.500 % 0.0-0.9 [facility] Comment on above: IG% - Immature Granu locytes (promyelocytes, myelocytes and metamyelocytes) > 1% indicates that a LEFT SHIFT is Present. MCH (RBC) [Entitic mass] 28.3 pg 27.0-32.0 [facility] Nucleated RBC/100 WBC (Bld) [Ratio] 0 % 0-5 [facility] MCHC Auto (RBC) [Mass/Vol]Or dered By: Dr. Treviño on 06-08-2022 MCHC (RBC) [Mass/Vol] 30.7 g/dL 32-36 [facility] Comment on above: Delta: 32.6 on 06/08 MCHC Auto (RBC) [Mass/Vol]Or dered By: Dr. Read on 06-08-2022 MCHC (RBC) [Mass/Vol] 32.6 g/dL 32-36 [facility] Mucus LM Ql (Urine sed)Order ed By: Dr. Treviño on 06-08-2022 Mucus Ql (Urine sed) 0 SEEN /hpf [facility] Nitrite Test strip Ql (U)Ord ered By: Dr. Treviño on 06-08-2022 Nitrite Ql (U) Negative Negative [facility] No Panel InformationOrdered By: Dr. Treviño on 06-08-2022 Troponin I High Sensitivity 4 pg/mL 3.0-54.0 [facility] Comment on above: Please Note: New Elyssa t Units and Gender Specific Reference Ranges. For more information see Policy Stat Procedure [place] High Sensitivity Troponin (TNIH) and attachments. No Panel InformationOrdered By: Dr. Read on 06-08-2022 Estimated GFR (MDRD) Amer 80 mL/min >60 [facility] Comment on above: GFR Calc Estimated GFR (MDRD) Non-Af Amer 67 mL/min >60 [facility] Comment on above: Non- GFR Calc Platelets bldOrdered By: Dr. Treviño on 06-08-2022 Platelets (Bld) [#/Vol] 323 10*3/uL 150-450 [facility] Platelets bldOrdered By: Dr. Read on 06-08-2022 Platelets (Bld) [#/Vol] 378 10*3/uL 150-450 [facility] Protein Test strip Ql (U)Ord ered By: Dr. Treviño on 06-08-2022 Protein Ql (U) Negative Negative [facility] Serum or plasma albumin samuel urement (mass/volume)Ordered By: Dr. Read on 06-08-2022 Albumin [Mass/Vol] 3.6 g/dL 3.2-5.0 [facility] Serum or plasma albumin/glob ulin mass ratioOrdered By: Dr. Read on 06-08-2022 Albumin/Globulin [Mass ratio] 0.8 {ratio} 0.9-2.4 [facility] Serum or plasma calcium samuel urement (mass/volume)Ordered By: Dr. Read on 06-08-2022 Calcium [Mass/Vol] 9.6 mg/dL 8.5-10.1 [facility] Serum or plasma creatinine m easurement (mass/volume)Ordered By: Dr. Read on 06-08-2022 Creatinine [Mass/Vol] 0.92 mg/dL 0.55-1.02 [facility] Comment on above: The validity of the calculated GFR & GFRAA in patients over 70 years has not been determined. Clinical correlation is essential. Serum or plasma urea nitroge n measurement (mass/volume)Ordered By: Dr. Read on 06-08-2022 Urea nitrogen [Mass/Vol] 21 mg/dL 7-18 [facility] Squamous epithelial cells de tection in urine sediment by light microscopyOrdered By: Dr. Treviño on 06-08-2022 Epithelial cells.squamous LM Ql (Urine sed) 0 SEEN /hpf 5-10 [facility] Thin prep Papanicolaou smear with manual screeningOrdered By: Dr. Read on 06-08-2022 Thin prep Papanicolaou smear with manual screening 25 U/L 15-37 [facility] Thin prep Papanicolaou smear with manual screening 6 5-15 [facility] Urine blood detectionOrdered By: Dr. Treviño on 06-08-2022 RBC Ql (U) Negative Negative [facility] RBC Ql (U) 0 SEEN /hpf 0-5 [facility] Urine clarityOrdered By: Dr. Treviño on 06-08-2022 Clarity (U) Clear Clear [facility] Urine color determinationOrd ered By: Dr. Treviño on 06-08-2022 Color (U) Yellow Yellow [facility] Urine glucose detectionOrder ed By: Dr. Treviño on 06-08-2022 Glucose Ql (U) Normal mg/dl Normal [facility] Urine leukocyte esterase det ection by dipstickOrdered By: Dr. Treviño on 06-08-2022 Leukocyte esterase Test strip Ql (U) 25 /ul Negative [facility] Urine pHOrdered By: Dr. Barney armstrong on 06-08-2022 pH (U) 5.0 [pH] 5.0 - 8.0 [facility] Urine sediment bacteria coun t by microscopy (number/high power field)Ordered By: Dr. Treviño on 06-08-2022 Bacteria LM.HPF (Urine sed) [#/Area] 0 /[HPF] None Seen [facility] Urine specific gravity measu rementOrdered By: Dr. Treviño on 06-08-2022 Specific gravity (U) [Rel density] 1.020 1.002-1.030 [facility] Urobilinogen Auto test strip Ql (U)Ordered By: Dr. Treviño on 06-08-2022 Urobilinogen Ql (U) Normal mg/dl Normal [facility] Laboratory - Microbiology an d Antimicrobial susceptibilityon 04-29-2022 SARS-CoV-2 (COVID-19) RNA TAWANA+probe Ql (Unsp spec) Not detected [facility] Absolute lymphocyte countOrd ered By: Dr. Read on 03-04-2022 Lymphocytes Auto (Unsp spec) [#/Vol] 1.92 10*3/uL 0.83-4.51 [facility] Basophil percentageOrdered B y: Dr. Read on 03-04-2022 Basophils/100 WBC (Bld) 0.4 % 0-1 [facility] Chloride [Moles/Vol] 103 mmol/L 98-107 [facility] Eosinophils/100 WBC (Bld) 3.7 % 0-5 [facility] Glucose [Mass/Vol] 111 mg/dL 74-106 [facility] Comment on above: Fasting Glucose resu lt from 100 to 125 mg/dL suggests IMPAIRED HOMEOSTASIS per A.D.A. criteria. Neutrophils (Bld) [#/Vol] 4.0 10*3/uL 2.0-7.7 [facility] Neutrophils/100 WBC (Bld) 58.9 % 47-70 [facility] Potassium [Moles/Vol] 4.3 mmol/L 3.5-5.1 [facility] Comment on above: Moderate Hemolysis, Result may be falsely increased. Sodium [Moles/Vol] 138 mmol/L 136-145 [facility] WBC (Bld) [#/Vol] 6.8 10*3/uL 4.4-11.0 [facility] Blood erythrocytes count (nu mber/volume)Ordered By: Dr. Read on 03-04-2022 RBC (Bld) [#/Vol] 4.73 10*6/uL 4.2-5.4 [facility] Blood hemoglobin measurement (mass/volume)Ordered By: Dr. Read on 03-04-2022 Hemoglobin (Bld) [Mass/Vol] 13.4 g/dL 12.0-15.0 [facility] Blood lymphocytes/100 leukoc ytesOrdered By: Dr. Read on 03-04-2022 Lymphocytes/100 WBC (Bld) 28.1 % 19-41 [facility] Blood monocytes/100 leukocyt esOrdered By: Dr. Read on 03-04-2022 Monocytes/100 WBC (Bld) 8.6 % 0-10 [facility] Blood platelet mean volumeOr dered By: Dr. Read on 03-04-2022 Platelet mean volume (Bld) [Entitic vol] 9.9 fL 6.2-12.0 [facility] Determination of erythrocyte mean corpuscular volume (MCV)Ordered By: Dr. Read on 03-04-2022 MCV (RBC) [Entitic vol] 87.1 fL 81-99 [facility] Hematocrit Auto (Bld) [Volum e fraction]Ordered By: Dr. Read on 03-04-2022 Hematocrit (Bld) [Volume fraction] 41.2 % 37-47 [facility] Laboratory - Chemistry and C hemistry - challengeOrdered By: Dr. Read on 03-04-2022 CO2 [Moles/Vol] 31.0 mmol/L 21.0-32.0 [facility] Urea nitrogen/Creatinine [Mass ratio] 14.5 mg/mg 10-20 [facility] - Hematology and Cell countsOrdered By: Dr. Read on 03-04-2022 Erythrocyte distribution width (RBC) [Entitic vol] 48.1 fL 35.1-43.9 [facility] Erythrocyte distribution width (RBC) [Ratio] 15.1 % 11.6-14.6 [facility] Immature granulocytes/100 WBC (Bld) 0.300 % 0.0-0.9 [facility] Comment on above: IG% - Immature Granu locytes (promyelocytes, myelocytes and metamyelocytes) > 1% indicates that a LEFT SHIFT is Present. MCH (RBC) [Entitic mass] 28.3 pg 27.0-32.0 [facility] Nucleated RBC/100 WBC (Bld) [Ratio] 0 % 0-5 [facility] MCHC Auto (RBC) [Mass/Vol]Or dered By: Dr. Read on 03-04-2022 MCHC (RBC) [Mass/Vol] 32.5 g/dL 32-36 [facility] No Panel InformationOrdered By: Dr. Read on 03-04-2022 Estimated GFR (MDRD) Amer 65 mL/min >60 [facility] Comment on above: GFR Calc Estimated GFR (MDRD) Non-Af Amer 54 mL/min >60 [facility] Comment on above: Non- GFR Calc Platelets bldOrdered By: Dr. Read on 03-04-2022 Platelets (Bld) [#/Vol] 328 10*3/uL 150-450 [facility] Serum or plasma calcium samuel urement (mass/volume)Ordered By: Dr. Read on 03-04-2022 Calcium [Mass/Vol] 9.5 mg/dL 8.5-10.1 [facility] Serum or plasma creatinine m easurement (mass/volume)Ordered By: Dr. Read on 03-04-2022 Creatinine [Mass/Vol] 1.10 mg/dL 0.55-1.02 [facility] Comment on above: The validity of the calculated GFR & GFRAA in patients over 70 years has not been determined. Clinical correlation is essential. Serum or plasma urea nitroge n measurement (mass/volume)Ordered By: Dr. Read on 03-04-2022 Urea nitrogen [Mass/Vol] 16 mg/dL 7-18 [facility] Thin prep Papanicolaou smear with manual screeningOrdered By: Dr. Read on 03-04-2022 Thin prep Papanicolaou smear with manual screening 4 5-15 [facility] Basophil percentageon 2021 Basophil percentage 0-5 SEEN /hpf 0-5 [facility] Work Phone: Bilirubin Test strip Ql (U)o n 01-29-2022 Bilirubin Ql (U) Negative Negative [facility] Work Phone: Ketones Test strip Ql (U)on 01-29-2022 Ketones Ql (U) Negative Negative [facility] Work Phone: Mucus LM Ql (Urine sed)on Mucus Ql (Urine sed) 0 SEEN /hpf [facility] Work Phone: Nitrite Test strip Ql (U)on 01-29-2022 Nitrite Ql (U) Positive Negative [facility] Work Phone: Protein Test strip Ql (U)on 01-29-2022 Protein Ql (U) Negative Negative [facility] Work Phone: Squamous epithelial cells de tection in urine sediment by light microscopyon 01-29-2022 Epithelial cells.squamous LM Ql (Urine sed) 0 SEEN /hpf 5-10 [facility] Work Phone: Urine blood detectionon 01-02 RBC Ql (U) Negative Negative [facility] Work Phone: RBC Ql (U) 0 SEEN /hpf 0-5 [facility] Work Phone: Urine clarityon 01-29-2022 Clarity (U) Clear Clear [facility] Work Phone: Urine color determinationon 01-29-2022 Color (U) Yellow Yellow [facility] Work Phone: Urine glucose detectionon Glucose Ql (U) Normal mg/dl Normal [facility] Work Phone: Urine leukocyte esterase det ection by dipstickon 01-29-2022 Leukocyte esterase Test strip Ql (U) 100 /ul Negative [facility] Work Phone: Urine pHon 01-29-2022 pH (U) 5.0 [pH] 5.0 - 8.0 [facility] Work Phone: Urine sediment bacteria coun t by microscopy (number/high power field)on 01-29-2022 Bacteria LM.HPF (Urine sed) [#/Area] 1 /[HPF] None Seen [facility] Work Phone: Urine specific gravity measu rementon 01-29-2022 Specific gravity (U) [Rel density] 1.010 1.002-1.030 [facility] Work Phone: Urobilinogen Auto test strip Ql (U)on 01-29-2022 Urobilinogen Ql (U) Normal mg/dl Normal [facility] Work Phone: Basophil percentageon 2021 Basophil percentage 0-5 SEEN /hpf 0-5 [facility] Work Phone: Bilirubin Test strip Ql (U)o n 01-06-2022 Bilirubin Ql (U) Negative Negative [facility] Work Phone: Ketones Test strip Ql (U)on 01-06-2022 Ketones Ql (U) Negative Negative [facility] Work Phone: Mucus LM Ql (Urine sed)on Mucus Ql (Urine sed) 0 SEEN /hpf [facility] Work Phone: Nitrite Test strip Ql (U)on 01-06-2022 Nitrite Ql (U) Negative Negative [facility] Work Phone: Protein Test strip Ql (U)on 01-06-2022 Protein Ql (U) Negative Negative [facility] Work Phone: Squamous epithelial cells de tection in urine sediment by light microscopyon 01-06-2022 Epithelial cells.squamous LM Ql (Urine sed) 0-5 SEEN /hpf 5-10 [facility] Work Phone: Urine blood detectionon RBC Ql (U) Negative Negative [facility] Work Phone: RBC Ql (U) 0 SEEN /hpf 0-5 [facility] Work Phone: Urine clarityon 01-06-2022 Clarity (U) Sl. Cloudy Clear [facility] Work Phone: Urine color determinationon 01-06-2022 Color (U) Yellow Yellow [facility] Work Phone: Urine glucose detectionon Glucose Ql (U) Normal mg/dl Normal [facility] Work Phone: Urine leukocyte esterase det ection by dipstickon 01-06-2022 Leukocyte esterase Test strip Ql (U) 25 /ul Negative [facility] Work Phone: Urine pHon 01-06-2022 pH (U) 6.0 [pH] 5.0 - 8.0 [facility] Work Phone: Urine sediment bacteria coun t by microscopy (number/high power field)on 01-06-2022 Bacteria LM.HPF (Urine sed) [#/Area] 0 /[HPF] None Seen [facility] Work Phone: Urine specific gravity measu rementon 01-06-2022 Specific gravity (U) [Rel density] 1.010 1.002-1.030 [facility] Work Phone: Urobilinogen Auto test strip Ql (U)on 01-06-2022 Urobilinogen Ql (U) Normal mg/dl Normal [facility] Work Phone: Absolute lymphocyte counton 01-02-2022 Lymphocytes Auto (Unsp spec) [#/Vol] 1.43 10*3/uL 0.83-4.51 [facility] Work Phone: Absolute reticulocyte counto n 01-02-2022 Reticulocytes (Bld) [#/Vol] 0.00 10*3/uL 0-5 [facility] Work Phone: Basophil percentageon 2021 Basophil percentage 2.2 mg/dL 2.5-4.9 [facility] Work Phone: Bilirubin [Mass/Vol] 0.40 mg/dL 0.20-1.00 [facility] Work Phone: Comment on above: For patients on eltr ombopag therapy, use of Dimension [place] TBIL is not recommended. Chloride [Moles/Vol] 109 mmol/L 98-107 [facility] Work Phone: Cholesterol [Mass/Vol] 173 mg/dL <200 [facility] Work Phone: Comment on above: <200 mg/dL Desirable 200-240 mg/dL Borderline >240 mg/dL High Risk Glucose [Mass/Vol] 82 mg/dL 74-106 [facility] Work Phone: Neutrophils (Bld) [#/Vol] 4.1 10*3/uL 2.0-7.7 [facility] Work Phone: Potassium [Moles/Vol] 3.8 mmol/L 3.5-5.1 [facility] Work Phone: Protein [Mass/Vol] 7.7 g/dL 6.4-8.2 [facility] Work Phone: Sodium [Moles/Vol] 142 mmol/L 136-145 [facility] Work Phone: Triglyceride [Mass/Vol] 110 mg/dL <199 [facility] Work Phone: Comment on above: The drugs N-Acetylcy steine and Metamizole may falsely depress this assay.Serum Triglycerides Reference Interval Normal <150 mg/dL Borderline high 150 - 199 mg/dL High 200 - 499 mg/dL Very High > or = 500 mg/dL WBC (Bld) [#/Vol] 6.4 10*3/uL 4.4-11.0 [facility] Work Phone: Bilirubin Test strip Ql (U)o n 01-02-2022 Bilirubin Ql (U) Negative Negative [facility] Work Phone: Blood erythrocytes count (nu mber/volume)on 01-02-2022 RBC (Bld) [#/Vol] 4.55 10*6/uL 4.2-5.4 [facility] Work Phone: Blood hemoglobin measurement (mass/volume)on 01-02-2022 Hemoglobin (Bld) [Mass/Vol] 12.7 g/dL 12.0-15.0 [facility] Work Phone: Blood platelet mean volumeon 01-02-2022 Platelet mean volume (Bld) [Entitic vol] 10.3 fL 6.2-12.0 [facility] Work Phone: Determination of erythrocyte mean corpuscular volume (MCV)on 01-02-2022 MCV (RBC) [Entitic vol] 89.5 fL 81-99 [facility] Work Phone: Direct bilirubinon 2 Bilirubin.direct [Mass/Vol] 0.13 mg/dL 0.00-0.30 [facility] Work Phone: Hematocrit Auto (Bld) [Volum e fraction]on 01-02-2022 Hematocrit (Bld) [Volume fraction] 40.7 % 37-47 [facility] Work Phone: Ketones Test strip Ql (U)on 01-02-2022 Ketones Ql (U) 5 mg/dl Negative [facility] Work Phone: Laboratory - Chemistry and C hemistry - challengeon 01-02-2022 ALP [Catalytic activity/Vol] 84 U/L 45-117 [facility] Work Phone: ALT [Catalytic activity/Vol] 23 U/L 13-56 [facility] Work Phone: Cholesterol.total/Choles terol in HDL [Mass ratio] 2.10 {ratio} [facility] Work Phone: CO2 [Moles/Vol] 24.0 mmol/L 21.0-32.0 [facility] Work Phone: Globulin (S) [Mass/Vol] 4.3 g/dL 2.2-4.2 [facility] Work Phone: Urea nitrogen/Creatinine [Mass ratio] 14.4 mg/mg 10-20 [facility] Work Phone: Laboratory - Hematology and Cell countson 01-02-2022 Erythrocyte distribution width (RBC) [Entitic vol] 51.6 fL 35.1-43.9 [facility] Work Phone: Erythrocyte distribution width (RBC) [Ratio] 15.6 % 11.6-14.6 [facility] Work Phone: MCH (RBC) [Entitic mass] 27.9 pg 27.0-32.0 [facility] Work Phone: Nucleated RBC/100 WBC (Bld) [Ratio] 0 % 0-5 [facility] Work Phone: MCHC Auto (RBC) [Mass/Vol]on 01-02-2022 MCHC (RBC) [Mass/Vol] 31.2 g/dL 32-36 [facility] Work Phone: Nitrite Test strip Ql (U)on 01-02-2022 Nitrite Ql (U) Positive Negative [facility] Work Phone: No Panel Informationon 01-02 Estimated GFR (MDRD) Amer 65 mL/min >60 [facility] Work Phone: Comment on above: GFR Calc Estimated GFR (MDRD) Non-Af Amer 54 mL/min >60 [facility] Work Phone: Comment on above: Non- GFR Calc Platelets bldon 01-02-2022 Platelets (Bld) [#/Vol] 315 10*3/uL 150-450 [facility] Work Phone: Protein Test strip Ql (U)on 01-02-2022 Protein Ql (U) 30 mg/dl Negative [facility] Work Phone: Segmented neutrophils/100 WB C Auto (Bld)on 01-02-2022 Segmented neutrophils/100 WBC (Bld) 63.9 % 47-70 [facility] Work Phone: Serum or plasma albumin samuel urement (mass/volume)on 01-02-2022 Albumin [Mass/Vol] 3.4 g/dL 3.2-5.0 [facility] Work Phone: Serum or plasma albumin/glob ulin mass ratioon 01-02-2022 Albumin/Globulin [Mass ratio] 0.8 {ratio} 0.9-2.4 [facility] Work Phone: Serum or plasma calcium samuel urement (mass/volume)on 01-02-2022 Calcium [Mass/Vol] 8.9 mg/dL 8.5-10.1 [facility] Work Phone: Serum or plasma cholesterol in HDL measurement (mass/volume)on 01-02-2022 Cholesterol in HDL [Mass/Vol] 81 mg/dL >40 [facility] Work Phone: Comment on above: The drugs N-Acetylcy steine and Metamizole may falsely depress this assay. Reference Range HDL <40 mg/dL Low HDL Cholesterol HDL >or= 60 mg/dL High HDL Cholesterol Serum or plasma cholesterol in VLDL measurement (mass/volume)on 01-02-2022 Cholesterol in VLDL [Mass/Vol] 22 mg/dL 5-40 [facility] Work Phone: Serum or plasma creatinine m easurement (mass/volume)on 01-02-2022 Creatinine [Mass/Vol] 1.11 mg/dL 0.55-1.02 [facility] Work Phone: Comment on above: The validity of the calculated GFR & GFRAA in patients over 70 years has not been determined. Clinical correlation is essential. Serum or plasma low density lipoprotein (LDL) cholesterol measurement (mass/volume)on 01-02-2022 Cholesterol in LDL [Mass/Vol] 70 mg/dL 0-130 [facility] Work Phone: Serum or plasma urea nitroge n measurement (mass/volume)on 01-02-2022 Urea nitrogen [Mass/Vol] 16 mg/dL 7-18 [facility] Work Phone: Serum or plasma uric acid me asurement (mass/volume)on 01-02-2022 Urate [Mass/Vol] 5.8 mg/dL 2.6-6.0 [facility] Work Phone: Comment on above: The drugs N-Acetylcy steine and Metamizole may falsely depress this assay. Thin prep Papanicolaou smear with manual screeningon 01-02-2022 Thin prep Papanicolaou smear with manual screening 23 U/L 15-37 [facility] Work Phone: Thin prep Papanicolaou smear with manual screening 9 5-15 [facility] Work Phone: Thin prep Papanicolaou smear with manual screening 274 U/L 84-246 [facility] Work Phone: Urine blood detectionon - RBC Ql (U) 10 /ul Negative [facility] Work Phone: Urine clarityon 01-02-2022 Clarity (U) Cloudy Clear [facility] Work Phone: Urine color determinationon 01-02-2022 Color (U) Yellow Yellow [facility] Work Phone: Urine glucose detectionon Glucose Ql (U) Normal mg/dl Normal [facility] Work Phone: Urine leukocyte esterase det ection by dipstickon 01-02-2022 Leukocyte esterase Test strip Ql (U) 500 /ul Negative [facility] Work Phone: Urine pHon 01-02-2022 pH (U) 6.0 [pH] 5.0 - 8.0 [facility] Work Phone: Urine specific gravity measu rementon 01-02-2022 Specific gravity (U) [Rel density] 1.020 1.002-1.030 [facility] Work Phone: Urobilinogen Auto test strip Ql (U)on 01-02-2022 Urobilinogen Ql (U) Normal mg/dl Normal [facility] Work Phone: Absolute lymphocyte counton 09-11-2021 Lymphocytes Auto (Unsp spec) [#/Vol] 1.63 10*3/uL 0.83-4.51 [facility] Work Phone: Basophil percentageon 2021 Basophils/100 WBC (Bld) 0.6 % 0-1 [facility] Work Phone: Bilirubin [Mass/Vol] 0.30 mg/dL 0.20-1.00 [facility] Work Phone: Comment on above: For patients on eltr ombopag therapy, use of Dimension [place] TBIL is not recommended. Chloride [Moles/Vol] 106 mmol/L 98-107 [facility] Work Phone: [phone] Eosinophils/100 WBC (Bld) 3.7 % 0-5 [facility] Work Phone: [phone] Glucose [Mass/Vol] 93 mg/dL 74-106 [facility] Work Phone: [phone] Neutrophils (Bld) [#/Vol] 3.0 10*3/uL 2.0-7.7 [facility] Work Phone: Neutrophils/100 WBC (Bld) 55.8 % 47-70 [facility] Work Phone: [phone] Potassium [Moles/Vol] 3.9 mmol/L 3.5-5.1 [facility] Work Phone: Protein [Mass/Vol] 8.0 g/dL 6.4-8.2 [facility] Work Phone: Sodium [Moles/Vol] 139 mmol/L 136-145 [facility] Work Phone: WBC (Bld) [#/Vol] 5.4 10*3/uL 4.4-11.0 [facility] Work Phone: Blood erythrocytes count (nu mber/volume)on 09-11-2021 RBC (Bld) [#/Vol] 4.33 10*6/uL 4.2-5.4 [facility] Work Phone: Blood hemoglobin measurement (mass/volume)on 09-11-2021 Hemoglobin (Bld) [Mass/Vol] 12.2 g/dL 12.0-15.0 [facility] Work Phone: Blood lymphocytes/100 leukoc yteson 09-11-2021 Lymphocytes/100 WBC (Bld) 30.1 % 19-41 [facility] Work Phone: Blood monocytes/100 leukocyt eson 09-11-2021 Monocytes/100 WBC (Bld) 9.6 % 0-10 [facility] Work Phone: Blood platelet mean volumeon 09-11-2021 Platelet mean volume (Bld) [Entitic vol] 10.5 fL 6.2-12.0 [facility] Work Phone: Determination of erythrocyte mean corpuscular volume (MCV)on 09-11-2021 MCV (RBC) [Entitic vol] 88.5 fL 81-99 [facility] Work Phone: Hematocrit Auto (Bld) [Volum e fraction]on 09-11-2021 Hematocrit (Bld) [Volume fraction] 38.3 % 37-47 [facility] Work Phone: Laboratory - Chemistry and C hemistry - challengeon 09-11-2021 ALP [Catalytic activity/Vol] 87 U/L 45-117 [facility] Work Phone: ALT [Catalytic activity/Vol] 27 U/L 13-56 [facility] Work Phone: CO2 [Moles/Vol] 26.0 mmol/L 21.0-32.0 [facility] Work Phone: Free T4 [Mass/Vol] 0.80 ng/dL 0.76-1.46 [facility] Work Phone: Globulin (S) [Mass/Vol] 4.3 g/dL 2.2-4.2 [facility] Work Phone: Urea nitrogen/Creatinine [Mass ratio] 15.8 mg/mg 10-20 [facility] Work Phone: Laboratory - Hematology and Cell countson 09-11-2021 Erythrocyte distribution width (RBC) [Entitic vol] 50.2 fL 35.1-43.9 [facility] Work Phone: Erythrocyte distribution width (RBC) [Ratio] 15.4 % 11.6-14.6 [facility] Work Phone: Immature granulocytes/100 WBC (Bld) 0.200 % 0.0-0.9 [facility] Work Phone: Comment on above: IG% - Immature Granu locytes (promyelocytes, myelocytes and metamyelocytes) > 1% indicates that a LEFT SHIFT is Present. MCH (RBC) [Entitic mass] 28.2 pg 27.0-32.0 [facility] Work Phone: Nucleated RBC/100 WBC (Bld) [Ratio] 0 % 0-5 [facility] Work Phone: MCHC Auto (RBC) [Mass/Vol]on 09-11-2021 MCHC (RBC) [Mass/Vol] 31.9 g/dL 32-36 [facility] Work Phone: No Panel Informationon 09-11 Estimated GFR (MDRD) Amer 72 mL/min >60 [facility] Work Phone: Comment on above: GFR Calc Estimated GFR (MDRD) Non-Af Amer 60 mL/min >60 [facility] Work Phone: Comment on above: Non- GFR Calc Thyroid Stimulating Hormone (TSH) 0.91 uIU/mL 0.358-3.74 [facility] Work Phone: Platelets bldon 09-11-2021 Platelets (Bld) [#/Vol] 330 10*3/uL 150-450 [facility] Work Phone: Serum or plasma albumin samuel urement (mass/volume)on 09-11-2021 Albumin [Mass/Vol] 3.7 g/dL 3.2-5.0 [facility] Work Phone: Serum or plasma albumin/glob ulin mass ratioon 09-11-2021 Albumin/Globulin [Mass ratio] 0.9 {ratio} 0.9-2.4 [facility] Work Phone: Serum or plasma calcium samuel urement (mass/volume)on 09-11-2021 Calcium [Mass/Vol] 9.1 mg/dL 8.5-10.1 [facility] Work Phone: Serum or plasma creatinine m easurement (mass/volume)on 09-11-2021 Creatinine [Mass/Vol] 1.01 mg/dL 0.55-1.02 [facility] Work Phone: Comment on above: The validity of the calculated GFR & GFRAA in patients over 70 years has not been determined. Clinical correlation is essential. Serum or plasma urea nitroge n measurement (mass/volume)on 09-11-2021 Urea nitrogen [Mass/Vol] 16 mg/dL 7-18 [facility] Work Phone: Thin prep Papanicolaou smear with manual screeningon 09-11-2021 Thin prep Papanicolaou smear with manual screening 25 U/L 15-37 [facility] Work Phone: Thin prep Papanicolaou smear with manual screening 7 5-15 [facility] Work Phone: Laboratory - Microbiology an d Antimicrobial susceptibilityon 08-28-2021 SARS-CoV-2 (COVID-19) RNA TAWANA+probe Ql (Unsp spec) Detected Not Detect [facility] Work Phone: Comment on above: Normal Reference Ran ge: Not DetectedMethod:(RT-PCR) real-time reverse transcriptase PCRLuKidsLink Instrument*The Food and Drug Administration (FDA) has issued an Emergency Use Authorization (EAU) for the [employer] SARS-CoV-2 Assay for the rapid detection of the virus that causes COVID-19. This test has been validated, but the FDAs independent review of this validation is pending.*Negative results do not preclude infection and should not be used as the sole basis for treatment or patient management. Optimum specimen types and timing for peak viral levels during infections caused by SARS-CoV-2 have not been determined. Collection of multiple specimens from the same patient may be necessary to detect the virus. The possibility of a false negative result should be considered if the patient has clinical presentation or has had recent exposure. Office Visit: Colonoscopy [facility] 02-05-2017 Documentation of current medications (procedure) Done Invalid Interpretation Code [facility] Work Phone: Fall risk assessment No Invalid Interpretation Code [facility] Work Phone: Tobacco smoking status NHIS Never Invalid Interpretation Code [facility] Work Phone: Tobacco use [facility] Never smoker Invalid Interpretation Code [facility] Work Phone: Office Visit: Colonoscopy [facility] 12-01-2016 General categories [Interpretation] of Cervical or vaginal smear or scraping by Cyto stain Normal Invalid Interpretation Code [facility] Work Phone: Office Visit: Colonoscopy [facility] 10-31-2016 Breast Mammogram screening Normal Bilateral Invalid Interpretation Code [facility] Work Phone: Culture, urine Bacteria identified Cx Nom (U) Escherichia coli [facility] Work Phone: Vital Signs Date Time Vital Sign Value Performing Clinician Facility 02-13-2025 15:59-0400 Body height 157.[address] Lenka Ferguson MD Work Phone: [facility] 02-13-2025 15:59-0400 Body mass index (BMI) [Ratio] 48.1 kg/m2 Dr. Lenka Ferguson MD Work Phone: [facility] 02-13-2025 15:59-0400 Body temperature 97.1 [degF] Dr. Lenka Ferguson MD Work Phone: [facility] 02-13-2025 15:59-0400 Body weight 119.[address] Lenka Ferguson MD Work Phone: [facility] 02-13-2025 15:59-0400 Diastolic blood pressure 82 mm[Hg] Dr. Lenka Ferguson MD Work Phone: [facility] 02-13-2025 15:59-0400 Heart rate 89 /min Dr. Lenka Ferguson MD Work Phone: [facility] 02-13-2025 15:59-0400 Respiratory rate 16 /min Dr. Lenka Ferguson MD Work Phone: [facility] 02-13-2025 15:59-0400 SaO2% (BldA) [Mass fraction] 96 % Dr. Lenka Ferguson MD Work Phone: [facility] 02-13-2025 15:59-0400 Systolic blood pressure 128 mm[Hg] Dr. Lenka Ferguson MD Work Phone: [facility] 01-24-2025 16:46-0400 Body temperature 98.9 [degF] Dr. Lenka Ferguson MD Work Phone: [facility] 01-24-2025 16:46-0400 Diastolic blood pressure 80 mm[Hg] Dr. Lenka Ferguson MD Work Phone: [facility] 01-24-2025 16:46-0400 Heart rate 92 /min Dr. Lenka Ferguson MD Work Phone: [facility] 01-24-2025 16:46-0400 Respiratory rate 17 /min Dr. Lenka Ferguson MD Work Phone: [facility] 01-24-2025 16:46-0400 SaO2% (BldA) [Mass fraction] 95 % Dr. Lenka Ferguson MD Work Phone: [facility] 01-24-2025 16:46-0400 Systolic blood pressure 134 mm[Hg] Dr. Lenka Ferguson MD Work Phone: [facility] 08-11-2023 17:38-0400 Body height 157.[address] Lenka Ferguson Work Phone: [facility] 08-11-2023 17:38-0400 Body mass index (BMI) [Ratio] 46 kg/m2 Dr. Lenka Ferguson Work Phone: [facility] 08-11-2023 17:38-0400 Body temperature 97.4 [degF] Dr. Lenka Ferguson Work Phone: [facility] 08-11-2023 17:38-0400 Body weight 114.[address] Lenka Ferguson Work Phone: [facility] 08-11-2023 17:38-0400 Diastolic blood pressure 74 mm[Hg] Dr. Lenka Ferguson Work Phone: [facility] 08-11-2023 17:38-0400 Heart rate 84 /min Dr. Lenka Ferguson Work Phone: [facility] 08-11-2023 17:38-0400 Respiratory rate 16 /min Dr. Lenka Ferguson Work Phone: [facility] 08-11-2023 17:38-0400 SaO2% (BldA) [Mass fraction] 98 % Dr. Lenka Ferguson Work Phone: [facility] 08-11-2023 17:38-0400 Systolic blood pressure 112 mm[Hg] Dr. Lenka Ferguson Work Phone: [facility] 07-28-2023 07:48-0400 Body temperature 96.4 [degF] Dr. Lenka Ferguson Work Phone: [facility] 07-28-2023 07:48-0400 Diastolic blood pressure 78 mm[Hg] Dr. Lenka Ferguson Work Phone: [facility] 07-28-2023 07:48-0400 Heart rate 110 /min Dr. Lenka Ferguson Work Phone: [facility] 07-28-2023 07:48-0400 Respiratory rate 17 /min Dr. Lenka Ferguson Work Phone: [facility] 07-28-2023 07:48-0400 SaO2% (BldA) [Mass fraction] 99 % Dr. Lenka Ferguson Work Phone: [facility] 07-28-2023 07:48-0400 Systolic blood pressure 130 mm[Hg] Dr. Lenka Ferguson Work Phone: [facility] 01-28-2023 15:58-0400 Body temperature 98.4 [degF] Dr. Lenka Ferguson Work Phone: [facility] 01-28-2023 15:58-0400 Diastolic blood pressure 82 mm[Hg] Dr. Lenka Ferguson Work Phone: [facility] 01-28-2023 15:58-0400 Heart rate 80 /min Dr. Lenka Ferguson Work Phone: [facility] 01-28-2023 15:58-0400 Respiratory rate 16 /min Dr. Lenka Ferguson Work Phone: [facility] 01-28-2023 15:58-0400 SaO2% (BldA) [Mass fraction] 99 % Dr. Lenka Ferguson Work Phone: [facility] 01-28-2023 15:58-0400 Systolic blood pressure 136 mm[Hg] Dr. Lenka Ferguson Work Phone: [facility] 01-28-2023 07:20-0400 Inhaled oxygen flow rate 2 L/min Dr. Lenka Ferguson Work Phone: [facility] 01-27-2023 15:18-0400 Body height 157.[address] Lenka Ferguson Work Phone: [facility] 01-27-2023 15:18-0400 Body mass index (BMI) [Ratio] 44.3 kg/m2 Dr. Lenka Ferguson Work Phone: [facility] 01-27-2023 15:18-0400 Body weight [address] Lenka Ferguson Work Phone: [facility] 01-27-2023 13:45-0400 Inhaled oxygen concentration 34 % Dr. Lenka Ferguson Work Phone: [facility] 01-20-2023 07:38-0400 Body weight 111.[address] Lenka Ferguson Work Phone: [facility] 12-22-2022 10:23-0400 Body height 154.[address] Lenka Ferguson Work Phone: [facility] 12-22-2022 10:23-0400 Body weight 112.[address] Lenka Ferguson Work Phone: [facility] 12-21-2022 08:17-0400 Body mass index (BMI) [Ratio] 46.6 kg/m2 Dr. Lenka Ferguson Work Phone: [facility] 12-21-2022 08:17-0400 Body temperature 96.5 [degF] Dr. Lenka Ferguson Work Phone: [facility] 12-21-2022 08:17-0400 Body weight 112.[address] Lenka Ferguson Work Phone: [facility] 12-21-2022 08:17-0400 Diastolic blood pressure 78 mm[Hg] Dr. Lenka Ferguson Work Phone: [facility] 12-21-2022 08:17-0400 Heart rate 75 /min Dr. Lenka Ferguson Work Phone: [facility] 12-21-2022 08:17-0400 Respiratory rate 16 /min Dr. Lenka Ferguson Work Phone: [facility] 12-21-2022 08:17-0400 SaO2% (BldA) [Mass fraction] 97 % Dr. Lenka Ferguson Work Phone: [facility] 12-21-2022 08:17-0400 Systolic blood pressure 114 mm[Hg] Dr. Lenka Ferguson Work Phone: [facility] 11-11-2022 08:06-0400 Body height 154.[address] Lenka Ferguson Work Phone: [facility] 11-11-2022 08:06-0400 Body weight 113.[address] Lenka Ferguson Work Phone: [facility] 10-14-2022 07:28-0400 Body height 154.[address] Lenka Ferguson Work Phone: [facility] 10-14-2022 07:28-0400 Body weight 116.[address] Lenka Ferguson Work Phone: [facility] 09-01-2022 15:23-0400 Body mass index (BMI) [Ratio] 47.7 kg/m2 Dr. Lenka Ferguson Work Phone: [facility] 09-01-2022 15:23-0400 Body weight 114.[address] Lenka Ferguson Work Phone: [facility] 09-01-2022 15:23-0400 Diastolic blood pressure 88 mm[Hg] Dr. Lenka Ferguson Work Phone: [facility] 09-01-2022 15:23-0400 Heart rate 74 /min Dr. Lenka Ferguson Work Phone: [facility] 09-01-2022 15:23-0400 Respiratory rate 18 /min Dr. Lenka Ferguson Work Phone: [facility] 09-01-2022 15:23-0400 SaO2% (BldA) [Mass fraction] 97 % Dr. Lenka Ferguson Work Phone: [facility] 09-01-2022 15:23-0400 Systolic blood pressure 116 mm[Hg] Dr. Lenka Ferguson Work Phone: [facility] 08-21-2022 10:56-0400 Body mass index (BMI) [Ratio] 48.2 kg/m2 Dr. Lenka Ferguson Work Phone: [facility] 08-21-2022 10:56-0400 Body temperature 97.1 [degF] Dr. Lenka Ferguson Work Phone: [facility] 08-21-2022 10:56-0400 Body weight 115.[address] Lenka Ferguson Work Phone: [facility] 08-21-2022 10:56-0400 Diastolic blood pressure 88 mm[Hg] Dr. Lenka Ferguson Work Phone: [facility] 08-21-2022 10:56-0400 Heart rate 82 /min Dr. Lenka Ferguson Work Phone: [facility] 08-21-2022 10:56-0400 Respiratory rate 16 /min Dr. Lenka Ferguson Work Phone: [facility] 08-21-2022 10:56-0400 SaO2% (BldA) [Mass fraction] 94 % Dr. Lenka Ferguson Work Phone: [facility] 08-21-2022 10:56-0400 Systolic blood pressure 116 mm[Hg] Dr. Lenka Ferguson Work Phone: [facility] 07-29-2022 16:51-0400 Body temperature 97.3 [degF] Dr. Lenka Ferguson Work Phone: [facility] 07-29-2022 16:51-0400 Diastolic blood pressure 98 mm[Hg] Dr. Lenka Ferguson Work Phone: [facility] 07-29-2022 16:51-0400 Heart rate 99 /min Dr. Lenka Ferguson Work Phone: [facility] 07-29-2022 16:51-0400 Respiratory rate 18 /min Dr. Lenka Ferguson Work Phone: [facility] 07-29-2022 16:51-0400 SaO2% (BldA) [Mass fraction] 97 % Dr. Lenka Ferguson Work Phone: [facility] 07-29-2022 16:51-0400 Systolic blood pressure 168 mm[Hg] Dr. Lenka Ferguson Work Phone: [facility] 07-24-2022 15:01-0400 Body mass index (BMI) [Ratio] 47.7 kg/m2 Dr. Lenka Ferguson Work Phone: [facility] 07-24-2022 15:01-0400 Body temperature 96.7 [degF] Dr. Lenka Ferguson Work Phone: [facility] 07-24-2022 15:01-0400 Body weight 114.[address] Lenka Ferguson Work Phone: [facility] 07-24-2022 15:01-0400 Diastolic blood pressure 80 mm[Hg] Dr. Lenka Ferguson Work Phone: [facility] 07-24-2022 15:01-0400 Heart rate 84 /min Dr. Lenka Ferguson Work Phone: [facility] 07-24-2022 15:01-0400 Respiratory rate 16 /min Dr. Lenka Ferguson Work Phone: [facility] 07-24-2022 15:01-0400 SaO2% (BldA) [Mass fraction] 99 % Dr. Lenka Ferguson Work Phone: [facility] 07-24-2022 15:01-0400 Systolic blood pressure 120 mm[Hg] Dr. Lenka Ferguson Work Phone: [facility] 06-10-2022 14:39-0500 Body height 154.[address] Lenka Ferguson Work Phone: [facility] 06-10-2022 14:39-0500 Body mass index (BMI) [Ratio] 47.1 kg/m2 Dr. Lenka Ferguson Work Phone: [facility] 06-10-2022 14:39-0500 Body temperature 96.4 [degF] Dr. Lenka Ferguson Work Phone: [facility] 06-10-2022 14:39-0500 Body weight 113.[address] Lenka Ferguson Work Phone: [facility] 06-10-2022 14:39-0500 Diastolic blood pressure 74 mm[Hg] Dr. Lenka Ferguson Work Phone: [facility] 06-10-2022 14:39-0500 Heart rate 94 /min Dr. Lenka Ferguson Work Phone: [facility] 06-10-2022 14:39-0500 Respiratory rate 18 /min Dr. Lenka Ferguson Work Phone: [facility] 06-10-2022 14:39-0500 SaO2% (BldA) [Mass fraction] 97 % Dr. Lenka Ferguson Work Phone: [facility] 06-10-2022 14:39-0500 Systolic blood pressure 104 mm[Hg] Dr. Lenka Ferguson Work Phone: [facility] 06-08-2022 23:17-0500 Diastolic blood pressure 95 mm[Hg] Dr. Lenka Ferguson Work Phone: [facility] 06-08-2022 23:17-0500 Heart rate 81 /min Dr. Lenka Ferguson Work Phone: [facility] 06-08-2022 23:17-0500 Respiratory rate 18 /min Dr. Lenka Ferguson Work Phone: [facility] 06-08-2022 23:17-0500 SaO2% (BldA) [Mass fraction] 96 % Dr. Lenka Ferguson Work Phone: [facility] 06-08-2022 23:17-0500 Systolic blood pressure 142 mm[Hg] Dr. Lenka Ferguson Work Phone: [facility] 06-08-2022 17:04-0500 Body height 154.[address] Lenka Ferguson Work Phone: [facility] 06-08-2022 17:04-0500 Body mass index (BMI) [Ratio] 45.3 kg/m2 Dr. Lenka Ferguson Work Phone: [facility] 06-08-2022 17:04-0500 Body temperature 97 [degF] Dr. Lenka Ferguson Work Phone: [facility] 06-08-2022 17:04-0500 Body weight 108.[address] Lenka Ferguson Work Phone: [facility] 03-19-2022 07:13-0500 Body temperature 97 [degF] Dr. Lenka Ferguson Work Phone: [facility] 03-19-2022 07:13-0500 Diastolic blood pressure 60 mm[Hg] Dr. Lenka Ferguson Work Phone: [facility] 03-19-2022 07:13-0500 Heart rate 65 /min Dr. Lenka Ferguson Work Phone: [facility] 03-19-2022 07:13-0500 Respiratory rate 16 /min Dr. Lenka Ferguson Work Phone: [facility] 03-19-2022 07:13-0500 SaO2% (BldA) [Mass fraction] 97 % Dr. Lenka Ferguson Work Phone: [facility] 03-19-2022 07:13-0500 Systolic blood pressure 108 mm[Hg] Dr. Lenka Ferguson Work Phone: [facility] 03-19-2022 05:56-0500 Body height 157.[address] Lenka Ferguson Work Phone: [facility] Work Phone: 03-19-2022 05:56-0500 Body mass index (BMI) [Ratio] 46.4 kg/m2 Dr. Lenka Ferguson Work Phone: [facility] 03-19-2022 05:56-0500 Body weight 115.[address] Lenka Ferguson Work Phone: [facility] 03-12-2022 08:34-0500 Body height 154.[address] Lenka Ferguson Work Phone: [facility] Work Phone: 03-12-2022 08:34-0500 Body mass index (BMI) [Ratio] 48.5 kg/m2 Dr. Lenka Ferguson Work Phone: [facility] 03-12-2022 08:34-0500 Body weight 116.[address] Lenka Ferguson Work Phone: [facility] 03-04-2022 15:38-0400 Body height 154.[address] Lenka Ferguson Work Phone: [facility] Work Phone: 03-04-2022 15:38-0400 Body mass index (BMI) [Ratio] 48.5 kg/m2 Dr. Lenka Ferguson Work Phone: [facility] 03-04-2022 15:38-0400 Body weight 116.[address] Lenka Ferguson Work Phone: [facility] 03-04-2022 15:38-0400 Diastolic blood pressure 106 mm[Hg] Dr. Lenka Ferguson Work Phone: [facility] 03-04-2022 15:38-0400 Heart rate 74 /min Dr. Lenka Ferguson Work Phone: [facility] 03-04-2022 15:38-0400 Respiratory rate 16 /min Dr. Lenka Ferguson Work Phone: [facility] 03-04-2022 15:38-0400 SaO2% (BldA) [Mass fraction] 98 % Dr. Lenka Ferguson Work Phone: [facility] 03-04-2022 15:38-0400 Systolic blood pressure 187 mm[Hg] Dr. Lenka Ferguson Work Phone: [facility] 01-12-2022 14:29-0400 Body height 154.[address] Lenka Ferguson Work Phone: [facility] Work Phone: 01-12-2022 14:29-0400 Body mass index (BMI) [Ratio] 48.5 kg/m2 Dr. Lenka Ferguson Work Phone: [facility] Work Phone: 01-12-2022 14:29-0400 Body weight 116.[address] Lenka Ferguson Work Phone: [facility] Work Phone: 01-06-2022 16:12-0400 Body height 154.[address] Lenka Ferguson Work Phone: [facility] Work Phone: 01-06-2022 16:12-0400 Body mass index (BMI) [Ratio] 48.4 kg/m2 Dr. Lenka Ferguson Work Phone: [facility] Work Phone: 01-06-2022 16:12-0400 Body temperature 95.8 [degF] Dr. Lenka Ferguson Work Phone: [facility] Work Phone: 01-06-2022 16:12-0400 Body weight 116.[address] Lenka Ferguson Work Phone: [facility] Work Phone: 01-06-2022 16:12-0400 Diastolic blood pressure 84 mm[Hg] Dr. Lenka Ferguson Work Phone: [facility] Work Phone: 01-06-2022 16:12-0400 Heart rate 99 /min Dr. Lenka Ferguson Work Phone: [facility] Work Phone: 01-06-2022 16:12-0400 Respiratory rate 18 /min Dr. Lenka Ferguson Work Phone: [facility] Work Phone: 01-06-2022 16:12-0400 SaO2% (BldA) [Mass fraction] 95 % Dr. Lenka Ferguson Work Phone: [facility] Work Phone: 01-06-2022 16:12-0400 Systolic blood pressure 138 mm[Hg] Dr. Lenka Ferguson Work Phone: [facility] Work Phone: 12-17-2021 16:57-0400 Body mass index (BMI) [Ratio] 47.4 kg/m2 Dr. Lenka Ferguson Work Phone: [facility] Work Phone: 12-17-2021 16:57-0400 Body temperature 97.5 [degF] Dr. Lenka Ferguson Work Phone: [facility] Work Phone: 12-17-2021 16:57-0400 Body weight 113.[address] Lenka Ferguson Work Phone: [facility] Work Phone: 12-17-2021 16:57-0400 Diastolic blood pressure 88 mm[Hg] Dr. Lenka Ferguson Work Phone: [facility] Work Phone: 12-17-2021 16:57-0400 Heart rate 81 /min Dr. Lenka Ferguson Work Phone: [facility] Work Phone: 12-17-2021 16:57-0400 Respiratory rate 14 /min Dr. Lenka Ferguson Work Phone: [facility] Work Phone: 12-17-2021 16:57-0400 SaO2% (BldA) [Mass fraction] 97 % Dr. Lenka Ferguson Work Phone: [facility] Work Phone: 12-17-2021 16:57-0400 Systolic blood pressure 128 mm[Hg] Dr. Lenka Ferguson Work Phone: [facility] Work Phone: 10-24-2021 11:17-0400 Body height 154.[address] Lenka Ferguson Work Phone: [facility] Work Phone: 10-24-2021 11:17-0400 Body mass index (BMI) [Ratio] 48.6 kg/m2 Dr. Lenka Ferguson Work Phone: [facility] Work Phone: 10-24-2021 11:17-0400 Body temperature 96 [degF] Dr. Lenka Ferguson Work Phone: [facility] Work Phone: 10-24-2021 11:17-0400 Body weight 116.[address] Lenka Ferguson Work Phone: [facility] Work Phone: 10-24-2021 11:17-0400 Diastolic blood pressure 129 mm[Hg] Dr. Lenka Ferguson Work Phone: [facility] Work Phone: 10-24-2021 11:17-0400 Heart rate 87 /min Dr. Lenka Ferguson Work Phone: [facility] Work Phone: 10-24-2021 11:17-0400 Respiratory rate 22 /min Dr. Lenka Ferguson Work Phone: [facility] Work Phone: 10-24-2021 11:17-0400 SaO2% (BldA) [Mass fraction] 99 % Dr. Lenka Ferguson Work Phone: [facility] Work Phone: 10-24-2021 11:17-0400 Systolic blood pressure 176 mm[Hg] Dr. Lenka Ferguson Work Phone: [facility] Work Phone: 08-28-2021 17:50-0400 Body mass index (BMI) [Ratio] 44.4 kg/m2 Dr. Lenka Ferguson Work Phone: [facility] Work Phone: 08-28-2021 17:50-0400 Body temperature 97.4 [degF] Dr. Lenka Ferguson Work Phone: [facility] Work Phone: 08-28-2021 17:50-0400 Body weight 110.[address] Lenka Ferguson Work Phone: [facility] Work Phone: 08-28-2021 17:50-0400 Diastolic blood pressure 90 mm[Hg] Dr. Lenka Ferguson Work Phone: [facility] Work Phone: 08-28-2021 17:50-0400 Heart rate 86 /min Dr. Lenka Ferguson Work Phone: [facility] Work Phone: 08-28-2021 17:50-0400 Respiratory rate 14 /min Dr. Lenka Ferguson Work Phone: [facility] Work Phone: 08-28-2021 17:50-0400 SaO2% (BldA) [Mass fraction] 97 % Dr. Lenka Ferguson Work Phone: [facility] Work Phone: 08-28-2021 17:50-0400 Systolic blood pressure 148 mm[Hg] Dr. Lenka Ferguson Work Phone: [facility] Work Phone: 08-28-2021 17:50-0400 Body height 157.[address] Lenka Ferguson Work Phone: [facility] Work Phone: 08-28-2021 17:50-0400 Body mass index (BMI) [Ratio] 44.4 kg/m2 Dr. Lenka Ferguson Work Phone: [facility] Work Phone: 08-28-2021 17:50-0400 Body temperature 97.4 [degF] Dr. Lenka Ferguson Work Phone: [facility] Work Phone: 08-28-2021 17:50-0400 Body weight 110.[address] Lenka Ferguson Work Phone: [facility] Work Phone: 08-28-2021 17:50-0400 Diastolic blood pressure 90 mm[Hg] Dr. Lenka Ferguson Work Phone: [facility] Work Phone: 08-28-2021 17:50-0400 Heart rate 86 /min Dr. Lenka Ferguson Work Phone: [facility] Work Phone: 08-28-2021 17:50-0400 Respiratory rate 14 /min Dr. Lenka Ferguson Work Phone: [facility] Work Phone: 08-28-2021 17:50-0400 SaO2% (BldA) [Mass fraction] 97 % Dr. Lenka Ferguson Work Phone: [facility] Work Phone: 08-28-2021 17:50-0400 Systolic blood pressure 148 mm[Hg] Dr. Lenka Ferguson Work Phone: [facility] Work Phone: 07-31-2021 14:56-0400 Body temperature 97.5 [degF] Dr. Lenka Ferguson Work Phone: [facility] Work Phone: 07-31-2021 14:56-0400 Diastolic blood pressure 90 mm[Hg] Dr. Lenka Ferguson Work Phone: [facility] Work Phone: 07-31-2021 14:56-0400 Heart rate 90 /min Dr. Lenka Ferguson Work Phone: [facility] Work Phone: 07-31-2021 14:56-0400 Respiratory rate 18 /min Dr. Lenka Ferguson Work Phone: [facility] Work Phone: 07-31-2021 14:56-0400 SaO2% (BldA) [Mass fraction] 97 % Dr. Lenka Ferguson Work Phone: [facility] Work Phone: 07-31-2021 14:56-0400 Systolic blood pressure 162 mm[Hg] Dr. Lenka Ferguson Work Phone: [facility] Work Phone: 07-31-2021 14:56-0400 Body temperature 97.5 [degF] Dr. Lenka Ferguson Work Phone: [facility] Work Phone: 07-31-2021 14:56-0400 Diastolic blood pressure 90 mm[Hg] Dr. Lenka Ferguson Work Phone: [facility] Work Phone: 07-31-2021 14:56-0400 Heart rate 90 /min Dr. Lenka Ferguson Work Phone: [facility] Work Phone: 07-31-2021 14:56-0400 Respiratory rate 18 /min Dr. Lenka Ferguson Work Phone: [facility] Work Phone: 07-31-2021 14:56-0400 SaO2% (BldA) [Mass fraction] 97 % Dr. Lenka Ferguson Work Phone: [facility] Work Phone: 07-31-2021 14:56-0400 Systolic blood pressure 162 mm[Hg] Dr. Lenka Ferguson Work Phone: [facility] Work Phone: 07-29-2021 17:29-0400 Diastolic blood pressure 104 mm[Hg] Dr. Lenka Ferguson Work Phone: [facility] Work Phone: 07-29-2021 17:29-0400 Heart rate 73 /min Dr. Lenka Ferguson Work Phone: [facility] Work Phone: 07-29-2021 17:29-0400 Respiratory rate 16 /min Dr. Lenka Ferguson Work Phone: [facility] Work Phone: 07-29-2021 17:29-0400 SaO2% (BldA) [Mass fraction] 98 % Dr. Lenka Ferguson Work Phone: [facility] Work Phone: 07-29-2021 17:29-0400 Systolic blood pressure 164 mm[Hg] Dr. Lenka Ferguson Work Phone: [facility] Work Phone: 07-29-2021 15:23-0400 Body height 157.[address] Lenka Ferguson Work Phone: [facility] Work Phone: 07-29-2021 15:23-0400 Body mass index (BMI) [Ratio] 43.9 kg/m2 Dr. Lenka Ferguson Work Phone: [facility] Work Phone: 07-29-2021 15:23-0400 Body temperature 97.8 [degF] Dr. Lenka Ferguson Work Phone: [facility] Work Phone: 07-29-2021 15:23-0400 Body weight 108.[address] Lenka Ferguson Work Phone: [facility] Work Phone: 04-08-2021 14:58-0500 Body mass index (BMI) [Ratio] 44.6 kg/m2 Dr. Lenka Ferguson Work Phone: [facility] Work Phone: 04-08-2021 14:58-0500 Body temperature 97.2 [degF] Dr. Lenka Ferguson Work Phone: [facility] Work Phone: 04-08-2021 14:58-0500 Body weight 114.[address] Lenka Ferguson Work Phone: [facility] Work Phone: 04-08-2021 14:58-0500 Diastolic blood pressure 82 mm[Hg] Dr. Lenka Ferguson Work Phone: [facility] Work Phone: 04-08-2021 14:58-0500 Heart rate 78 /min Dr. Lenka Ferguson Work Phone: [facility] Work Phone: 04-08-2021 14:58-0500 Respiratory rate 14 /min Dr. Lenka Ferguson Work Phone: [facility] Work Phone: 04-08-2021 14:58-0500 SaO2% (BldA) [Mass fraction] 98 % Dr. Lenka Ferguson Work Phone: [facility] Work Phone: 04-08-2021 14:58-0500 Systolic blood pressure 124 mm[Hg] Dr. Lenka Ferguson Work Phone: [facility] Work Phone: 02-05-2017 15:28-0400 BMI (Body Mass Index) 45.91 kg/m2 Elissa Stover [facility] Work Phone: 02-05-2017 15:28-0400 Body Temperature 97.9 [degF] Elissa Stover [facility] Work Phone: 02-05-2017 15:28-0400 BP Diastolic 98 mm[Hg] Elissa Stover [facility] Work Phone: 02-05-2017 15:28-0400 BP Systolic 151 mm[Hg] Eilssa Stover [facility] Work Phone: 02-05-2017 15:28-0400 Height 156.21 cm Elissa Stover [facility] Work Phone: 02-05-2017 15:28-0400 Pulse (Heart Rate) 68 /min Elissa Stover [facility] Work Phone: 02-05-2017 15:28-0400 Respiratory Rate 18 /min Elissa Stover [facility] Work Phone: 02-05-2017 15:28-0400 Weight 112.04 kg Elissa Stover [facility] Work Phone: 06-10-2016 16:39-0500 BSA (Body Surface Area) 2.08 m2 Elissa Stover [facility] Work Phone: Encounters Encounter Date Encounter Type Care Provider Facility Start: 02-26-2025 ambulatory Lenka Álvarez ty:[facility] Start: 02-13-2025 End: 02-13-2025 Patient encounter procedure Clarissa Barroso NP-[facility] Work Phone: Start: 02-13-2025 End: 02-13-2025 Patient encounter status Clarissa Barroso NP-[facility] Start: 02-13-2025 End: 02-13-[address] Lenka Ferguson MD Work Phone: -[facility] Start: 02-12-[address] Lenka Ferguson MD -Laboratory Specimen Work Phone: Start: 02-12-2025 Registered Referred [facility] K [facility]ESS[facility] -Employee Health Start: 02-12-2025 ambulatory Lenka Ferguson Facili ty:[facility] Start: 02-12-2025 End: 02-12-2025 ambulatory Lenka Ferguson Facility:[facility] Start: 01-24-2025 End: 01-24-2025 Patient encounter procedure Jose Maria Johnson [facility] Work Phone: Start: 01-24-2025 End: 01-24-[address] Lenka Ferguson MD Work Phone: [facility] Start: 08-22-2024 End: 08-22-2024 ambulatory Wesley LARA Facility:[facility] Start: 08-10-2024 End: 08-10-2024 ambulatory Lenka Ferguson Facility:[facility] Start: 04-03-2024 End: 04-03-2024 ambulatory Jose Maria LARA Facility:[facility] Start: 03-22-2024 End: 03-22-2024 ambulatory Jose Maria LARA Facility:[facility] Start: 08-31-2023 End: 08-31-[address] Lenka Ferguson Work Phone: [facility] Work Phone: Start: 08-31-2023 End: 08-31-[address] Lenka Ferguson Work Phone: [facility]-Outpatient Bone Densitometry Work Phone: Start: 08-11-2023 End: 08-11-2023 Encounter for general adult medical examination without abnormal findings Dr. Lenka Ferguson Work Phone: [facility] Start: 08-11-2023 End: 08-11-[address] Lenka Ferguson Work Phone: [facility] Work Phone: Start: 08-11-[address] Cory Ferguson Work Phone: [facility] Start: 08-03-2023 End: 08-03-[address] Lenka Ferguson Work Phone: [facility] Work Phone: Start: 08-03-2023 End: 08-03-[address] Lenka Ferguson Work Phone: [facility]-Outpatient Breast Imaging Work Phone: Start: 07-28-2023 End: 07-28-[address] Lenka Ferguson Work Phone: [facility] Work Phone: Start: 04-22-2023 End: 04-22-[address] Lenka Ferguson Work Phone: [facility] Work Phone: Start: 04-22-2023 End: 04-22-[address] Lenka Ferguson Work Phone: [facility]-Physical Therapy Work Phone: Start: 03-17-2023 End: 03-17-[address] Lenka Ferguson Work Phone: [facility] Work Phone: Start: 03-17-2023 End: 03-17-[address] Lenka Ferguson Work Phone: [facility]-Physical Therapy Work Phone: Start: 03-17-[address] Sarah Ferguson Work Phone: [facility]-Physical Therapy Work Phone: Start: 01-27-2023 Non-patient / Non-visit Dr. Lenka Ferguson Work Phone: [facility] Work Phone: Start: 01-27-2023 End: 01-28-2023 Evaluation and management of inpatient Dr. Lenka Ferguson Work Phone: [facility]-Medical Surgical 3 Work Phone: Start: 01-20-2023 End: 01-30-[address] [facility] Start: 01-06-2023 End: 01-06-2023 Non-patient / Non-visit Dr. Lenka Ferguson Work Phone: [facility] Work Phone: Start: 01-06-2023 End: 01-06-[address] Lenka Ferguson Work Phone: [facility] Work Phone: Start: 01-06-2023 End: 01-06-[address] Lenka Ferguson Work Phone: [facility] Work Phone: Start: 12-22-2022 End: 12-31-[address] Lenka Ferguson Work Phone: [facility] Work Phone: Start: 12-22-2022 End: 12-31-[address] [facility] Start: 12-22-[address] Sarah [facility] Start: 12-21-[address] Lenka Ferguson Work Phone: [facility] Start: 12-21-2022 End: 12-21-[address] Lenka Ferguson Work Phone: [facility] Work Phone: Start: 12-21-[address] Lenka Ferguson Work Phone: [facility] Start: 12-21-2022 End: 12-21-2022 Emergency department patient visit Dr. Lenka Ferguson Work Phone: [facility] Start: 12-21-2022 End: 12-21-2022 Encounter for general adult medical examination without abnormal findings Dr. Lenka Ferguson Work Phone: [facility] Start: 12-21-2022 End: 12-21-[address] Lenka Ferguson Work Phone: [facility] Internal Medicine Work Phone: Start: [address] Cory Ferguson Work Phone: [facility] Start: 11-11-2022 End: 11-30-[address] Lenka Ferguson Work Phone: [facility] Work Phone: Start: 11-11-2022 End: 11-30-[address] Lenka Ferguson Work Phone: [facility]Nutritional Services Work Phone: Start: 10-27-[address] Sarah Ferguson Work Phone: [facility]-Physical Therapy Work Phone: Start: 10-14-2022 End: 10-30-[address] Lenka Ferguson Work Phone: [facility] Work Phone: Start: 10-14-2022 End: 10-30-[address] [facility] Start: 09-01-2022 End: 09-01-[address] Lenka Ferguson Work Phone: [facility] Work Phone: Start: 08-21-2022 End: 08-21-[address] Lenka Ferguson Work Phone: [facility] Internal Medicine Work Phone: Start: 08-18-2022 End: 08-18-[address] [facility] Work Phone: Start: 08-17-2022 End: 08-17-[address] Lenka Ferguson Work Phone: [facility]opaedic [facility] Work Phone: Start: 07-29-2022 End: 07-29-[address] Lenka Ferguson Work Phone: [facility] Work Phone: Start: 07-24-2022 End: 07-24-[address] Lenka Ferguson Work Phone: [facility] Internal Medicine Work Phone: Start: 07-17-2022 Non-patient / Non-visit Dr. Lenka Ferguson Work Phone: [facility] Start: 07-17-[address] Cory Ferguson Work Phone: [facility]-Cardiovascular Services Work Phone: Start: 06-22-2022 End: 06-22-[address] Lenka Ferguson Work Phone: [facility] Work Phone: Start: 06-22-2022 End: 06-22-[address] Lenka Ferguson Work Phone: [facility]-Physical Therapy Start: 06-15-[address] Sarah Ferguson Work Phone: [facility]-Physical Therapy Start: 06-10-2022 End: 06-10-[address] Lenka Ferguson Work Phone: [facility] Internal Medicine Start: 06-08-2022 End: 06-08-2022 Emergency department patient visit Dr. Lenka Ferguson Work Phone: [facility]-Emergency Department Start: 06-08-2022 End: 06-08-[address] Lenka Ferguson Work Phone: [facility] Work Phone: Start: 06-08-2022 End: 06-08-[address] Lenka Ferguson Work Phone: [facility]-Laboratory Start: 06-05-2022 End: 06-05-[address] Lenka Ferguson Work Phone: [facility] Start: 05-28-2022 End: 05-28-[address] Lenka Ferguson Work Phone: [facility] Work Phone: Start: 05-28-2022 End: 05-28-[address] Lenka Ferguson Work Phone: [facility]-Nuclear Medicine, [facility] Start: 04-29-2022 End: 04-29-[address] Lenka Ferguson Work Phone: [facility] Start: 04-03-2022 End: 04-03-[address] Lenka Ferguson Work Phone: [facility] Gastroenterology Start: 03-19-2022 Non-patient / Non-visit Dr. Lenka Ferguson Work Phone: [facility] Start: 03-19-2022 End: 03-19-2022 Admission to same day surgery center Dr. Lenka Ferguson Work Phone: [facility]-Endoscopy Start: 03-19-2022 End: 03-19-[address] Lenka Ferguson Work Phone: [facility] Work Phone: Start: 03-13-2022 End: 03-13-2022 Admission to same day surgery center Dr. Lenka Ferguson Work Phone: [facility]/Special Procedures Start: 03-13-2022 End: 03-13-[address] Lenka Ferguson Work Phone: [facility] Work Phone: Start: 03-04-2022 End: 03-04-[address] Lenka Ferguson Work Phone: [facility] Work Phone: Start: 03-04-2022 End: 03-04-[address] Lenka Ferguson Work Phone: [facility], [facility] Start: 03-04-2022 End: 03-04-[address] Lenka Ferguson Work Phone: [facility] Start: 01-29-2022 End: 01-29-[address] Lenka Ferguson Work Phone: [facility] Work Phone: Start: 01-29-2022 End: 01-29-[address] Lenka Ferguson Work Phone: [facility]-Laboratory Start: 01-12-2022 End: 01-12-[address] Lenka Ferguson Work Phone: [facility] Gastroenter[facility] Start: 01-08-2022 Non-patient / Non-visit Dr. Lenka Ferguson Work Phone: [facility] Start: 01-08-2022 End: 01-08-[address] Lenka Ferguson Work Phone: [facility] Work Phone: Start: 01-08-2022 End: 01-08-[address] Lenka Ferguson Work Phone: [facility]-Cardiovascular Services Start: 01-07-2022 End: 01-07-[address] Lenka Ferguson Work Phone: [facility] Work Phone: Start: 01-07-2022 End: 01-07-[address] Lenka Ferguson Work Phone: [facility]-Laboratory, Specimen Start: 01-06-2022 End: 01-06-[address] Lenka Fergusno Work Phone: [facility] Internal Medicine Start: 01-02-2022 End: 01-02-[address] Lenka Ferguson Work Phone: [facility] Work Phone: Start: 01-02-2022 End: 01-02-[address] Lenka Ferguson Work Phone: [facility]-Pulmonary Services/Neurology Start: 01-02-[address] Cory Ferguson Work Phone: [facility] Start: 01-02-2022 Non-patient / Non-visit Dr. Lenka Ferguson Work Phone: [facility] Start: 12-17-[address] Lenka Ferguson Work Phone: [facility] Start: 12-17-2021 End: 12-17-2021 Encounter for general adult medical examination without abnormal findings Dr. Lenka Ferguson Work Phone: [facility] Internal Medicine Start: 12-17-2021 End: 12-17-[address] Lenka Ferguson Work Phone: [facility] Internal Medicine Start: 12-10-2021 End: 12-10-[address] Lenka Ferguson Work Phone: [facility] Start: 10-24-2021 End: 10-24-2021 Emergency department patient visit Dr. Lenka Ferguson Work Phone: [facility]-Emergency Department Start: 10-01-2021 End: 10-01-[address] Lenka Ferguson Work Phone: [facility] G[facility]enter[facility] Start: 09-11-2021 End: 09-11-[address] Lenka Ferguson Work Phone: [facility]-Laboratory Start: 08-29-[address] [facility] Start: 08-28-2021 End: 08-28-[address] Lenka Ferguson Work Phone: [facility] Internal Medicine Start: 07-31-2021 End: 07-31-[address] Lenka Ferguson Work Phone: [facility] Start: 07-29-2021 End: 07-29-2021 Emergency department patient visit Dr. Lenka Ferguson Work Phone: [facility]-Emergency Department Start: 04-23-[address] Lenka Ferguson Work Phone: [facility]-Cardiovascular Services Start: 04-08-2021 End: 04-08-[address] Lenka Ferguson Work Phone: [facility] Internal Medicine Procedures Date Procedure Procedure Detail Performing Clinician Start: 02-12-[address] Sarah Ferguson MD Work Phone: Start: 02-12-2025 Serum inorganic phos phate measurement Dr. Lenka Ferguson MD Work Phone: Start: 02-12-2025 Urnls dip stick/tabl et reagent auto microscopy Dr. Lenka Ferguson MD Work Phone: Start: 08-31-2023 Dual energy X-ray absorptiometry Dr. Lenka Ferguson Work Phone: Start: 08-03-2023 Screening mammography Benjamin Ferguson Work Phone: Start: 01-27-2023 Radiologic examinati on of knee Dr. Lenka Ferguson Work Phone: Start: 01-06-2023 Nasal Screen MRSA/MSSA Dr. Lenka Ferguson Work Phone: Start: 01-06-2023 MRI of lower extremity Dr. Lenka Ferguson Work Phone: Start: 12-21-2022 Coronavirus COVID-[address] Lenka Ferguson Work Phone: Start: 08-18-2022 End: 08-18-2022 Radiologic examination of knee Dr. Lenka Ferguson Work Phone: Start: 06-08-2022 Plain chest X-ray Dr. Sylvia Ferguson Work Phone: Start: 05-28-2022 Radionuclide imaging of liver and/or biliary tract using radioactive isotope Dr. Lenka Ferguson Work Phone: Start: 03-19-[address] Lenka Ferguson Work Phone: Start: 03-04-2022 Plain chest X-ray Dr. Sylvia Ferguson Work Phone: Start: 01-08-2022 Cardiovascular stres s test using pharmacologic stress agent Dr. Lenka Ferguson Work Phone: Start: 07-31-2021 Plain x-ray of pelvi s and lower extremity Dr. Lenka Ferguson Work Phone: Start: 07-31-2021 Radiologic examinati on of knee Dr. Lenka Ferguson Work Phone: Start: 07-31-2021 X-ray of chest posteroanterior view Dr. Lenka Ferguson Work Phone: Start: 07-29-2021 Plain x-ray of hand Dr. Lenka Ferguson Work Phone: Start: 07-29-2021 Plain X-ray of tibia and fibula Dr. Lenka Ferguson Work Phone: Start: 01-13-2017 End: 01-25-2017 Arthrocentesis aspir&/inj major jt/bursa w/o Emigdio French Work Phone: Start: 11-23-2016 End: 11-24-2016 Chiropractic manipulative tx spinal 1-2 regions Winifred Liriano DC Work Phone: Start: 11-16-2016 End: 11-17-2016 Chiropractic manipulative tx spinal 1-2 regions Winifred B Dossi DC Work Phone: Start: 07-09-2016 End: 07-09-2016 Appl modality 1/> areas elec stimj unattended Winifred B Dossi DC Work Phone: Start: 07-09-2016 End: 07-09-2016 Appl modality 1/> areas traction mechanical Winifred B Dossi DC Work Phone: Start: 07-09-2016 End: 07-09-2016 Chiropractic manipulative tx spinal 3-4 regions Winifred B Dossi DC Work Phone: Start: 06-18-2016 End: 06-18-2016 Chiropractic manipulative tx spinal 3-4 regions Winifred B Dossi DC Work Phone: Start: 05-25-2016 End: 05-26-2016 Chiropractic manipulative tx spinal 1-2 regions Winifred B Dossi DC Work Phone: Start: 05-21-2016 End: 05-21-2016 Chiropractic manipulative tx spinal 1-2 regions Winifred B Dossi DC Work Phone: Start: 04-09-2016 End: 04-09-2016 Chiropractic manipulative tx spinal 1-2 regions Winifred B Dossi DC Work Phone: Start: 04-07-2016 End: 04-07-2016 Appl modality 1/> areas traction mechanical Winifred B Dossi DC Work Phone: Start: 04-07-2016 End: 04-07-2016 Chiropractic manipulative tx spinal 1-2 regions Winifred B Dossi DC Work Phone: Start: 02-27-2016 End: 03-02-2016 Chiropractic manipulative tx spinal 1-2 regions Winifred B Dossi DC Work Phone: Start: 02-25-2016 End: 02-25-2016 Appl modality 1/> areas elec stimj unattended Winifred B Dossi DC Work Phone: Start: 02-25-2016 End: 02-25-2016 Appl modality 1/> areas traction mechanical Winifred Jones Dossi DC Work Phone: Start: 02-25-2016 End: 02-25-2016 Chiropractic manipulative tx spinal 1-2 regions Winifred B Dossi DC Work Phone: Start: 02-06-2016 End: 02-06-2016 Chiropractic manipulative tx spinal 1-2 regions Winifred B Dossi DC Work Phone: Start: 02-06-2016 End: 02-06-2016 Ther px 1/> areas each 15 minutes massage Winifred B Dossi DC Work Phone: Start: 01-23-2016 End: 01-23-2016 Chiropractic manipulative tx spinal 1-2 regions Winifred B Dossi DC Work Phone: Start: 01-23-2016 End: 01-23-2016 Ther px 1/> areas each 15 minutes massage Winifred Jones Dossi DC Work Phone: H/O: hysterectomy History of hysterectomy Dr. Lenka Ferguson Work Phone: Comment on above: 2005 H/O: surgery History of eye surgery Dr. Sylvia Ferguson Work Phone: History of decompres jc of median nerve History of carpal tunnel surgery of left wrist Dr. Lenka Ferguson Work Phone: History of operative procedure on knee History of lateral meniscus repair of left knee Dr. Lenka Ferguson Work Phone: Comment on above: [address] Lenka Ferguson Work Phone: Plan of Treatment Date Care Activity Detail Author Start: 02-26-2025 Patient encounter procedure Registered Clinical -Laboratory Work Phone: Start: 01-28-2023 Provision of overbed trapeze [facility] Start: 01-28-2023 Oxygen therapy [facility] Start: 01-28-2023 Patient discharge [facility] Start: 01-27-2023 Following clinical pathway protocol [facility] Start: 01-27-2023 Application of intermittent pneumatic compression device [facility] Start: 01-27-2023 Anesth open/surg arthrs total knee arthroplasty ANESTH KNEE ARTHROPLASTY [facility] Start: 01-27-2023 Arthrp kne condyle&platu medial&lat compartments TOTAL KNEE ARTHROPLASTY [facility] Start: 01-27-2023 Injection aa&/strd femoral nerve NJX AA&/STRD FEMORAL NRV IMG [facility] Start: 01-27-2023 Recommendation to continue with treatment [facility] Start: 01-27-2023 Ambulation therapy management [facility] Start: 01-27-2023 Application of device [facility] Start: 01-27-2023 Application of elastic bandage [facility] Start: 01-27-2023 Assessment of risk of venous thromboembolism [facility] Start: 01-27-2023 Catheterization of vein [facility] Start: 01-27-2023 Consultation [facility] Start: 01-27-2023 Exercises [facility] Start: 01-27-2023 Following clinical pathway protocol [facility] Start: 01-27-2023 Incentive spirometry [facility] Start: 01-27-2023 Introduction of urinary catheter [facility] Start: 01-27-2023 Measuring intake and output [facility] Start: 01-27-2023 Neurovascular assessment [facility] Start: 01-27-2023 Patient education [facility] Start: 01-27-2023 Procedure discontinued [facility] Start: 01-27-2023 Provision of activity privileges [facility] Start: 01-27-2023 Provision of overbed trapeze [facility] Start: 01-27-2023 Referral to occupational therapist [facility] Start: 01-27-2023 Referral to service [facility] Start: 01-27-2023 Vital signs measurements [facility] Start: 01-27-2023 Wound care [facility] Start: 01-27-2023 [facility] Start: 01-27-2023 Admission procedure [facility]: [facility]: 01-27-[facility] Start: 08-21-2022 Patient referral [facility] Work Phone: Start: 06-10-2022 Patient referral [facility] Work Phone: Start: 06-08-2022 [facility] Start: 03-19-2022 Sigmoidoscopy flx with with band ligation(s) [facility]MD[facility] W/BAND LIGATION [facility] Start: 03-19-2022 Patient discharge [facility] Start: 01-07-2022 [facility] Work Phone: Start: 12-17-2021 Patient referral [facility] Work Phone: Start: 07-29-2021 Patient discharge [facility] Work Phone: Start: 03-02-2017 End: 03-02-2017 Appointment [facility] Work Phone: Start: 02-08-2017 End: 02-22-2017 Colonoscopy flx dx w/collj spec when pfrmd Colonoscopy [facility] Work Phone: Start: 02-05-2017 End: 02-05-2017 Colonoscopy flx dx w/collj spec when pfrmd Colonoscopy [facility] Work Phone: Start: 01-18-2017 End: 01-18-2017 Surgery Referral Surgery Referral [facility] Work Phone: Start: 01-13-2017 End: 01-13-2017 Radiologic exam knee complete 4/more views X-Ray, Knee [facility] Work Phone: Start: 11-16-2016 End: 11-17-2016 Follow up Appt 2x/week Follow up Appt 2x/week [facility] Work Phone: Start: 05-25-2016 End: 05-26-2016 Follow up Appt 1x/week Follow up Appt 1x/week [facility] Work Phone: Start: 04-20-2016 End: 05-10-2016 Follow Up Appt Other Follow Up Appt Other [facility] Work Phone: Start: 02-27-2016 End: 03-02-2016 Follow up Appt 2x/week Follow up Appt 2x/week [facility] Work Phone: Start: 02-25-2016 End: 02-25-2016 Follow up Appt 2x/week Follow up Appt 2x/week [facility] Work Phone: Start: 02-06-2016 End: 02-06-2016 Follow up Appt 2x/Month Follow up Appt 2x/Month [facility] Work Phone: Start: 01-23-2016 End: 01-23-2016 Follow up Appt 2x/week Follow up Appt 2x/week [facility] Work Phone: Blood chemistry [facility] Work Phone: Brain natriuretic pe ptide measurement [facility] Work Phone: Catheterization [facility] Work Phone: Catheterization of [facility] CBC W Auto Different ial panel - Blood [facility] Electrocardiographic procedure [facility] Work Phone: LDH [facility] Work Phone: MG Breast - bilatera l Screening [facility] Work Phone: MG Breast - bilatera l Screening [facility] Patient Education [facility] Work Phone: Patient referral [facility] Work Phone: Urine culture Urine Culture [facility] Work Phone: [facility] Immunizations Immunization Date Immunization Notes Care Provider Jessica peacock 02-07-2020 influenza, injectabl e, quadrivalent, preservative free Dr. Lenka Ferguson Work Phone: [facility] 02-07-2020 influenza, seasonal, injectable Dr. Lenka Ferguson Work Phone: [facility] 02-15-2019 influenza, injectabl e, quadrivalent, preservative free Dr. Lenka Ferguson Work Phone: [facility] 02-15-2019 influenza, seasonal, injectable Dr. Lenka Ferguson Work Phone: [facility] 02-09-2018 influenza, injectabl e, quadrivalent, preservative free Dr. Lenka Ferguson Work Phone: [facility] 02-09-2018 influenza, seasonal, injectable Dr. Lenka Ferguson Work Phone: [facility] 02-17-2017 influenza, injectabl e, quadrivalent, preservative free Dr. Lenka Ferguson Work Phone: [facility] 02-17-2017 influenza, seasonal, injectable Dr. Lenka Ferguson Work Phone: [facility] 02-05-2016 influenza, injectabl e, quadrivalent, preservative free Dr. Lenka Ferguson Work Phone: [facility] 02-05-2016 influenza, seasonal, injectable Dr. Lenka Ferguson Work Phone: [facility] 02-13-2015 influenza, injectabl e, quadrivalent, preservative free Dr. Lenka Ferguson Work Phone: [facility] 02-13-2015 influenza, seasonal, injectable Dr. Lenka Ferguson Work Phone: [facility] 04-30-2014 hepatitis B vaccine, pediatric or pediatric/adolescent dosage Dr. Lenka Ferguson Work Phone: [facility] 02-21-2014 influenza, injectabl e, quadrivalent, preservative free Dr. Lenka Ferguson Work Phone: [facility] 02-21-2014 influenza, seasonal, injectable Dr. Lenka Ferguson Work Phone: [facility] 12-28-2013 measles, mumps and rubella virus vaccine Dr. Lenka Ferguson Work Phone: [facility] 11-13-2013 hepatitis B vaccine, pediatric or pediatric/adolescent dosage Dr. Lenka Ferguson Work Phone: [facility] 11-13-2013 measles, mumps and rubella virus vaccine Dr. Lenka Ferguson Work Phone: [facility] 10-04-2013 hepatitis B vaccine, pediatric or pediatric/adolescent dosage Dr. Lenka Ferguson Work Phone: [facility] Payers Date Payer Category Payer Self-pay [id number] 2024 Unknown [id number] 2008 Unknown [id number] Unknown [id number] Unknown [id number] 2.16.8 [id number] Unknown [id number] 2.16.8 [id number] Unknown [id number] 2.16.8 [id number] Unknown [id number] 2.16.8 [id number] Unknown [id number] 2.16.8 [id number] Unknown [id number] 2.16.8 [id number] Unknown [id number] 2.16.8 [id number] Unknown [id number] 2.16.8 [id number] Unknown [id number] 2.16.8 [id number] Unknown [id number] 2.16.8 [id number] Social History Date Type Detail Facility Start: 07-29-2021 End: 08-11-2023 Tobacco smoking status WVIS Unknown if ever smoked [facility] Start: 09-16-2016 None [facility] Start: 09-16-2016 Spouse/ Signif icant Other [facility] Start: 1960 Sex Assigned At Female [facility] Start: 08-11-2023 Tobacco smoking status NHIS Ex-smoker (finding) [facility] Sex Female [facility] NEGATED: Highlighted row [facility] Medical Equipment Procedure Code Equipment Code Equipment Origin al Text Equipment Identifier Dates Sigmoidoscopy, flexible Oesophageal endoscopic ligator, single-useHaemorrhoi d ligator [id number] FDA Start: 03-19-2022 Breast reduction AMNIOFILL,500MG FDA Sta rt: 06-27-2019 Breast reduction HOANG 3GRM HEM OSTAT ABS FDA Start: 06-27-2019 Breast reduction HOANG 3GRM HEM OSTAT ABS FDA Start: 06-27-2019 Breast reduction HOANG 3GRM HEM OSTAT ABS FDA Start: 06-27-2019 Breast reduction HOANG 3GRM HEM OSTAT ABS FDA Start: 06-27-2019 Breast reduction AMNIOFILL,500MG FDA Sta rt: 06-27-2019 Breast reduction HOANG 3GRM HEM OSTAT ABS FDA Start: 06-27-2019 Breast reduction HOANG 3GRM HEM OSTAT ABS FDA Start: 06-27-2019 Breast reduction HOANG 3GRM HEM OSTAT ABS FDA Start: 06-27-2019 Breast reduction HOANG 3GRM HEM OSTAT ABS FDA Start: 06-27-2019 Breast reduction AMNIOFILL,500MG FDA Sta rt: 06-27-2019 Breast reduction HOANG 3GRM HEM OSTAT ABS FDA Start: 06-27-2019 Breast reduction HOANG 3GRM HEM OSTAT ABS FDA Start: 06-27-2019 Breast reduction HOANG 3GRM HEM OSTAT ABS FDA Start: 06-27-2019 Breast reduction HOANG 3GRM HEM OSTAT ABS FDA Start: 06-27-2019 Breast reduction AMNIOFILL,500MG FDA Sta rt: 06-27-2019 Breast reduction HOANG 3GRM HEM OSTAT ABS FDA Start: 06-27-2019 Breast reduction HOANG 3GRM HEM OSTAT ABS FDA Start: 06-27-2019 Breast reduction HOANG 3GRM HEM OSTAT ABS FDA Start: 06-27-2019 Breast reduction HOANG 3GRM HEM OSTAT ABS FDA Start: 06-27-2019 Breast reduction AMNIOFILL,500MG FDA Sta rt: 06-27-2019 Breast reduction HOANG 3GRM HEM OSTAT ABS FDA Start: 06-27-2019 Breast reduction HOANG 3GRM HEM OSTAT ABS FDA Start: 06-27-2019 Breast reduction HOANG 3GRM HEM OSTAT ABS FDA Start: 06-27-2019 Breast reduction HOANG 3GRM HEM OSTAT ABS FDA Start: 06-27-2019 Breast reduction AMNIOFILL,500MG FDA Sta rt: 06-27-2019 Breast reduction HOANG 3GRM HEM OSTAT ABS FDA Start: 06-27-2019 Breast reduction HOANG 3GRM HEM OSTAT ABS FDA Start: 06-27-2019 Breast reduction HOANG 3GRM HEM OSTAT ABS FDA Start: 06-27-2019 Breast reduction HOANG 3GRM HEM OSTAT ABS FDA Start: 06-27-2019 Breast reduction AMNIOFILL,500MG FDA Sta rt: 06-27-2019 Breast reduction HOANG 3GRM HEM OSTAT ABS FDA Start: 06-27-2019 Breast reduction HOANG 3GRM HEM OSTAT ABS FDA Start: 06-27-2019 Breast reduction HOANG 3GRM HEM OSTAT ABS FDA Start: 06-27-2019 Breast reduction HOANG 3GRM HEM OSTAT ABS FDA Start: 06-27-2019 Breast reduction AMNIOFILL,500MG FDA Sta rt: 06-27-2019 Breast reduction HOANG 3GRM HEM OSTAT ABS FDA Start: 06-27-2019 Breast reduction HOANG 3GRM HEM OSTAT ABS FDA Start: 06-27-2019 Breast reduction HOANG 3GRM HEM OSTAT ABS FDA Start: 06-27-2019 Breast reduction HOANG 3GRM HEM OSTAT ABS FDA Start: 06-27-2019 Breast reduction AMNIOFILL,500MG FDA Sta rt: 06-27-2019 Breast reduction HOANG 3GRM HEM OSTAT ABS FDA Start: 06-27-2019 Breast reduction HOANG 3GRM HEM OSTAT ABS FDA Start: 06-27-2019 Breast reduction HOANG 3GRM HEM OSTAT ABS FDA Start: 06-27-2019 Breast reduction HOANG 3GRM HEM OSTAT ABS FDA Start: 06-27-2019 Breast reduction AMNIOFILL,500MG FDA Sta rt: 06-27-2019 Breast reduction HOANG 3GRM HEM OSTAT ABS FDA Start: 06-27-2019 Breast reduction HOANG 3GRM HEM OSTAT ABS FDA Start: 06-27-2019 Breast reduction HOANG 3GRM HEM OSTAT ABS FDA Start: 06-27-2019 Breast reduction HOANG 3GRM HEM OSTAT ABS FDA Start: 06-27-2019 Breast reduction AMNIOFILL,500MG FDA Sta rt: 06-27-2019 Breast reduction HOANG 3GRM HEM OSTAT ABS FDA Start: 06-27-2019 Breast reduction HOANG 3GRM HEM OSTAT ABS FDA Start: 06-27-2019 Breast reduction HOANG 3GRM HEM OSTAT ABS FDA Start: 06-27-2019 Breast reduction HOANG 3GRM HEM OSTAT ABS FDA Start: 06-27-2019 Breast reduction AMNIOFILL,500MG FDA Sta rt: 06-27-2019 Breast reduction HOANG 3GRM HEM OSTAT ABS FDA Start: 06-27-2019 Breast reduction HOANG 3GRM HEM OSTAT ABS FDA Start: 06-27-2019 Breast reduction HOANG 3GRM HEM OSTAT ABS FDA Start: 06-27-2019 Breast reduction HOANG 3GRM HEM OSTAT ABS FDA Start: 06-27-2019 Breast reduction AMNIOFILL,500MG FDA Sta rt: 06-27-2019 Breast reduction HOANG 3GRM HEM OSTAT ABS FDA Start: 06-27-2019 Breast reduction HOANG 3GRM HEM OSTAT ABS FDA Start: 06-27-2019 Breast reduction HOANG 3GRM HEM OSTAT ABS FDA Start: 06-27-2019 Breast reduction HOANG 3GRM HEM OSTAT ABS FDA Start: 06-27-2019 Breast reduction AMNIOFILL,500MG FDA Sta rt: 06-27-2019 Breast reduction HOANG 3GRM HEM OSTAT ABS FDA Start: 06-27-2019 Breast reduction HOANG 3GRM HEM OSTAT ABS FDA Start: 06-27-2019 Breast reduction HOANG 3GRM HEM OSTAT ABS FDA Start: 06-27-2019 Breast reduction HOANG 3GRM HEM OSTAT ABS FDA Start: 06-27-2019 Breast reduction AMNIOFILL,500MG FDA Sta rt: 06-27-2019 Breast reduction HOANG 3GRM HEM OSTAT ABS FDA Start: 06-27-2019 Breast reduction HOANG 3GRM HEM OSTAT ABS FDA Start: 06-27-2019 Breast reduction HOANG 3GRM HEM OSTAT ABS FDA Start: 06-27-2019 Breast reduction HOANG 3GRM HEM OSTAT ABS FDA Start: 06-27-2019 Breast reduction AMNIOFILL,500MG FDA Sta rt: 06-27-2019 Breast reduction HOANG 3GRM HEM OSTAT ABS FDA Start: 06-27-2019 Breast reduction HOANG 3GRM HEM OSTAT ABS FDA Start: 06-27-2019 Breast reduction HOANG 3GRM HEM OSTAT ABS FDA Start: 06-27-2019 Breast reduction HOANG 3GRM HEM OSTAT ABS FDA Start: 06-27-2019 Breast reduction AMNIOFILL,500MG FDA Sta rt: 06-27-2019 Breast reduction HOANG 3GRM HEM OSTAT ABS FDA Start: 06-27-2019 Breast reduction HOANG 3GRM HEM OSTAT ABS FDA Start: 06-27-2019 Breast reduction HOANG 3GRM HEM OSTAT ABS FDA Start: 06-27-2019 Breast reduction HOANG 3GRM HEM OSTAT ABS FDA Start: 06-27-2019 Breast reduction AMNIOFILL,500MG FDA Sta rt: 06-27-2019 Breast reduction HOANG 3GRM HEM OSTAT ABS FDA Start: 06-27-2019 Breast reduction HOANG 3GRM HEM OSTAT ABS FDA Start: 06-27-2019 Breast reduction HOANG 3GRM HEM OSTAT ABS FDA Start: 06-27-2019 Breast reduction HOANG 3GRM HEM OSTAT ABS FDA Start: 06-27-2019 Breast reduction AMNIOFILL,500MG FDA Sta rt: 06-27-2019 Breast reduction HOANG 3GRM HEM OSTAT ABS FDA Start: 06-27-2019 Breast reduction HOANG 3GRM HEM OSTAT ABS FDA Start: 06-27-2019 Breast reduction HOANG 3GRM HEM OSTAT ABS FDA Start: 06-27-2019 Breast reduction HOANG 3GRM HEM OSTAT ABS FDA Start: 06-27-2019 Breast reduction AMNIOFILL,500MG FDA Sta rt: 06-27-2019 Breast reduction HOANG 3GRM HEM OSTAT ABS FDA Start: 06-27-2019 Breast reduction HOANG 3GRM HEM OSTAT ABS FDA Start: 06-27-2019 Breast reduction HOANG 3GRM HEM OSTAT ABS FDA Start: 06-27-2019 Breast reduction HOANG 3GRM HEM OSTAT ABS FDA Start: 06-27-2019 Breast reduction AMNIOFILL,500MG FDA Sta rt: 06-27-2019 Breast reduction HOANG 3GRM HEM OSTAT ABS FDA Start: 06-27-2019 Breast reduction HOANG 3GRM HEM OSTAT ABS FDA Start: 06-27-2019 Breast reduction HOANG 3GRM HEM OSTAT ABS FDA Start: 06-27-2019 Breast reduction HOANG 3GRM HEM OSTAT ABS FDA Start: 06-27-2019 Breast reduction AMNIOFILL,500MG FDA Sta rt: 06-27-2019 Breast reduction HOANG 3GRM HEM OSTAT ABS FDA Start: 06-27-2019 Breast reduction HOANG 3GRM HEM OSTAT ABS FDA Start: 06-27-2019 Breast reduction HOANG 3GRM HEM OSTAT ABS FDA Start: 06-27-2019 Breast reduction HOANG 3GRM HEM OSTAT ABS FDA Start: 06-27-2019 Breast reduction AMNIOFILL,500MG FDA Sta rt: 06-27-2019 Breast reduction HOANG 3GRM HEM OSTAT ABS FDA Start: 06-27-2019 Breast reduction HOANG 3GRM HEM OSTAT ABS FDA Start: 06-27-2019 Breast reduction HOANG 3GRM HEM OSTAT ABS FDA Start: 06-27-2019 Breast reduction HOANG 3GRM HEM OSTAT ABS FDA Start: 06-27-2019 Breast reduction AMNIOFILL,500MG FDA Sta rt: 06-27-2019 Breast reduction HOANG 3GRM HEM OSTAT ABS FDA Start: 06-27-2019 Breast reduction HOANG 3GRM HEM OSTAT ABS FDA Start: 06-27-2019 Breast reduction HOANG 3GRM HEM OSTAT ABS FDA Start: 06-27-2019 Breast reduction HOANG 3GRM HEM OSTAT ABS FDA Start: 06-27-2019 Breast reduction AMNIOFILL,500MG FDA Sta rt: 06-27-2019 Breast reduction HOANG 3GRM HEM OSTAT ABS FDA Start: 06-27-2019 Breast reduction HOANG 3GRM HEM OSTAT ABS FDA Start: 06-27-2019 Breast reduction HOANG 3GRM HEM OSTAT ABS FDA Start: 06-27-2019 Breast reduction HOANG 3GRM HEM OSTAT ABS FDA Start: 06-27-2019 Breast reduction AMNIOFILL,500MG FDA Sta rt: 06-27-2019 Breast reduction HOANG 3GRM HEM OSTAT ABS FDA Start: 06-27-2019 Breast reduction HOANG 3GRM HEM OSTAT ABS FDA Start: 06-27-2019 Breast reduction HOANG 3GRM HEM OSTAT ABS FDA Start: 06-27-2019 Breast reduction HOANG 3GRM HEM OSTAT ABS FDA Start: 06-27-2019 ASYMMETRIC PATELLA FDA Start: 01-27-2023 TIBIAL COMPONENT FDA Start: 01-27-2023 cruciate retaini ng femoral FDA Start: 01-27-2023 tibial bearing insert - CS FDA Start: 01-27-2023 ASYMMETRIC PATELLA FDA Start: 01-27-2023 TIBIAL COMPONENT FDA Start: 01-27-2023 cruciate retaini ng femoral FDA Start: 01-27-2023 tibial bearing insert - CS FDA Start: 01-27-2023 ASYMMETRIC PATELLA FDA Start: 01-27-2023 TIBIAL COMPONENT FDA Start: 01-27-2023 cruciate retaini ng femoral FDA Start: 01-27-2023 tibial bearing insert - CS FDA Start: 01-27-2023 ASYMMETRIC PATELLA FDA Start: 01-27-2023 TIBIAL COMPONENT FDA Start: 01-27-2023 cruciate retaini ng femoral FDA Start: 01-27-2023 tibial bearing insert - CS FDA Start: 01-27-2023 ASYMMETRIC PATELLA FDA Start: 01-27-2023 TIBIAL COMPONENT FDA Start: 01-27-2023 cruciate retaini ng femoral FDA Start: 01-27-2023 tibial bearing insert - CS FDA Start: 01-27-2023 ASYMMETRIC PATELLA FDA Start: 01-27-2023 TIBIAL COMPONENT FDA Start: 01-27-2023 cruciate retaini ng femoral FDA Start: 01-27-2023 tibial bearing insert - CS FDA Start: 01-27-2023 ASYMMETRIC PATELLA FDA Start: 01-27-2023 TIBIAL COMPONENT FDA Start: 01-27-2023 cruciate retaini ng femoral FDA Start: 01-27-2023 tibial bearing insert - CS FDA Start: 01-27-2023 Goals Date Patient Goal Desired Activity /State Functional Status Date Assessment Result Facility 01-28-2023 Functional status Patient Activity Chair [facility] Work Phone: 01-28-2023 Functional status With Assist of 1 [facility] Work Phone: Mental Status Date Assessment Result Facility 01-28-2023 Cognitive function Voice/Name [facility] Work Phone: 06-08-2022 Cognitive function Level Of Cons ciousness Awake;Alert;Appropriate [facility] Work Phone: 03-19-2022 Cognitive function Level Of Cons ciousness Awake;Alert;Appropriate;Follow s Commands [facility] Work Phone: 03-19-2022 Cognitive function Patient Orien tation Person;Place;Time [facility] Work Phone: Clinical Notes 06-08-2022 to 02-13-2025 Note Date & Type Note Facility 02-13-2025 Progress note [facility] 02-13-2025 Progress note Note Date/Time February 13, 2025 4:49pm [facility] Internal Medicine [address] [place] [address] [place] [address] OFFICE VISIT Date of Service: 02/13/25 MR#: [id number] Acct: [id number] Name: JAMES BOURGEOIS MELISSA Rep #: [id number] : 1960 Provider: JHOANA tan Ungerer Age/Sex: 64/F [place] [facility] [place]: Signed Intake Vital Signs 08/22/24 15:23 02/13/25 15:59 Height 5 ft 2 in 5 ft 2 in Weight: 263 lb 4 oz BMI 48.1 BP 128/82 H Blood Pressure Location Lt brachial Position Sitting Respiration 16 Pulse 89 Pulse Source Monitor Temp 97.1 F L Temp Source Temporal Pulse Oximetry (%) 96 Oxygen Delivery Method room air Intake Visit Reasons: Follow up / Lump under chin/neck Chief Complaint: lump 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 Accompanied by: Self Is patient in pain?: No Allergies Latex, Natural Rubber Allergy (Severe, Verified 02/13/25 16:02) Rash adhesive Allergy (Intermediate, Verified 02/13/25 16:02) Hives nabumetone (From Relafen) Allergy (Intermediate, Verified 02/13/25 16:02) Other cat dander Allergy (Verified 02/13/25 16:02) Shortness of breath dog dander Allergy (Verified 02/13/25 16:02) Shortness of breath megestrol Allergy (Verified 02/13/25 16:02) anxious/suicidal shellfish derived Allergy (Verified 02/13/25 16:02) Vomiting Medications ?Medication ?Instructions ?Recorded ?Confirmed ?Type calcium 333 mg 2 tab PO BID supplement 04/0202/13/25 History (carbonate)-magnesium 133 mg-zinc 5 mg (sulfate) tablet cholecalciferol (vitamin D3) 125 5,000 unit PO DAILY s upplement 04/20/18 02/13/25 History mcg (5,000 unit) capsule multivitamin 1 tab PO DAILY supplement 02/13/25 History blue-green algae (Spirulina) 500 1,500 mg PO DAILY 02/13/25 History mg capsule pantoprazole 40 mg tablet,delayed 40 mg PO DAILY gerd #90 tabs 11/17/19 02/13/25 Rx release vitamin B complex 1 cap PO DAILY 07/29/2101/31 History meclizine 25 mg tablet 25 mg PO TID PRN dizziness # 30 tabs 06/10/22 02/13/25 Rx vitamin E 268 mg (400 unit) capsule 268 mg PO DAILY 02/13/25 History acetaminophen 500 mg tablet 1,000 mg (2 x 500 mg) PO T ID #100 01/28/23 02/13/25 Rx tabs albuterol sulfate 90 mcg/actuation 1 - 2 puff inhalati on Q4H PRN PRN 05/21/23 02/13/25 Rx aerosol inhaler Sob &/Or Wheezing #8.5 grams compress.stocking,knee,reg,lrg #2 ea 08/10/24 02/13/25 Rx sumatriptan succinate 50 mg tablet See Rx Instructions PO .COMPLEX 08/10/24 02/13/25 Rx (Imitrex) #10 tabs albuterol 90 mcg-budesonide 80 2 inh inhalation ONCE # 10.7 grams 08/22/24 02/13/25 Rx mcg/actuation HFA aerosol inhaler (Airsupra) benzonatate 200 mg capsule 200 mg PO TID PRN cough #30 caps 08/22/24 02/13/25 Rx amlodipine 10 mg tablet 10 mg PO DAILY htn #90 tabs 09/15/24 02/13/25 Rx rosuvastatin 10 mg tablet 10 mg PO DAILY cholesterol # 90 tabs 09/15/24 02/13/25 Rx montelukast 10 mg tablet See Rx Instructions .Route 0 10/06/24 02/13/25 Rx .COMPLEX #90 tabs paroxetine HCl 40 mg tablet 40 mg PO DAILY for depress hernando 10/06/24 02/13/25 Rx disorder #90 TABLETS amitriptyline 25 mg tablet 25 mg PO QHS sleep,migraine s #90 12/19/24 02/13/25 Rx tabs benzonatate 200 mg capsule 200 mg PO TID PRN cough #20 caps 01/24/25 02/13/25 Rx prednisone 10 mg tablet 10 mg PO QDAY #30 tabs 01/2402/13/25 Rx Nurse's Note: right side under chin/cheek bone also has paperwork for hospital wellness [facility] Medical History Abnormal urinalysis Bilateral lower extremity edema Fatigue Post-menopausal Kidney stones Excessive bleeding Back pain Non-smoker Sleep apnea History of pain when walking Hx of flexible sigmoidoscopy Health care maintenance Preoperative evaluation to rule out surgical contraindication Suprapubic discomfort Conjunctivitis, right eye Acute pharyngitis, unspecified Acute sinusitis, unspecified Wears glasses Low iron High cholesterol Easy bruising Migraine headache History of GI bleed Gastric reflux Shortness of breath on exertion Leg cramps Hypertension History of stress test Cardiology follow-up encounter Hyperlipidemia Essential hypertension Chest pain Acute cystitis Abnormal EKG Morbid obesity Preventative health care Upper respiratory infection Screening for thyroid disorder Malaise and fatigue Left knee pain Acute postoperative anemia due to expected blood loss Sleep apnea Kidney stones Intertrigo Chronic thoracic back pain Chronic cervical pain Breast hypertrophy Abdominal panniculus, symptomatic Allergic rhinitis Restrictive airway disease Depression History of tuberculosis exposure History of positive PPD, treatment status unknown History of pneumococcal pneumonia Psoriasis Psoriatic arthritis Knee pain Shoulder pain Back pain SOB (shortness of breath) Migraine Hay fever Anemia Asthma Arthritis Surgical History Hx of gastric bypass Hx of surgical procedure History of left heart catheterization (03/13/22) History of cardiac catheterization History of bilateral breast reduction surgery History of gastric bypass History of eye surgery History of carpal tunnel surgery of left wrist History of lateral meniscus repair of left knee History of hysterectomy Family History Mother Diabetes Heart disease Father Diabetes Heart disease CAD (coronary artery disease) Myocardial infarction, Onset Age: 42 CABG,ICD Sister Breast cancer Brother Testicular cancer Sister Cancer thyroid Brother Cancer Social History adopted: No household members: spouse current occupational status: employed current occupation: [employer] pets and animals: No Smoking Status: Former smoker quit date: 05/03/73 Tobacco: How many years used: 2 second hand exposure: Yes alcohol intake: never substance use type: does not use caffeine: Yes (2) Type: coffee and tea what type of physical activity do you participate in: walking frequency: 1-2 times per week do you feel safe at home: Yes HPI HPI Chief Complaint: lump Details: JMAES BOURGEOIS, is a 64 F who presents to the office today for routine follow-up for chronic disease as well as some concerns. Patient with a history of hypertension states blood pressure readings when she has had them checked at health screenings and in the office well-controlled she has no difficulty takingher medications. She is active denies any new onset of headaches or dizziness current chest pain or shortness of breath. Patient states recent urinalysis done at health screening showed infection she states she does not have any symptoms of a urinary tract infection. Denies any urgency denies burning denies frequency denies bladder tenderness. She states her urine has somewhat of an odor to it however she states she has had UTIs in the past without symptoms. Patient states she noticed a lump under the right side of her chin in the last few weeks. She feels as if it is getting larger. She states her brother and sister have both had thyroid cancer and she is concerned. She states no known self history of thyroid disease. She did recently have an upper respiratory infection that she was seen at her urgent care for. She denies any shortness ofbreath denies sore throat or sinus congestion at this time. Patient with a history of anxiety and depression. Patient feels that symptoms are well-managed at this time on amitriptyline and paroxetine. [facility] system there. She is also shehas no current mental health concerns. Routine screening labs were up-to-date cholesterol is within normal ranges. Sheis due for a mammogram her colonoscopy is up-to-date. No other questions or concerns today ROS Const Constitutional: No body ache, excessive sweating, fatigue, fever(s), frequent falls, headache(s), snoring, weakness, weight change, sleep problems or change in appetite Eyes Eyes: No blurry vision, change in vision, eye pain or Light sensitivity ENT ENT: No abnormal hearing, ear or mastoid pain, tinnitus, nasal congestion, headache(s), neck pain or sore throat Resp Respiratory: No cough, shortness of breath, snoring or wheezing Cardio Cardiology: No chest pain at rest, chest pain with exertion, excessive sweating,shortness of breath, dyspnea on exertion, lightheadedness, orthopnea or palpitations Gastro GI: No abdominal pain, change in bowel habits, constipation, cramping, diarrhea,nausea/dyspepsia or vomiting Genitourinary-Female: No burning urination, painful urination, urinary incontinence, urinary frequency, blood in urine, abnormal periods or pelvic pain Musc Musculoskeletal: No abnormal gait, joint pain, back pain, limited range of motion, neck pain, numbness, stiffness, tingling or Arthritis Skin Skin: No dry skin, redness, lesions, itchy eyes, rash or wounds Neuro Neurology: No abnormal gait, abnormal hearing, abnormal speech, dizziness, weakness, frequent falls, headache(s), memory loss, numbness or tingling Psych Psychiatric: No anxiety, No change in appetite, No depression, No memory loss and No Thoughts of harming yourself/Others Endo Endocrine: No cold intolerance, excessive sweating, fatigue, flushing, heat intolerance, increased thirst/drinking, increased hunger or weight change Aller/Imm Allergy/Immunologic: No itchy eyes, seasonal allergy symptoms, hives or wheezing Song/Lymp Hematologic/Lymphatic: No easy bleeding, easy bruising or enlarged lymph nodes Exam Const General: cooperative, no acute distress, well groomed and well hydrated Nutritional Appearance: well nourished Orientation: alert and oriented x3 HENMT Head: normal to inspection Ears: hearing grossly normal bilaterally Nose: external nose normal and nares normal Face and sinus: normal facial exam Mouth: oral mucosae normal, lip normal and moist mucous membranes Eyes General: appearance normal, both eyes and all related structures Pupils: PERRL Neck Neck: normal visual inspection, lymphadenopathy noted (Right submandibular glandw/mild edema, nontender, no change in skin color) and trachea midline Thyroid: thyroid normal Chest Chest palpation & inspection: normal inspection of the chest Resp Effort & Inspection: normal respiratory effort, able to speak in complete sentences and symmetric chest movement Auscultation: Bilateral: Clear to Auscultation Cardio Palpation: normal PMI Rate: regular rate Rhythm: regular rhythm Heart Sounds: S1 normal and S2 normal Pulses: radial pulses present GI Inspection: normal to inspection Auscultation: normal bowel sounds Palpation: soft and nontender Musc Musculoskeletal: No joint tenderness, joint redness or muscle weakness Skin General: no rashes or lesions noted Lesions: no lesions Rashes: no rashes Trauma: no lacerations or abrasions Wounds: no wounds Neuro General: patient alert, patient oriented x3 and deep tendon reflexes 2+ bilaterally Speech: speech normal Motor: muscle tone normal throughout Extrem General: normal to inspection and capillary refill normal Psych Appearance: grossly normal and well kempt Coding Level of Care Code Established Pt Off vis,est,level 3 Patient Type Established History Comprehensive Exam Comprehensive Medical Decision Making Moderate Complexity Diagnoses Preventative health care Z00.00 Elevated fasting glucose R73.01 Recurrent UTI N39.0 Lymph node enlargement R59.9 Fatigue, unspecified type R53.83 Fatigue type: unspecified Class 3 severe obesity due to excess calories without serious comorbidity with body mass index (BMI) of 45.0 to 49.9 in adult E66.01; Z68.42 Obesity type: due to excess calories Obesity classification: adult class 3 (BMI >= 40) Serious obesity comorbidity presence: without serious comorbidity Body mass index: BMI 45.0-49.9 Osteoarthritis M19.90 Essential hypertension I10 Hyperlipidemia E78.5 Time Spent (min) 40 Assessment and Plan Assessment and Plan (1) Preventative health care: Status: Acute Plan: Labs up to date will have patient complete mammogram (2) Elevated fasting glucose: Status: Acute Plan: Left patient had a follow-up A1c due determine if this is a long standing elevation. (3) Recurrent UTI: Status: Acute Plan: Will refer to [facility]. Also will treat current UTI pending cultures. (4) Lymph node enlargement: Status: Acute Plan: Most likely due to recent upper respiratory infection. Discussed with patient. Return to office if any worsening or changes. (5) Fatigue: Status: Acute Qualifiers: Fatigue type: unspecified Qualified Code(s): R53.83 - Other fatigue Plan: Due to fatigue and concern due to family history of thyroid cancer will check thyroid levels. (6) Obesity: Status: Chronic Qualifiers: Obesity type: due to excess calories Obesity classification: adult class 3 (BMI >= 40) Serious obesity comorbidity presence: without serious comorbidity Body mass index: BMI 45.0-49.9 Qualified Code(s): E66.01 - Morbid (severe) obesity due to excess calories; Z68.42 - Body mass index (BMI) 45.0-49.9, adult Plan: BMI 48.1. Patient states her arthritis minimizes her activity level does not desire intervention for diet or activity at this time. (7) Osteoarthritis: Status: Chronic Plan: Fairly recently had right knee repeat placed states she needs that the left one done. Follow-up with Ortho as needed (8) Essential hypertension: Status: Chronic Plan: Blood pressure well-controlled on current medication regimen (9) Hyperlipidemia: Status: Chronic Plan: Last lab levels show rosuvastatin effective in maintaining appropriate cholesterol levels Orders: Orders Hemoglobin A1c Today F32.9 - Major depressive disorder, single episode, unspecified, F41.8 - Other specified anxiety disorders, I10 - Essential (primary) hypertension, R73.01 - Impaired fasting glucose, Z98.84 - Bariatric surgery status Free T3 Today F32.9 - Major depressive disorder, single episode, unspecified, F41.8 - Other specified anxiety disorders, I10 - Essential (primary) hypertension, R73.01 - Impaired fasting glucose, Z98.84 - Bariatric surgery status Free T4 Today F32.9 - Major depressive disorder, single episode, unspecified, F41.8 - Other specified anxiety disorders, I10 - Essential (primary) hypertension, R73.01 - Impaired fasting glucose, Z98.84 - Bariatric surgery status Thyroid Stim Hormone (TSH) Today F32.9 - Major depressive disorder, single episode, unspecified, F41.8 - Other specified anxiety disorders, I10 - Essential(primary) hypertension, R73.01 - Impaired fasting glucose, Z98.84 - Bariatric surgery status Referrals Urology N39.0 - Urinary tract infection, site not specified Plan Details Follow Up: 6 Months 02/13/25 1702 <Electronically signed by Clarissa ELY> Date _ Clarissa Kwon Signature: Date (if applicable) CC: ~ [facility] [employer] Work Phone: [phone] [facility] [address], [address] [place] [address] OFFICE VISIT Date of Service: 01/24/25 MR#: [id number] Acct: [id number] Name: JAMES BOURGEOIS Rep #: [id number] : 1960 Provider: JANE Padgett Age/Sex: 64/F [place] [facility] Status: Signed Intake Vital Signs 08/22/24 15:23 01/24/25 16:46 Height 5 ft 2 in Weight: 253 lb BMI 46.3 BP 118/64 134/80 H Blood Pressure Location Lt brachial Lt brachial Position Sitting Sitting Respiration 18 17 Pulse 77 92 Pulse Source Monitor NIBP Temp 96.1 F L 98.9 F Temp Source Temporal Oral Pulse Oximetry (%) 93 95 Oxygen Delivery Method room air room air Intake Visit Reasons: CONGESTION, SORE THROAT Chief Complaint: cough, congest, fatigue, ST 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 Is patient in pain?: No Allergies Latex, Natural Rubber Allergy (Severe, Verified 01/24/25 16:47) Rash adhesive Allergy (Intermediate, Verified 01/24/25 16:47) Hives nabumetone (From Relafen) Allergy (Intermediate, Verified 01/24/25 16:47) Other cat dander Allergy (Verified 01/24/25 16:47) Shortness of breath dog dander Allergy (Verified 01/24/25 16:47) Shortness of breath megestrol Allergy (Verified 01/24/25 16:47) anxious/suicidal shellfish derived Allergy (Verified 01/24/25 16:47) Vomiting Medications ?Medication ?Instructions ?Recorded ?Confirmed ?Type calcium 333 mg 2 tab PO BID supplement 04/0208/22/24 History (carbonate)-magnesium 133 mg-zinc 5 mg (sulfate) tablet cholecalciferol (vitamin D3) 125 5,000 unit PO DAILY s upplement 04/20/18 08/22/24 History mcg (5,000 unit) capsule multivitamin 1 tab PO DAILY supplement 08/22/24 History blue-green algae (Spirulina) 500 1,500 mg PO DAILY 08/22/24 History mg capsule pantoprazole 40 mg tablet,delayed 40 mg PO DAILY gerd #90 tabs 11/17/19 08/22/24 Rx release vitamin B complex 1 cap PO DAILY 07/29/2108/02 History meclizine 25 mg tablet 25 mg PO TID PRN dizziness # 30 tabs 06/10/22 08/22/24 Rx vitamin E 268 mg (400 unit) capsule 268 mg PO DAILY 08/22/24 History acetaminophen 500 mg tablet 1,000 mg (2 x 500 mg) PO T ID #100 01/28/23 08/22/24 Rx tabs albuterol sulfate 90 mcg/actuation 1 - 2 puff inhalati on Q4H PRN PRN 05/21/23 08/22/24 Rx aerosol inhaler Sob &/Or Wheezing #8.5 grams compress.stocking,knee,reg,lrg #2 ea 08/10/24 08/22/24 Rx sumatriptan succinate 50 mg tablet See Rx Instructions PO .COMPLEX 08/10/24 08/22/24 Rx (Imitrex) #10 tabs albuterol 90 mcg-budesonide 80 2 inh inhalation ONCE # 10.7 grams 08/22/24 08/22/24 Rx mcg/actuation HFA aerosol inhaler (Airsupra) benzonatate 200 mg capsule 200 mg PO TID PRN cough #30 caps 08/22/24 08/22/24 Rx amlodipine 10 mg tablet 10 mg PO DAILY htn #90 tabs 09/15/24 Rx rosuvastatin 10 mg tablet 10 mg PO DAILY cholesterol # 90 tabs 09/15/24 Rx montelukast 10 mg tablet See Rx Instructions .Route 0 10/06/24 Rx .COMPLEX #90 tabs paroxetine HCl 40 mg tablet 40 mg PO DAILY for depress hernando 10/06/24 Rx disorder #90 TABLETS amitriptyline 25 mg tablet 25 mg PO QHS sleep,migraine s #90 12/19/24 Rx tabs benzonatate 200 mg capsule 200 mg PO TID PRN cough #20 caps 01/24/25 01/24/25 Rx prednisone 10 mg tablet 10 mg PO QDAY #30 tabs 01/2401/24/25 Rx Is last menstrual period known: No Post menopausal: Yes Patient : No Have you fallen in the past year?: No Nurse's Note: cough, congest, fatigue, ST x 1 week. hx asthma, inhalers helping temporarily. concern for bronchitis PFSH Medical History Bilateral lower extremity edema Fatigue Post-menopausal Kidney stones Excessive bleeding Back pain Non-smoker Sleep apnea History of pain when walking Hx of flexible sigmoidoscopy Health care maintenance Preoperative evaluation to rule out surgical contraindication Suprapubic discomfort Conjunctivitis, right eye Acute pharyngitis, unspecified Acute sinusitis, unspecified Wears glasses Low iron High cholesterol Easy bruising Migraine headache History of GI bleed Gastric reflux Shortness of breath on exertion Leg cramps Hypertension History of stress test Cardiology follow-up encounter Hyperlipidemia Essential hypertension Chest pain Acute cystitis Abnormal EKG Morbid obesity Preventative health care Upper respiratory infection Screening for thyroid disorder Malaise and fatigue Left knee pain Acute postoperative anemia due to expected blood loss Sleep apnea Kidney stones Intertrigo Chronic thoracic back pain Chronic cervical pain Breast hypertrophy Abdominal panniculus, symptomatic Allergic rhinitis Restrictive airway disease Depression History of tuberculosis exposure History of positive PPD, treatment status unknown History of pneumococcal pneumonia Psoriasis Psoriatic arthritis Knee pain Shoulder pain Back pain SOB (shortness of breath) Migraine Hay fever Anemia Asthma Arthritis Surgical History Hx of gastric bypass Hx of surgical procedure History of left heart catheterization (03/13/22) History of cardiac catheterization History of bilateral breast reduction surgery History of gastric bypass History of eye surgery History of carpal tunnel surgery of left wrist History of lateral meniscus repair of left knee History of hysterectomy Family History Mother Diabetes Heart disease Father Diabetes Heart disease CAD (coronary artery disease) Myocardial infarction, Onset Age: 42 CABG,ICD Sister Breast cancer Brother Testicular cancer Sister Cancer thyroid Brother Cancer Social History adopted: No household members: spouse current occupational status: employed current occupation: [employer] pets and animals: No Smoking Status: Former smoker quit date: 05/03/73 Tobacco: How many years used: 2 second hand exposure: Yes alcohol intake: never substance use type: does not use caffeine: Yes (2) Type: coffee and tea what type of physical activity do you participate in: walking frequency: 1-2 times per week do you feel safe at home: Yes HPI HPI Chief Complaint: cough, congest, fatigue, ST Details: JAMES BOURGEOIS, is a 64 F who presents to the office today [facility] for approximately 7 day history of persistent cough, congestion, fatigue, wheezing, and irritated throat; no c/o fever, chills, VYAS, myalgias, nausea, and diarrhea. Patient notes no complaints of chest pain or shortness of breath or dyspnea on exertion. Several close contacts recently dx?dw/ similar URI complaints. No [id number] taken to assist. No other associated symptoms and no other alleviating/aggravating factors. ROS Const Constitutional: No other (As above) Exam Const General: cooperative, healthy appearing and no acute distress Orientation: alert, awake HENAK Head: normal to inspection Ears: hearing grossly normal bilaterally, external ears normal, TM's normal bilaterally and EAC's normal Nose: external nose normal, nares normal, septum normal and clear nasal discharge Face and sinus: normal facial exam, sinuses nontender and face symmetric Mouth: oral mucosae normal, lip normal, tongue normal and oropharynx normal Throat: posterior oropharynx normal, tonsils normal, uvula midline and no postnasal drainage Eyes General: appearance normal, both eyes and all related structures Neck Neck: normal visual inspection, full ROM, no lymphadenopathy, no meningeal signsand supple Neck mass: No Thyroid: thyroid normal Lymphatic: no lymphadenopathy noted Chest Chest palpation & inspection: normal inspection of the chest Resp Effort & Inspection: normal respiratory effort, able to speak in complete sentences and cough Quality of cough: wet (nonproductive in office today) Auscultation: Bilateral: Clear to Auscultation w/ inspiratory/ expiratory wheezing throughout Cardio Palpation: normal PMI Rate: regular Rhythm: regular rhythm Heart Sounds: S1 normal, S2 normal Pulses: radial pulses present Skin General: no rashes or lesions noted Neuro General: patient alert, patient awake Cognition: normal cognition Speech: speech normal Psych Appearance: grossly normal Mental Status: mental status grossly normal Mood: congruent mood Affect: normal affect Speech and Movement: speech and movement normal Attitude: cooperative Diagnoses Contact with or exposure to other viral diseases Z20.828 Asthma exacerbation J45.901 Assessment and Plan Assessment and Plan (1) Contact with or exposure to other viral diseases: Status: Acute (2) asthma exacerbation: Status: Acute Plan: See POC results. Prednisone and Benzonatate as prescribed today. Supportive measures as instructed today. Follow-up with PCP in 5 to 7 days should symptoms not improve, ED sooner shouldsymptoms worsen or any other concerns develop. Pt states acknowledging understanding all the above Results POC [facility] Covid FluAB PCR POC [facility] Cov[facility] PCR Not Detected Last Edit by Elissa Santo on 01/24/25 17: 16 POC [facility] FLU NOT DETECTED FLU A&B Last Edit by Elissa Santo on 01/24/25 17:16 Coding Level of Care Code Off vis,est,level 3 Assessment and Plan Assessment and Plan Orders: Orders POC [facility] Covid FLUAB PCR Today Medications: New benzonatate 200 mg PO TID PRN 20 caps 0RF cough prednisone 4 tablets daily x3 days, then 3 tablets daily x3 days, then 2 tablets daily x3 days, then 1 tablet daily x3 days 10 mg PO QDAY 30 tabs 0RF Clinical Quality Measures Falls Risk Screening/Assistive Devices Have you fallen in the past year?: No 01/24/25 1723 s JANE LARA> Date _ Jose Maria LARA Cosigner Signature: Date (if applicable) CC: ~ [facility]09-24-2025 Progress note Author Jose Maria Johnson [facility] Note Date/Time January 24, 2025 5:23pm [facility] [address], [address] [place] [address] OFFICE VISIT Date of Service: 01/24/25 MR#: [id number] Acct: [id number] Name: JAMES BOURGEOIS Rep #: [id number] : 1960 Provider: JANE Padgett Age/Sex: 64/F [place] [facility] Status: Signed Intake Vital Signs 08/22/24 15:23 01/24/25 16:46 Height 5 ft 2 in Weight: 253 lb BMI 46.3 BP 118/64 134/80 H Blood Pressure Location Lt brachial Lt brachial Position Sitting Sitting Respiration 18 17 Pulse 77 92 Pulse Source Monitor NIBP Temp 96.1 F L 98.9 F Temp Source Temporal Oral Pulse Oximetry (%) 93 95 Oxygen Delivery Method room air room air Intake Visit Reasons: CONGESTION, SORE THROAT Chief Complaint: cough, congest, fatigue, ST 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 Is patient in pain?: No Allergies Latex, Natural Rubber Allergy (Severe, Verified 01/24/25 16:47) Rash adhesive Allergy (Intermediate, Verified 01/24/25 16:47) Hives nabumetone (From Relafen) Allergy (Intermediate, Verified 01/24/25 16:47) Other cat dander Allergy (Verified 01/24/25 16:47) Shortness of breath dog dander Allergy (Verified 01/24/25 16:47) Shortness of breath megestrol Allergy (Verified 01/24/25 16:47) anxious/suicidal shellfish derived Allergy (Verified 01/24/25 16:47) Vomiting Medications ?Medication ?Instructions ?Recorded ?Confirmed ?Type calcium 333 mg 2 tab PO BID supplement 04/0208/22/24 History (carbonate)-magnesium 133 mg-zinc 5 mg (sulfate) tablet cholecalciferol (vitamin D3) 125 5,000 unit PO DAILY s upplement 04/20/18 08/22/24 History mcg (5,000 unit) capsule multivitamin 1 tab PO DAILY supplement 08/22/24 History blue-green algae (Spirulina) 500 1,500 mg PO DAILY 08/22/24 History mg capsule pantoprazole 40 mg tablet,delayed 40 mg PO DAILY gerd #90 tabs 11/17/19 08/22/24 Rx release vitamin B complex 1 cap PO DAILY 07/29/2108/02 History meclizine 25 mg tablet 25 mg PO TID PRN dizziness # 30 tabs 06/10/22 08/22/24 Rx vitamin E 268 mg (400 unit) capsule 268 mg PO DAILY 08/22/24 History acetaminophen 500 mg tablet 1,000 mg (2 x 500 mg) PO T ID #100 01/28/23 08/22/24 Rx tabs albuterol sulfate 90 mcg/actuation 1 - 2 puff inhalati on Q4H PRN PRN 05/21/23 08/22/24 Rx aerosol inhaler Sob &/Or Wheezing #8.5 grams compress.stocking,knee,reg,lrg #2 ea 08/10/24 08/22/24 Rx sumatriptan succinate 50 mg tablet See Rx Instructions PO .COMPLEX 08/10/24 08/22/24 Rx (Imitrex) #10 tabs albuterol 90 mcg-budesonide 80 2 inh inhalation ONCE # 10.7 grams 08/22/24 08/22/24 Rx mcg/actuation HFA aerosol inhaler (Airsupra) benzonatate 200 mg capsule 200 mg PO TID PRN cough #30 caps 08/22/24 08/22/24 Rx amlodipine 10 mg tablet 10 mg PO DAILY htn #90 tabs 09/15/24 Rx rosuvastatin 10 mg tablet 10 mg PO DAILY cholesterol # 90 tabs 09/15/24 Rx montelukast 10 mg tablet See Rx Instructions .Route 0 10/06/24 Rx .COMPLEX #90 tabs paroxetine HCl 40 mg tablet 40 mg PO DAILY for depress hernando 10/06/24 Rx disorder #90 TABLETS amitriptyline 25 mg tablet 25 mg PO QHS sleep,migraine s #90 12/19/24 Rx tabs benzonatate 200 mg capsule 200 mg PO TID PRN cough #20 caps 01/24/25 01/24/25 Rx prednisone 10 mg tablet 10 mg PO QDAY #30 tabs 01/2401/24/25 Rx Is last menstrual period known: No Post menopausal: Yes Patient : No Have you fallen in the past year?: No Nurse's Note: cough, congest, fatigue, ST x 1 week. hx asthma, inhalers helping temporarily. concern for bronchitis PFSH Medical History Bilateral lower extremity edema Fatigue Post-menopausal Kidney stones Excessive bleeding Back pain Non-smoker Sleep apnea History of pain when walking Hx of flexible sigmoidoscopy Health care maintenance Preoperative evaluation to rule out surgical contraindication Suprapubic discomfort Conjunctivitis, right eye Acute pharyngitis, unspecified Acute sinusitis, unspecified Wears glasses Low iron High cholesterol Easy bruising Migraine headache History of GI bleed Gastric reflux Shortness of breath on exertion Leg cramps Hypertension History of stress test Cardiology follow-up encounter Hyperlipidemia Essential hypertension Chest pain Acute cystitis Abnormal EKG Morbid obesity Preventative health care Upper respiratory infection Screening for thyroid disorder Malaise and fatigue Left knee pain Acute postoperative anemia due to expected blood loss Sleep apnea Kidney stones Intertrigo Chronic thoracic back pain Chronic cervical pain Breast hypertrophy Abdominal panniculus, symptomatic Allergic rhinitis Restrictive airway disease Depression History of tuberculosis exposure History of positive PPD, treatment status unknown History of pneumococcal pneumonia Psoriasis Psoriatic arthritis Knee pain Shoulder pain Back pain SOB (shortness of breath) Migraine Hay fever Anemia Asthma Arthritis Surgical History Hx of gastric bypass Hx of surgical procedure History of left heart catheterization (03/13/22) History of cardiac catheterization History of bilateral breast reduction surgery History of gastric bypass History of eye surgery History of carpal tunnel surgery of left wrist History of lateral meniscus repair of left knee History of hysterectomy Family History Mother Diabetes Heart disease Father Diabetes Heart disease CAD (coronary artery disease) Myocardial infarction, Onset Age: 42 CABG,ICD Sister Breast cancer Brother Testicular cancer Sister Cancer thyroid Brother Cancer Social History adopted: No household members: spouse current occupational status: employed current occupation: [employer] pets and animals: No Smoking Status: Former smoker quit date: 05/03/73 Tobacco: How many years used: 2 second hand exposure: Yes alcohol intake: never substance use type: does not use caffeine: Yes (2) Type: coffee and tea what type of physical activity do you participate in: walking frequency: 1-2 times per week do you feel safe at home: Yes HPI HPI Chief Complaint: cough, congest, fatigue, ST Details: JAMES BOURGEOIS, is a 64 F who presents to the office today for [facility] for approximately 7 day history of persistent cough, congestion, fatigue, wheezing, and irritated throat; no c/o fever, chills, VYAS, myalgias, nausea, and diarrhea. Patient notes no complaints of chest pain or shortness of breath or dyspnea on exertion. Several close contacts recently dx?dw/ similar URI complaints. No [id number] taken to assist. No other associated symptoms and no other alleviating/aggravating factors. ROS Const Constitutional: No other (As above) Exam Const General: cooperative, healthy appearing and no acute distress Orientation: alert, awake HENMT Head: normal to inspection Ears: hearing grossly normal bilaterally, external ears normal, TM's normal bilaterally and EAC's normal Nose: external nose normal, nares normal, septum normal and clear nasal discharge Face and sinus: normal facial exam, sinuses nontender and face symmetric Mouth: oral mucosae normal, lip normal, tongue normal and oropharynx normal Throat: posterior oropharynx normal, tonsils normal, uvula midline and no postnasal drainage Eyes General: appearance normal, both eyes and all related structures Neck Neck: normal visual inspection, full ROM, no lymphadenopathy, no meningeal signsand supple Neck mass: No Thyroid: thyroid normal Lymphatic: no lymphadenopathy noted Chest Chest palpation & inspection: normal inspection of the chest Resp Effort & Inspection: normal respiratory effort, able to speak in complete sentences and cough Quality of cough: wet (nonproductive in office today) Auscultation: Bilateral: Clear to Auscultation w/ inspiratory/ expiratory wheezing throughout Cardio Palpation: normal PMI Rate: regular Rhythm: regular rhythm Heart Sounds: S1 normal, S2 normal Pulses: radial pulses present Skin General: no rashes or lesions noted Neuro General: patient alert, patient awake Cognition: normal cognition Speech: speech normal Psych Appearance: grossly normal Mental Status: mental status grossly normal Mood: congruent mood Affect: normal affect Speech and Movement: speech and movement normal Attitude: cooperative Diagnoses Contact with or exposure to other viral diseases Z20.828 Asthma exacerbation J45.901 Assessment and Plan Assessment and Plan (1) Contact with or exposure to other viral diseases: Status: Acute (2) asthma exacerbation: Status: Acute Plan: See POC results. Prednisone and Benzonatate as prescribed today. Supportive measures as instructed today. Follow-up with PCP in 5 to 7 days should symptoms not improve, ED sooner shouldsymptoms worsen or any other concerns develop. Pt states acknowledging understanding all the above Results POC [facility] Covid FluAB PCR POC [facility] Covid PCR Not Detected Last Edit by Elissa Santo on 01/24/25 17: 16 POC [facility] FLU NOT DETECTED FLU A&B Last Edit by Elissa Santo on 01/24/25 17:16 Coding Level of Care Code Off vis,est,level 3 Assessment and Plan Assessment and Plan Orders: Orders POC [facility] Covid FLUAB PCR Today Medications: New benzonatate 200 mg PO TID PRN 20 caps 0RF cough prednisone 4 tablets daily x3 days, then 3 tablets daily x3 days, then 2 tablets daily x3 days, then 1 tablet daily x3 days 10 mg PO QDAY 30 tabs 0RF Clinical Quality Measures Falls Risk Screening/Assistive Devices Have you fallen in the past year?: No 01/24/25 6098 <Electronically signed by Jose Maria LARA> Date _ Jose Maria LARA Cosigner Signature: Date (if applicable) CC: ~ [facility] [employer] Work Phone: 1(582) 323-109412-21-2023 Discharge summary Author Murray Ornelas [facility] April 22, 2023 5:36pm Note Date/Time April 22, 2023 5:36pm [facility] [address] [place] [address] / REHABILITATION SERVICES DISCHARGE SUMMARY MR#: [id number] Acct: [id number] Name: JAMES BOURGEOIS Rep #: [id number] : 1960 62 From: Murray Ornelas PT, ATC Referring Dr.: NICOLASA Valencia Status: REG RCR [facility] Discharge Summary D/C summary: It has been my pleasure to treat JAMES BOURGEOIS referred by Minesh Valencia PA-C, with the diagnosis of R TKA for a total of 25 visit(s). Discharge Date: Please see the following information for a summary of their discharge status. Subjective Subjective: Pt reports she is ready to be discharged Pain Right Knee: Pain Intensity (Out of 10): 0 Overall Improvement % Improvement: 98 Objective Objective/Function: R knee pain 0/10 R knee ROM: 0-118 degrees R knee MMT: flex= 22, ext= 60 #F Girth at joint line: 58 cm TU.77 Goals Goal 1:: Pt. to improve ROM in R knee ext. to 0 degrees and R knee flex. to 125 degrees in order to match contralateral side and aid in normal ambulation to return to prior level of function. Goal Progress: Progressing Goal 2:: Pt. to increase MMT results of R knee flexion 23 #F and R knee extension 35 #F in order to match contralateral side and aid in normal ambulation to return to prior level of function. Goal Progress: Goal Met Goal 3:: Pt. to decrease pain level by 50% on VAS scale in order to aid in a return to normal ADLs and iADLs to return to prior level of function. Goal Progress: Goal Met Goal 4:: Pt. to be I in HEP to aid in recovery from TKA by gaining strength and ROM in R knee to return to prior level of function. Goal Progress: Goal Met Plan Plan: Discharge to [facility] D/C Information d/c sentence: If there are questions or concerns regarding this patient's physical therapy, please feel free to call me at [phone]. Thank you for the referral of thispatient. Sincerely, Murray Ornelas, PT, ATC Balance/Gait/Functional tests Balance/Special Test Scores Lower Extremity Functional Score: 62 WOMAC Total Score: 96 WOMAC Percentage: 0 Improvement % Improvement: 98 <Electronically signed by Murray Ornelas PT, ATC> 04/22/23 2853 CC: NICOLASA Valencia; Dr. Lenka Ferguson MD ~ [facility] Signed [facility] Work Phone: [phone]) 546-962502-20-2023 Discharge summary Author Isaiah Rabago [facility] June 22, 2022 8:07am Note Date/Time June 22, 2022 8:07am [facility] [place] [address] / REHABILITATION SERVICES DISCHARGE SUMMARY MR#: [id number] Acct: [id number] Name: JAMES BOURGEOIS Rep #: [id number] : 1960 61 From: Isaiah Rabago DPT, OCS, CSCS Referring Dr.: JHOANA Cain Status: REG RCR [facility] It has been my pleasure to treat JAMES BOURGEOIS referred by JHOANA Whatley, with the diagnosis of BPPV for a total of 2 visit(s). Discharge Date: 06/22/22 Please see the following information for a summary of their discharge status. Subjective: New prescription glasses yesterday. Did exercises all week. it made her dizzy at first but not anymore. No problems with dizzyness. Played with grandkids without difficulty. % Improvement: 100 Objective/Function: +1 FGA. feeling 100% better and no nystagmus or dizzyness created today with activities. Normal appearance including bending to the floorand coming back up. Goal 1:: Pt have one week of no dizzyness Goal Progress: Goal Met Goal 2:: pt feel 100% back to normal activity for a period of 5 days Goal Progress: Goal Met Goal 3:: DHI score 2 or less Goal Progress: Goal Met Plan: weekly as needed to monitor positional(BBQ roll today) and other vestibular If there are questions or concerns regarding this patient's physical therapy, please feel free to call me at [phone]. Thank you for the referral of thispatient. Sincerely, Isaiah Rabago, HERMES, OCS, CSCS Balance/Gait/Functional tests - Balance/Special Test Scores Functional Gait Assessment Score: 30 % Disability: 0 CATSIB Score (Max score 120 seconds): 120 Dizziness Score: 0 <Electronically signed by Isaiah Rabago DPT, MONICO, CSCS> 06/22/22 0807 CC: RENTAL CAR PORTERRomeo Cain; Dr. Lenka Ferguson MD ~ [facility] Signed [facility] Work Phone: [phone]) 563-249602-06-[address] Treviño [facility] June 08, 2022 10:52pm Note Date/Time June 08, 2022 8 :56pm [facility] Medical Records Department [address] [place] [address] Emergency Department Summary 06/08/22 MR#: [id number] Acct: [id number] Name: JAMES BOURGEOIS MELISSA Rep #:[id number] : 1960 61 From: Hayden Treviño DO PCP: Dr. Lenka Ferguson MD Status:R EG ER Location: ED HPI History of Present Illness Chief Complaint: Weakness Narrative Narrative: 61-year-old female presenting with generalized weakness, and fatigue. She states she just been off for couple of days. She works at [employer]. She states has not had any fevers, chills, body aches. She does complain of some nausea and decreased p.o. intake because of the nausea. She does not have chest pain or shortness of breath. She states she feels lightheaded when she issitting and spinning when she stands and walks. She states that she saw Dr. Read in the hospital today who is her building inspector and he sent her over for labwork because he thought she looked pasty. Patient is not having abdominal pain. She does not believe she has any UTI symptoms but does have history of UTI. She has not actually vomited. [facility] Medical History Abdominal panniculus, symptomatic Abnormal EKG Acute cystitis Acute postoperative anemia due to expected blood loss Allergic rhinitis Anemia Arthritis Asthma Back pain Breast hypertrophy Cardiology follow-up encounter Chest pain Chronic cervical pain Chronic thoracic back pain Depression Easy bruising Essential hypertension Fatigue Gastric reflux Hay fever High cholesterol History of GI bleed History of pneumococcal pneumonia History of positive PPD, treatment status unknown History of stress test History of tuberculosis exposure Hyperlipidemia Hypertension Intertrigo Kidney stones Knee pain Left knee pain Leg cramps Low iron Malaise and fatigue Migraine Migraine headache Morbid obesity Preventative health care Psoriasis Psoriatic arthritis Restrictive airway disease Screening for thyroid disorder Shortness of breath on exertion Shoulder pain Sleep apnea SOB (shortness of breath) Upper respiratory infection Wears glasses Home Medications ipratropium bromide 42 mcg (0.06 %) nasal spray 2 spray intranasal TID nasal 03/03/18 [History Last Taken Unknown] calcium carbonate 333 mg-magnesium oxide 133 mg-zinc sulf 5 mg tablet 2 tab PO DAILY supplement 04/20/18 [History Last Taken Unknown] cholecalciferol (vitamin D3) 125 mcg (5,000 unit) capsule 5,000 unit PO DAILY supplement 04/20/18 [History Last Taken Unknown] multivitamin 1 tab PO DAILY supplement 04/20/18 [History Last Taken Unknown] acetaminophen 325 mg tablet 650 mg PO Q4H PRN PRN Mild-Moderate Pain (1-5/10) 05/20/18 [Rx Last Taken Unknown] blue-green algae (Spirulina) 500 mg capsule 1,500 mg PO DAILY 08/30/19 [History Last Taken Unknown] pantoprazole 40 mg tablet,delayed release 40 mg PO DAILY gerd #90 tabs 11/17/19 [Rx Last Taken 03/19/22 04:00] vitamin B complex 1 cap PO DAILY 07/29/21 [History Last Taken Unknown] docusate sodium 100 mg capsule (Colace) 100 mg PO BID #60 caps 10/24/21 [Rx Last Taken Unknown] alendronate 70 mg tablet 70 mg PO QWEEK #12 tabs 01/06/22 [Rx Last Taken Unknown] paroxetine HCl 40 mg tablet 40 mg PO DAILY anxiety/depression #90 tabs 01/12/22 [Rx Last Taken Unknown] rosuvastatin 10 mg tablet 10 mg PO DAILY cholesterol #90 tabs 01/20/22 [Rx Last Taken Unknown] amlodipine 10 mg tablet 10 mg PO DAILY htn #90 tabs 03/04/22 [Rx Last Taken 03/19/22 04:00] aspirin 81 mg tablet,delayed release (Adult Aspirin Regimen) 81 mg PO DAILY 03/04/22 [History Last Taken 03/13/22] montelukast 10 mg tablet See Rx Instructions .Route .COMPLEX #90 tabs 04/07/22 [Rx Last Taken Unknown] albuterol sulfate 90 mcg/actuation aerosol inhaler 1 - 2 puff inhalation Q4H PRNPRN Sob &/Or Wheezing #8.5 grams 04/23/22 [Rx Last Taken Unknown] amitriptyline 25 mg tablet 25 mg PO QHS sleep,migraines #90 tabs 04/23/22 [Rx Last Taken Unknown] ivermectin 1 % topical cream 30 applic topical PRN PRN psoriasis #45 grams 06/02/22 [Rx Last Taken Unknown] Allergy/AdvReac Type Severity Reaction Status Date / Time cat dander Allergy Shortness Verified 06/08/22 17:02 of breath dog dander Allergy Shortness Verified 06/08/22 17:02 of breath megestrol Allergy anxious/wero Verified 06/08/22 17:02 cidal shellfish derived Allergy Vomiting Verified 06/08/22 17:02 Family History Mother Diabetes Heart disease Father Diabetes Heart disease CAD (coronary artery disease) Myocardial infarction, Onset Age: 42 CABG,ICD Sister Breast cancer Brother Testicular cancer Sister Cancer thyroid Brother Cancer Surgical History History of bilateral breast reduction surgery History of cardiac catheterization History of carpal tunnel surgery of left wrist History of eye surgery History of gastric bypass History of hysterectomy History of lateral meniscus repair of left knee History of left heart catheterization (03/13/22) Social History Smoking Status: Former smoker second hand exposure: Yes alcohol intake: never substance use type: does not use what type of physical activity do you participate in: walking ROS ROS ED Constitutional Constitutional ED: Denies chills, fever(s) or sweats Eyes Eyes: Denies blurry vision or change in vision ENT ENT ED: Denies ear pain or sore throat Cardiovascular Cardiovascular: Denies chest pain, palpitations or racing heartbeat Respiratory/Chest Respiratory/Chest: Denies cough, dyspnea or sputum Gastrointestinal Gastrointestinal: Denies abdominal pain, constipation, diarrhea, nausea or vomiting Genitourinary Genitourinary ED: Denies dysuria, hematuria or urinary frequency Musculoskeletal Musculoskeletal: Denies arthralgias, myalgias or neck pain Integumentary Denies abscess, Abrasions or rash Neurologic Neurologic: Denies headache(s), paresthesias or weakness Psychiatric Psychiatric: Denies anxiety, depression, suicidal ideation or suicidal thoughts Endocrine Endocrinology: Denies polydipsia or polyuria EXAM Physical Exam Const Vital Signs: 06/08/22 17:04 06/08/22 19:52 06/08/22 19:52 Temperature 97 F L Temperature Source Temporal Pulse Rate 77 Pulse Rate [Lying] Pulse Rate [Sitting (for 1 minute prior to obtaining)] Pulse Rate [Standing (for 1 minute prior to obtaining)] Respiratory Rate 14 Respiratory Effort Normal Non-Labored Blood Pressure 154/100 H Blood Pressure [Lying] Blood Pressure [Sitting (for 1 minute prior to obtaining)] Blood Pressure [Standing (for 1 minute prior to obtaining)] Blood Pressure Mean 118 Blood Pressure Mean [Lying] Blood Pressure Mean [Sitting (for 1 minute prior to obtaining)] Blood Pressure Mean [Standing (for 1 minute prior to obtaining)] Pulse Ox 97 Oxygen Delivery Method Room Air Room Air 06/08/22 20:03 06/08/22 21:26 Temperature Temperature Source Pulse Rate 77 Pulse Rate [Lying] 81 Pulse Rate [Sitting (for 1 minute prior to obtaining)] 89 Pulse Rate [Standing (for 1 minute prior to obtaining)] 92 Respiratory Rate 18 Respiratory Effort Blood Pressure 154/104 H Blood Pressure [Lying] 150/101 H Blood Pressure [Sitting (for 1 minute prior to obtaining)] 149/108 H Blood Pressure [Standing (for 1 minute prior to obtaining)] 136/107 H Blood Pressure Mean 120 Blood Pressure Mean [Lying] 117 Blood Pressure Mean [Sitting (for 1 minute prior to obtaining)] 121 Blood Pressure Mean [Standing (for 1 minute prior to obtaining)] 116 Pulse Ox 98 Oxygen Delivery Method Room Air General Appearance ED: Negative for pallor HEENT Reports normocephalic, head/scalp atraumatic and moist mucous membranes Eyes PERRL and EOMs intact bilaterally Neck no lymphadenopathy and supple Chest Wall inspection of chest normal and palpation of chest normal Resp normal respiratory effort and clear to auscultation bilaterally Auscultation: Negative for rales, rhonchi or wheezes Cardio regular rate and regular rhythm GI normal to inspection, nondistended, normoactive bowel sounds and non-distended Auscultation: normoactive bowel sounds Palpation: soft Narrative: Deferred Extremity General Extremety ED: Yes edema and tenderness General Extremity: edema Neuro oriented x3 and CN's II-XII intact bilaterally Sensorium / Orientation: alert Motor Exam: strength 5/5 throughout Psych mental status grossly normal Attitude: No agitated Skin no rashes or lesions noted and no wounds General Skin Exam: Negative for jaundice or pallor MDM MDM MDM Narrative Medical decision making narrative: Presenting with dizziness/lightheadedness as well as generally not feeling well. Patient had blood work done today which was essentially unremarkable. Differential includes but not limited to vertigo, orthostatic hypotension, dehydration, near syncope/syncope UTI. EKG was obtained to assess for dysrhythmia/arrhythmia. EKG on my interpretation shows sinus rhythm with a ventricular rate of [address]-T wave changes. Chest x-ray was obtained and shows no acute cardiopulmonary process. CBC was repeated and thereis no change in her white blood cell count, hemoglobin hematocrit, platelets. Urinalysis to assess for UTI and this was negative. High-sensitivity troponin was also normal at 4. Patient was treated with Zofran and feels improved. I counseled her I did not find a cardiac source or any other etiology. Orthostatic vital signs were normal. She was amenable to going home with a prescription for Zofran. This will be provided. She will follow-up with her PCP. Return precautions discussed. Impression: 1. Lightheadedness 2. Nausea Lab Data Attestation: I reviewed the patient's lab results. Labs: Laboratory Results - last 24 hr 06/08/22 06/08/22 06/08/22 19:49 19:49 19:57 WBC 8.7 RBC 4.52 Hgb 12.6 Hct 41.0 MCV 90.7 MCH 27.9 MCHC 30.7 L D RDW Std Deviation 55.5 H RDW Coeff of Cecelia 16.5 H Plt Count 323 MPV 10.7 Immature Gran % (Auto) 0.500 Neut % (Auto) 70.8 H Lymph % (Auto) 18.3 L [place] % (Auto) 7.9 Eos % (Auto) 2.0 Baso % (Auto) 0.5 Absolute Neuts (auto) 6.2 Absolute Lymphs (auto) 1.59 Nucleated RBC % 0 Differential Comment SCANNED Sodium Cancelled Potassium Cancelled Chloride Cancelled Carbon Dioxide Cancelled Anion Gap Cancelled BUN Cancelled Creatinine Cancelled Estim Creat Clear Calc Cancelled Est GFR (MDRD) Af Amer Cancelled Est GFR (MDRD) Non-Af Cancelled BUN/Creatinine Ratio Cancelled Glucose Cancelled Calcium Cancelled Troponin I High Sens Cancelled Urine Color Yellow Urine Clarity Clear Urine pH 5.0 Ur Specific Henderson 1.020 Urine Protein Negative Urine Glucose (UA) Normal Urine Ketones Negative Urine Occult Blood Negative Urine Nitrite Negative Urine Bilirubin Negative Urine Urobilinogen Normal Ur Leukocyte Esterase 25 H Urine RBC 0 SEEN Urine WBC 0-5 SEEN Ur Squamous Epith Cells 0 SEEN Urine Bacteria 0 SEEN Urine Mucus 0 SEEN 06/08/22 21:20 WBC RBC Hgb Hct MCV MCH MCHC RDW Std Deviation RDW Coeff of Cecelia Plt Count MPV Immature Gran % (Auto) Neut % (Auto) Lymph % (Auto) [place] % (Auto) Eos % (Auto) Baso % (Auto) Absolute Neuts (auto) Absolute Lymphs (auto) Nucleated RBC % Differential Comment Sodium Potassium Chloride Carbon Dioxide Anion Gap BUN Creatinine Estim Creat Clear Calc Est GFR (MDRD) Af Amer Est GFR (MDRD) Non-Af BUN/Creatinine Ratio Glucose Calcium Troponin I High Sens 4 Urine Color Urine Clarity Urine pH Ur Specific Henderson Urine Protein Urine Glucose (UA) Urine Ketones Urine Occult Blood Urine Nitrite Urine Bilirubin Urine Urobilinogen Ur Leukocyte Esterase Urine RBC Urine WBC Ur Squamous Epith Cells Urine Bacteria Urine Mucus Radiography Diagnostic Testing: Clinical Impression(s) from Imaging Studies Chest X-Ray 06/08/22 21:00 IMPRESSION: Normal x-ray examination of the chest. Electronically Signed: Hernesto Pascal MD at 21:12 EST , Discharge Plan Triage Chief Complaint: Weakness ED Provider: Hayden Treviño Dx/Rx/DC Orders Prescriptions: No Action ipratropium bromide 42 mcg (0.06 %) spray,non-aerosol 2 spray INTRANASAL TID calcium carb-mag ox-zinc sulf 333-133-5 mg tablet 2 tab PO DAILY Label Comments: Vit D 600IU, Calcium 1000mg, magnesium 400mg cholecalciferol (vitamin D3) 5,000 unit capsule 5,000 unit PO DAILY multivitamin tablet 1 tab PO DAILY blue-green algae (Spirulina) 500 mg capsule 500 mg capsule 1,500 mg PO DAILY amlodipine 10 mg tablet 10 mg PO DAILY Qty: 90 3RF aspirin [Adult Aspirin Regimen] 81 mg tablet,delayed release (DR/EC) 81 mg PO DAILY Label Comments: for left heart cath acetaminophen 325 MG tablet 650 mg PO Q4H PRN PRN (Reason: Mild-Moderate Pain (-09/09)) 0RF vitamin B complex [B Complex] Capsule 1 cap PO DAILY docusate sodium [Colace] 100 mg capsule 100 mg PO BID Qty: 60 0RF pantoprazole 40 mg tablet,delayed release (DR/EC) 40 mg PO DAILY Qty: 90 3RF alendronate 70 mg tablet 70 mg PO QWEEK Qty: 12 3RF paroxetine HCl 40 mg tablet 40 mg PO DAILY Qty: 90 1RF rosuvastatin 10 mg tablet 10 mg PO DAILY Qty: 90 1RF montelukast 10 mg tablet See Rx Instructions .ROUTE .COMPLEX Qty: 90 3RF Dose Instruction: TAKE 1 TABLET BY MOUTH EVERY EVENING FOR ASTHMA Rx Instructions: TAKE 1 TABLET BY MOUTH EVERY EVENING FOR ASTHMA albuterol sulfate 90 mcg/actuation HFA aerosol inhaler 1 - 2 puff INHALATION Q4H PRN PRN (Reason: Sob &/Or Wheezing) Qty: 8.5 1RF amitriptyline 25 mg tablet 25 mg PO QHS Qty: 90 1RF ivermectin 1 % cream 30 applic TOPICAL PRN PRN (Reason: psoriasis) Qty: 45 3RF Primary Care Provider: Lenka Ferguson Referrals: Lenka Ferguson MD [Primary Care Provider] - What to do if you have Problems For any increased pain, shortness of breath, bleeding, nausea or vomiting, chestpain, or any unexpected problems, contact your Primary Care Provider. Call [facility] ([phone]) or report to the closest Emergency Room. Call 911 if necessary. 06/08/22 5511 <Electronically signed by Hayden Treviño DO> Cosigner Signature (if applicable): CC: Dr. Lenka Ferguson MD ~ Signed [facility] Work Phone: Chief complaint+Reason for visit Narrative* Chief Complaint abn ekg PRE-OP HEART CATH ABN EKG/CHEST PAIN ON EXERTION 2 [facility] COVID-19 RUQ PAIN BILAT KNEES WEAKNESS Reason for Visit Chest pain Essential hypertension Hyperlipidemia Abdominal pain Constipation Rectal bleeding Left knee DJD Right knee DJD [facility] Work Phone: Chief complaint+Reason for visit Narrative* Chief Complaint abn ekg PRE-OP HEART CATH ABN EKG/CHEST PAIN ON EXERTION 2 [facility] COVID-19 RUQ PAIN BILAT KNEES WEAKNESS [facility] ER FU VERTIGO / RX HERE Reason for Visit Chest pain Essential hypertension Hyperlipidemia Abdominal pain Constipation Rectal bleeding Left knee DJD Right knee DJD BPPV (benign paroxysmal positional vertigo) [facility] Work Phone: Evaluation note* Diagnosis Onset Date Resolution Status Migraine chronic [facility] Work Phone: Evaluation note* Diagnosis Onset Date Resolution Status Malaise and fatigue acute Screening for thyroid disorder acute Upper respiratory infection acute Fatigue chronic Hypertension chronic SOB (shortness of breath) ch ronic [facility] Work Phone: Evaluation note* Diagnosis Onset Date Resolution Status Left knee DJD acute Right knee DJD acute Obesity chronic Morbid obesity acute Preventative health care acu te Abnormal EKG acute Acute cystitis acute Chest pain acute [facility] Work Phone: Evaluation note* Diagnosis Onset Date Resolution Status Left knee DJD acute Right knee DJD acute Obesity chronic Morbid obesity acute Preventative health care acu te Abnormal EKG acute Acute cystitis acute Chest pain acute Constipation acute Rectal bleeding acute [facility] Work Phone: Evaluation note* Diagnosis Onset Date Resolution Status Left knee DJD acute Right knee DJD acute Obesity chronic Morbid obesity acute Preventative health care acu te Abnormal EKG acute Acute cystitis acute Chest pain acute Constipation acute Rectal bleeding acute Chest pain acute Essential hypertension chron ic Hyperlipidemia chronic [facility] Work Phone: Evaluation note* Diagnosis Onset Date Resolution Status Chest pain acute Essential hypertension chron ic Hyperlipidemia chronic Abdominal pain acute Constipation chronic Rectal bleeding chronic Left knee DJD acute Right knee DJD acute [facility] Work Phone: Evaluation note* Diagnosis Onset Date Resolution Status Chest pain acute Essential hypertension chron ic Hyperlipidemia chronic Abdominal pain acute Constipation chronic Rectal bleeding chronic Left knee DJD acute Right knee DJD acute BPPV (benign paroxysmal positional vertigo) noneactive [facility] Work Phone: Evaluation note* Diagnosis Onset Date Resolution Status Depression with anxiety psychiatric nursing assistant art Acute pharyngitis, unspecified acute Acute sinusitis, unspecified acute Conjunctivitis, right eye ac [place] Left knee DJD acute Right knee DJD acute Right knee DJD acute Depression with anxiety psychiatric nursing assistant art Essential hypertension chron ic Hyperlipidemia chronic [facility] Work Phone: Evaluation note* Diagnosis Onset Date Resolution Status Left knee DJD acute Right knee DJD acute Right knee DJD acute Depression with anxiety psychiatric nursing assistant art Essential hypertension chron ic Hyperlipidemia chronic [facility] Work Phone: Evaluation note* Diagnosis Onset Date Resolution Status Essential hypertension chron ic Hyperlipidemia chronic Health care maintenance acut e Preoperative evaluation to r ule out surgical contraindication acute Suprapubic discomfort acute Upper respiratory infection acute [facility] Work Phone: Evaluation note* Diagnosis Onset Date Resolution Status Health care maintenance acut e Preoperative evaluation to r ule out surgical contraindication acute Suprapubic discomfort acute Upper respiratory infection acute [facility] Work Phone: Evaluation note* Diagnosis Onset Date Resolution Status Health care maintenance acut e Preoperative evaluation to r ule out surgical contraindication acute Suprapubic discomfort acute Upper respiratory infection acute Right knee DJD acute Status post total right knee replacement acute [facility] Work Phone: evaluation note* Diagnosis Onset Date Resolution Status Right knee DJD acute Status post total right knee replacement acute [facility] Work Phone: evaluation noteNo assessment information available [facility] Work Phone: evaluation note* Diagnosis Onset Date Resolution Status Preventative health care acu te Osteoporosis chronic [facility] Work Phone: evaluation note* Diagnosis Onset Date Resolution Status Admit Date Elevated fasting glucose acute February 13, 2025 3:52pm Fatigue acute February 13, 2025 3:52pm Lymph node enlargement acute Oc tober 2024 3:52pm Preventative health care acute February 13, 2025 3:52pm Recurrent UTI acute January 3:52pm Essential hypertension chronic Oc tober 2024 3:52pm Hyperlipidemia chronic February 132024 3:52pm Obesity chronic February 13, 2025 3:52pm Osteoarthritis chronic February 132024 3:52pm [facility] Work Phone: Hospital Discharge instructionsAmbulatory Orders* Urology Location: None Selected [facility] Work Phone: Reason for referral (narrative)No reason for referral information availablePatton [facility] Work Phone: Chief Complaint and Reason for Visit Chief Complaint ICE PICK HEADACHE BE HIND LT EYE 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 Reason for Visit Migraine Chief Complaint FALL OCC MED FU/ [facility] HIP/KNEE/RIB sob, fatigue, wants stress test Reason for Visit Malaise and fatigue Screening for thyroid disorder Upper respiratory infection Fatigue Hypertension SOB (shortness of breath) Chief Complaint FALL OCC MED FU/ [facility] HIP/KNEE/RIB sob, fatigue, wants stress test ESOGUARD bleeding from rectum Reason for Visit Malaise and fatigue Screening for thyroid disorder Upper respiratory infection Fatigue Hypertension SOB (shortness of breath) Chief Complaint ESOGUARD bleeding from rectum bilat knees 8 M FU EMPLOYEE LABS HYPERTENION f/u labs and EKG CHEST PAIN/copy dr read CHEST PAIN/copy dr read Reason for Visit Left knee DJD Right knee DJD Obesity Morbid obesity Preventative health care Abnormal EKG Acute cystitis Chest pain Chief Complaint ESOGUARD bleeding from rectum bilat knees 8 M FU EMPLOYEE LABS HYPERTENION f/u labs and EKG CHEST PAIN/copy dr read CHEST PAIN/copy dr read GI BLEED Reason for Visit Left knee DJD Right knee DJD Obesity Morbid obesity Preventative health care Abnormal EKG Acute cystitis Chest pain Chief Complaint bleeding from rectum bilat knees 8 M FU HYPERTENION EMPLOYEE LABS HYPERTENION f/u labs and EKG CHEST PAIN/copy dr read CHEST PAIN/copy dr read GI BLEED E-ORDER Reason for Visit Left knee DJD Right knee DJD Obesity Morbid obesity Preventative health care Abnormal EKG Acute cystitis Chest pain Constipation Rectal bleeding Chief Complaint bilat knees 8 M FU HYPERTENION EMPLOYEE LABS HYPERTENION f/u labs and EKG CHEST PAIN/copy dr raed CHEST PAIN/copy dr read GI BLEED E-ORDER abn ekg PRE-OP HEART CATH Reason for Visit Left knee DJD Right knee DJD Obesity Morbid obesity Preventative health care Abnormal EKG Acute cystitis Chest pain Constipation Rectal bleeding Chest pain Essential hypertension Hyperlipidemia Chief Complaint bilat knees 8 M FU HYPERTENION EMPLOYEE LABS HYPERTENION f/u labs and EKG CHEST PAIN/copy dr read CHEST PAIN/copy dr read GI BLEED E-ORDER abn ekg PRE-OP HEART CATH ABN EKG/CHEST PAIN ON EXERTION Reason for Visit Left knee DJD Right knee DJD Obesity Morbid obesity Preventative health care Abnormal EKG Acute cystitis Chest pain Constipation Rectal bleeding Chest pain Essential hypertension Hyperlipidemia Chief Complaint BLOOD FLOW medication concerns CONCERN FOR BRONCHITIS/SINUS INFEC/PINK EYE RIGHT KNEE PAIN IN RIGHT KNEE 1 M FU 6 M FU MORBID [employer]ESITY BL OA KNEES. 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 RX HERE MORBID OBESITY EMPLOYEE HEALTH SURGICAL CLEARANCE MORBID OBESITY Reason for Visit Essential hypertensi on Hyperlipidemia Health care maintenance Preoperative evaluation to rule out surgical contraindication Suprapubic discomfort Upper respiratory infection Chief Complaint MORBID OBESITY BL OA KNEES. RX HERE MORBID OBESITY EMPLOYEE HEALTH SURGICAL CLEARANCE MORBID OBESITY Reason for Visit [facility] Preoperative evaluation to rule out surgical contraindication Suprapubic discomfort Upper respiratory infection Chief Complaint MORBID OBESITY BL OA KNEES. RX HERE MORBID OBESITY EMPLOYEE HEALTH SURGICAL CLEARANCE MORBID OBESITY Varus deformity, not elsewhere classified, right k Reason for Visit [facility] nce Preoperative evaluation to rule out surgical contraindication Suprapubic discomfort Upper respiratory infection Chief Complaint EMPLOYEE HEALTH SURGICAL CLEARANCE MORBID OBESITY Varus deformity, not elsewhere classified, right k PREOP MORB[employer]ES[employer] RT TOTAL KNEE W PAULA RT TOTAL KNEE W PAULA L TKA TO FAX Reason for Visit [facility] nce Preoperative evaluation to rule out surgical contraindication Suprapubic discomfort Upper respiratory infection Right knee DJD Status post total right knee replacement Chief Complaint EMPLOYEE HEALTH SURGICAL CLEARANCE MORB[employer]ESITY Varus deformity, not elsewhere classified, right k PREOP MORBID OBESITY RT TOTAL KNEE W PAULA RT TOTAL KNEE W PAULA L TKA TO JESSICAX L TKA TO JEFF Reason [facility] Preoperative evaluation to rule out surgical contraindication Suprapubic discomfort Upper respiratory infection Right knee DJD Status post total right knee replacement Chief Complaint Varus deformity, not elsewhere classified, right k PREOP MORBID OBESITY RT TOTAL KNEE W PAULA RT TOTAL KNEE W PAULA L TKA TO JEFF L TKA TO JEFF Reason for Visit Right knee DJD Status post total right knee replacement Chief Complaint L TKA TO FAX CONGESTION/LOSS OF TASTE/SMELL COVID SWAB/WCH EMP SCREENING Chief Complaint CONGESTION/LOSS OF T ASTE/SMELL COVID SWAB/WCH EMP SCREENING 1 Y FU POST DAVIDE Reason for Visit Preventative health care Osteoporosis Chief Complaint Admit Date CONGESTION, SORE THROAT January 24, 2025 4:42pm Chief Complaint Admit Date CONGESTION, SORE THROAT January 24, 2025 4:42pm EMPLOYEE LABS February 12, 2025 7 :29am Follow up / Lump under chin/neck Octob er 2024 3:52pm INT LAB ORDERS February 26, 2025 4 :33pm Reason for Visit Admit Date Elevated fasting glucose February 13 2 025 3:52pm Fatigue February 13, 2025 3 :52pm Lymph node enlargement February 13 3:52pm Preventative health care October 14th, 2 025 3:52pm Recurrent UTI February 13, 2025 3 :52pm Essential hypertension February 13 3:52pm Hyperlipidemia February 13, 2025 3 :52pm Obesity February 13, 2025 3 :52pm Osteoarthritis February 13, 2025 3 :52pm Family History No Family History Records Found Relationship Condition Age at Onset Recorded Date/T araseli mother Diabetes mellitus Unknown Cardiac disease Unknown father Diabetes mellitus Unknown sister Malignant neoplasm of breast Unknown brother Malignant neoplasm of testis Unknown Relationship Condition Age at Onset Recorded Date/T araseli mother Diabetes mellitus Unknown Cardiac disease Unknown father Diabetes mellitus Unknown Coronary artery disease Unknown Myocardial infarction 42 sister Malignant neoplasm of breast Unknown brother Malignant neoplasm of testis Unknown sister Malignant neoplasm Unknown brother Malignant neoplasm Unknown Advance Directives No Advanced Directives Records Found Advance Directive Response Recorded Date/ Time Living Will No July 29, 2021 4:23pm Power of [employer] No July 29 4:23pm Advance Directive Response Recorded Date/ Time Living Will No October 24, 2021 11:30am Power of [employer] No October 24 11:30am Advance Directive Response Recorded Date/ Time Living Will No October 24, 2021 10:30am Power of [employer] No October 24 10:30am Advance Directive Response Recorded Date/ Time Living Will No March 16 022 2:41pm Power of [employer] No March 16, 2022 2:41pm Advance Directive Response Recorded Date/ Time Living Will No June 08 7:52pm Power of [employer] No June 08, 2022 7:52pm Advance Directive Response Recorded Date/ Time Living Will No June 08 8:52pm Power of [employer] No June 08, 2022 8:52pm Advance Directive Response Recorded Date/ Time Living Will No January 05 023 11:33am Power of [employer] No January 05, 2023 11:33am Advance Directive Response Recorded Date/ Time Living Will No January 27, 2023 2:18pm Power of [employer] No January 2:18pm Advance Directive Response Recorded Date/ Time Living Will No January 27, 2023 3:18pm Power of [employer] No January 3:18pm Summary Purpose Additional Source Comments Goals (unrecognized section and content) Goals may be documented in a n alternate sectionGoals may be documented in an alternate section Care Teams (unrecognized sec tion and content) Team Status: Active Member Role Status Dates Dr. Lenka Ferguson MD Family Provider Active Dr. Lenka Ferguson MD Primary Care Provider Active Team Status: Inactive Member Role Status Dates Dr. Lenka Ferguson MD Primary Care Provider, Refer ring Provider Active Dr. Pedro Read MD Attending Provider Active Team Status: Inactive Member Role Status Dates Dr. Lenka Ferguson MD Primary Care Provider, Refer ring Provider Active Dr. Dudley Wallace DO Attending Provider Active Team Status: Active Member Role Status Dates Dr. Lenka Ferguson MD Primary Care Provider, Refer ring Provider Active Dr. Dudley Wallace DO Attending Provider, Other Prov ider Active Team Status: Inactive Member Role Status Dates Dr. Lenka Ferguson MD Primary Care Provider, Refer ring Provider Active Jose Maria Johnson PA, PA Attending Provider Active Team Status: Inactive Member Role Status Dates Dr. Lenka Ferguson MD Primary Care Provider, Refer ring Provider Active Dr. Gumaro Rubin DO Attending Provider Active Team Status: Inactive Member Role Status Dates Dr. Lenka Ferguson MD Primary Care Provider Active Dr. Pedro Read MD Attending Provider, Referring Pro vider Active Team Status: Active Member Role Status Dates Dr. Lenka Ferguson MD Primary Care Provider Active Dr. Dudley Wallace DO Attending Provider, Referring Provider Active Team Status: Active Member Role Status Dates Dr. Lenka Ferguson MD Primary Care Provider Active Dr. Pedro Read MD Attending Provider, Referring Pro vider Active Team Status: Inactive Member Role Status Dates Dr. Lenka Ferguson MD Primary Care Provider Active Dr. Hayden Treviño DO Emergency Provider Active Team Status: Inactive Member Role Status Dates Dr. Lenka Ferguson MD Primary Care Provider Active Dr. Dudley Wallace DO Attending Provider, Referring Provider Active Team Status: Inactive Member Role Status Dates Dr. Lenka Ferguson MD Primary Care Provider, Refer ring Provider Active Adam Cain RENTAL CAR PORTER, RENTAL CAR PORTER-C Attending Provider Active Team Status: Active Member Role Status Dates Dr. Lenka Ferguson MD Primary Care Provider Active Adam Cain RENTAL CAR PORTER, RENTAL CAR PORTER-C Attending Provider, Referring Prov ider Active Team Status: Inactive Member Role Status Dates Dr. Lenka Ferguson MD Primary Care Provider Active Dr. Hayden Treviño DO Attending Provider, Emergency Provider Active Team Status: Inactive Member Role Status Dates Dr. Lenka Ferguson MD Primary Care Provider Active Adam Cain RENTAL CAR PORTER, RENTAL CAR PORTER-C Attending Provider, Referring Prov ider Active Team Status: Inactive Member Role Status Dates Dr. Lenka Ferguson MD Primary Care Provider, Refer ring Provider Active Marian Sotelo PA, PA Attending Provider Active Team Status: Active Member Role Status Dates Dr. Lenka Ferguson MD Primary Care Provider Active Dr. Amado Corcoran MD Attending Provider Active Team Status: Active Member Role Status Dates Dr. Lenka Ferguson MD Primary Care Provider Active Dr. Isaiah Ramey MD Attending Provider Active Team Status: Inactive Member Role Status Dates Dr. Lenka Ferguson MD Primary Care Provider Active Dr. Jose Maria Valdez MD Attending Provider, Referring P rovider Active Team Status: Active Member Role Status Dates Dr. Lenka Ferguson MD Primary Care Provider Active Dr. Jose Maria Valdez MD Attending Provider, Referring P rovider Active Team Status: Inactive Member Role Status Dates Dr. Lenka Ferguson MD Primary Care P rovider, Attending Provider, Referring Provider Active Team Status: Active Member Role Status Dates Dr. Lenka Ferguson MD Primary Care Provider Active Health Risk Assessment Attending Provider, Referring P rovider Active Team Status: Active Member Role Status Dates Dr. Lenka Ferguson MD Primary Care Provider Active Dr. Pedro Read MD Attending Provider Active Dr. Jose Maria Valdez MD Referring Provider Active Team Status: Active Member Role Status Dates Dr. Lenka Ferguson MD Primary Care Provider Active Dr. Jose Maria Valdez MD Admit Provider, R eferring Provider, Other Provider Active Dr. Laurie Bowser DO Attending Provider, Other Provide r Active Team Status: Inactive Member Role Status Dates Dr. Lenka Ferguson MD Primary Care Provider Active Dr. Jose Maria Valdez MD Admit Provider, A ttending Provider, Referring Provider Active Dr. Isaiah Vanegas DO Other Provider Active Team Status: Active Member Role Status Dates Dr. Lenka Ferguson MD Primary Care Provider Active Tre LARA PA-C Attending Provider, Referring Pr ovider Active Team Status: Inactive Member Role Status Dates Dr. Lenka Ferguson MD Primary Care Provider, Atten ding Provider Active Team Status: Inactive Member Role Status Dates Dr. Lenka Ferguson MD Primary Care Provider Active Tre LARA PA-C Attending Provider, Referring Pr ovider Active Team Status: Active Member Role Status Dates Dr. Lenka Ferguson MD Primary Care Provider Active Health Risk Assessment Attending Provider Active Team Status: Active Member Role/Relationship Status Dates Dr. Lenka Ferguson MD Primary care physician Activ e Team Status: Inactive Member Role/Relationship Status Dates Dr. Lenka Ferguson MD Primary care physician Activ e Start: January 24, 2025 End: January 24, 2025 Dr. Lenka Ferguson MD Referring Provider Active Start: January 24, 2025 End: January 24, 2025 Jose Maria LARA PA Attending physician Active Start: January 24, 2025 End: January 24, 2025 Team Status: Active Member Role/Relationship Status Dates Dr. Lenka Ferguson MD Primary care physician Activ e Start: February 12, 2025 Health Risk Assessment Attending physician Active Start: February 12, 2025 Health Risk Assessment Referring Provider Active Start: February 12, 2025 Team Status: Active Member Role/Relationship Status Dates Dr. Lenka Ferguson MD Primary care physician Activ e Start: February 12, 2025 Dr. Lenka Ferguson MD Attending physician Active Start: February 12, 2025 Dr. Lenka Ferguson MD Referring Provider Active Start: February 12, 2025 Team Status: Inactive Member Role/Relationship Status Dates Dr. Lenka Ferguson MD Primary care physician Activ e Start: February 13, 2025 End: February 13, 2025 Dr. Lenka Ferguson MD Referring Provider Active Start: February 13, 2025 End: February 13, 2025 JHOANA Cobb Attending physician Active Start: February 13, 2025 End: February 13, 2025 Team Status: Active Member Role/Relationship Status Dates Dr. Lenka Ferguson MD Primary care physician Activ e Start: February 26, 2025 JHOANA Cobb Attending physician Active Start: February 26, 2025 JHOANA Cobb Referring Provider Active Start: February 26, 2025 INFORMATION SOURCE (unrecogn ized section and content) DATE CREATED AUTHOR 02/28/2025 [facility] FOR RECORDS PERTAINING TO PATIENTS WHO ARE OR HAVE BEEN ENROLLED IN A CHEMICAL DEPENDENCY/SUBSTANCEABUSE PROGRAM, SOME INFORMATION MAY BE OMITTED. This clinical summary was aggregated from multiple sources. Caution should be exercised in using it in the provision of clinical care. This summary normalizes information from multiple sources, and as a consequence, information in this document may materially change the coding, format and clinical context of patient data. In addition, data may be omitted in some cases. CLINICAL DECISIONS SHOULD BE BASED ON THE PRIMARY CLINICAL RECORDS. [employer] provides no warranty or guarantee of the accuracy or completeness of information in this document.
== END | disposition home or self-care (01) ==
LOC: US 16:36
PROVIDERS: PCP Internal Medicine; Referring Provider Nurse Practitioner Family; Visit Provider Nurse Practitioner Family
DX: R59.9 Enlarged lymph nodes, unspecified (principal)
CPT/HCPCS: 76536

== ENCOUNTER → 2025-03-13 | Outpatient (CLI) | payer OTHER, SELFPAY ==
--- NOTE | 2025-03-13 16:37 | BI_ITS ---
EXAM: SCRN MAMM (CAD)W/MAXI BILAT DATE: 03/13/2025 CLINICAL HISTORY: F, Age 64 y/o , SCREENING Sister with breast cancer. History of prior bilateral breast reduction surgery. TECHNIQUE: Procedure Code: [id number] Modality: MG Procedure: SCRN MAMM (CAD)W/MAXI BILAT COMPARISON: Prior exam(s) dated August 03, 2023.. FINDINGS: TISSUE DENSITY: The breasts are almost entirely fatty. Bilateral Breast Mammographic Findings: No significant masses, calcifications or other abnormalities are identified. No suspicious masses, areas of developing architectural distortion, or suspicious calcifications. There has been no significant interval change. BI/SCRN MAMM (CAD)W/MAXI BILAT IMPRESSION: Stable bilateral screening mammogram. OVERALL FINAL ASSESSMENT BI-RADS 1: NEGATIVE. RECOMMENDATION: Routine annual follow-up in 1 Year Additional Recommendation none A letter with findings and recommendations will be mailed to the patient. Reading Location: [place] [id number]
== END | disposition home or self-care (01) ==
PROVIDERS: PCP Internal Medicine; Referring Provider Internal Medicine; Visit Provider Internal Medicine
DX: Z12.31 Encounter for screening mammogram for malignant neoplasm of breast (principal)
CPT/HCPCS: 77063; 77067